=== PATIENT | female | born 1945 | race Caucasian/White ===

== ENCOUNTER → 2016-09-19 | Outpatient (CLI) | payer OTHER, BC ==
[~2016-09-19] MED LIST: AZITTAB PO; CFT250 PO; CRG3125; LRT5 PO
--- NOTE | 2016-09-20 12:37 | MAMMOGRAPHY REPORT ---
BILATERAL DIGITAL SCREENING MAMMOGRAM WITH CAD: 09/19/2016 CLINICAL HISTORY: Routine screening examination. TECHNIQUE: Bilateral CC, MLO and repeat right MLO views were obtained. Current study was also eval uated with a Computer Aided Detection (CAD) system. COMPARISON: Comparison is made to exams dated: 09/16/2015 mammogram, 09/09/2014 mammogram, and 014 mammogram - [facility]. BREAST COMPOSITION: The tissue of both breasts is heterogeneously dense, which may obscure small ma sses. FINDINGS: There are mild vascular calcifications in the breasts. A few coarse benign calcifications and punctate microcalcifications. No new suspicious mass, architectural distortion or cluster of m icrocalcifications is seen. IMPRESSION: ACR BI-RADS CATEGORY 1: NEGATIVE There is no mammographic evidence of malignancy. A 1 year screening mammogram is recommended. The p atient will receive written notification of the results. Approximately 10% of breast cancers are not detected with mammography. A negative mammographic repor t should not delay biopsy if a clinically suggestive mass is present. Haven Man M.D. ay/:09/19/2016 16:37:03 Client Support Consultant: Reina LEMUS)(Jeff), [facility] letter sent: Normal 1/2 BI-RADS Code: ACR BI-RADS Category 1: Negative
== END | disposition home or self-care (01) ==
LOC: C.MAMM 09:16
PROVIDERS: ATTEND Obstetrics & Gynecology
DX: Z12.31 Encounter for screening mammogram for malignant neoplasm of breast (principal)

== ENCOUNTER → 2016-09-19 | Outpatient (CLI) | payer OTHER, BC | END | disposition home or self-care (01) | LOC: C.LABSPEC 16:30 | PROVIDERS: ATTEND Obstetrics & Gynecology | DX: N81.11 Cystocele, midline (principal) ==

== ENCOUNTER → 2017-01-18 | Outpatient (CLI) | payer OTHER, BC | END | disposition home or self-care (01) | LOC: C.MAMM 13:24 | PROVIDERS: ATTEND Family Medicine | DX: M85.89 Other specified disorders of bone density and structure, multiple sites (principal) ==

== ENCOUNTER → 2017-03-05 | Outpatient (CLI) | payer OTHER, BC ==
--- NOTE | 2017-03-05 14:23 | DIAGNOSTIC IMAGING REPORT ---
(RENAL)RETROPERITON COMP CLINICAL HISTORY: 71 years-old Female presenting with chronic renal disease. TECHNIQUE: Real-time grayscale and limited color Doppler ultrasound imaging of the kidneys and bladder was performed. COMPARISON: 09/12/2013. FINDINGS: Right kidney: Normal echogenicity. Right kidney measures 11.5 cm. No hydronephrosis. 3 mm hyperechoic focus in the interpolar region with twinkling artifact suggesting calculus. Normal perfusion. Left kidney: Atrophic and irregular renal parenchyma with multiple cysts noted. No significant residual cortex is appreciated. This appearance is unchanged from prior. Left kidney measures 7.5 cm. Bladder: No bladder wall thickening. Right ureteral jet noted. Other: None. IMPRESSION: 1. Atrophic multicystic left kidney, unchanged from prior. 2. 3 mm nonobstructing right renal calculus. Electronically signed by: Teodoro Alston M.D. 03/05/2017 2:22 PM Dictated Date/Time: 03/05/2017 2:18 PM
== END | disposition home or self-care (01) ==
LOC: C.ULTRBC 13:51
PROVIDERS: ATTEND Obstetrics & Gynecology
DX: Z87.442 Personal history of urinary calculi (principal); N18.9 Chronic kidney disease, unspecified

== ENCOUNTER → 2017-09-25 | Outpatient (CLI) | payer OTHER, BC ==
--- NOTE | 2017-09-27 08:01 | MAMMOGRAPHY REPORT ---
BILATERAL DIGITAL SCREENING MAMMOGRAM TOMOSYNTHESIS WITH CAD: 09/25/2017 CLINICAL HISTORY: Routine screening. Patient has no complaints. TECHNIQUE: Breast tomosynthesis in addition to standard 2D mammography was performed. Current study was also evaluated with a Computer Aided Detection (CAD) system. COMPARISON: Comparison is made to exams dated: 09/19/2016 mammogram, 09/16/2015 mammogram, 09/09/2014 m ammogram, 08/12/2013 mammogram, 08/08/2012 mammogram, and 08/08/2011 mammogram - [facility]. BREAST COMPOSITION: The tissue of both breasts is heterogeneously dense, which may obscure small mas ses. FINDINGS: A linear scar marker overlies the lower inner posterior right breast. There are mild to mo derate vascular calcifications bilaterally. No suspicious mass, architectural distortion or cluster of microcalcifications is seen. IMPRESSION: ACR BI-RADS CATEGORY 1: NEGATIVE There is no mammographic evidence of malignancy. A 1 year screening mammogram is recommended. The pa tient will receive written notification of the results. Approximately 10% of breast cancers are not detected with mammography. A negative mammographic report should not delay biopsy if a clinically suggestive mass is present. Haven Man M.D. ay/:09/25/2017 16:27:34 Water Operator: Suzanne Baron, [facility] letter sent: Normal 1/2 BI-RADS Code: ACR BI-RADS Category 1: Negative
== END | disposition home or self-care (01) ==
LOC: C.MAMM 11:18
PROVIDERS: ATTEND Obstetrics & Gynecology
DX: Z12.31 Encounter for screening mammogram for malignant neoplasm of breast (principal)

== ENCOUNTER 2021-03-12 18:39 | Inpatient (IN) ==
[2021-03-12] MEDS ORDERED: LORazepam 0.5 MG/1 ML VIAL IV STA (19:02)
--- NOTE | 2021-03-12 19:02 | Emergency Department Note ---
Impression & Plan SBO (small bowel obstruction), Amnesia, global, transient ED Provider Note NAME: NICKY MCKEON AGE: 75 SEX: F : 1945 ARRIVES VIA: Ambulance INFORMANT: Patient, EMS and the patient's significant other ED PROVIDER(S): Byron Ortiz DO CHIEF COMPLAINT: Altered mental status HPI: The patient is a 75-year-old female who presented to the emergency department for an evaluation of altered mental status. Initially 911 was called because the patient had a very acute onset of abdominal pain. She describes it as mid abdominal pain which wraps around both flanks. She denies having any chest pain or difficulty breathing. She denies having any fever or cough. The patient was then noticed to have an episode where she was asking repetitive questions. She did not remember why she called 911 or what it happened. Apparently the patient was preparing a meal that she has been preparing for the last few weeks. She was having a large amount of family over. She denies having any nausea or vomiting. She has had no fever. She is had no recent trauma. She does not have any significant past medical history and does not t doug medication specifically for blood pressure. ROS: See above HPI for pertinent positives & negatives. A total of 10 systems reviewed and were otherwise negative. PAST MEDICAL HISTORY: See Below PAST SURGICAL HISTORY: See Below FAMILY HISTORY: See Below SOCIAL HISTORY: See Below HOME MEDICATIONS: See Below ALLERGIES: See Below VITALS: See Below PHYSICAL EXAMINATION: GENERAL: Patient is awake alert in no acute distress patient is resting comfortably and showing no signs of anxiety EYES: The conjunctivae are clear. The pupils are round and reactive. EARS, NOSE, MOUTH AND THROAT: The nose is without any evidence of any deformity. Mucous membranes are moist. Tongue is midline. NECK: The neck is nontender and supple. RESPIRATORY: Normal respiratory effort is noted there is no evidence of wheezing rhonchi or rales CARDIOVASCULAR: Regular rate and rhythm noted there no murmurs rubs or gallops normal S1 normal S2. GASTROINTESTINAL: The abdomen is soft. Abdomen is nontender. MUSCULOSKELETAL/EXTREMITIES: There is no evidence of gross deformity full range of motion is noted in the hips and shoulders. SKIN: There is no obvious evidence of any rash. There are no petechiae, pallor or cyanosis noted. NEUROLOGIC: Patient is awake alert and oriented x3 strength is symmetric patellar reflexes are 2+ bilaterally. There is no facial droop noted. The patient does ask repetitive questions about why she is in the emergency department but otherwise does recognize her who is with her. MEDICAL DECISION MAKING: The patient is a 75-year-old female who presented to the emergency department for an evaluation of multiple complaints. The patient had this episode at home where she developed significant abdominal pain and then vomiting. While en route to the facility the patient developed an episode of amnesia. I was contacted by the prehospital personnel about the patient's neurologic status. She was not made a stroke alert prior to arrival given the complexity of her presentation. Upon arrival she did have some amnesia to the event but had no focal neurologic deficits. She has underlying renal disease so plain CT of the head was obtained as well as CT the abdomen and pelvis. The patient CT the head did not show any acute disease. Her condition continued to improve while she in the emergency department but CT of the abdomen and pelvis appear to be consistent with a bowel obstruction as well as possible internal hernia. I discussed the patient's condition with the on-call general surgeon. I also discussed his case with the on-call [facility] hospitalist. They have agreed to evaluate the patient in the emergency department for further management and disposition. NG tube was ordered. Triage Nursing notes reviewed. Prior medical records reviewed Vital Signs: reviewed and remarkable for elevated blood pressure. Differential diagnosis: Infection, hypoglycemia, electrolyte abnormalities, overdose, toxicologic, cardiac sources, intracerebral event, neurologic, trauma, as well as other pathologies. ER treatment provided: See below Diagnostics interpreted by me: ECG: EKG was obtained in the emergency department. My interpretation is normal sinus rhythm at 61 bpm. Inferior Q waves are noted. Incomplete right bundle branch block pattern was noted. This was compared to a tracing from June 122006. No significant changes were noted. Cardiac Monitoring: An order was placed for continuous cardiac monitoring. The monitor shows a rate of 57 bpm with sinus bradycardia rhythm. Laboratory studies: As stated above and show below. Imaging studies: See below Consultation(s): 2000: I discussed this case with Dr. King who is on-call for the general surgical group. He does recommend an NG tube. I discussed this case with the on-call [facility] hospitalist. They have agreed to evaluate the patient in the emergency department for further management and disposition. Past Med/Surg History Medical History (Updated 03/12/21 @ 23:53 by Byron Ortiz DO) Kidney stones Surgical History (Updated 03/13/21 @ 05:40 by Nadine Johnson MD) History of total hysterectomy Hx of cholecystectomy Hx of mitral valve replacement Social History Smoking Status: Never smoker Hx Alcohol Use: Yes Alcohol type: wine Hx Substance Use: No Preferred Language: Sami Communication Ability: Effective Purchasing And Claims Supervisor Required: No Beliefs That Will Affect Care: Restorationism Restorationism Beliefs: Member of [facility] Current Living Situation: Spouse Feels Safe at Home: Yes Safety Concerns: Feels Safe At This Time Allergies Allergies Allergy/AdvReac Type Severity Reaction Status Date / Time shellfish derived Allergy Unknown COULDN'T Verified 03/12/21 20:38 BREATH; SWELLING methimazole AdvReac Mild SWELLING Verified 03/12/21 20:38 OF JOINTS iodine AdvReac Unknown Nausea Verified 03/12/21 20:38 amoxicillin [From Augmentin] AdvReac BLOODY Verified 03/12/21 20:38 DIAHRREA clavulanic acid AdvReac BLOODY Verified 03/12/21 20:38 [From Augmentin] DIAHRREA Home Meds Home Medications Medication Instructions Recorded Confirmed cholecalciferol (vitamin D3) 25 1,000 unit PO DAILY 02/04/19 03/12/21 mcg (1,000 unit) tablet (Vitamin D3) prednisone 5 mg tablet 5 mg PO DAILY 03/12/21 03/12/21 tolterodine 1 mg tablet 1 mg PO BID 03/12/21 03/12/21 Results & Data (ED) Vital Signs Vital Signs - 24 hr 03/12/21 18:35 03/12/21 19:12 03/12/21 19:30 Temperature 36.8 C Temperature Source Oral Pulse Rate 88 83 69 Pulse Rate [Right Finger] 88 Pulse Rate from SpO2 Sensor 67 Respiratory Rate 18 22 19 Blood Pressure 210/92 H 164/99 H Blood Pressure [Right Arm] 169/89 H Blood Pressure Mean 131 120 Blood Pressure Mean [Right Arm] 115 Blood Pressure Position [Right Arm] Lying Pulse Oximetry 97 98 95 Oxygen Delivery Method Room Air Room Air Sepsis Recent Fever Within 48 Hours No Sepsis New/Unexplained Change in Mental Status No Sepsis Action Taken by Nursing No Action Required 03/12/21 20:00 03/12/21 20:30 Temperature Temperature Source Pulse Rate 64 72 Pulse Rate [Right Finger] Pulse Rate from SpO2 Sensor 61 68 Respiratory Rate 16 Blood Pressure 182/97 H 187/93 H Blood Pressure [Right Arm] Blood Pressure Mean 125 124 Blood Pressure Mean [Right Arm] Blood Pressure Position [Right Arm] Pulse Oximetry 97 96 Oxygen Delivery Method Sepsis Recent Fever Within 48 Hours Sepsis New/Unexplained Change in Mental Status Sepsis Action Taken by Fdc Medications Current Medication List: was personally reviewed by me Laboratory Data Attestation: I reviewed the patient's lab results. Result diagrams: 03/13/21 05:56 03/13/21 05:56 Lab Results 03/12/21 03/12/21 03/12/21 Range/Units 19:10 19:10 19:10 WBC 13.54 H (4.8-10.8) K/uL RBC 4.91 (4.2-5.4) M/uL Hgb 14.9 (12.0-16.0) g/dL Hct 44.9 (37-47) % MCV 91.4 (80-100) fL MCH 30.3 (25-34) pg MCHC 33.2 (32-36) g/dL RDW Std Deviation 49.8 H (36.4-46.3) fL RDW Coeff of Jigna 14.7 H (11.5-14.5) % Plt Count 228 (130-400) K/uL MPV 9.6 (7.4-10.4) fL Immature Gran % (Auto) 0.2 % Neut % (Auto) 86.5 % Lymph % (Auto) 8.9 % Weld % (Auto) 3.9 % Eos % (Auto) 0.2 % Baso % (Auto) 0.3 % Neut # (Auto) 11.71 H (1.4-6.5) K/uL Lymph # (Auto) 1.20 (1.2-3.4) K/uL Weld # (Auto) 0.53 (0.11-0.59) K/uL Eos # (Auto) 0.03 (0-0.5) K/uL Baso # (Auto) 0.04 (0-0.2) K/uL Immature Gran # (Auto) 0.03 H (0.00-0.02) K/uL PT 10.3 (9.0-12.0) Seconds INR 1.0 (0.9-1.1) APTT 22.1 (21.0-31.0) Seconds PTT Ratio 0.8 Sodium 140 (136-145) mmol/L Potassium 4.0 (3.5-5.1) mmol/L Chloride 105 (98-107) mmol/L Carbon Dioxide 28 (21-32) mmol/L Anion Gap 7.0 (3-11) BUN 21 H (7-18) mg/dl Creatinine 0.98 (0.6-1.2) mg/dl Est Cr Clr Drug Dosing 41.5 ml/min Est GFR ( Amer) 65.4 ml/min Est GFR (Non-Af Amer) 56.4 ml/min BUN/Creatinine Ratio 21.5 H (10-20) Glucose 96 (70-99) mg/dl Calcium 9.1 (8.5-10.1) mg/dl Magnesium 1.9 (1.8-2.4) mg/dl Total Bilirubin 0.8 (0.2-1) mg/dl AST 31 (15-37) U/L ALT 30 (12-78) U/L Alkaline Phosphatase 59 (45-117) U/L Troponin I < 0.015 (0-0.045) ng/ml Total Protein 6.9 (6.4-8.2) gm/dl Albumin 3.7 (3.4-5.0) gm/dl Globulin 3.2 (2.5-4.0) gm/dl Albumin/Globulin Ratio 1.2 (0.9-2) Lipase 157 (73-393) U/L COVID-19 Eval Order SARS-CoV-2 (PCR) (Negative) 03/12/21 03/12/21 Range/Units 20:00 20:00 WBC (4.8-10.8) K/uL RBC (4.2-5.4) M/uL Hgb (12.0-16.0) g/dL Hct (37-47) % MCV (80-100) fL MCH (25-34) pg MCHC (32-36) g/dL RDW Std Deviation (36.4-46.3) fL RDW Coeff of Jigna (11.5-14.5) % Plt Count (130-400) K/uL MPV (7.4-10.4) fL Immature Gran % (Auto) % Neut % (Auto) % Lymph % (Auto) % Weld % (Auto) % Eos % (Auto) % Baso % (Auto) % Neut # (Auto) (1.4-6.5) K/uL Lymph # (Auto) (1.2-3.4) K/uL Weld # (Auto) (0.11-0.59) K/uL Eos # (Auto) (0-0.5) K/uL Baso # (Auto) (0-0.2) K/uL Immature Gran # (Auto) (0.00-0.02) K/uL PT (9.0-12.0) Seconds INR (0.9-1.1) APTT (21.0-31.0) Seconds PTT Ratio Sodium (136-145) mmol/L Potassium (3.5-5.1) mmol/L Chloride (98-107) mmol/L Carbon Dioxide (21-32) mmol/L Anion Gap (3-11) BUN (7-18) mg/dl Creatinine (0.6-1.2) mg/dl Est Cr Clr Drug Dosing ml/min Est GFR ( Amer) ml/min Est GFR (Non-Af Amer) ml/min BUN/Creatinine Ratio (10-20) Glucose (70-99) mg/dl Calcium (8.5-10.1) mg/dl Magnesium (1.8-2.4) mg/dl Total Bilirubin (0.2-1) mg/dl AST (15-37) U/L ALT (12-78) U/L Alkaline Phosphatase (45-117) U/L Troponin I (0-0.045) ng/ml Total Protein (6.4-8.2) gm/dl Albumin (3.4-5.0) gm/dl Globulin (2.5-4.0) gm/dl Albumin/Globulin Ratio (0.9-2) Lipase (73-393) U/L COVID-19 Eval Order Covid19 at [facility] SARS-CoV-2 (PCR) NEGATIVE (Negative) Administered Medications Sodium Chloride (Nss 1000ml) 1,000 mls @ 100 mls/hr IV .Q10H JOSE Stop: 03/13/21 18:12 Last Admin: 03/13/21 08:31 Dose: 100 mls/hr Documented by: [id number] Infusion: 03/13/21 08:31 Dose: 100 mls/hr Documented by: [id number] Admin: 03/12/21 22:41 Dose: 100 mls/hr Documented by: [id number] Prochlorperazine 5 mg/ Syringe 5 mls @ 5 mls/min IV Q6H PRN PRN Reason: Nausea And Vomiting Stop: 04/12/21 04:32 Last Admin: 03/13/21 05:00 Dose: 5 mls/min Documented by: [id number] Ceftriaxone Sodium 1,000 mg/ (Dextrose) 50 mls @ 100 mls/hr IV Q24H JOSE; Protocol Stop: 03/23/21 05:59 Last Infusion: 03/13/21 07:03 Dose: 0 mls/hr Documented by: [id number] Admin: 03/13/21 06:06 Dose: 100 mls/hr Documented by: [id number] Ondansetron HCl (Ondansetron Inj 2 Mg/Ml 2 Ml Vial) 4 mg IV Q6H PRN PRN Reason: Nausea Stop: 04/11/21 22:12 Last Admin: 03/13/21 08:31 Dose: 4 mg Documented by: [id number] Admin: 03/13/21 01:23 Dose: 4 mg Documented by: [id number] Discontinued Medications Lorazepam (Ativan) 0.5 mg in 1 mls @ 1 mls/min IV NOW STA Stop: 03/12/21 19:03 Last Admin: 03/12/21 19:19 Dose: 1 mls/min Documented by: [id number] Cefoxitin Sodium (Mefoxin) 1,000 mg in 50 mls @ 100 mls/hr IV NOW STA Stop: 03/12/21 20:10 Last Infusion: 03/12/21 20:30 Dose: 0 mls/hr Documented by: [id number] Admin: 03/12/21 19:53 Dose: 100 mls/hr Documented by: [id number] Sodium Chloride (Nss 1000ml) 500 mls @ 999 mls/hr IV .Q31M ONE Stop: 03/12/21 20:11 Last Infusion: 03/12/21 20:30 Dose: 0 mls/hr Documented by: [id number] Admin: 03/12/21 19:53 Dose: 999 mls/hr Documented by: [id number] Imaging Data Radiologist's Impression: KUB X-Ray 03/12/21 20:26 KUB CLINICAL HISTORY: Enteric tube placement. FINDINGS: An AP, portable, upright view of the lower chest and upper abdomen is correlated with abdominal CT performed the same day 03/12/2021. An enteric tube has been placed. The tip projects below the diaphragm over the distal stomach. Dilated loops of gas-filled bowel are seen in the upper abdomen. Cholecystectomy clips are noted. The heart is enlarged with evidence of previous cardiac valve surgery. Atelectasis is seen at the lung bases. The skeletal structures are osteopenic and intact as visualized. IMPRESSION: 1. An enteric tube has been placed as above. 2. Gas-filled loops of dilated bowel are noted in the upper abdomen. Electronically signed by: Eleazar Fitch M.D. 03/13/2021 8:07 AM Discharge Plan Visit Data Chief Complaint: Stroke/CVA Symptoms ED Provider: Bryon Ortiz Discharge Problem: SBO (small bowel obstruction), Amnesia, global, transient Patient Disposition: Admitted As Inpatient Condition: Good Discharge Instructions Interventions: ED Discharge Assessment Last Done: 03/12/21 22:08
--- NOTE | 2021-03-12 19:16 | CT Scan Report ---
CT OF THE HEAD WITHOUT CONTRAST CLINICAL HISTORY: Stroke Like Symptoms COMPARISON STUDY: Head CT May 07, 2011. TECHNIQUE: Helical axial images of the head were obtained without IV contrast. Automated exposure con trol was utilized for the study. A dose lowering technique was utilized adhering to the principles o f ALARA. FINDINGS: No acute intracranial hemorrhage, midline shift or mass effect is present. The ventricular system is unremarkable. The basal cisterns are patent. No extra-axial collections are present. There are no findings to suggest acute dural sinus thrombosis or acute territorial infarct. No significant calvarial abnormalities are present. Visualized portions of the sinuses and mastoid air cells are kirby ar. IMPRESSION: No acute intracranial findings. ACT 112: Negative or not required by law. Electronically signed by: Dereje Marquez M.D. 03/12/2021 7:14 PM
--- NOTE | 2021-03-12 19:17 | XRay Report ---
XR chest 1V portable CLINICAL HISTORY: Stroke Like Symptoms COMPARISON STUDY: Chest radiograph June 12, 2017. FINDINGS: Lung volumes are normal. Lungs are clear. There is no pneumothorax or pleural effusion. Car diomegaly is noted as well as a prosthetic mitral valve. Mediastinal contours are normal. There is no evidence for pulmonary edema. IMPRESSION: No acute cardiopulmonary findings. ACT 112: Negative or not required by law. Electronically signed by: Dereje Marquez M.D. 03/12/2021 7:15 PM
[2021-03-12 19:21] LABS: Basophils # (auto) 0.04 K/uL (0-0.2); Basophils % (auto) 0.3 %; Eosinophils # (auto) 0.03 K/uL (0-0.5); Eosinophils % (auto) 0.2 %; Hematocrit (blood only) 44.9 % (37-47); Hemoglobin 14.9 g/dL (12.0-16.0); Immature Granulocytes # (auto) 0.03 K/uL (0.00-0.02); Immature Granulocytes % (auto) 0.2 %; Lymphocytes % (auto) 8.9 %; Mean Corpuscular Hemoglobin 30.3 pg (25-34); Mean Corpuscular Hgb Conc 33.2 g/dL (32-36); Mean Corpuscular Volume 91.4 fL (80-100); Mean Platelet Volume 9.6 fL (7.4-10.4); Monocytes # (auto) 0.53 K/uL (0.11-0.59); Monocytes % (auto) 3.9 %; Neutrophils # (auto) 11.71 K/uL (1.4-6.5); Neutrophils % (auto) 86.5 %; Platelet Count 228 K/uL (130-400); RDW Coefficient of Variation 14.7 % (11.5-14.5); RDW Standard Deviation 49.8 fL (36.4-46.3); Red Blood Count 4.91 M/uL (4.2-5.4); White Blood Count 13.54 K/uL (4.8-10.8)
--- NOTE | 2021-03-12 19:26 | CT Scan Report ---
CT OF THE ABDOMEN AND PELVIS WITHOUT CONTRAST CLINICAL HISTORY: Flank pain. COMPARISON STUDY: Renal ultrasound March 05, 2017. CT of the abdomen and pelvis June 12, 2007. TECHNIQUE: Axial images of the abdomen and pelvis were obtained without IV contrast. Images were revi ewed in the axial, sagittal, and coronal planes. Automated exposure control was utilized for the katia dy. A dose lowering technique was utilized adhering to the principles of ALARA. FINDINGS: Lung bases are unremarkable. Cardiomegaly is noted. A prosthetic mitral valve. No pneumatos is, free air or portal venous gas is present. Evaluation of the abdomen and pelvis is suboptimal on t his unenhanced exam. There is no significant biliary ductal dilatation status post cholecystectomy. T here is no right hydronephrosis. Marked left renal atrophy with left hydroureteronephrosis is unchang ed since prior CT. This is chronic. There are left renal calculi. The appendix is normal. There are m ultiple loops of mildly dilated fluid-filled mid small bowel. There is mild mesenteric infiltration. Note is made of mild swirling of the small bowel mesentery best shown on coronal reformats. Associate d small bowel transition points are noted. The findings represent a small bowel obstruction. No acute fracture or suspicious lesion is identified within the visualized skeletal structures. There is trac e pelvic ascites. IMPRESSION: Multiple loops of mildly dilated fluid-filled small bowel with swirling of the small bow el mesentery and associated small bowel transition points. The findings represent a small bowel obstr uction which may be due to an internal hernia or adhesions. Mild associated mesenteric infiltration t race ascites. Close clinical follow-up is recommended. ACT 112: Negative or not required by law. Electronically signed by: Dereje Marquez M.D. 03/12/2021 7:25 PM
[2021-03-12 19:36] LABS: Partial Thromboplastin Ratio 0.8; Partial Thromboplastin Time 22.1 Seconds (21.0-31.0); Prothrombin Time 10.3 Seconds (9.0-12.0)
[2021-03-12] MEDS ORDERED: SODIUM CHLORIDE 0.9% 1000ML 500 ML IV ONE (19:41)
[2021-03-12] MEDS ORDERED: cefOXitin 1,000 MG/50 ML BAG IV STA (19:41)
[2021-03-12 20:01] LABS: Alanine Aminotransferase 30 U/L (12-78); Albumin Level 3.7 gm/dl (3.4-5.0); Aspartate Aminotransferase 31 U/L (15-37); BUN Creatinine Ratio 21.5 (10-20); Blood Urea Nitrogen 21 mg/dl (7-18); Calcium 9.1 mg/dl (8.5-10.1); Carbon Dioxide 28 mmol/L (21-32); Chloride 105 mmol/L (98-107); Creatinine Clr Calc Pharmacy 41.5 ml/min; Est GFR (African American) 65.4 ml/min; Est GFR (Non-African American) 56.4 ml/min; Glucose 96 mg/dl (70-99); Lipase 157 U/L (73-393); Magnesium 1.9 mg/dl (1.8-2.4); Sodium 140 mmol/L (136-145)
[2021-03-12 20:05] LABS: Albumin Globulin Ratio 1.2 (0.9-2); Alkaline Phosphatase 59 U/L (45-117); Bilirubin,Total 0.8 mg/dl (0.2-1); Globulin 3.2 gm/dl (2.5-4.0); Total Protein 6.9 gm/dl (6.4-8.2); Troponin I < 0.015 ng/ml (0-0.045)
--- NOTE | 2021-03-12 20:54 | History & Physical Report ---
Date of Service March 12, 2021 Assessment & Plan (1) SBO (small bowel obstruction): Plan: SBO - NG on low intermittent suction - NPO - surgical consult for surgical options - SBO likely secondary to adhesions from previous surgeries - zofran/compazine for nausea - gentle hydration with IVF - BMP/CBC in AM Transient Amnesia - head CT negative - more likely acute hypotension than stroke PMR - daily predisone 5 mg DVT ppx: lovenox FEN/GI: NPO, famotidine IV Code Status: Full COde DIspo: Med/Surg (2) Amnesia, global, transient: History of Present Illness Primary Care Provider: Martin Jacob 75 yo F in ER for worsening abdominal pain sudden onset earlier today. States that it is spread throughout her abdomen, sharp, has caused nausea, no emesis. hx abdominal surgery for gallbladder removal and hysterectomy. No hx of similar episodes. no fevers/chills/night sweats. no symptoms prior to today. After arrival at ER patient states that she didn't remember the ambulance ride in. Last thing she remembers is being at home surrounded by family and sitting down on a step to rest while everyone looked worried around her. Next recollection is being on a gurney brought into ER. No hx stroke, HTN, CAD. No focal symptoms. Head CT negative. No other episodes or instances of memory loss. On prednisone 5 mg daily as part of taper for treatment of PMR. Allergies Allergy/AdvReac Type Severity Reaction Status Date / Time shellfish derived Allergy Unknown COULDN'T Verified 03/12/21 20:38 BREATH; SWELLING methimazole AdvReac Mild SWELLING Verified 03/12/21 20:38 OF JOINTS iodine AdvReac Unknown Nausea Verified 03/12/21 20:38 amoxicillin [From Augmentin] AdvReac BLOODY Verified 03/12/21 20:38 DIAHRREA clavulanic acid AdvReac BLOODY Verified 03/12/21 20:38 [From Augmentin] DIAHRREA Home Medications Medication Instructions Recorded Confirmed Type cholecalciferol (vitamin D3) 25 1,000 unit PO DAILY 02/04/19 03/12/21 History mcg (1,000 unit) tablet (Vitamin D3) prednisone 5 mg tablet 5 mg PO DAILY 03/12/21 03/12/21 History tolterodine 1 mg tablet 1 mg PO BID 03/12/21 03/12/21 History Past Med/Surg History Medical History (Updated 03/13/21 @ 13:47 by Lamar Cruz PA-C) Kidney stones Surgical History (Updated 03/13/21 @ 05:40 by Nadine Johnson MD) History of total hysterectomy Hx of cholecystectomy Hx of mitral valve replacement Social History Smoking Status: Never smoker Hx Alcohol Use: Yes Alcohol type: wine Hx Substance Use: No Preferred Language: Azeri Communication Ability: Effective Blood Bank Laboratory Professional Required: No Beliefs That Will Affect Care: Gnosticism Gnosticism Beliefs: Member of [facility] Current Living Situation: Spouse Feels Safe at Home: Yes Safety Concerns: Feels Safe At This Time Review of Systems Constitutional: no fever, no chills, no sweats and no fatigue Eyes: no blind spots and no discharge Ear, Nose, Mouth, Throat: no hearing loss and no nasal congestion Respiratory: no cough and no dyspnea Cardiovascular: no chest pain, no dyspnea on exertion and no edema Gastrointestinal: + abdominal pain, + nausea and + cramping; no vomiting, no constipation, no diarrhea/loose stools and no blood in stools Genitourinary: no dysuria Musculoskeletal: no joint pain and no myalgia Neurologic: no tingling, no numbness and no headache(s) Endocrine: no fatigue Physical Exam Physical Exam: Constitutional: sitting up in bed with NG tube in place, visibly distressed Eyes: EOMI, pupils equal and reactive bilaterally, no scleral icterus Cardiac: RRR, no murmurs, gallops or rubs. Normal S1, S2 Pulm: CTA BL, no wheezes, rhonchi, crackles or rubs, moving air well throughout both lungs Abd: soft, TTP over lower abdomen, normal bowel sounds, no rebound or guarding Extremities: 2+ peripheral pulses, no edema Neuro: no focal deficits, moving all 4 limbs, A&Ox3 Results & Data Results & Data ([facility]) Vital Signs (Past 12 Hours) Vital Signs Temp Pulse Pulse Resp BP BP Pulse Ox 03/12/21 20:30 72 187/93 H 96 03/12/21 20:00 64 16 182/97 H 97 03/12/21 19:30 69 19 164/99 H 95 03/12/21 19:12 83 88 22 169/89 H 98 03/12/21 18:35 36.8 C 88 18 210/92 H 97 Laboratory Results Laboratory Results WBC 13.54 K/uL (4.8-10.8) H 03/12/21 19:10 RBC 4.91 M/uL (4.2-5.4) 03/12/21 19:10 Hgb 14.9 g/dL (12.0-16.0) 03/12/21 19:10 Hct 44.9 % (37-47) 03/12/21 19:10 MCV 91.4 fL (80-100) 03/12/21 19:10 MCH 30.3 pg (25-34) 03/12/21 19:10 MCHC 33.2 g/dL (32-36) 03/12/21 19:10 RDW Std Deviation 49.8 fL (36.4-46.3) H 03/12/21 19:10 RDW Coeff of Jigna 14.7 % (11.5-14.5) H 03/12/21 19:10 Plt Count 228 K/uL (130-400) 03/12/21 19:10 MPV 9.6 fL (7.4-10.4) 03/12/21 19:10 Immature Gran % (Auto) 0.2 % 03/12/21 19:10 Neut % (Auto) 86.5 % 03/12/21 19:10 Lymph % (Auto) 8.9 % 03/12/21 19:10 [place] % (Auto) 3.9 % 03/12/21 19:10 Eos % (Auto) 0.2 % 03/12/21 19:10 Baso % (Auto) 0.3 % 03/12/21 19:10 Neut # (Auto) 11.71 K/uL (1.4-6.5) H 03/12/21 19:10 Lymph # (Auto) 1.20 K/uL (1.2-3.4) 03/12/21 19:10 [place] # (Auto) 0.53 K/uL (0.11-0.59) 03/12/21 19:10 Eos # (Auto) 0.03 K/uL (0-0.5) 03/12/21 19:10 Baso # (Auto) 0.04 K/uL (0-0.2) 03/12/21 19:10 Immature Gran # (Auto) 0.03 K/uL (0.00-0.02) H 03/12/21 19:10 PT 10.3 Seconds (9.0-12.0) 03/12/21 19:10 INR 1.0 (0.9-1.1) 03/12/21 19:10 APTT 22.1 Seconds (21.0-31.0) 03/12/21 19:10 PTT Ratio 0.8 03/12/21 19:10 Sodium 140 mmol/L (136-145) 03/12/21 19:10 Potassium 4.0 mmol/L (3.5-5.1) 03/12/21 19:10 Chloride 105 mmol/L (98-107) 03/12/21 19:10 Carbon Dioxide 28 mmol/L (21-32) 03/12/21 19:10 Anion Gap 7.0 (3-11) 03/12/21 19:10 BUN 21 mg/dl (7-18) H 03/12/21 19:10 Creatinine 0.98 mg/dl (0.6-1.2) 03/12/21 19:10 Est Cr Clr Drug Dosing 41.5 ml/min 03/12/21 19:10 Est GFR ( Amer) 65.4 ml/min 03/12/21 19:10 Est GFR (Non-Af Amer) 56.4 ml/min 03/12/21 19:10 BUN/Creatinine Ratio 21.5 (10-20) H 03/12/21 19:10 Glucose 96 mg/dl (70-99) 03/12/21 19:10 Calcium 9.1 mg/dl (8.5-10.1) 03/12/21 19:10 Magnesium 1.9 mg/dl (1.8-2.4) 03/12/21 19:10 Total Bilirubin 0.8 mg/dl (0.2-1) 03/12/21 19:10 AST 31 U/L (15-37) 03/12/21 19:10 ALT 30 U/L (12-78) 03/12/21 19:10 Alkaline Phosphatase 59 U/L (45-117) 03/12/21 19:10 Troponin I < 0.015 ng/ml (0-0.045) 03/12/21 19:10 Total Protein 6.9 gm/dl (6.4-8.2) 03/12/21 19:10 Albumin 3.7 gm/dl (3.4-5.0) 03/12/21 19:10 Globulin 3.2 gm/dl (2.5-4.0) 03/12/21 19:10 Albumin/Globulin Ratio 1.2 (0.9-2) 03/12/21 19:10 Lipase 157 U/L (73-393) 03/12/21 19:10 COVID-19 Eval Order Covid19 at [facility] 03/12/21 20:00 SARS-CoV-2 (PCR) NEGATIVE (Negative) 03/12/21 20:00 Impressions Abdomen/Pelvis CT 03/12/21 18:32 CT OF THE ABDOMEN AND PELVIS WITHOUT CONTRAST CLINICAL HISTORY: Flank pain. COMPARISON STUDY: Renal ultrasound March 05, 2017. CT of the abdomen and pelvis June 12, 2007. TECHNIQUE: Axial images of the abdomen and pelvis were obtained without IV contrast. Images were reviewed in the axial, sagittal, and coronal planes. Automated exposure control was utilized for the study. A dose lowering technique was utilized adhering to the principles of ALARA. FINDINGS: Lung bases are unremarkable. Cardiomegaly is noted. A prosthetic mitral valve. No pneumatosis, free air or portal venous gas is present. Evaluation of the abdomen and pelvis is suboptimal on this unenhanced exam. There is no significant biliary ductal dilatation status post cholecystectomy. There is no right hydronephrosis. Marked left renal atrophy with left hydroureteronephrosis is unchanged since prior CT. This is chronic. There are left renal calculi. The appendix is normal. There are multiple loops of mildly dilated fluid-filled mid small bowel. There is mild mesenteric infiltration. Note is made of mild swirling of the small bowel mesentery best shown on coronal reformats. Associated small bowel transition points are noted. The findings represent a small bowel obstruction. No acute fracture or suspicious lesion is i dentified within the visualized skeletal structures. There is trace pelvic ascites. IMPRESSION: Multiple loops of mildly dilated fluid-filled small bowel with swirling of the small bowel mesentery and associated small bowel transition points. The findings represent a small bowel obstruction which may be due to an internal hernia or adhesions. Mild associated mesenteric infiltration trace ascites. Close clinical follow-up is recommended. ACT 112: Negative or not required by law. Electronically signed by: Dereje Marquez M.D. 03/12/2021 7:25 PM Chest X-Ray 03/12/21 18:32 XR chest 1V portable CLINICAL HISTORY: Stroke Like Symptoms COMPARISON STUDY: Chest radiograph June 12, 2017. FINDINGS: Lung volumes are normal. Lungs are clear. There is no pneumothorax or pleural effusion. Cardiomegaly is noted as well as a prosthetic mitral valve. Mediastinal contours are normal. There is no evidence for pulmonary edema. IMPRESSION: No acute cardiopulmonary findings. ACT 112: Negative or not required by law. Electronically signed by: Dereje Marquez M.D. 03/12/2021 7:[address] 03/12/21 18:32 CT OF THE HEAD WITHOUT CONTRAST CLINICAL HISTORY: Stroke Like Symptoms COMPARISON STUDY: Head CT May 07, 2011. TECHNIQUE: Helical axial images of the head were obtained without IV contrast. Automated exposure control was utilized for the study. A dose lowering technique was utilized adhering to the principles of ALARA. FINDINGS: No acute intracranial hemorrhage, midline shift or mass effect is present. The ventricular system is unremarkable. The basal cisterns are patent. No extra-axial collections are present. There are no findings to suggest acute dural sinus thrombosis or acute territorial infarct. No significant calvarial abnormalities are present. Visualized portions of the sinuses and mastoid air cells are clear. IMPRESSION: No acute intracranial findings. ACT 112: Negative or not required by law. Electronically signed by: Dereje Marquez M.D. 03/12/2021 7:14 PM Supervising Physician Co-Signing Physician Notes Attending addendum: I have physically seen this patient, have supervised the medical residents activities, and agree with the H&P unless as otherwise noted. Assessment and Plan: Small bowel obstruction- NPO NG tube to low intermittent suction CT suggest secondary to adhesions from previous surgeries Zofran 4 mg IV every 6 hours as needed Compazine 10 mg IV every 6 hours as needed Zosyn 4.5 g IV every 8 hours Famotidine 20 mg IV every 12 hours IV fluids General surgery consult aware and has been made from the ED PMR- On daily prednisone 5 mg daily May need stress dose hydrocortisone 100 mg IV every 8 hours Remaining orders and notations as noted Resident Activity Tracking Resident Involvement: Resident Care Provided Care Provided: Adult Hospital Medicine
[2021-03-12] MEDS: SODIUM CHLORIDE 0.9% 1000ML 1,000 ML IV SCH (22:41)
[2021-03-12] MEDS ORDERED: ACETAMINOPHEN 1000 MG/100 ML IV IV PRN (23:07)
[2021-03-12] MEDS ORDERED: ACETAMINOPHEN 1,000 MG/100 ML VIAL IV PRN (23:30)
[2021-03-13] MEDS: ONDANSETRON INJ 2 MG/ML 2 ML VIAL IV PRN ×3 (01:23→16:41)
[2021-03-13] MEDS: PROCHLORPERAZINE 5 MG in SYRINGE 4 ML IV PRN ×2 (05:00→20:25)
[2021-03-13] MEDS: cefTRIAXone SODIUM 1,000 MG in DEXTROSE 5% 50 ML IV SCH (06:06)
[2021-03-13 06:11] LABS: Basophils # (auto) 0.02 K/uL (0-0.2); Basophils % (auto) 0.2 %; Hematocrit (blood only) 41.2 % (37-47); Hemoglobin 13.7 g/dL (12.0-16.0); Immature Granulocytes # (auto) 0.02 K/uL (0.00-0.02); Immature Granulocytes % (auto) 0.2 %; Lymphocytes # (auto) 0.92 K/uL (1.2-3.4); Lymphocytes % (auto) 8.3 %; Mean Corpuscular Hgb Conc 33.3 g/dL (32-36); Mean Corpuscular Volume 90.2 fL (80-100); Mean Platelet Volume 9.1 fL (7.4-10.4); Monocytes # (auto) 0.63 K/uL (0.11-0.59); Monocytes % (auto) 5.7 %; Neutrophils # (auto) 9.46 K/uL (1.4-6.5); Neutrophils % (auto) 85.6 %; Platelet Count 220 K/uL (130-400); RDW Coefficient of Variation 14.7 % (11.5-14.5); RDW Standard Deviation 48.9 fL (36.4-46.3); Red Blood Count 4.57 M/uL (4.2-5.4); White Blood Count 11.05 K/uL (4.8-10.8)
[2021-03-13 06:39] LABS: BUN Creatinine Ratio 20.5 (10-20); Calcium 8.5 mg/dl (8.5-10.1); Creatinine Clr Calc Pharmacy 45.8 ml/min; Est GFR (African American) 78.8 ml/min
--- NOTE | 2021-03-13 08:08 | XRay Report ---
KUB CLINICAL HISTORY: Enteric tube placement. FINDINGS: An AP, portable, upright view of the lower chest and upper abdomen is correlated with abdom inal CT performed the same day 03/12/2021. An enteric tube has been placed. The tip projects below the diaphragm over the distal stomach. Dilated loops of gas-filled bowel are seen in the upper abdomen. Cholecystectomy clips are noted. The heart is enlarged with evidence of previous cardiac valve surger y. Atelectasis is seen at the lung bases. The skeletal structures are osteopenic and intact as visual ized. IMPRESSION: 1. An enteric tube has been placed as above. 2. Gas-filled loops of dilated bowel are noted in the upper abdomen. Electronically signed by: Eleazar Fitch M.D. 03/13/2021 8:07 AM
[2021-03-13] MEDS: SODIUM CHLORIDE 0.9% 1000ML 1,000 ML IV SCH (08:31)
[2021-03-13] MEDS: FAMOTIDINE 20 MG in SYRINGE 3 ML IV SCH ×2 (09:55→20:25)
[2021-03-13] MEDS: ENOXAPARIN INJ 40 MG/0.4 ML SYR SQ SCH (09:55)
[2021-03-13] MEDS: TOLTERODINE TARTRATE 1 MG TAB PO SCH ×2 (09:56→20:25)
[2021-03-13] MEDS: predniSONE 5 MG TAB PO SCH (09:56)
--- NOTE | 2021-03-13 10:47 | Surgery Consultation ---
Date of Consultation March 13, 2021 Assessment & Plan (1) SBO (small bowel obstruction): IVF ngt decompression with bilious drainage abdominal exam benign no bowel function yet con't conservative measures will follow History of Present Illness Attending Physician: Mukul Mcmullen DO History of Present Illness This is a 75YO seen in ED yesterday for worsening abdominal pain with nausea and vomiting. She describes it as diffuse and sharp, Her previous operations include lap regis and ALEXANDER vis low midline. She has never had similar episode. She denies fevers/chills/night sweats, or dysuria. CT scan shows likely SBO from adhesions. Allergies Allergy/AdvReac Type Severity Reaction Status Date / Time shellfish derived Allergy Unknown COULDN'T Verified 03/12/21 20:38 BREATH; SWELLING methimazole AdvReac Mild SWELLING Verified 03/12/21 20:38 OF JOINTS iodine AdvReac Unknown Nausea Verified 03/12/21 20:38 amoxicillin [From Augmentin] AdvReac BLOODY Verified 03/12/21 20:38 DIAHRREA clavulanic acid AdvReac BLOODY Verified 03/12/21 20:38 [From Augmentin] DIAHRREA Home Medications Medication Instructions Recorded Confirmed Type cholecalciferol (vitamin D3) 25 1,000 unit PO DAILY 02/04/19 03/12/21 History mcg (1,000 unit) tablet (Vitamin D3) prednisone 5 mg tablet 5 mg PO DAILY 03/12/21 03/12/21 History tolterodine 1 mg tablet 1 mg PO BID 03/12/21 03/12/21 History Patient History Medical History (Updated 03/12/21 @ 23:53 by Byron Ortiz DO) Kidney stones Surgical History (Updated 03/13/21 @ 05:40 by Nadine Johnson MD) History of total hysterectomy Hx of cholecystectomy Hx of mitral valve replacement Social History Smoking Status: Never smoker Hx Alcohol Use: Yes Alcohol type: wine Hx Substance Use: No Preferred Language: Citizen Of [place] Communication Ability: Effective Reservationist Required: No Beliefs That Will Affect Care: Rastafari Rastafari Beliefs: Member of [facility] Current Living Situation: Spouse Feels Safe at Home: Yes Safety Concerns: Feels Safe At This Time Review of Systems Constitutional: + weakness and + anorexia; no fever and no chills Eyes: no problem reported Ear, Nose, Mouth, Throat: no problem reported Respiratory: no cough and no dyspnea Cardiovascular: no chest pain and no dyspnea Gastrointestinal: + abdominal pain, + bloating, + nausea, + vomiting and + change in bowel habits; no coffee ground emesis Genitourinary: no dysuria Musculoskeletal: no back pain, no neck pain and no joint pain Integumentary: no rash and no lesions Neurologic: + generalized weakness; no localized weakness Psychiatric: no behavioral changes Hematologic / Lymphatic: no easy bleeding and no easy bruising Physical Exam Constitutional: WD/WN, vitals as above Eyes: PERRL, conjunctivae normal, anicteric sclerae ENMT: external ear and nose normal, oropharynx normal Neck: trachea midline Respiratory: normal respiratory effort, lungs clear to auscultation Cardiovascular: RRR, no murmur, no edema Gastrointestinal (Abdomen): Inspection/Auscultation: abdomen normal to inspection, normal bowel sounds and + abdominal surgical scar; abdomen not distended Percussion/Palpation: abdomen soft; abdomen nontender, no guarding and abdomen not rigid Musculoskeletal: Head/Neck/Chest: normocephalic and head atraumatic Skin: no rashes, warm and dry Psychiatric: Orientation: alert and oriented x 3 Results & Data ([facility]) Vital Signs (Past 12 Hours) Vital Signs Temp Pulse Resp BP Pulse Ox 03/13/21 07:18 37.0 C 65 16 154/[address] OF THE ABDOMEN AND PELVIS WITHOUT CONTRAST CLINICAL HISTORY: Flank pain. COMPARISON STUDY: Renal ultrasound March 05, 2017. CT of the abdomen and pelvis June 12, 2007. TECHNIQUE: Axial images of the abdomen and pelvis were obtained without IV contrast. Images were reviewed in the axial, sagittal, and coronal planes. Automated exposure control was utilized for the study. A dose lowering technique was utilized adhering to the principles of ALARA. FINDINGS: Lung bases are unremarkable. Cardiomegaly is noted. A prosthetic mitral valve. No pneumatosis, free air or portal venous gas is present. Evaluation of the abdomen and pelvis is suboptimal on this unenhanced exam. There is no significant biliary ductal dilatation status post cholecystectomy. There is no right hydronephrosis. Marked left renal atrophy with left hydroureteronephrosis is unchanged since prior CT. This is chronic. There are left renal calculi. The appendix is normal. There are multiple loops of mildly dilated fluid-filled mid small bowel. There is mild mesenteric infiltration. Note is made of mild swirling of the small bowel mesentery best shown on coronal reformats. Associated small bowel transition points are noted. The findings represent a small bowel obstruction. No acute fracture or suspicious lesion is identified within the visualized skeletal structures. There is trace pelvic ascites. IMPRESSION: Multiple loops of mildly dilated fluid-filled small bowel with swirling of the small bowel mesentery and associated small bowel transition points. The findings represent a small bowel obstruction which may be due to an internal hernia or adhesions. Mild associated mesenteric infiltration trace ascites. Close clinical follow-up is recommended.
--- NOTE | 2021-03-13 13:39 | Hospitalist Progress Note ---
Date of Service March 13, 2021 Assessment & Plan (1) SBO (small bowel obstruction): Plan: - CT with multiple loops of fluid-filled small bowel with swirling of the small bowel mesentery and associated bowel transition points - possibly related to internal hernia vs adhesions; associated mesenteric infiltration with trace ascites - BS are present x 4 quadrants but slightly hypoactive - not passing gas or moving bowels - NGT placed draining bilious fluid and on low intermittent suction - may clamp temporarily for medications and to ambulate the hallways - Pain and nausea control measures; gentle hydration until oral intake improves; monitor labs - NPO - Was started on Ceftriaxone daily in ED - would have some GI coverage but not for anaerobes - not certain Abx regimen is warranted and may be able to discontinue - Gen Surg following - appreciate input (2) Amnesia, global, transient: Plan: - Unknown etiology - head CT negative and no focal neurological deficits - BP was elevated upon ED arrival and may have contributed to this - given pain it is possible pain, elevated blood pressure, and vagal could be contributing - No symptoms to support infectious etiology - no fever, mild leukocytosis; was already started on Abx empirically which would skew obtaining a urine sample - BP is improved since admission but still slightly elevated - on chronic steroids due to PMR but not on any BP medication - would monitor at this time (3) PMR (polymyalgia rheumatica): Plan: - Continue Prednisone 5 mg daily - it is a low dose but given SBO stress monitor for need for stress dosing Plan: - Conservative measures at this time - ambulate as tolerate and diet advancement pending reassessment and resolution of SBO Admission and Anticipated Discharge Date Admission Date: March 12, 2021 Subjective Reports her abdominal pain is feeling much better today. Just very tired. She has NGT to R nare. She is not passing gas yet. She says her stomach feels a little upset but doesn't have the feeling of needing to vomit. She would like to ambulate the hallways and can clamp the NGT to allow ambulation then return to suction Review of Systems Review of Systems: REVIEW OF SYSTEMS General/Constitutional: + tired; Denies fever/chills ENT: Denies visual changes, nasal drainage, hearing loss, sore throat, trouble swallowing Cardiovascular: Denies chest pain, palpitations, edema Respiratory: Denies cough, sputum, SOB, wheezing, orthopnea GI: Denies nausea, vomiting, abdominal pain : Denies dysuria, frequency, hematuria Musculoskeletal: Denies joint/muscle aches, weakness, swelling Neurologic: Denies dizziness/lightheadedness, numbness/tingling, weakness Hematologic/Lymphatic: Denies bleeding/clotting abnormalities Skin: Denies rash, itch, new skin changes, easy bruising Physical Exam Physical Exam: PHYSICAL EXAM General Appearance: WDWN in NAD who is A&O x 3 HEENT: Head is normocephalic/atraumatic; Hearing grossly intact; NGT placed in R nare draining bilious fluid Neck: Supple; Trachea midline; Neg JVD Heart: RRR Lungs: CTA in all lung grande bilaterally; Respirations unlabored; Neg accessory muscle use Abdomen: Soft, non-tender, non-distended; Positive BS x 4 quadrants however quit/slightly hypoactive Extremities: Capillary refill < 2 seconds; Neg cyanosis or edema Neurological: Speech clear; Gross motor/sensory function intact; Neg focal neurologic deficits Psychiatric: Appropriate mood/affect Skin: Normal Color; Warm/Dry Results & Data Results & Data ([facility]) Vital Signs (Past 12 Hours) Vital Signs Temp Pulse Resp BP Pulse Ox 03/13/21 07:18 37.0 C 65 16 154/83 H 90 PG Care Time/CCT Total # of Minutes Spent Total Time Spent with Patient: Total time spent is greater than 50% in coordination of care (as documented) at patient's floor/unit and/or counseling patient: Coding Level of Care Code 83485 Subseq Hosp Care Lvl 3 Diagnoses SBO (small bowel obstruction) K56.609 Amnesia, global, transient G45.4 PMR (polymyalgia rheumatica) M35.3
[2021-03-13] MEDS ORDERED: SODIUM CHLORIDE 0.9% 1000ML 1,000 ML IV SCH (17:30)
[2021-03-13] MEDS ORDERED: CHLORASEPTIC 1.4% SOLN 180 ML BTL MT PRN (18:08)
--- NOTE | 2021-03-13 21:13 | Billing Data ---
Date of Service March 13, 2021 Coding Level of Care Code 05556 Initial Inpt Care Lvl 2
[2021-03-14] MEDS: cefTRIAXone SODIUM 1,000 MG in DEXTROSE 5% 50 ML IV SCH (05:55)
--- NOTE | 2021-03-14 08:41 | Hospitalist Progress Note ---
Date of Service March 14, 2021 Assessment & Plan (1) SBO (small bowel obstruction): Plan: - CT with multiple loops of fluid-filled small bowel with swirling of the small bowel mesentery and associated bowel transition points - possibly related to internal hernia vs adhesions; associated mesenteric infiltration with trace ascites BS are present x 4 quadrants but slightly hypoactive - not passing gas or moving bowels Maintaining NGT --draining bilious fluid and on low intermittent suction - may clamp temporarily for medications and to ambulate the hallways Antiemetics, pain control prn -- has not utilized Additional 1L NSS @ 100cc/hr for today as she remains NPO Continue NPO for now General surgery on consult -- appreciate assistance Was started on Ceftriaxone daily in ED - would have some GI coverage but not for anaerobes --> Switched to Cipro/Flagyl today for WBC 12.9k with further elevated neutrophils Mag checked -- low at 1.5 and ordered replacement, should also help to get bowels moving Continue to monitor (2) Amnesia, global, transient: Plan: Unknown etiology - head CT negative and no focal neurological deficits - BP was elevated upon ED arrival and may have contributed to this - given pain it is possible pain, elevated blood pressure, and vagal could be contributing - No symptoms to support infectious etiology - no fever, mild leukocytosis; was already started on Abx empirically which would skew obtaining a urine sample - BP is improved since admission but still slightly elevated - on chronic steroids due to PMR but not on any BP medication - would monitor at this time BP currently 172/87 -- better but still elevated -- asymptomatic Continue to monitor -- may need medications if remains elevated but suspect some from underlying anxiety about being in the hospital (3) PMR (polymyalgia rheumatica): Plan: Continue Prednisone 5 mg daily - low dose but given SBO stress monitor for need for stress dosing (4) Hypomagnesemia: Plan: Checked given SBO Mag 1.5 -- ordered 3gm IV Monitor on AM labs (5) Non-functioning kidney: Plan: s/p large kidney stone removal in 1970s and subsequent nonfunctioning LEFT kidney Cr remains stable Plan: Conservative measures at this time - ambulate as tolerate and diet advancement pending reassessment and resolution of SBO Admission and Anticipated Discharge Date Admission Date: March 12, 2021 Subjective Patient evaluated this morning. Feeling overall improved. Some nausea this morning but no discrete pain. Some cramping. Passing a little bit of gas but no BM. Discussed allergy to Augmentin-- she states her PCP told her it was something with the amoxicillin and she should be able to take any penicillins without issue. Discussed given not sure if binder or the clavulanic acid, will switch to Cipro/Flagyl for antibiotics and continue to monitor. She has been ambulating the halls. Not yet seen by general surgery but discussed awaiting eval later today to see about giving some clears tonight vs waiting off until tomorrow. Patient not hungry and more than willing to wait until tomorrow. Does have some concerns about elevated BP -- typically well controlled at home. Denies headache visual change, chest pain, shortness of breath. Does have some anxiety about being in the hospital. Discussed if becomes symptomatic to let staff know but ok with monitoring for now unless SBP >180s or DBP >90s. Questions/concerns addressed at this time. Of note, she would like to make sure we are aware she only has one functioning kidney from the 1970s when she had a kidney stone treated and some kind of scar tissue occluded the kidney, however she has not had any issues since then with one functioning. Discussed close monitoring of labs. Review of Systems Review of Systems: All systems reviewed & are unremarkable except as noted in HPI & below Physical Exam Physical Exam: PHYSICAL EXAM General Appearance: WDWN in NAD who is A&O x 3 HEENT: Head is normocephalic/atraumatic; Hearing grossly intact; NGT placed in R nare draining bilious fluid Neck: Supple; Trachea midline; Neg JVD Heart: RRR Lungs: CTA in all lung grande bilaterally; Respirations unlabored; Neg accessory muscle use Abdomen: Soft, non-tender, non-distended; Positive BS x 4 quadrants however slightly hypoactive Extremities: Capillary refill < 2 seconds; Neg cyanosis or edema Neurological: Speech clear; Gross motor/sensory function intact; Neg focal neurologic deficits Psychiatric: Appropriate mood/affect, anxious about clinical course Skin: Normal Color; Warm/Dry Results & Data Results & Data ([facility]) Vital Signs (Past 12 Hours) Vital Signs Temp Pulse Resp BP Pulse Ox 03/14/21 07:51 36.9 C 67 18 172/87 H 93 03/13/21 22:36 37.0 C 79 15 142/93 H 91 Laboratory Results 03/14/21 03/14/21 Range/Units 09:01 09:01 WBC 12.95 H (4.8-10.8) K/uL RBC 4.81 (4.2-5.4) M/uL Hgb 14.4 (12.0-16.0) g/dL Hct 43.7 (37-47) % MCV 90.9 (80-100) fL MCH 29.9 (25-34) pg MCHC 33.0 (32-36) g/dL RDW Std Deviation 49.4 H (36.4-46.3) fL RDW Coeff of Jigna 14.7 H (11.5-14.5) % Plt Count 212 (130-400) K/uL MPV 9.8 (7.4-10.4) fL Immature Gran % (Auto) 0.2 % Neut % (Auto) 84.8 % Lymph % (Auto) 8.0 % [place] % (Auto) 6.5 % Eos % (Auto) 0.2 % Baso % (Auto) 0.3 % Neut # (Auto) 10.99 H (1.4-6.5) K/uL Lymph # (Auto) 1.04 L (1.2-3.4) K/uL [place] # (Auto) 0.84 H (0.11-0.59) K/uL Eos # (Auto) 0.02 (0-0.5) K/uL Baso # (Auto) 0.04 (0-0.2) K/uL Immature Gran # (Auto) 0.02 (0.00-0.02) K/uL Sodium 139 (136-145) mmol/L Potassium 3.9 (3.5-5.1) mmol/L Chloride 104 (98-107) mmol/L Carbon Dioxide 23 (21-32) mmol/L Anion Gap 12.0 H (3-11) BUN 15 (7-18) mg/dl Creatinine 0.98 (0.6-1.2) mg/dl Est Cr Clr Drug Dosing 39.2 ml/min Est GFR ( Amer) 65.4 ml/min Est GFR (Non-Af Amer) 56.4 ml/min BUN/Creatinine Ratio 15.3 (10-20) Glucose 91 (70-99) mg/dl Calcium 8.7 (8.5-10.1) mg/dl Magnesium 1.5 L (1.8-2.4) mg/dl Total Bilirubin 0.9 (0.2-1) mg/dl AST 28 (15-37) U/L ALT 20 (12-78) U/L Alkaline Phosphatase 48 (45-117) U/L Total Protein 6.1 L (6.4-8.2) gm/dl Albumin 3.0 L (3.4-5.0) gm/dl Globulin 3.1 (2.5-4.0) gm/dl Albumin/Globulin Ratio 1.0 (0.9-2) PG Care Time/CCT Total # of Minutes Spent Total Time Spent with Patient: Total time spent is greater than 50% in coordination of care (as documented) at patient's floor/unit and/or counseling patient: Coding Level of Care Code 90352 Subseq Hosp Care Lvl 3 Diagnoses SBO (small bowel obstruction) K56.609 Amnesia, global, transient G45.4 PMR (polymyalgia rheumatica) M35.3 Hypomagnesemia E83.42 Non-functioning kidney N28.9
[2021-03-14] MEDS: ENOXAPARIN INJ 40 MG/0.4 ML SYR SQ SCH (09:14)
[2021-03-14] MEDS: predniSONE 5 MG TAB PO SCH (09:14)
[2021-03-14] MEDS: TOLTERODINE TARTRATE 1 MG TAB PO SCH ×2 (09:14→20:39)
[2021-03-14] MEDS: FAMOTIDINE 20 MG in SYRINGE 3 ML IV SCH ×2 (09:21→20:39)
[2021-03-14 09:30] LABS: Basophils # (auto) 0.04 K/uL (0-0.2); Basophils % (auto) 0.3 %; Eosinophils # (auto) 0.02 K/uL (0-0.5); Eosinophils % (auto) 0.2 %; Hematocrit (blood only) 43.7 % (37-47); Hemoglobin 14.4 g/dL (12.0-16.0); Immature Granulocytes # (auto) 0.02 K/uL (0.00-0.02); Immature Granulocytes % (auto) 0.2 %; Lymphocytes # (auto) 1.04 K/uL (1.2-3.4); Mean Corpuscular Hemoglobin 29.9 pg (25-34); Mean Corpuscular Volume 90.9 fL (80-100); Mean Platelet Volume 9.8 fL (7.4-10.4); Monocytes # (auto) 0.84 K/uL (0.11-0.59); Monocytes % (auto) 6.5 %; Neutrophils # (auto) 10.99 K/uL (1.4-6.5); Neutrophils % (auto) 84.8 %; Platelet Count 212 K/uL (130-400); RDW Coefficient of Variation 14.7 % (11.5-14.5); RDW Standard Deviation 49.4 fL (36.4-46.3); Red Blood Count 4.81 M/uL (4.2-5.4); White Blood Count 12.95 K/uL (4.8-10.8)
[2021-03-14] MEDS ORDERED: SODIUM CHLORIDE 0.9% 1000ML 1,000 ML IV SCH (09:45)
[2021-03-14 09:55] LABS: BUN Creatinine Ratio 15.3 (10-20); Calcium 8.7 mg/dl (8.5-10.1); Creatinine Clr Calc Pharmacy 39.2 ml/min; Est GFR (African American) 65.4 ml/min; Est GFR (Non-African American) 56.4 ml/min; Magnesium 1.5 mg/dl (1.8-2.4); Potassium 3.9 mmol/L (3.5-5.1)
[2021-03-14 09:58] LABS: Bilirubin,Total 0.9 mg/dl (0.2-1); Globulin 3.1 gm/dl (2.5-4.0); Total Protein 6.1 gm/dl (6.4-8.2)
[2021-03-14] MEDS: MAGNESIUM SULFATE / D5W 1 GM/100 ML BAG IV SCH ×3 (11:29→16:09)
[2021-03-14] MEDS: metroNIDAZOLE 500 MG/100 ML BAG IV SCH ×2 (11:29→18:44)
[2021-03-14] MEDS: CIPROFLOXACIN / D5W 400 MG/200 ML BAG IV SCH ×2 (12:50→22:43)
--- NOTE | 2021-03-14 14:36 | Surgery Progress Note ---
Date of Service March 14, 2021 Assessment & Plan (1) SBO (small bowel obstruction): Plan: afebrile, vitals stable abdomen is soft, nondistended 40 cc NGT output last shift 110 cc last 24 hours passing small amount of flatus, no bowel movement Plan: No acute surgical intervention required at this time Continue conservative measures NGT to LIS, pain management as needed, antiemetics prn Encouraged ambulation to increase GI motility Dr. Craft has seen patient and agrees with above. Admission and Anticipated Discharge Date Admission Date: March 12, 2021 Subjective had some nausea this morning, no vomiting passed small amount of gas, no bowel movement yet abdominal pain much improved compared to admission no bloating has walked hallway Physical Exam Constitutional: WD/WN, vitals as above Respiratory: normal respiratory effort; no respiratory distress, no labored breathing and no retractions Gastrointestinal (Abdomen): Inspection/Auscultation: abdomen normal to insp ection and + hypoactive bowel sounds; abdomen not distended and + abnormal bowel sounds Percussion/Palpation: abdomen soft; abdomen nontender, no guarding and abdomen not rigid NGT present with brown/bilious output in canister Skin: no rashes, warm and dry Psychiatric: A+Ox3, euthymic affect Results & Data ([facility]) Vital Signs (Past 12 Hours) Vital Signs Temp Pulse Resp BP Pulse Ox 03/14/21 07:51 36.9 C 67 18 172/87 H 93 Laboratory Results 03/14/21 03/14/21 Range/Units 09:01 09:01 WBC 12.95 H (4.8-10.8) K/uL RBC 4.81 (4.2-5.4) M/uL Hgb 14.4 (12.0-16.0) g/dL Hct 43.7 (37-47) % MCV 90.9 (80-100) fL MCH 29.9 (25-34) pg MCHC 33.0 (32-36) g/dL RDW Std Deviation 49.4 H (36.4-46.3) fL RDW Coeff of Jigna 14.7 H (11.5-14.5) % Plt Count 212 (130-400) K/uL MPV 9.8 (7.4-10.4) fL Immature Gran % (Auto) 0.2 % Neut % (Auto) 84.8 % Lymph % (Auto) 8.0 % [place] % (Auto) 6.5 % Eos % (Auto) 0.2 % Baso % (Auto) 0.3 % Neut # (Auto) 10.99 H (1.4-6.5) K/uL Lymph # (Auto) 1.04 L (1.2-3.4) K/uL [place] # (Auto) 0.84 H (0.11-0.59) K/uL Eos # (Auto) 0.02 (0-0.5) K/uL Baso # (Auto) 0.04 (0-0.2) K/uL Immature Gran # (Auto) 0.02 (0.00-0.02) K/uL Sodium 139 (136-145) mmol/L Potassium 3.9 (3.5-5.1) mmol/L Chloride 104 (98-107) mmol/L Carbon Dioxide 23 (21-32) mmol/L Anion Gap 12.0 H (3-11) BUN 15 (7-18) mg/dl Creatinine 0.98 (0.6-1.2) mg/dl Est Cr Clr Drug Dosing 39.2 ml/min Est GFR ( Amer) 65.4 ml/min Est GFR (Non-Af Amer) 56.4 ml/min BUN/Creatinine Ratio 15.3 (10-20) Glucose 91 (70-99) mg/dl Calcium 8.7 (8.5-10.1) mg/dl Magnesium 1.5 L (1.8-2.4) mg/dl Total Bilirubin 0.9 (0.2-1) mg/dl AST 28 (15-37) U/L ALT 20 (12-78) U/L Alkaline Phosphatase 48 (45-117) U/L Total Protein 6.1 L (6.4-8.2) gm/dl Albumin 3.0 L (3.4-5.0) gm/dl Globulin 3.1 (2.5-4.0) gm/dl Albumin/Globulin Ratio 1.0 (0.9-2)
[2021-03-14] MEDS: NSS + 20MEQ KCL 20 MEQ/1,000 ML BAG IV SCH (19:10)
[2021-03-15] MEDS: metroNIDAZOLE 500 MG/100 ML BAG IV SCH ×3 (02:51→12:31)
[2021-03-15] MEDS: ONDANSETRON INJ 2 MG/ML 2 ML VIAL IV PRN (06:04)
[2021-03-15] MEDS: NSS + 20MEQ KCL 20 MEQ/1,000 ML BAG IV SCH ×2 (06:12→17:51)
[2021-03-15 06:25] LABS: Hematocrit (blood only) 44.1 % (37-47); Hemoglobin 14.7 g/dL (12.0-16.0); Mean Corpuscular Hemoglobin 29.9 pg (25-34); Mean Corpuscular Hgb Conc 33.3 g/dL (32-36); Mean Corpuscular Volume 89.6 fL (80-100); Mean Platelet Volume 9.8 fL (7.4-10.4); Platelet Count 213 K/uL (130-400); RDW Coefficient of Variation 14.4 % (11.5-14.5); RDW Standard Deviation 47.2 fL (36.4-46.3); Red Blood Count 4.92 M/uL (4.2-5.4); White Blood Count 12.67 K/uL (4.8-10.8)
[2021-03-15 06:48] LABS: BUN Creatinine Ratio 14.2 (10-20); Calcium 8.4 mg/dl (8.5-10.1); Creatinine Clr Calc Pharmacy 43.2 ml/min; Est GFR (African American) 73.5 ml/min; Est GFR (Non-African American) 63.4 ml/min; Magnesium 2.1 mg/dl (1.8-2.4); Potassium 4.1 mmol/L (3.5-5.1)
[2021-03-15 06:54] LABS: Bilirubin,Total 0.9 mg/dl (0.2-1); Globulin 2.9 gm/dl (2.5-4.0); Total Protein 5.9 gm/dl (6.4-8.2)
[2021-03-15] MEDS: FAMOTIDINE 20 MG in SYRINGE 3 ML IV SCH ×2 (09:02→21:16)
[2021-03-15] MEDS: PROCHLORPERAZINE 5 MG in SYRINGE 4 ML IV PRN (09:02)
[2021-03-15] MEDS: TOLTERODINE TARTRATE 1 MG TAB PO SCH ×2 (09:03→21:16)
[2021-03-15] MEDS: CHOLECALCIFEROL 1,000 UNITS 25 MCG TAB PO SCH (09:03)
[2021-03-15] MEDS: ENOXAPARIN INJ 40 MG/0.4 ML SYR SQ SCH (09:03)
[2021-03-15] MEDS: predniSONE 5 MG TAB PO SCH (09:03)
--- NOTE | 2021-03-15 09:04 | XRay Report ---
KUB HISTORY: Small bowel obstruction. Follow-up. COMPARISON: 03/12/2021. FINDINGS: Multiple dilated gas-filled loops of small bowel are again seen throughout the abdomen cons istent with a small bowel obstruction. These measure up to 5.4 cm in diameter. Prior cholecystectomy. Nasogastric tube terminates in the stomach. An aortic valve prosthesis is noted. No renal calculi. No ureteral calculi. No pneumoperitoneum or pneumatosis. IMPRESSION: Persistent small bowel obstruction pattern. Nasogastric tube terminates in the stomach. ACT 112: Negative or not required by law. Electronically signed by: Bar Johnson M.D. 03/15/2021 9:02 AM
--- NOTE | 2021-03-15 09:12 | Hospitalist Progress Note ---
Date of Service March 15, 2021 Assessment & Plan (1) SBO (small bowel obstruction): Plan: - CT with multiple loops of fluid-filled small bowel with swirling of the small bowel mesentery and associated bowel transition points - possibly related to internal hernia vs adhesions; associated mesenteric infiltration with trace ascites BS are present x 4 quadrants but slightly hypoactive - not passing gas or moving bowels Maintaining NGT --draining bilious fluid and on low intermittent suction - may clamp temporarily for medications and to ambulate the hallways. NG output 110cc last 24 hours Antiemetics, pain control prn -- needed zofran x 2 Continue IVF, supportive care KUB with R sided stool, continued SBO pattern General surgery on consult -- miralax ordered x1 to see if helps along with ambulation NPO Ambulation encouraged Per discussion with general surgery, no need for abx and will d/c at this time. WBC elevation likely 2nd to obstruction and flagyl likely causing GI upset as well (initially on Ceftriaxone, switched to Cipro/flagyl 03/14) Afebrile Continue to monitor labs/electrolyte replacement as needed (mag now wnl) (2) Amnesia, global, transient: Plan: Unknown etiology - head CT negative and no focal neurological deficits BP was elevated upon ED arrival and may have contributed to this - given pain it is possible pain, elevated blood pressure, and vagal could be contributing No symptoms to support infectious etiology - no fever, mild leukocytosis; was already started on Abx empirically which would skew obtaining a urine sample BP is improved since admission but still slightly elevated - on chronic steroids due to PMR but not on any BP medication - would monitor at this time She was not placed on telemetry so unable to r/o arrhythmia, however no recurrance Has mitral valve replacement and will obtain ECHO to eval for valve issues If recurrence, would move to telemetry (3) PMR (polymyalgia rheumatica): Plan: Continue Prednisone 5 mg daily Low dose but given SBO stress monitor for need for stress dosing (4) Hypomagnesemia: Plan: Checked given SBO Mag 1.5 -- ordered 3gm IV Resolved on repeat . continue to monitor (5) Non-functioning kidney: Plan: s/p large kidney stone removal in 1970s and subsequent nonfunctioning LEFT kidney Cr remains stable Plan: Conservative measures at this time - ambulate as tolerate and diet advancement pending reassessment and resolution of SBO Admission and Anticipated Discharge Date Admission Date: March 12, 2021 Subjective Patient evaluated this afternoon. Had episode of abdominal discomfort/chills last evening and felt as though she needed to vomit. Improved with zofran x 2. No further discomfort or nausea. KUB this morning with persistent obstruction and to get Miralax today to help have bowel movement. Was given her vitamin D last night and this morning by overnight team, and felt she needed to have a movement. Discussed continuing to hold this at this time. She has been ambulating frequently. Discussed continuing NPO. Per general surgery -- continuing NGT at this time as well. Review of Systems Review of Systems: All systems reviewed & are unremarkable except as noted in HPI & below Physical Exam Physical Exam: PHYSICAL EXAM General Appearance: WD/WN, NAD, AOx3 HEENT: Head is normocephalic/atraumatic; Hearing grossly intact; NGT placed in R nare draining brown/bilious fluid, increased from yesterday Neck: Supple; Trachea midline; Neg JVD Heart: RRR, +murmur, no rubs/gallops, edema Lungs: CTA in all lung grande bilaterally; Respirations unlabored; Neg accessory muscle use Abdomen: Soft, non-tender, +distended; Positive BS x 4 quadrants however hypoactive Extremities: Capillary refill < 2 seconds; Neg cyanosis or edema Neurological: Speech clear; Gross motor/sensory function intact; Neg focal neurologic deficits Psychiatric: Appropriate mood/affect, anxious about clinical course Skin: Normal Color; Warm/Dry Results & Data Results & Data ([facility]) Vital Signs (Past 12 Hours) Vital Signs Temp Pulse Resp BP BP Pulse Ox 03/15/21 07:32 36.7 C 72 18 151/81 H 93 03/15/21 00:03 37 C 73 18 170/93 H 92 Laboratory Results 03/15/21 03/15/21 03/14/21 Range/Units 05:40 05:40 09:01 WBC 12.67 H (4.8-10.8) K/uL RBC 4.92 (4.2-5.4) M/uL Hgb 14.7 (12.0-16.0) g/dL Hct 44.1 (37-47) % MCV 89.6 (80-100) fL MCH 29.9 (25-34) pg MCHC 33.3 (32-36) g/dL RDW Std Deviation 47.2 H (36.4-46.3) fL RDW Coeff of Jigna 14.4 (11.5-14.5) % Plt Count 213 (130-400) K/uL MPV 9.8 (7.4-10.4) fL Immature Gran % (Auto) % Neut % (Auto) % Lymph % (Auto) % [place] % (Auto) % Eos % (Auto) % Baso % (Auto) % Neut # (Auto) (1.4-6.5) K/uL Lymph # (Auto) (1.2-3.4) K/uL [place] # (Auto) (0.11-0.59) K/uL Eos # (Auto) (0-0.5) K/uL Baso # (Auto) (0-0.2) K/uL Immature Gran # (Auto) (0.00-0.02) K/uL Sodium 138 139 (136-145) mmol/L Potassium 4.1 3.9 (3.5-5.1) mmol/L Chloride 104 104 (98-107) mmol/L Carbon Dioxide 24 23 (21-32) mmol/L Anion Gap 10.0 12.0 H (3-11) BUN 13 15 (7-18) mg/dl Creatinine 0.89 0.98 (0.6-1.2) mg/dl Est Cr Clr Drug Dosing 43.2 39.2 ml/min Est GFR ( Amer) 73.5 65.4 ml/min Est GFR (Non-Af Amer) 63.4 56.4 ml/min BUN/Creatinine Ratio 14.2 15.3 (10-20) Glucose 112 H 91 (70-99) mg/dl Calcium 8.4 L 8.7 (8.5-10.1) mg/dl Magnesium 2.1 1.5 L (1.8-2.4) mg/dl Total Bilirubin 0.9 0.9 (0.2-1) mg/dl AST 33 28 (15-37) U/L ALT 23 20 (12-78) U/L Alkaline Phosphatase 44 L 48 (45-117) U/L Total Protein 5.9 L 6.1 L (6.4-8.2) gm/dl Albumin 3.0 L 3.0 L (3.4-5.0) gm/dl Globulin 2.9 3.1 (2.5-4.0) gm/dl Albumin/Globulin Ratio 1.0 1.0 (0.9-2) 03/14/21 Range/Units 09:01 WBC 12.95 H (4.8-10.8) K/uL RBC 4.81 (4.2-5.4) M/uL Hgb 14.4 (12.0-16.0) g/dL Hct 43.7 (37-47) % MCV 90.9 (80-100) fL MCH 29.9 (25-34) pg MCHC 33.0 (32-36) g/dL RDW Std Deviation 49.4 H (36.4-46.3) fL RDW Coeff of Jigna 14.7 H (11.5-14.5) % Plt Count 212 (130-400) K/uL MPV 9.8 (7.4-10.4) fL Immature Gran % (Auto) 0.2 % Neut % (Auto) 84.8 % Lymph % (Auto) 8.0 % [place] % (Auto) 6.5 % Eos % (Auto) 0.2 % Baso % (Auto) 0.3 % Neut # (Auto) 10.99 H (1.4-6.5) K/uL Lymph # (Auto) 1.04 L (1.2-3.4) K/uL [place] # (Auto) 0.84 H (0.11-0.59) K/uL Eos # (Auto) 0.02 (0-0.5) K/uL Baso # (Auto) 0.04 (0-0.2) K/uL Immature Gran # (Auto) 0.02 (0.00-0.02) K/uL Sodium (136-145) mmol/L Potassium (3.5-5.1) mmol/L Chloride (98-107) mmol/L Carbon Dioxide (21-32) mmol/L Anion Gap (3-11) BUN (7-18) mg/dl Creatinine (0.6-1.2) mg/dl Est Cr Clr Drug Dosing ml/min Est GFR ( Amer) ml/min Est GFR (Non-Af Amer) ml/min BUN/Creatinine Ratio (10-20) Glucose (70-99) mg/dl Calcium (8.5-10.1) mg/dl Magnesium (1.8-2.4) mg/dl Total Bilirubin (0.2-1) mg/dl AST (15-37) U/L ALT (12-78) U/L Alkaline Phosphatase (45-117) U/L Total Protein (6.4-8.2) gm/dl Albumin (3.4-5.0) gm/dl Globulin (2.5-4.0) gm/dl Albumin/Globulin Ratio (0.9-2) Diagnostic Findings KUB X-Ray 03/15/21 07:00 KUB HISTORY: Small bowel obstruction. Follow-up. COMPARISON: 03/12/2021. FINDINGS: Multiple dilated gas-filled loops of small bowel are again seen throughout the abdomen consistent with a small bowel obstruction. These measure up to 5.4 cm in diameter. Prior cholecystectomy. Nasogastric tube terminates in the stomach. An aortic valve prosthesis is noted. No renal calculi. No ureteral calculi. No pneumoperitoneum or pneumatosis. IMPRESSION: Persistent small bowel obstruction pattern. Nasogastric tube terminates in the stomach. ACT 112: Negative or not required by law. Electronically signed by: Bar Johnson M.D. 03/15/2021 9:02 AM PG Care Time/CCT Total # of Minutes Spent Total Time Spent with Patient: Total time spent is greater than 50% in coordination of care (as documented) at patient's floor/unit and/or counseling patient: Coding Level of Care Code 81249 Subseq Hosp Care Lvl 3 Diagnoses SBO (small bowel obstruction) K56.609 Amnesia, global, transient G45.4 PMR (polymyalgia rheumatica) M35.3 Hypomagnesemia E83.42 Non-functioning kidney N28.9
[2021-03-15] MEDS ORDERED: POLYETHYLENE (MIRALAX) 17 GM PACK NG ONE (09:13)
--- NOTE | 2021-03-15 09:13 | Surgery Progress Note ---
Date of Service March 15, 2021 Assessment & Plan (1) SBO (small bowel obstruction): Plan: afebrile, vitals stable abdomen is soft, distended today 200 cc NGT output last shift passing small amount of flatus, no bowel movement KUB showing distended small bowel up to 5 cm in review of the CT scan she has formed stool in the right colon Plan: Would like to continue conservative measures today as abdomen is soft nontender no rigidity on exam Given distention and pain last evening continue NGT to LIS Given formed stool in right colon, will give Miralax via NGT pain management as needed, antiemetics prn Encouraged ambulation to increase GI motility Admission and Anticipated Discharge Date Admission Date: March 12, 2021 Subjective had rough night last night, pain 10/10 with nausea feeling better this morning but feels bloated no bowel movement yet, minimal gas Physical Exam Constitutional: WD/WN, vitals as above no acute distress and not ill appearing Respiratory: normal respiratory effort; no respiratory distress, no labored breathing and no retractions Gastrointestinal (Abdomen): Inspection/Auscultation: + abdomen distended (mild) and + hypoactive bowel sounds; + abnormal bowel sounds Percussion/Palpation: abdomen soft; abdomen nontender, no guarding and abdomen not rigid NGT with bilious/brown output in canister Skin: contact dermatitis rash at sites of EKG leads on abdomen and chest Psychiatric: A+Ox3, euthymic affect Results & Data ([facility]) Vital Signs (Past 12 Hours) Vital Signs Temp Pulse Resp BP BP Pulse Ox 03/15/21 07:32 36.7 C 72 18 151/81 H 93 03/15/21 00:03 37 C 73 18 170/93 H 92 Laboratory Results 03/15/21 03/15/21 Range/Units 05:40 05:40 WBC 12.67 H (4.8-10.8) K/uL RBC 4.92 (4.2-5.4) M/uL Hgb 14.7 (12.0-16.0) g/dL Hct 44.1 (37-47) % MCV 89.6 (80-100) fL MCH 29.9 (25-34) pg MCHC 33.3 (32-36) g/dL RDW Std Deviation 47.2 H (36.4-46.3) fL RDW Coeff of Jigna 14.4 (11.5-14.5) % Plt Count 213 (130-400) K/uL MPV 9.8 (7.4-10.4) fL Sodium 138 (136-145) mmol/L Potassium 4.1 (3.5-5.1) mmol/L Chloride 104 (98-107) mmol/L Carbon Dioxide 24 (21-32) mmol/L Anion Gap 10.0 (3-11) BUN 13 (7-18) mg/dl Creatinine 0.89 (0.6-1.2) mg/dl Est Cr Clr Drug Dosing 43.2 ml/min Est GFR ( Amer) 73.5 ml/min Est GFR (Non-Af Amer) 63.4 ml/min BUN/Creatinine Ratio 14.2 (10-20) Glucose 112 H (70-99) mg/dl Calcium 8.4 L (8.5-10.1) mg/dl Magnesium 2.1 (1.8-2.4) mg/dl Total Bilirubin 0.9 (0.2-1) mg/dl AST 33 (15-37) U/L ALT 23 (12-78) U/L Alkaline Phosphatase 44 L (45-117) U/L Total Protein 5.9 L (6.4-8.2) gm/dl Albumin 3.0 L (3.4-5.0) gm/dl Globulin 2.9 (2.5-4.0) gm/dl Albumin/Globulin Ratio 1.0 (0.9-2) Diagnostic Findings KUB HISTORY: Small bowel obstruction. Follow-up. COMPARISON: 03/12/2021. FINDINGS: Multiple dilated gas-filled loops of small bowel are again seen throughout the abdomen consistent with a small bowel obstruction. These measure up to 5.4 cm in diameter. Prior cholecystectomy. Nasogastric tube terminates in the stomach. An aortic valve prosthesis is noted. No renal calculi. No ureteral calculi. No pneumoperitoneum or pneumatosis. IMPRESSION: Persistent small bowel obstruction pattern. Nasogastric tube terminates in the stomach.
[2021-03-15] MEDS ORDERED: POLYETHYLENE (MIRALAX) 17 GM PACK ONE (12:29)
[2021-03-15] MEDS: CIPROFLOXACIN / D5W 400 MG/200 ML BAG IV SCH (13:05)
--- NOTE | 2021-03-15 17:00 | XCELERA ---
[id number]
[2021-03-15] MEDS: hydrALAZINE HCL 20 MG/ML VIAL IV PRN (18:34)
[2021-03-16] MEDS: NSS + 20MEQ KCL 20 MEQ/1,000 ML BAG IV SCH (04:55)
[2021-03-16 06:18] LABS: Basophils # (auto) 0.04 K/uL (0-0.2); Basophils % (auto) 0.4 %; Eosinophils # (auto) 0.19 K/uL (0-0.5); Eosinophils % (auto) 2.1 %; Hematocrit (blood only) 38.4 % (37-47); Hemoglobin 12.8 g/dL (12.0-16.0); Immature Granulocytes # (auto) 0.02 K/uL (0.00-0.02); Immature Granulocytes % (auto) 0.2 %; Lymphocytes # (auto) 1.43 K/uL (1.2-3.4); Mean Corpuscular Hemoglobin 30.1 pg (25-34); Mean Corpuscular Hgb Conc 33.3 g/dL (32-36); Mean Corpuscular Volume 90.4 fL (80-100); Mean Platelet Volume 9.4 fL (7.4-10.4); Monocytes % (auto) 8.9 %; Neutrophils # (auto) 6.48 K/uL (1.4-6.5); Neutrophils % (auto) 72.4 %; Platelet Count 206 K/uL (130-400); RDW Coefficient of Variation 14.5 % (11.5-14.5); RDW Standard Deviation 48.3 fL (36.4-46.3); Red Blood Count 4.25 M/uL (4.2-5.4); White Blood Count 8.96 K/uL (4.8-10.8)
[2021-03-16 07:02] LABS: BUN Creatinine Ratio 14.8 (10-20); Calcium 8.2 mg/dl (8.5-10.1); Creatinine Clr Calc Pharmacy 50.6 ml/min; Est GFR (African American) 88.9 ml/min; Est GFR (Non-African American) 76.7 ml/min; Magnesium 1.9 mg/dl (1.8-2.4); Potassium 3.7 mmol/L (3.5-5.1)
[2021-03-16] MEDS: ENOXAPARIN INJ 40 MG/0.4 ML SYR SQ SCH (08:03)
[2021-03-16] MEDS: FAMOTIDINE 20 MG in SYRINGE 3 ML IV SCH ×2 (08:04→21:16)
[2021-03-16] MEDS: TOLTERODINE TARTRATE 1 MG TAB PO SCH ×2 (08:06→21:16)
[2021-03-16] MEDS: predniSONE 5 MG TAB PO SCH (08:06)
--- NOTE | 2021-03-16 08:50 | Hospitalist Progress Note ---
Date of Service March 16, 2021 Assessment & Plan (1) SBO (small bowel obstruction): Plan: CT with multiple loops of fluid-filled small bowel with swirling of the small bowel mesentery and associated bowel transition points - possibly related to internal hernia vs adhesions; associated mesenteric infiltration with trace ascites BS are present x 4 quadrants but slightly hypoactive - not passing gas or moving bowels WBC wnl since d/c abx, confirmed with surgery no need for abx from their standpoint as well and flagyl causing GI upset Remains afebrile NGT removed by accident this morning Repeat KUB with imrpovement but still persistent however per general surgery will try liquids this am, repeat miralax today Also giving 1gm IV mag for mag 1.9 to keep >2 and keep with BM Continue IVF for now but added some dextrose given glucose 66 on AM labs Continue ambulation, encouraged Continue to monitor (2) Amnesia, global, transient: Plan: Unknown etiology - head CT negative and no focal neurological deficits BP was elevated upon ED arrival and may have contributed to this - given pain it is possible pain, elevated blood pressure, and vagal could be contributing No symptoms to support infectious etiology - no fever, mild leukocytosis; was already started on Abx empirically which would skew obtaining a urine sample BP is improved since admission but still slightly elevated - on chronic steroids due to PMR but not on any BP medication - would monitor at this time She was not placed on telemetry so unable to r/o arrhythmia, however no recurrance Has mitral valve replacement and will obtain ECHO to eval for valve issues -- no issues with valve If recurs, monitor on tele, otherwise f/u PCP (3) PMR (polymyalgia rheumatica): Plan: Continue Prednisone 5 mg daily Low dose but given SBO stress monitor for need for stress dosing -- no need (4) Hypomagnesemia: Plan: Checked given SBO 1gm to keep >2, however is wnl at 1.9 on AM labs Continue to monitor (5) Non-functioning kidney: Plan: s/p large kidney stone removal in 1970s and subsequent nonfunctioning LEFT kidney Cr remains stable Plan: Conservative measures at this time - ambulate as tolerate and diet advancement pending reassessment and resolution of SBO Admission and Anticipated Discharge Date Admission Date: March 12, 2021 Subjective Patient evaluated this morning. Continues to pass gas, thought maybe have a BM today. NGT fell out this morning while getting washed up. No further nausea since d/c abx. WBC wnl and afebrile. KUB reviewed by surgery and out to keep NGT out at this time and try clear liquids. NO fever, chills, chest pain, shortness of breath, abdominal pain, dysuria at this time. Review of Systems Review of Systems: All systems reviewed & are unremarkable except as noted in HPI & below Physical Exam Physical Exam: PHYSICAL EXAM General Appearance: WD/WN, NAD, AOx3 HEENT: Head is normocephalic/atraumatic; Hearing grossly intact; NGT removed this morning by accident Neck: Supple; Trachea midline; Neg JVD Heart: RRR, +murmur, no rubs/gallops, edema Lungs: CTA in all lung grande bilaterally; Respirations unlabored; Neg accessory muscle use Abdomen: Soft, non-tender, +distended; Positive BS x 4 quadrants however hypoactive (increased from yesterday) Extremities: Capillary refill < 2 seconds; Neg cyanosis or edema Neurological: Speech clear; Gross motor/sensory function intact; Neg focal neurologic deficits Psychiatric: Appropriate mood/affect, anxious about clinical course Skin: Normal Color; Warm/Dry Results & Data Results & Data ([facility]) Vital Signs (Past 12 Hours) Vital Signs Temp Pulse Resp BP Pulse Ox 03/16/21 08:18 36.8 C 72 14 156/80 H 93 03/15/21 22:41 36.8 C 88 16 146/90 H 95 Laboratory Results 03/16/21 03/16/21 Range/Units 05:57 05:57 WBC 8.96 (4.8-10.8) K/uL RBC 4.25 (4.2-5.4) M/uL Hgb 12.8 (12.0-16.0) g/dL Hct 38.4 (37-47) % MCV 90.4 (80-100) fL MCH 30.1 (25-34) pg MCHC 33.3 (32-36) g/dL RDW Std Deviation 48.3 H (36.4-46.3) fL RDW Coeff of Jigna 14.5 (11.5-14.5) % Plt Count 206 (130-400) K/uL MPV 9.4 (7.4-10.4) fL Immature Gran % (Auto) 0.2 % Neut % (Auto) 72.4 % Lymph % (Auto) 16.0 % Tompkins % (Auto) 8.9 % Eos % (Auto) 2.1 % Baso % (Auto) 0.4 % Neut # (Auto) 6.48 (1.4-6.5) K/uL Lymph # (Auto) 1.43 (1.2-3.4) K/uL Tompkins # (Auto) 0.80 H (0.11-0.59) K/uL Eos # (Auto) 0.19 (0-0.5) K/uL Baso # (Auto) 0.04 (0-0.2) K/uL Immature Gran # (Auto) 0.02 (0.00-0.02) K/uL Sodium 141 (136-145) mmol/L Potassium 3.7 (3.5-5.1) mmol/L Chloride 108 H (98-107) mmol/L Carbon Dioxide 26 (21-32) mmol/L Anion Gap 7.0 (3-11) BUN 11 (7-18) mg/dl Creatinine 0.76 (0.6-1.2) mg/dl Est Cr Clr Drug Dosing 50.6 ml/min Est GFR ( Amer) 88.9 ml/min Est GFR (Non-Af Amer) 76.7 ml/min BUN/Creatinine Ratio 14.8 (10-20) Glucose 66 L (70-99) mg/dl Calcium 8.2 L (8.5-10.1) mg/dl Magnesium 1.9 (1.8-2.4) mg/dl Diagnostic Findings KUB X-Ray 03/16/21 07:00 KUB CLINICAL HISTORY: Follow-up small bowel obstruction. FINDINGS: 2 AP supine abdominal radiographs are compared to study dated 03/15/2021 and correlated with abdominal CT dated 03/12/2021. An enteric tube is unchanged in position. Cholecystectomy clips are noted in the right upper quadrant and suture material is seen in the left upper quadrant. There is persistent gaseous distention of the small bowel loops which measure up to 4 cm in diameter. This has modestly improved as compared to yesterday. Gas is noted within the colon. No evidence of intraperitoneal free air is seen on these supine images. The skeletal structures are osteopenic and appear intact noting moderate lumbosacral spondylosis. The heart is enlarged and there is evidence of previous cardiac valve surgery. IMPRESSION: There is persistent gaseous distention of the small bowel loops which appears modestly improved from yesterday. Electronically signed by: Eleazar Fitch M.D. 03/16/2021 9:40 AM PG Care Time/CCT Total # of Minutes Spent Total Time Spent with Patient: Total time spent is greater than 50% in coordination of care (as documented) at patient's floor/unit and/or counseling patient: Coding Level of Care Code 97992 Subseq Hosp Care Lvl 2 Diagnoses SBO (small bowel obstruction) K56.609 Amnesia, global, transient G45.4 PMR (polymyalgia rheumatica) M35.3 Hypomagnesemia E83.42 Non-functioning kidney N28.9
--- NOTE | 2021-03-16 08:55 | Surgery Progress Note ---
Date of Service March 16, 2021 Assessment & Plan (1) SBO (small bowel obstruction): Plan: afebrile, vitals stable leukocytosis resolved abdomen is soft, less distended today 200 cc NGT output last shift passing small amount of flatus, no bowel movement KUB showing distended small bowel still present mildly improved, gas within colon Plan: Remove NGT Start clear liquids advised to go slowly continue ambulation Miralax per medicine Dr. Craft has seen patient, agrees with above Admission and Anticipated Discharge Date Admission Date: March 12, 2021 Subjective feeling much better still passing small amount of gas but no bowel movement nausea has resolved since stopping Flagyl no vomiting abdomen feels less bloated today feels like appetite is coming back today Physical Exam Constitutional: WD/WN, vitals as above no acute distress and not ill patricia earing Respiratory: normal respiratory effort; no respiratory distress, no labored breathing and no retractions Gastrointestinal (Abdomen): Inspection/Auscultation: + abdomen distended (mild but improved compared to yesterday) and normal bowel sounds Percussion/Palpation: abdomen soft; abdomen nontender, no guarding and abdomen not rigid NGT with bilious output Skin: no rashes, warm and dry Psychiatric: A+Ox3, euthymic affect Results & Data ([facility]) Vital Signs (Past 12 Hours) Vital Signs Temp Pulse Resp BP Pulse Ox 03/16/21 08:18 36.8 C 72 14 156/80 H 93 03/15/21 22:41 36.8 C 88 16 146/90 H 95 Laboratory Results 03/16/21 03/16/21 Range/Units 05:57 05:57 WBC 8.96 (4.8-10.8) K/uL RBC 4.25 (4.2-5.4) M/uL Hgb 12.8 (12.0-16.0) g/dL Hct 38.4 (37-47) % MCV 90.4 (80-100) fL MCH 30.1 (25-34) pg MCHC 33.3 (32-36) g/dL RDW Std Deviation 48.3 H (36.4-46.3) fL RDW Coeff of Jigna 14.5 (11.5-14.5) % Plt Count 206 (130-400) K/uL MPV 9.4 (7.4-10.4) fL Immature Gran % (Auto) 0.2 % Neut % (Auto) 72.4 % Lymph % (Auto) 16.0 % Murray % (Auto) 8.9 % Eos % (Auto) 2.1 % Baso % (Auto) 0.4 % Neut # (Auto) 6.48 (1.4-6.5) K/uL Lymph # (Auto) 1.43 (1.2-3.4) K/uL Murray # (Auto) 0.80 H (0.11-0.59) K/uL Eos # (Auto) 0.19 (0-0.5) K/uL Baso # (Auto) 0.04 (0-0.2) K/uL Immature Gran # (Auto) 0.02 (0.00-0.02) K/uL Sodium 141 (136-145) mmol/L Potassium 3.7 (3.5-5.1) mmol/L Chloride 108 H (98-107) mmol/L Carbon Dioxide 26 (21-32) mmol/L Anion Gap 7.0 (3-11) BUN 11 (7-18) mg/dl Creatinine 0.76 (0.6-1.2) mg/dl Est Cr Clr Drug Dosing 50.6 ml/min Est GFR ( Amer) 88.9 ml/min Est GFR (Non-Af Amer) 76.7 ml/min BUN/Creatinine Ratio 14.8 (10-20) Glucose 66 L (70-99) mg/dl Calcium 8.2 L (8.5-10.1) mg/dl Magnesium 1.9 (1.8-2.4) mg/dl Diagnostic Findings KUB CLINICAL HISTORY: Follow-up small bowel obstruction. FINDINGS: 2 AP supine abdominal radiographs are compared to study dated 03/15/2021 and correlated with abdominal CT dated 03/12/2021. An enteric tube is unchanged in position. Cholecystectomy clips are noted in the right upper quadrant and suture material is seen in the left upper quadrant. There is persistent gaseous distention of the small bowel loops which measure up to 4 cm in diameter. This has modestly improved as compared to yesterday. Gas is noted within the colon. No evidence of intraperitoneal free air is seen on these supine images. The skeletal structures are osteopenic and appear intact noting moderate lumbosacral spondylosis. The heart is enlarged and there is evidence of previous cardiac valve surgery. IMPRESSION: There is persistent gaseous distention of the small bowel loops which appears modestly improved from yesterday.
--- NOTE | 2021-03-16 09:23 | Electrocardiogram Report ---
Test Reason : Blood Pressure : / mmHG Vent. Rate : 061 BPM Atrial Rate : 061 BPM P-R Int : 188 ms QRS Dur : 102 ms QT Int : 428 ms P-R-T Axes : 059 -49 059 degrees QTc Int : 430 ms Normal sinus rhythm Left axis deviation Incomplete right bundle branch block Inferior infarct Septal infarct , age undetermined Abnormal ECG When compared with ECG of 12-JUN-2007 19:31, Septal infarct is now Present Confirmed by Marvin Marin ([id number]) on 03/16/2021 9:23:25 AM Referred By: REFERRED SELF Confirmed By:Marvin Marin
[2021-03-16] MEDS ORDERED: MAGNESIUM SULFATE / D5W 1 GM/100 ML BAG IV ONE (09:30)
--- NOTE | 2021-03-16 09:41 | XRay Report ---
KUB CLINICAL HISTORY: Follow-up small bowel obstruction. FINDINGS: 2 AP supine abdominal radiographs are compared to study dated 03/15/2021 and correlated with abdominal CT dated 03/12/2021. An enteric tube is unchanged in position. Cholecystectomy clips are no erika in the right upper quadrant and suture material is seen in the left upper quadrant. There is pers istent gaseous distention of the small bowel loops which measure up to 4 cm in diameter. This has mod estly improved as compared to yesterday. Gas is noted within the colon. No evidence of intraperitonea l free air is seen on these supine images. The skeletal structures are osteopenic and appear intact n oting moderate lumbosacral spondylosis. The heart is enlarged and there is evidence of previous cardi ac valve surgery. IMPRESSION: There is persistent gaseous distention of the small bowel loops which appears modestly im proved from yesterday. Electronically signed by: Eleazar Fitch M.D. 03/16/2021 9:40 AM
[2021-03-16] MEDS: D5W AND 1/2NSS + 20MEQ KCL 20 MEQ/1,000 ML BAG IV SCH ×2 (09:55→21:16)
[2021-03-16] MEDS: hydrALAZINE HCL 20 MG/ML VIAL IV PRN (17:54)
[2021-03-16] MEDS ORDERED: lisinopril 5 MG TAB PO ONE (18:00)
[2021-03-17 07:36] LABS: Hematocrit (blood only) 39.5 % (37-47); Hemoglobin 13.1 g/dL (12.0-16.0); Mean Corpuscular Hemoglobin 30.1 pg (25-34); Mean Corpuscular Hgb Conc 33.2 g/dL (32-36); Mean Corpuscular Volume 90.8 fL (80-100); Mean Platelet Volume 9.5 fL (7.4-10.4); Platelet Count 218 K/uL (130-400); RDW Coefficient of Variation 14.5 % (11.5-14.5); RDW Standard Deviation 48.5 fL (36.4-46.3); Red Blood Count 4.35 M/uL (4.2-5.4); White Blood Count 7.11 K/uL (4.8-10.8)
[2021-03-17] MEDS: ENOXAPARIN INJ 40 MG/0.4 ML SYR SQ SCH ×2 (07:39→07:43)
[2021-03-17] MEDS: CHOLECALCIFEROL 1,000 UNITS 25 MCG TAB PO SCH (07:39)
[2021-03-17] MEDS: TOLTERODINE TARTRATE 1 MG TAB PO SCH (07:39)
[2021-03-17] MEDS: predniSONE 5 MG TAB PO SCH (07:39)
[2021-03-17] MEDS: FAMOTIDINE 20 MG in SYRINGE 3 ML IV SCH (07:40)
[2021-03-17 08:02] LABS: Albumin Level 2.7 gm/dl (3.4-5.0); BUN Creatinine Ratio 7.8 (10-20); Calcium 8.2 mg/dl (8.5-10.1); Creatinine Clr Calc Pharmacy 45.2 ml/min; Est GFR (African American) 77.7 ml/min; Potassium 3.6 mmol/L (3.5-5.1)
[2021-03-17 08:05] LABS: Bilirubin,Total 0.7 mg/dl (0.2-1); Globulin 2.7 gm/dl (2.5-4.0); Total Protein 5.4 gm/dl (6.4-8.2)
[2021-03-17] MEDS ORDERED: lisinopril 2.5 MG TAB PO SCH (09:00)
--- NOTE | 2021-03-17 09:17 | Hospitalist Progress Note ---
Date of Service March 17, 2021 Assessment & Plan (1) SBO (small bowel obstruction): Plan: CT with multiple loops of fluid-filled small bowel with swirling of the small bowel mesentery and associated bowel transition points - possibly related to internal hernia vs adhesions; associated mesenteric infiltration with trace ascites BS are present x 4 quadrants but slightly hypoactive - not passing gas or moving bowels WBC wnl since d/c abx, confirmed with surgery no need for abx from their standpoint as well and flagyl causing GI upset Remains afebrile NGT removed by accident morning of 03/16, however per surgery ok to keep out and try clear liquids based on improvement on KUB BM x 2 -- one last night and again this morning Continue IVF for now (switched to include dextrose yesterday for glucose low on BMP, improved today), advance to full liquids if tolerating General surgery on consult -- appreciate continued input Monitor labs/electrolyte replacement as needed. (2) Amnesia, global, transient: Plan: Unknown etiology - head CT negative and no focal neurological deficits BP was elevated upon ED arrival and may have contributed to this - given pain it is possible pain, elevated blood pressure, and vagal could be contributing No symptoms to support infectious etiology - no fever, mild leukocytosis; was already started on Abx empirically which would skew obtaining a urine sample BP is improved since admission but still slightly elevated - on chronic steroids due to PMR but not on any BP medication - would monitor at this time She was not placed on telemetry so unable to r/o arrhythmia, however no recurrance Has mitral valve replacement and will obtain ECHO to eval for valve issues -- no issues with valve If recurs, monitor on tele, otherwise f/u PCP (3) PMR (polymyalgia rheumatica): Plan: Continue Prednisone 5 mg daily Low dose but given SBO stress monitor for need for stress dosing -- no need (4) Hypomagnesemia: Plan: Checked given SBO 1gm to keep >2, however is wnl at 1.9 on AM labs Continue to monitor (5) Non-functioning kidney: Plan: s/p large kidney stone removal in 1970s and subsequent nonfunctioning LEFT kidney Cr remains stable Plan: Conservative measures at this time - ambulate as tolerate and diet advancement pending reassessment and resolution of SBO Admission and Anticipated Discharge Date Admission Date: March 12, 2021 Results & Data Results & Data ([facility]) Vital Signs (Past 12 Hours) Vital Signs Temp Pulse Resp BP Pulse Ox 03/17/21 07:35 36.6 C 69 20 140/90 95 03/16/21 22:35 36.7 C 87 20 148/87 H 98 Laboratory Results 03/17/21 03/17/21 Range/Units 07:04 07:04 WBC 7.11 (4.8-10.8) K/uL RBC 4.35 (4.2-5.4) M/uL Hgb 13.1 (12.0-16.0) g/dL Hct 39.5 (37-47) % MCV 90.8 (80-100) fL MCH 30.1 (25-34) pg MCHC 33.2 (32-36) g/dL RDW Std Deviation 48.5 H (36.4-46.3) fL RDW Coeff of Jigna 14.5 (11.5-14.5) % Plt Count 218 (130-400) K/uL MPV 9.5 (7.4-10.4) fL Sodium 141 (136-145) mmol/L Potassium 3.6 (3.5-5.1) mmol/L Chloride 109 H (98-107) mmol/L Carbon Dioxide 26 (21-32) mmol/L Anion Gap 6.0 (3-11) BUN 7 (7-18) mg/dl Creatinine 0.85 (0.6-1.2) mg/dl Est Cr Clr Drug Dosing 45.2 ml/min Est GFR ( Amer) 77.7 ml/min Est GFR (Non-Af Amer) 67.0 ml/min BUN/Creatinine Ratio 7.8 L (10-20) Glucose 95 (70-99) mg/dl Calcium 8.2 L (8.5-10.1) mg/dl Magnesium 2.0 (1.8-2.4) mg/dl Total Bilirubin 0.7 (0.2-1) mg/dl AST 33 (15-37) U/L ALT 25 (12-78) U/L Alkaline Phosphatase 38 L (45-117) U/L Total Protein 5.4 L (6.4-8.2) gm/dl Albumin 2.7 L (3.4-5.0) gm/dl Globulin 2.7 (2.5-4.0) gm/dl Albumin/Globulin Ratio 1.0 (0.9-2) PG Care Time/CCT Total # of Minutes Spent Total Time Spent with Patient: Total time spent is greater than 50% in coordination of care (as documented) at patient's floor/unit and/or counseling patient: Coding Diagnoses SBO (small bowel obstruction) K56.609 Amnesia, global, transient G45.4 PMR (polymyalgia rheumatica) M35.3 Hypomagnesemia E83.42 Non-functioning kidney N28.9
--- NOTE | 2021-03-17 09:31 | XRay Report ---
KUB HISTORY: Follow up study in a patient with reported small bowel obstruction f/u SBO COMPARISON: KUB 03/16/2021 FINDINGS: Mild gaseous distention of the stomach status post removal of the enteric tube. Cholecystec shoaib. Mildly dilated air-filled loops of small bowel redemonstrated measuring up to 3.3 cm, previousl y 4.0 cm. Air is also noted within the large bowel. No renal calculi. No ureteral calculi. No pneumo peritoneum or pneumatosis. No fracture. IMPRESSION: 1. Mildly dilated air-filled loops of small bowel within the abdomen and pelvis have mildly improved from comparison. 2. Interval removal of the enteric tube. ACT 112: Negative or not required by law. The above report was generated using voice recognition software. It may contain grammatical, syntax o r spelling errors. Electronically signed by: Melchor Rosales M.D. 03/17/2021 9:30 AM
[2021-03-17] MEDS: D5W AND 1/2NSS + 20MEQ KCL 20 MEQ/1,000 ML BAG IV SCH (10:08)
--- NOTE | 2021-03-17 11:31 | Surgery Progress Note ---
Date of Service March 17, 2021 Assessment & Plan (1) SBO (small bowel obstruction): Plan: RESOLVING afebrile, vitals stable leukocytosis resolved + RETURN OF BOWEL FUNCTION Plan: can advance diet as tolerated would recommend low fiber diet for 1 week and then regular diet as tolerated, list of recommended low fiber foods provided in discharge instructions our services signing off f/u Dr. Craft in [address] Craft has seen patient, agrees with above Admission and Anticipated Discharge Date Admission Date: March 12, 2021 Subjective feeling good, ready to go home feeling normal some abdominal "discomfort" and then has diarrhea and the discomfort resolves no n/v tolerated clear liquids Physical Exam Constitutional: WD/WN, vitals as above no acute distress and not ill appearing Respiratory: normal respiratory effort; no respiratory distress, no labored breathing and no retractions Gastrointestinal (Abdomen): Inspection/Auscultation: abdomen normal to inspection and normal bowel sounds; abdomen not distended Percussion/Palpation: abdomen soft; abdomen nontender, no guarding and abdomen not rigid Skin: no rashes, warm and dry Psychiatric: A+Ox3, euthymic affect Results & Data ([facility]) Vital Signs (Past 12 Hours) Vital Signs Temp Pulse Resp BP Pulse Ox 03/17/21 07:35 36.6 C 69 20 140/90 95 Laboratory Results 03/17/21 03/17/21 Range/Units 07:04 07:04 WBC 7.11 (4.8-10.8) K/uL RBC 4.35 (4.2-5.4) M/uL Hgb 13.1 (12.0-16.0) g/dL Hct 39.5 (37-47) % MCV 90.8 (80-100) fL MCH 30.1 (25-34) pg MCHC 33.2 (32-36) g/dL RDW Std Deviation 48.5 H (36.4-46.3) fL RDW Coeff of Jigna 14.5 (11.5-14.5) % Plt Count 218 (130-400) K/uL MPV 9.5 (7.4-10.4) fL Sodium 141 (136-145) mmol/L Potassium 3.6 (3.5-5.1) mmol/L Chloride 109 H (98-107) mmol/L Carbon Dioxide 26 (21-32) mmol/L Anion Gap 6.0 (3-11) BUN 7 (7-18) mg/dl Creatinine 0.85 (0.6-1.2) mg/dl Est Cr Clr Drug Dosing 45.2 ml/min Est GFR ( Amer) 77.7 ml/min Est GFR (Non-Af Amer) 67.0 ml/min BUN/Creatinine Ratio 7.8 L (10-20) Glucose 95 (70-99) mg/dl Calcium 8.2 L (8.5-10.1) mg/dl Magnesium 2.0 (1.8-2.4) mg/dl Total Bilirubin 0.7 (0.2-1) mg/dl AST 33 (15-37) U/L ALT 25 (12-78) U/L Alkaline Phosphatase 38 L (45-117) U/L Total Protein 5.4 L (6.4-8.2) gm/dl Albumin 2.7 L (3.4-5.0) gm/dl Globulin 2.7 (2.5-4.0) gm/dl Albumin/Globulin Ratio 1.0 (0.9-2)
--- NOTE | 2021-03-17 12:53 | Discharge Summary ---
Date of Service March 17, 2021 Admission HPI Per Admitting Provider 75 yo F in ER for worsening abdominal pain sudden onset earlier today. States that it is spread throughout her abdomen, sharp, has caused nausea, no emesis. hx abdominal surgery for gallbladder removal and hysterectomy. No hx of similar episodes. no fevers/chills/night sweats. no symptoms prior to today. After arrival at ER patient states that she didn't remember the ambulance ride in. Last thing she remembers is being at home surrounded by family and sitting down on a step to rest while everyone looked worried around her. Next recollection is being on a gurney brought into ER. No hx stroke, HTN, CAD. No focal symptoms. Head CT negative. No other episodes or instances of memory loss. On prednisone 5 mg daily as part of taper for treatment of PMR. Admission Exam Per Admitting Provider Constitutional: sitting up in bed with NG tube in place, visibly distressed Eyes: EOMI, pupils equal and reactive bilaterally, no scleral icterus Cardiac: RRR, no murmurs, gallops or rubs. Normal S1, S2 Pulm: CTA BL, no wheezes, rhonchi, crackles or rubs, moving air well throughout both lungs Abd: soft, TTP over lower abdomen, normal bowel sounds, no rebound or guarding Extremities: 2+ peripheral pulses, no edema Neuro: no focal deficits, moving all 4 limbs, A&Ox3 Principal Diagnosis Small bowel obstruction Discharge Exam Constitutional WD/WN, vitals as above Eyes PERRL, conjunctivae normal, anicteric sclerae ENMT external ear and nose normal, oropharynx normal Neck trachea midline, no thyromegaly Respiratory normal respiratory effort, lungs clear to auscultation Cardiovascular RRR, no murmur, no edema Gastrointestinal (Abdomen) normal bowel sounds, soft, nontender, no hepatosplenomegaly Musculoskeletal no cyanosis or clubbing, extremities motor strength 5/5 Skin no rashes, warm and dry Neurologic PERRL, EOMI, accommodation nl, no face palsy, no dysarthria Psychiatric A+Ox3, euthymic affect Lymphatic no cervical or axillary lymphadenopathy Discharge Data Allergies Allergy/AdvReac Type Severity Reaction Status Date / Time shellfish derived Allergy Unknown COULDN'T Verified 03/12/21 20:38 BREATH; SWELLING methimazole AdvReac Mild SWELLING Verified 03/12/21 20:38 OF JOINTS iodine AdvReac Unknown Nausea Verified 03/12/21 20:38 amoxicillin [From Augmentin] AdvReac BLOODY Verified 03/12/21 20:38 DIAHRREA clavulanic acid AdvReac BLOODY Verified 03/12/21 20:38 [From Augmentin] DIAHRREA Consultations 03/12/21 19:50 Consult General Surgery Stat 03/12/21 20:03 ED Decision to Admit Stat Ordered Studies 03/12/21 18:32 CT abd pelvis wo con Stat CT head/brain wo con Stat Hospital Course (1) SBO (small bowel obstruction): CT with multiple loops of fluid-filled small bowel with swirling of the small bowel mesentery and associated bowel transition points - possibly related to internal hernia vs adhesions; associated mesenteric infiltration with trace ascites Patient was treated conservatively with IV fluids, pain control, antiemetics General surgery was consulted NG tube placed to maintain until 03/16 with brown output and caliber of bowels decreased on imaging and was advanced to clear liquid diet by general surgery Continue to have bowel movements and was advanced to full liquid diet for breakfast and patient did very request to be advanced by dinnertime and tolerated without difficulty. Patient was instructed to slow we advance her diet as tolerated after 1 week of low fiber diet and will need follow-up with Dr. Craft from general surgery to evaluate post discharge Initially placed on antibiotics elevated white count however patient was recently started on prednisone for her PMR this could have been elevation seen on admission. Discussed with general surgery and antibiotics were discontinued given Flagyl for anaerobes causing discomfort abdomen. Discontinuation resulting in improvement of symptoms and white count returned to normal. Remained afebrile Blood pressure remained elevated patient admits to not having had checked her blood pressure since starting her prednisone by rheumatology. Discussed that this could be contributing however was started on lisinopril 2.5 mg daily and instructed to check her blood pressure at home and follow-up with rheumatology to see if decreased amount of steroids would continue to keep her symptoms of PMR at bay. She had no acute exacerbation of the symptoms during hospitalization Seen on day of discharge by general surgery and felt okay with discharge with close follow-up (2) Amnesia, global, transient: Unknown etiology - head CT negative and no focal neurological deficits and patient was not placed on telemetry on admission however telemetry in emergency department did not note any abnormalities Blood pressure was elevated upon admission which could have contributed to this given her recently started prednisone for PMR as above, however could have also been contributed to pain and vagal response as well She notes she had not checked her blood pressure since starting this medication and was instructed to do so Blood pressure did remain elevated and was started on lisinopril 2.5 mg daily and instructed to continue this at discharge with close monitoring and may need further titration in either antihypertensive therapy or decreasing her prednisone after discussion with her hospice liaison in follow-up appointment If she were to have recurrence of the symptoms she should be placed on a monitored bed to rule out any underlying arrhythmia however she did not note any palpitations but if this were to occur she could consider monitoring as an outpatient with her PCP unless becomes symptomatic She does have a history of a mitral valve replacement and obtain an echo to evaluate for this which did not show any issues with valve No recurrence of amnesia during hospital stay (3) PMR (polymyalgia rheumatica): Continue Prednisone 5 mg daily as above as this was just recently started for proximal muscle weakness and had been controlling her symptoms very well No stress dose as needed for inpatient stay as blood pressure remained elevated as above NEW DIAGNOSIS AND HAS NOT CHECKED BP SINCE STARTING AT END OF JANUARY. WOULD LIKE TO START 2.5MG LISINOPRIL DAILY (BPS BETTER) AND F/U WITH RHEUMATOLOGY TO SEE ABOUT REDUCTION IN DOSE TO SEE IF SYMPTOMS STAY CONTROLLED. MAY NEED FURTHER TITRATION IF NEEDED IF BP STILL ELEVATED. DISCUSSED WITH PATIENT (4) Hypomagnesemia: Checked given SBO 1gm to keep >2, however is wnl at 1.9 on AM labs Remained stable on repeat (5) Non-functioning kidney: s/p large kidney stone removal in and subsequent nonfunctioning LEFT kidney Cr remained stable Patient was discharged this evening with her as a wedding to go to this weekend. Instructed to advance her diet slowly but should maintain a low fiber diet for the upcoming week. Patient was provided with information on low fiber diet and should have follow-up with Dr. Craft as well as her primary care. She should also follow-up with her hospice liaison for PMR and prednisone dosing to see if this may be reduced Total Time Total Time Spent Total Time Spent (In Minutes): 60 Discharge Plan Discharge Items Patient Disposition: Home - Self-Care Reason For Visit: SBO Discharge Diagnosis: Small Bowel Obstruction Condition on Discharge: Good Goals: You have been hospitalized for an acute medical problem. During your stay at [facility], we have made an effort to correct the problem that brought you to the hospital while keeping you as comfortable as possible. Medications were used to bring your condition under control and your discharge instructions will include directions for any medications you should take after leaving the hospital. Please make sure you see your Primary Care Provider as part of your follow up plan. Activity: As commented below Activity Comment: as tolerated Non-emergency contact: Primary Care Provider and Surgeon Call non-emergency contact if: you have any medication questions, your symptoms worsen, your pain is not controlled and you have a fever Follow-up/Referrals: Martin Jacob [Primary Care Provider] - Hector Ornelas MD [Physician] - (1-2 weeks Re; PMR follow up/prednisone titration) Justine Craft MD [Physician] - (Follow-up in 2 weeks) Diet: Heart Healthy and Low Fiber Diet Comment: low fiber diet for 1 week and then regular diet as tolerated Addtl Attending Provider Instructions: You have been hospitalized and found to have a small bowel obstruction. This is likely due to previous abdominal surgery. General Surgery (Dr Craft) was consulted and agreed with conservative treatment. You were provided IV fluids and antibiotics, however general surgery did not feel antibiotics were needed and these have been discontinued and your labs remained stable. Your diet was slowly advanced, and you should continue a low fiber diet for ONE WEEK instead of two per surgery, and advance as tolerated. You should consider daily over the counter miralax or stool softner to keep your bowels regular. As discussed, you have been sent in prescription for lisinopril 2.5mg daily, however blood pressure could be elevated from recently started prednisone for your PMR. You should follow up with Dr. Ireland to see about lowering this dose to whatever is effective to keep symptoms at bay. As discussed, you should check your blood pressures, and if well controlled (less than 160 top number, 85 bottom number) you can follow up with your PCP about starting/continuing the lisinopril, however if remains elevated you should continue this medication and may need further adjustments/increases if blood pressure remains elevated because you have to remain on steroids. You should follow up with Dr. Craft in two weeks for follow up and your primary care provider in the next 1-2 weeks for follow up after discharge to monitor your status. If you experience any further passing out/amnesia type events, it would be recommended to get a monitor to evaluate for any arrhythmias, but you did not have any noted while in the emergency department and this could have been due to pain and an increased vagal response. If you develop fevers, nausea, inability to keep up with oral intake, stop passing gas, or develop abdominal pain, please return to the emergency department. It has been a pleasure being a part of the medical team providing for you while you have been in the hospital. Take care! Addtl Certified Activities Director Provider Instructions: Recommend low fiber diet for 1 week after discharge. list of foods as below Recommended Foods: Breads and Grains Refined breads, toast, rolls, biscuits, muffins, crackers, pancakes, waffles Enriched white or light rye bread and rolls Saltine crackers Refined cereals (puffed rice, puffed wheat, Rice Krispies, [place] Flakes, Cheerios, Cream of Wheat) White rice, refined pasta, macaroni, noodles Vegetables Canned or well cooked vegetables without seeds, hulls, or skins. Carrots Asparagus Beets Green or wax beans Pumpkin Spinach Squash without seeds Potatoes without skin Tomatoes Fruits Most canned or cooked fruits without skins, seeds, or membranes Fruit cocktail Avocado Canned applesauce Apricots, peaches, or pears without skin and seeds Pureed plums Ripe bananas Fruit juices with no pulp Milk and Dairy Limit products to 2 cups per day Mild cheese, cottage cheese, etc. Yogurt with no berries Butter and margarine Meat Eggs Ground, tender, or well-cooked meat products Creamy peanut butter (limit to 2 tbsp per day) Pending Studies at Discharge: No Stand-Alone Forms: [facility] Medications and DC Order Prescriptions: New lisinopril 2.5 mg Tablet 2.5 mg PO QAM Qty: 30 RF: 0 Continued cholecalciferol (vitamin D3) [Vitamin D3] 1,000 unit Tablet 1,000 unit PO DAILY RF: 0 prednisone 5 mg Tablet 5 mg PO DAILY RF: 0 tolterodine 1 mg tablet 1 mg PO BID RF: 0 Discharge Orders: Discharge Order (Routine); Ordered 03/17/21 Ordered By: Natalia Lilly/Other Patient Handouts: Small Bowel Obstruction Admission Data Admit Date/Time: 03/12/21 20:46 Attending Provider: Benedict Saavedra Admit Provider: Nadine Johnson Primary Care Provider: Martin Jacob Other Providers: Martin King ; Leodan Wilson Other Interventions: Discharge Summary Assessment (RN) Last Done: 03/17/21 15:40 Coding Level of Care Code D/C DAY MANAGEMENT >30 MINS Diagnoses SBO (small bowel obstruction) K56.609 Amnesia, global, transient G45.4 PMR (polymyalgia rheumatica) M35.3 Hypomagnesemia E83.42 Non-functioning kidney N28.9
== END 2021-03-17 19:06 | disposition home or self-care (01) | DRG 390 ==
LOC: ED 18:39 → 3W 20:46 → SUATTDRO 20:46 → 3W 22:08

== ENCOUNTER 2021-07-11 06:53 | Inpatient (IN) ==
[2021-07-11] MEDS ORDERED: ONDANSETRON INJ 2 MG/ML 2 ML VIAL IV STA ×2 (07:09→12:43)
[2021-07-11] MEDS ORDERED: ACETAMINOPHEN 65 ML IV ONE (07:09)
--- NOTE | 2021-07-11 07:18 | Emergency Department Note ---
History of Present Illness General Chief complaint: Abdominal Pain Stated complaint: ABD PAIN,VOMITING Time Seen by Provider: 07/11/21 07:00 History of Present Illness Maximum Pain Intensity: 9 This is a 75-year-old female with a history of polymyalgia rheumatica, SBO that presents to the emergency department via private vehicle accompanied by with complaints of "abdominal pain, vomiting". Patient states that yesterday evening after dinner she began with abdominal discomfort. She notes that this is just inferior to the umbilicus. She has associated nausea and vomiting. D ecreased appetite. She states her last abdominal surgery was 2016 and was a hysterectomy. She states that for her PMR she has been on prednisone but not able to take at the present time noting her nausea and vomiting. She notes that she is thirsty. She denies any fevers, chills, chest pain or shortness of breath. Current pain 910. Home Medications Medication Instructions Recorded Confirmed Type cholecalciferol (vitamin D3) 25 1,000 unit PO DAILY 02/04/19 07/11/21 History mcg (1,000 unit) tablet (Vitamin D3) tolterodine 1 mg tablet 1 mg PO BID 03/12/21 07/11/21 History amlodipine 2.5 mg tablet 2.5 mg PO DAILY 06/14/21 07/11/21 History prednisone 1 mg tablet 4 mg PO DAILY 07/11/21 07/11/21 History Allergies Allergy/AdvReac Type Severity Reaction Status Date / Time shellfish derived Allergy Severe COULDN'T Verified 07/11/21 08:31 BREATH; SWELLING lisinopril Allergy Intermediate full body Unverified 07/11/21 09:33 itching amoxicillin [From Augmentin] AdvReac Intermediate BLOODY Verified 07/11/21 08:31 DIAHRREA clavulanic acid AdvReac Intermediate BLOODY Verified 07/11/21 08:31 [From Augmentin] DIAHRREA methimazole AdvReac Intermediate SWELLING Verified 07/11/21 08:31 OF JOINTS iodine AdvReac Mild Nausea Verified 07/11/21 08:31 Past Med/Surg History Medical History Amnesia, global, transient Kidney stones SBO (small bowel obstruction) Surgical History History of total hysterectomy Hx of cholecystectomy Hx of mitral valve replacement Social History Smoking Status: Never smoker Hx Alcohol Use: Yes Alcohol type: wine Hx Substance Use: No Preferred Language: Lithuanian Communication Ability: Effective 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 That Will Affect Care: 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 Beliefs: Member of [facility] Current Living Situation: Spouse Feels Safe at Home: Yes Assistive Devices: None Review of Systems A total of 10 systems reviewed and were otherwise negative Physical Exam Vital Signs Vital Signs - 24 hr 07/11/21 06:57 07/11/21 07:24 07/11/21 09:00 Temperature 36.0 C L Temperature Source Temporal Artery Scan Pulse Rate 69 Pulse Rate [Radial] 60 68 Pulse Rhythm Regular Pulse Rhythm [Radial] Regular Pulse Strength Normal Pulse Strength [Radial] Normal Respiratory Rate 20 20 20 Respiratory Effort / Characteristics Non-Labored Spontaneous Non-Labored Non-Labored Respiratory Depth Normal Normal Normal Respiratory Pattern Regular Regular Blood Pressure 142/95 H Blood Pressure [Left Arm] 138/88 136/87 Blood Pressure Mean 110 Blood Pressure Mean [Left Arm] 104 103 Blood Pressure Position Sitting Pulse Oximetry 96 97 95 Oxygen Delivery Method Room Air Room Air Room Air Sepsis Recent Fever Within 48 Hours No Sepsis New/Unexplained Change in Mental Status No Sepsis Action Taken by Nursing No Action Required 07/11/21 09:30 Temperature Temperature Source Pulse Rate Pulse Rate [Radial] 65 Pulse Rhythm Pulse Rhythm [Radial] Regular Pulse Strength Pulse Strength [Radial] Normal Respiratory Rate 20 Respiratory Effort / Characteristics Non-Labored Respiratory Depth Normal Respiratory Pattern Regular Blood Pressure Blood Pressure [Left Arm] 117/80 Blood Pressure Mean Blood Pressure Mean [Left Arm] 92 Blood Pressure Position Pulse Oximetry 97 Oxygen Delivery Method Room Air Sepsis Recent Fever Within 48 Hours Sepsis New/Unexplained Change in Mental Status Sepsis Action Taken by Nursing VITAL SIGNS - Vital signs and nursing notes were reviewed. Mildly hypertensive, otherwise stable. GENERAL -75-year-old female appearing her stated age who is in no acute distress. Communicates well with provider and answers questions appropriately. SKIN - Without rashes. No meningeal or petechial rash. No herpetic lesions. HEAD - NC/AT. EYES - Sclera anicteric. NECK - No nuchal rigidity. LUNGS -clear to auscultation. No wheezing. CARDIAC - RRR ABDOMEN - Abdominal contour normal without pulsations or visible masses. BS hyperactive all four quadrants. Periumbilical tenderness to palpation and tenderness just inferior to the umbilicus noted. No palpable masses, hepatosplenomegaly, or ascites noted. NEUROLOGIC - Cranial nerves II through XII grossly intact. PSYCH - A&O, and cooperates fully with examiner. Pt is very pleasant and interacts well with examiner. Course Administered Medications Sodium Chloride (Nss) 500 mls @ 93 mls/hr IV .[id number] JOSE Stop: 08/10/21 07:14 Last Admin: 07/11/21 07:31 Dose: 93 mls/hr Documented by: [id number] Discontinued Medications Acetaminophen (Ofirmev) 65 mls @ 200 mls/hr IV NOW ONE; Protocol Stop: 07/11/21 07:28 Last Infusion: 07/11/21 08:11 Dose: 0 mls/hr Documented by: [id number] Admin: 07/11/21 07:51 Dose: 200 mls/hr Documented by: [id number] Ondansetron HCl (Ondansetron Inj 2 Mg/Ml 2 Ml Vial) 4 mg IV NOW STA Stop: 07/11/21 07:10 Last Admin: 07/11/21 07:30 Dose: 4 mg Documented by: [id number] Medical Decision Making Laboratory Data Result diagrams: 07/11/21 07:25 07/11/21 07:25 Lab Results 07/11/21 07/11/21 07/11/21 Range/Units 07:25 07:25 07:58 WBC 8.70 (4.8-10.8) K/uL RBC 4.89 (4.2-5.4) M/uL Hgb 14.9 (12.0-16.0) g/dL Hct 44.9 (37-47) % MCV 91.8 (80-100) fL MCH 30.5 (25-34) pg MCHC 33.2 (32-36) g/dL RDW Std Deviation 44.9 (36.4-46.3) fL RDW Coeff of Jigna 13.4 (11.5-14.5) % Plt Count 234 (130-400) K/uL MPV 9.8 (7.4-10.4) fL Immature Gran % (Auto) 0.1 % Neut % (Auto) 74.8 % Lymph % (Auto) 17.8 % Lenoir % (Auto) 6.2 % Eos % (Auto) 0.5 % Baso % (Auto) 0.6 % Neut # (Auto) 6.51 H (1.4-6.5) K/uL Lymph # (Auto) 1.55 (1.2-3.4) K/uL Len[place] # (Auto) 0.54 (0.11-0.59) K/uL Eos # (Auto) 0.04 (0-0.5) K/uL Baso # (Auto) 0.05 (0-0.2) K/uL Immature Gran # (Auto) 0.01 (0.00-0.02) K/uL Sodium 140 (136-145) mmol/L Potassium 3.9 (3.5-5.1) mmol/L Chloride 106 (98-107) mmol/L Carbon Dioxide 27 (21-32) mmol/L Anion Gap 7.0 (3-11) BUN 22 H (7-18) mg/dl Creatinine 1.09 (0.6-1.2) mg/dl Est Cr Clr Drug Dosing 35.3 ml/min Est GFR ( Amer) 57.5 ml/min Est GFR (Non-Af Amer) 49.6 ml/min BUN/Creatinine Ratio 20.1 H (10-20) Glucose 107 H (70-99) mg/dl Calcium 9.4 (8.5-10.1) mg/dl Total Bilirubin 0.9 (0.2-1) mg/dl AST 28 (15-37) U/L ALT 29 (12-78) Alkaline Phosphatase 64 (45-117) U/L Total Protein 7.1 (6.4-8.2) gm/dl Albumin 3.5 (3.4-5.0) gm/dl Globulin 3.6 (2.5-4.0) gm/dl Albumin/Globulin Ratio 1.0 (0.9-2) Lipase 145 (73-393) U/L Urine Color Urine Appearance (Clear) Urine pH (4.5-7.5) Ur Specific Dur[place] (1.000-1.030) Urine Protein (Negative) Urine Glucose (UA) (Negative) Urine Ketones (Negative) Urine Blood (Negative) Urine Nitrite (Negative) Urine Bilirubin (Negative) Urine Urobilinogen (Negative) Ur Leukocyte Esterase (Negative) SARS-CoV-2, RNA, NAAT NEGATIVE (NEGATIVE) 07/11/21 Range/Units 09:12 WBC (4.8-10.8) K/uL RBC (4.2-5.4) M/uL Hgb (12.0-16.0) g/dL Hct (37-47) % MCV (80-100) fL MCH (25-34) pg MCHC (32-36) g/dL RDW Std Deviation (36.4-46.3) fL RDW Coeff of Jigna (11.5-14.5) % Plt Count (130-400) K/uL MPV (7.4-10.4) fL Immature Gran % (Auto) % Neut % (Auto) % Lymph % (Auto) % Lenoir % (Auto) % Eos % (Auto) % Baso % (Auto) % Neut # (Auto) (1.4-6.5) K/uL Lymph # (Auto) (1.2-3.4) K/uL Lenoir # (Auto) (0.11-0.59) K/uL Eos # (Auto) (0-0.5) K/uL Baso # (Auto) (0-0.2) K/uL Immature Gran # (Auto) (0.00-0.02) K/uL Sodium (136-145) mmol/L Potassium (3.5-5.1) mmol/L Chloride (98-107) mmol/L Carbon Dioxide (21-32) mmol/L Anion Gap (3-11) BUN (7-18) mg/dl Creatinine (0.6-1.2) mg/dl Est Cr Clr Drug Dosing ml/min Est GFR ( Amer) ml/min Est GFR (Non-Af Amer) ml/min BUN/Creatinine Ratio (10-20) Glucose (70-99) mg/dl Calcium (8.5-10.1) mg/dl Total Bilirubin (0.2-1) mg/dl AST (15-37) U/L ALT (12-78) Alkaline Phosphatase (45-117) U/L Total Protein (6.4-8.2) gm/dl Albumin (3.4-5.0) gm/dl Globulin (2.5-4.0) gm/dl Albumin/Globulin Ratio (0.9-2) Lipase (73-393) U/L Urine Color Yellow Urine Appearance Clear (Clear) Urine pH 6.5 (4.5-7.5) Ur Specific [place] 1.019 (1.000-1.030) Urine Protein Negative (Negative) Urine Glucose (UA) Negative (Negative) Urine Ketones Trace H (Negative) Urine Blood Negative (Negative) Urine Nitrite Negative (Negative) Urine Bilirubin Negative (Negative) Urine Urobilinogen Negative (Negative) Ur Leukocyte Esterase Negative (Negative) SARS-CoV-2, RNA, NAAT (NEGATIVE) Imaging Data Radiologist's Impression: Abdomen/Pelvis CT 07/11/21 07:09 CT OF THE ABDOMEN AND PELVIS WITHOUT CONTRAST CLINICAL HISTORY: Abdominal pain and vomiting. History of small bowel obstruction. COMPARISON STUDY: CT of the abdomen and pelvis June 14, 2021. TECHNIQUE: Axial images of the abdomen and pelvis were obtained without IV contrast. Images were reviewed in the axial, sagittal, and coronal planes. Automated exposure control was utilized for the study. A dose lowering technique was utilized adhering to the principles of ALARA. FINDINGS: Lung bases are unremarkable. Cardiomegaly is unchanged. No pneumatosis, free air or portal venous gas is present. Evaluation of the abdomen and pelvis is suboptimal on this unenhanced exam. The liver, spleen, adrenal glands, right kidney and pancreas are unremarkable. There is no biliary ductal dilatation status post cholecystectomy. Marked left renal atrophy with hydronephrosis is unchanged. This is chronic. Left renal calculi are again noted. A small amount of abdominal and pelvic ascites has developed. There are multiple loops of fluid-filled dilated small bowel which measure up to 3.1 cm in caliber. Two transition points in close proximity to one another are noted within the upper pelvis on axial image 253 of 406. There is associated mesenteric stranding and fluid. Slight swirling of the mesentery is noted. No bowel wall thickening is identified on this unenhanced exam. These findings have developed since prior CT. No fluid collection is identified to suggest an abscess. No acute fracture or suspicious lesion is identified within the visualized skeletal structures. IMPRESSION: Multiple loops of fluid-filled dilated small bowel consistent with a small bowel obstruction. Two transition points in close proximity to one another within the upper pelvis. Mild associated swirling of the mesentery with mesenteric stranding and a small amount of ascites. A developing closed loop small bowel obstruction would be difficult to exclude. Clinical monitoring is recommended. If indicated, surgical consultation could be obtained. ACT 112: Negative or not required by law. Electronically signed by: Dereje Marquez M.D. 07/11/2021 8:19 AM KUB X-Ray 07/11/21 09:49 KUB HISTORY: Status post placement of an enteric tube NG tube placed, eval COMPARISON: CT abdomen and pelvis of same day, KUB 03/17/2021 FINDINGS: Cardiomegaly with cardiac valvular prosthesis. Distal tip of enteric tube projects over the distal esophagus. Small bowel obstruction with numerous air-filled loops of small bowel redemonstrated. Cholecystectomy. Moderate fecal retention of the right lower quadrant. No renal calculi. No ureteral calculi. No pneumoperitoneum or pneumatosis. Degenerative changes of the spine, pelvis and hips. No fracture. IMPRESSION: 1. Distal tip of enteric tube projects over the distal esophagus. Advancement of approximately 10 cm recommended. 2. Small bowel obstruction. ACT 112: Negative or not required by law. The above report was generated using voice recognition software. It may contain grammatical, syntax or spelling errors. Electronically signed by: Melchor Rosales M.D. 07/11/2021 10:13 AM [facility] Narrative Patient was seen and evaluated as above in room C04. Review was performed of nursing notes and vital signs. I did review pertinent previous visits and p atient history. After obtaining a thorough history and physical examination the above work up was performed. Patient presents to us today with abdominal pain, nausea and vomiting. She notes a history of SBO. Last abdominal surgery was in 2017 and was a hysterectomy. On arrival the patient has stable vital signs and is nontoxic in appearance. She does have some tenderness noted to the periumbi lical region and just inferior to the umbilicus. No peritoneal signs. No no guarding or rigidity. No active vomiting upon my evaluation of the patient. Options of care were discussed with the patient. IV access was established. Labs are drawn. She was given IV fluids at a maintenance rate, IV Zofran for her nausea and we collectively agreed upon IV acetaminophen. Patient declined wanting anything stronger for pain. Upon review of the patient's previous visit she did undergo a CT scan of the abdomen pelvis without contrast about 1 month ago. No SBO noted on this. It seems as though at that time she had resolution of symptoms. The patient does state however that her symptoms today do feel similar to previous bowel obstructions. CT scan results as above. The patient does have multiple loops of fluid-filled dilated small bowel consistent with small bowel obstruction. Per radiology there are 2 transition points in close proximity to one another within the upper pelvis. Mild associated swirling of the mesentery with mesenteric stranding and a small amount of ascites. Developing closed-loop small bowel obstruction would be difficult to exclude. I informed the patient upon these findings. With the patient's clinical assessment and CT scan findings at this time, I did order an NG tube as well as discussed this with the general surgery team and the hospitalist for admission and further evaluation/management. Please refer to further documentation regarding her stay. The KUB that was performed post NG tube placement does reveal that the distal tip of the enteric tube projects over the distal esophagus. Advancement of approximately 10 cm is recommended. I did discuss this with the nurse. The gastric tube was advanced by patient's nurse and with satisfactory positioning post advancement on my clinical examation of the patient. Case was discussed with the attending physician. GCS: 15 In the evaluation and treatment of this patient the following differential diagnoses were entertained: Bowel obstruction, CO, PE, dissection, acute cholecystitis, cholangitis, diverticulitis, perforation, UTI, pyelonephritis, bowel obstruction, among others. Impression & Plan Small bowel obstruction, Abdominal pain, acute, periumbilical, Nausea & vomiting Discharge Plan Visit Data Chief Complaint: Abdominal Pain Stated Complaint: ABD PAIN,VOMITING ED Provider: Sam Estevez ED Midlevel Provider: Jacob Garrison Discharge Problem: Small bowel obstruction, Abdominal pain, acute, periumbilical, Nausea & vomiting Patient Disposition: Admitted As Inpatient Condition: Good Forms Stand Alone Forms: [employer] Prescriptions Prescriptions: No Action cholecalciferol (vitamin D3) [Vitamin D3] 1,000 unit Tablet 1,000 unit PO DAILY RF: 0 tolterodine 1 mg tablet 1 mg PO BID RF: 0 amlodipine 2.5 mg tablet 2.5 mg PO DAILY RF: 0 prednisone 1 mg tablet 4 mg PO DAILY RF: 0 Referrals Referrals: Martin Jacob [Primary Care Provider] -
[2021-07-11] MEDS: SODIUM CHLORIDE 0.9% 500 ML IV SCH ×2 (07:31→12:55)
[2021-07-11 07:45] LABS: Basophils # (auto) 0.05 K/uL (0-0.2); Basophils % (auto) 0.6 %; Eosinophils # (auto) 0.04 K/uL (0-0.5); Eosinophils % (auto) 0.5 %; Hematocrit (blood only) 44.9 % (37-47); Hemoglobin 14.9 g/dL (12.0-16.0); Immature Granulocytes # (auto) 0.01 K/uL (0.00-0.02); Immature Granulocytes % (auto) 0.1 %; Lymphocytes # (auto) 1.55 K/uL (1.2-3.4); Lymphocytes % (auto) 17.8 %; Mean Corpuscular Hemoglobin 30.5 pg (25-34); Mean Corpuscular Hgb Conc 33.2 g/dL (32-36); Mean Corpuscular Volume 91.8 fL (80-100); Mean Platelet Volume 9.8 fL (7.4-10.4); Monocytes # (auto) 0.54 K/uL (0.11-0.59); Monocytes % (auto) 6.2 %; Neutrophils # (auto) 6.51 K/uL (1.4-6.5); Neutrophils % (auto) 74.8 %; Platelet Count 234 K/uL (130-400); RDW Coefficient of Variation 13.4 % (11.5-14.5); RDW Standard Deviation 44.9 fL (36.4-46.3); Red Blood Count 4.89 M/uL (4.2-5.4)
--- NOTE | 2021-07-11 07:57 | Emergency Department Note ---
ED Visit Note Patient was seen and evaluated at the bedside w/ Jacob Garrison PA-C. Please see their note for history, physical, details, and disposition. Patient did present with abdominal pain nausea vomiting. Patient does have prior history of SBO and felt as though this was similar. Patient does have small bowel obstruction. Surgery was consulted. NG was placed. NG did require advancement after KUB obtained. Patient was admitted to the medicine service. .
[2021-07-11 08:11] LABS: Albumin Level 3.5 gm/dl (3.4-5.0); BUN Creatinine Ratio 20.1 (10-20); Calcium 9.4 mg/dl (8.5-10.1); Creatinine Clr Calc Pharmacy 35.3 ml/min; Est GFR (African American) 57.5 ml/min; Est GFR (Non-African American) 49.6 ml/min; Potassium 3.9 mmol/L (3.5-5.1)
[2021-07-11 08:14] LABS: Bilirubin,Total 0.9 mg/dl (0.2-1); Globulin 3.6 gm/dl (2.5-4.0); Total Protein 7.1 gm/dl (6.4-8.2)
--- NOTE | 2021-07-11 08:20 | CT Scan Report ---
CT OF THE ABDOMEN AND PELVIS WITHOUT CONTRAST CLINICAL HISTORY: Abdominal pain and vomiting. History of small bowel obstruction. COMPARISON STUDY: CT of the abdomen and pelvis June 14, 2021. TECHNIQUE: Axial images of the abdomen and pelvis were obtained without IV contrast. Images were revi ewed in the axial, sagittal, and coronal planes. Automated exposure control was utilized for the katia dy. A dose lowering technique was utilized adhering to the principles of ALARA. FINDINGS: Lung bases are unremarkable. Cardiomegaly is unchanged. No pneumatosis, free air or portal venous gas is present. Evaluation of the abdomen and pelvis is suboptimal on this unenhanced exam. Th e liver, spleen, adrenal glands, right kidney and pancreas are unremarkable. There is no biliary duct al dilatation status post cholecystectomy. Marked left renal atrophy with hydronephrosis is unchanged . This is chronic. Left renal calculi are again noted. A small amount of abdominal and pelvic ascites has developed. There are multiple loops of fluid-filled dilated small bowel which measure up to 3.1 cm in caliber. Two transition points in close proximity to one another are noted within the upper pel vis on axial image 253 of 406. There is associated mesenteric stranding and fluid. Slight swirling of the mesentery is noted. No bowel wall thickening is identified on this unenhanced exam. These findin gs have developed since prior CT. No fluid collection is identified to suggest an abscess. No acute f racture or suspicious lesion is identified within the visualized skeletal structures. IMPRESSION: Multiple loops of fluid-filled dilated small bowel consistent with a small bowel obstruc tion. Two transition points in close proximity to one another within the upper pelvis. Mild associate d swirling of the mesentery with mesenteric stranding and a small amount of ascites. A developing yuan sed loop small bowel obstruction would be difficult to exclude. Clinical monitoring is recommended. I f indicated, surgical consultation could be obtained. ACT 112: Negative or not required by law. Electronically signed by: Dereje Marquez M.D. 07/11/2021 8:19 AM
--- NOTE | 2021-07-11 09:27 | Surgery Consultation ---
Date of Consultation July 11, 2021 Assessment & Plan (1) Small bowel obstruction: This is a 75yF with a PMH of PMR on prednisone, mitral valve replacement, and nonfunctioning L kidney, who presented to the ER on 07/11/21 with complaints of abdominal pain, nausea/vomiting. Workup in the ER with a CT a/p revealed "multiple loops of fluid-filled dilated small bowel consistent with a small bowel obstruction. Two transition points in close proximity to one another within the upper pelvis. Mild associated swirling of the mesentery with mesenteric stranding and a small amount of ascites." Patient's vital signs are stable and blood work unremarkable (WBC 8). On examination patient is soft and distended with discomfort to palpation in the mid and lower abdomen. No guarding. She has had a bowel obstruction in february of which she was admitted and managed conservatively for and worked up for similar symptoms in May in our ER (although CT did not reveal true SBO at that time). We agree with keeping patient NPO for bowel rest, placing NGT for decompression, and IVF for hydration. We will continue to follow closely for change in status. No plans for acute surgical intervention at this time. Appreciate hospitalist Supervising Physician Co-Signing Physician Notes I personally saw and evaluated the patient with Deirdre Lopez PA-C and agree with the assessment and plan. 75-year-old female with SBO CT images and results reviewed, findings similar to her admission from February 2021 Her lab work was reviewed and her white blood cell count is normal and there are no other abnormalities Agree with admission to medicine as we will just watch her for now in hopes she will not need surgical intervention to resolve her bowel obstruction Keep her with an NG tube and n.p.o. for now She may require an oral contrast study if she does not open up in the next 24 to 48 hours We will follow History of Present Illness History of Present Illness This is a 75yF with a PMH of PMR on prednisone, mitral valve replacement, non functioning L kidney who presented to the ER on 07/11/21 with complaints of abdominal pain, nausea/vomiting. Patient reports her abdominal pain started yesterday evening prior to dinner (which consisted of beef and mashed potatoes). She continued with abdominal discomfort throughout the night but developed naus ea and vomiting this AM prompting her to come into the ER for further evaluation. Workup in the ER with a CT a/p revealed "multiple loops of fluid- filled dilated small bowel consistent with a small bowel obstruction. Two transition points in close proximity to one another within the upper pelvis. Mild associated swirling of the mesentery with mesenteric stranding and a small amount of ascites." She has history of bowel obstruction in the past, she was last admitted here in 03/12 for SBO and was evaluated in the ER in May for similar symptoms and was managed conservatively. She reports her pain was a 9 yesterday and is a 6 today after pain medication. Her last BM was yesterday and was normal. She is not passing flatus. Patient's past surgical history includes a cholecystectomy, hysterectomy, and a surgery on the L abdomen for kidney stone removal. Allergies Allergy/AdvReac Type Severity Reaction Status Date / Time shellfish derived Allergy Severe COULDN'T Verified 07/11/21 08:31 BREATH; SWELLING lisinopril Allergy Intermediate full body Unverified 07/11/21 09:33 itching amoxicillin [From Augmentin] AdvReac Intermediate BLOODY Verified 07/11/21 08:31 DIAHRREA clavulanic acid AdvReac Intermediate BLOODY Verified 07/11/21 08:31 [From Augmentin] DIAHRREA methimazole AdvReac Intermediate SWELLING Verified 07/11/21 08:31 OF JOINTS iodine AdvReac Mild Nausea Verified 07/11/21 08:31 Home Medications Medication Instructions Recorded Confirmed Type cholecalciferol (vitamin D3) 25 1,000 unit PO DAILY 02/04/19 07/11/21 History mcg (1,000 unit) tablet (Vitamin D3) tolterodine 1 mg tablet 1 mg PO BID 03/12/21 07/11/21 History amlodipine 2.5 mg tablet 2.5 mg PO DAILY 06/14/21 07/11/21 History prednisone 1 mg tablet 4 mg PO DAILY 07/11/21 07/11/21 History Patient History Medical History Amnesia, global, transient Kidney stones SBO (small bowel obstruction) Surgical History History of total hysterectomy Hx of cholecystectomy Hx of mitral valve replacement Social History Smoking Status: Never smoker Hx Alcohol Use: Yes Alcohol type: wine Hx Substance Use: No Preferred Language: British Communication Ability: Effective 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 Required: No Beliefs That Will Affect Care: Yarsanism Yarsanism Beliefs: Member of [facility] Current Living Situation: Spouse Feels Safe at Home: Yes Assistive Devices: None Review of Systems Constitutional: no fever and no chills Respiratory: no dyspnea Cardiovascular: no chest pain Gastrointestinal: + abdominal pain, + bloating, + nausea and + vomiting; no change in bowel habits Physical Exam Physical Exam: awake/alert Constitutional: well developed and well nourished; no acute distress Respiratory: normal respiratory effort Gastrointestinal (Abdomen): Inspection/Auscultation: + abdomen distended and + abdominal surgical scar (from lap regis, hyster, and open kidney stone removal on L) Percussion/Palpation: + abdomen tender (tender throughout mid and lower abdomen) and abdomen soft; no guarding and abdomen not rigid Results & Data ([facility]) Vital Signs (Past 12 Hours) Vital Signs Temp Pulse Pulse Resp BP BP Pulse Ox 07/11/21 07:24 60 20 138/88 97 07/11/21 06:57 36.0 C L 69 20 142/[address] OF THE ABDOMEN AND PELVIS WITHOUT CONTRAST CLINICAL HISTORY: Abdominal pain and vomiting. History of small bowel obstruction. COMPARISON STUDY: CT of the abdomen and pelvis June 14, 2021. TECHNIQUE: Axial images of the abdomen and pelvis were obtained without IV contrast. Images were reviewed in the axial, sagittal, and coronal planes. Automated exposure control was utilized for the study. A dose lowering technique was utilized adhering to the principles of ALARA. FINDINGS: Lung bases are unremarkable. Cardiomegaly is unchanged. No pneumatosis, free air or portal venous gas is present. Evaluation of the abdomen and pelvis is suboptimal on this unenhanced exam. The liver, spleen, adrenal glands, right kidney and pancreas are unremarkable. There is no biliary ductal dilatation status post cholecystectomy. Marked left renal atrophy with hydronephrosis is unchanged. This is chronic. Left renal calculi are again noted. A small amount of abdominal and pelvic ascites has developed. There are multiple loops of fluid-filled dilated small bowel which measure up to 3.1 cm in caliber. Two transition points in close proximity to one another are noted within the upper pelvis on axial image 253 of 406. There is associated mesenteric stranding and fluid. Slight swirling of the mesentery is noted. No bowel wall thickening is identified on this unenhanced exam. These findings have developed since prior CT. No fluid collection is identified to suggest an abscess. No acute fracture or suspicious lesion is identified within the visualized skeletal structures. IMPRESSION: Multiple loops of fluid-filled dilated small bowel consistent with a small bowel obstruction. Two transition points in close proximity to one another within the upper pelvis. Mild associated swirling of the mesentery with mesenteric stranding and a small amount of ascites. A developing closed loop small bowel obstruction would be difficult to exclude. Clinical monitoring is recommended. If indicated, surgical consultation could be obtained. ACT 112: Negative or not required by law Electronically signed by: Dereje Marquez M.D. 07/11/2021 8:19 AM PG Care Time/CCT Total # of Minutes Spent Total Time Spent with Patient: Total time spent is greater than 50% in coordination of care (as documented) at patient's floor/unit and/or counseling patient: Coding Level of Care Code 29976 Initial Inpt Care Lvl 3 Diagnoses Small bowel obstruction K56.609
[2021-07-11 09:33] LABS: Appearance Urine Clear (Clear); Bilirubin Urine Negative (Negative); Blood Urine Negative (Negative); Color Urine Yellow; Glucose Urine UA Negative (Negative); Ketones Urine Trace (Negative); Leukocyte Esterase Urine Negative (Negative); Nitrite Urine Negative (Negative); Protein Urine Negative (Negative); Specific Gravity Urine 1.019 (1.000-1.030); Urobilinogen Urine Negative (Negative); pH Urine 6.5 (4.5-7.5)
--- NOTE | 2021-07-11 10:15 | XRay Report ---
KUB HISTORY: Status post placement of an enteric tube NG tube placed, eval COMPARISON: CT abdomen and pelvis of same day, KUB 03/17/2021 FINDINGS: Cardiomegaly with cardiac valvular prosthesis. Distal tip of enteric tube projects over the distal esophagus. Small bowel obstruction with numerous air-filled loops of small bowel redemonstrat ed. Cholecystectomy. Moderate fecal retention of the right lower quadrant. No renal calculi. No uret eral calculi. No pneumoperitoneum or pneumatosis. Degenerative changes of the spine, pelvis and hips. No fracture. IMPRESSION: 1. Distal tip of enteric tube projects over the distal esophagus. Advancement of approximately 10 cm recommended. 2. Small bowel obstruction. ACT 112: Negative or not required by law. The above report was generated using voice recognition software. It may contain grammatical, syntax o r spelling errors. Electronically signed by: Melchor Rosales M.D. 07/11/2021 10:13 AM
--- NOTE | 2021-07-11 10:21 | History & Physical Report ---
Date of Service July 11, 2021 Assessment & Plan (1) Small bowel obstruction: Plan: Mrs. De Guzman is a 75-year-old female with a history of Hypertension, Congenital Heart Disease s/p ASD Repair 2001, Mitral Regurgitation s/p Mitral Valve Repair 2001, Non-functioning Left Kidney, PMR (on chronic Prednisone), Hyperthyroidism, s/p Hysterectomy 2017, s/p Cholecystectomy, Nephrolithiasis, prior Perforated Viscus, and prior Small Bowel Obstruction who presented to the [facility] ER today with a Small Bowel Obstruction. Patient developed periumbilical abdominal pain described as a cramping pain last evening at dinner. This abdominal pain has been persistent off and on overnight and into this morning, and additionally she developed nausea and vomiting. The pain seems to be mostly inferior her umbilicus at this point, and is still a cramping pain. The discomfort does not radiate anywhere else nor does she have any other associated symptoms. Patient denies any recent viral syndromes. She denies any melena, hematochezia, melena, hematemesis, fever, or chills. Her appetite was normal leading up to dinner last night. Her last food intake was last evening at dinner. Her last normal bowel movement was yesterday morning (07/10/21). She has not had any bowel movement today. She has been taking small sips of water this morning. Patient did not take her medications being as she normally would because of her abdominal discomfort. CT Scan Abd/Pelvis 07/11/21 shows "Multiple loops of fluid-filled dilated small bowel consistent with a small bowel obstruction. Two transition points in close proximity to one another within the upper pelvis. Mild associated swirling of the mesentery with mesenteric stranding and a small amount of ascites. A developing closed loop small bowel obstruction would be difficult to exclude. Clinical monitoring is recommended. If indicated, surgical consultation could be obtained." NGT was placed in the ER but follow-up KUB showed that the NG tube was floating at the distal esophagus, and subsequently the NGT was advanced 10 cm down into her stomach. Recommend the following: -- Admit to Med-Surg floor. NGT in place. -- NPO diet. Bowel rest. -- [facility] has already been consulted. -- Continue IVF's, convert over to D5 1/2 NSS at 100 mL/hour. -- Monitor I&O's. -- Analgesics and antiemetics as needed. -- DVT prophylaxis with bilateral thigh-high TEDs hose, and SQ Lovenox 30 mg every 24 hours (2) PMR (polymyalgia rheumatica): Plan: Patient is chronically on Prednisone 4 mg daily for her PMR. -- Hold oral Prednisone. -- Use IV Dexamethasone 2 mg daily (0.75 mg of Dexamethasone is equal to Prednisone 5 mg) so this will serve as a stress dose. (3) Non-functioning kidney: Plan: Patient's serum Creatinine is 1.09 mg/dL with a BUN of 22 mg/dL today. -- Her baseline creatinine appears to range between 0.76 to 0.95 mg/dL. -- Continue IVF's. -- Monitor daily BMP. (4) S/P mitral valve repair: Plan: History of Severe MR s/p Mitral Valve Repair and ASD Repair 2001. Her last ECHOCARDIOGRAM 03/15/21 showed: -- Normal LV size, wall motion, and systolic function. -- LVEF 55% to 60%. -- Normal RV systolic function. -- Normal biatrial dimensions. -- Severe mitral annular calcification, no significant regurgitation or stenosis. -- Mild tricuspid regurgitation. -- Estimated RVSP is elevated at 30 to 40 mmHg. (5) HTN (hypertension): Plan: She was mildly hypertensive on presentation. Her current blood pressure is 117/80. -- She is NPO. -- Hold Amlodipine 2.5 mg due to NPO diet. -- Use IV Hydralazine 10 Q4H as needed for SBP = or > 160 mmHg. History of Present Illness Chief Complaint: -- Periumbilical Abdominal Pain, Nausea, Vomiting. -- Small Bowel Obstruction. Primary Care Provider: Martin Jacob Mrs. De Guzman is a 75-year-old female with a history of Hypertension, Congenital Heart Disease s/p ASD Repair 2001, Mitral Regurgitation s/p Mitral Valve Repair 2001, Non-functioning Left Kidney, PMR (on chronic Prednisone), Hyperthyroidism, s/p Hysterectomy 2016, s/p Cholecystectomy, Nephrolithiasis, prior Perforated Viscus, and prior Small Bowel Obstruction who presented to the ER today after developing periumbilical abdominal pain described as a cramping pain last evening at dinner. This abdominal pain has been persistent off and on overnight and into this morning, and additionally she developed nausea and vomiting. The pain seems to be more below her umbilicus at this point, and is still a cramping pain. The discomfort does not radiate anywhere else nor does she have any other associated symptoms. Patient denies any recent viral syndromes. She denies any fever or chills. She has not had any chest discomfort or shortness of breath. Her appetite was normal leading up to dinner last night. patient denies any dysuria, back or flank pain. She has not had any hematuria. She denies any melena or hematochezia. Her last meal was last evening at dinner. Her last normal bowel movement was yesterday morning. She has not had any bowel movement today. She has been taking small sips of water this morning. Patient did not take her medications being as she normally would because of her abdominal discomfort. Allergies Allergy/AdvReac Type Severity Reaction Status Date / Time shellfish derived Allergy Severe COULDN'T Verified 07/11/21 08:31 BREATH; SWELLING lisinopril Allergy Intermediate full body Unverified 07/11/21 09:33 itching amoxicillin [From Augmentin] AdvReac Intermediate BLOODY Verified 07/11/21 08:31 DIAHRREA clavulanic acid AdvReac Intermediate BLOODY Verified 07/11/21 08:31 [From Augmentin] DIAHRREA methimazole AdvReac Intermediate SWELLING Verified 07/11/21 08:31 OF JOINTS iodine AdvReac Mild Nausea Verified 07/11/21 08:31 Home Medications Medication Instructions Recorded Confirmed Type cholecalciferol (vitamin D3) 25 1,000 unit PO DAILY 02/04/19 07/11/21 History mcg (1,000 unit) tablet (Vitamin D3) tolterodine 1 mg tablet 1 mg PO BID 03/12/21 07/11/21 History amlodipine 2.5 mg tablet 2.5 mg PO DAILY 06/14/21 07/11/21 History prednisone 1 mg tablet 4 mg PO DAILY 07/11/21 07/11/21 History Past Med/Surg History Medical History Amnesia, global, transient Kidney stones SBO (small bowel obstruction) Surgical History History of total hysterectomy Hx of cholecystectomy Hx of mitral valve replacement Social History Smoking Status: Never smoker Hx Alcohol Use: Yes Alcohol type: wine Hx Substance Use: No Preferred Language: Estonian Communication Ability: Effective Dental Associate Required: No Beliefs That Will Affect Care: Lutheran Lutheran Beliefs: Member of [facility] Current Living Situation: Spouse Feels Safe at Home: Yes Assistive Devices: None Review of Systems Review of Systems: 10 point review of systems was completed, and all negative with the exception of what is mentioned in the HPI. Physical Exam Physical Exam: GENERAL: Patient appear slightly uncomfortable. NG tube is present. HEENT: Head is atraumatic, normocephalic. Sclerae anicteric. EOM's intact. Facies symmetric. No perioral cyanosis. NECK: No JVD. JVP is not elevated. Carotid upstrokes are + 2 bilaterally without obvious bruits. CHEST/LUNGS: Clear to auscultation throughout all lung grande. No wheezes, rales, or crackles. CVS: S1 and S2 are regular without obvious murmurs, gallops, or rubs. PMI is nondisplaced. No lifts, heaves, or thrills. No abdominal aortic or renal bruits. ABDOMINAL EXAM: Bowel sounds are present in all 4 quadrants. Abdomen appears to be mildly distended. There is tenderness to palpation near the umbilicus and inferior to the umbilicus. No masses or organomegaly. No rigidity. EXTREMITIES: No clubbing or cyanosis. No edema. Intact posterior tibial and radial pulses bilaterally. NEUROLOGIC EXAM: Patient is awake, alert, and oriented. Pleasant and cooperative. Answers questions appropriately. Gait pattern was not assessed. Radiologist shows NSR at normal rates. Results & Data Results & Data ([facility]) Vital Signs (Past 12 Hours) Vital Signs Temp Pulse Pulse Resp BP BP Pulse Ox 07/11/21 09:30 65 20 117/80 97 07/11/21 09:00 68 20 136/87 95 07/11/21 07:24 60 20 138/88 97 07/11/21 06:57 36.0 C L 69 20 142/95 H 96 Laboratory Results Laboratory Results - last 24 hr 07/11/21 07/11/21 07/11/21 07:25 07:25 07:58 WBC 8.70 RBC 4.89 Hgb 14.9 Hct 44.9 MCV 91.8 MCH 30.5 MCHC 33.2 RDW Std Deviation 44.9 RDW Coeff of Jigna 13.4 Plt Count 234 MPV 9.8 Immature Gran % (Auto) 0.1 Neut % (Auto) 74.8 Lymph % (Auto) 17.8 [place] % (Auto) 6.2 Eos % (Auto) 0.5 Baso % (Auto) 0.6 Neut # (Auto) 6.51 H Lymph # (Auto) 1.55 [place] # (Auto) 0.54 Eos # (Auto) 0.04 Baso # (Auto) 0.05 Immature Gran # (Auto) 0.01 Sodium 140 Potassium 3.9 Chloride 106 Carbon Dioxide 27 Anion Gap 7.0 BUN 22 H Creatinine 1.09 Est Cr Clr Drug Dosing 35.3 Est GFR ( Amer) 57.5 Est GFR (Non-Af Amer) 49.6 BUN/Creatinine Ratio 20.1 H Glucose 107 H Calcium 9.4 Total Bilirubin 0.9 AST 28 ALT 29 Alkaline Phosphatase 64 Total Protein 7.1 Albumin 3.5 Globulin 3.6 Albumin/Globulin Ratio 1.0 Lipase 145 Urine Color Urine Appearance Urine pH Ur Specific [place] Urine Protein Urine Glucose (UA) Urine Ketones Urine Blood Urine Nitrite Urine Bilirubin Urine Urobilinogen Ur Leukocyte Esterase SARS-CoV-2, RNA, NAAT NEGATIVE 07/11/21 09:12 WBC RBC Hgb Hct MCV MCH MCHC RDW Std Deviation RDW Coeff of Jigna Plt Count MPV Immature Gran % (Auto) Neut % (Auto) Lymph % (Auto) [place] % (Auto) Eos % (Auto) Baso % (Auto) Neut # (Auto) Lymph # (Auto) [place] # (Auto) Eos # (Auto) Baso # (Auto) Immature Gran # (Auto) Sodium Potassium Chloride Carbon Dioxide Anion Gap BUN Creatinine Est Cr Clr Drug Dosing Est GFR ( Amer) Est GFR (Non-Af Amer) BUN/Creatinine Ratio Glucose Calcium Total Bilirubin AST ALT Alkaline Phosphatase Total Protein Albumin Globulin Albumin/Globulin Ratio Lipase Urine Color Yellow Urine Appearance Clear Urine pH 6.5 Ur Specific [place] 1.019 Urine Protein Negative Urine Glucose (UA) Negative Urine Ketones Trace H Urine Blood Negative Urine Nitrite Negative Urine Bilirubin Negative Urine Urobilinogen Negative Ur Leukocyte Esterase Negative SARS-CoV-2, RNA, NAAT Diagnostic Findings KUB 07/11/21 after NGT placed: Cardiomegaly with cardiac valvular prosthesis. Distal tip of enteric tube projects over the distal esophagus. Small bowel obstruction with numerous air- filled loops of small bowel redemonstrated. Cholecystectomy. Moderate fecal retention of the right lower quadrant. No renal calculi. No ureteral calculi. No pneumoperitoneum or pneumatosis. Degenerative changes of the spine, pelvis and hips. No fracture. IMPRESSION: 1. Distal tip of enteric tube projects over the distal esophagus. Advancement of approximately 10 cm recommended. 2. Small bowel obstruction. CT SCAN ABD/PELVIS 07/11/21: Lung bases are unremarkable. Cardiomegaly is unchanged. No pneumatosis, free air or portal venous gas is present. Evaluation of the abdomen and pelvis is suboptimal on this unenhanced exam. The liver, spleen, adrenal glands, right kidney and pancreas are unremarkable. There is no biliary ductal dilatation status post cholecystectomy. Marked left renal atrophy with hydronephrosis is unchanged. This is chronic. Left renal calculi are again noted. A small amount of abdominal and pelvic ascites has developed. There are multiple loops of fluid-filled dilated small bowel which measure up to 3.1 cm in caliber. Two transition points in close proximity to one another are noted within the upper pelvis on axial image 253 of 406. There is associated mesenteric stranding and fluid. Slight swirling of the mesentery is noted. No bowel wall thickening is identified on this unenhanced exam. These findings have developed since prior CT. No fluid collection is identified to suggest an abscess. No acute fracture or suspicious lesion is identified within the visualized skeletal structures. IMPRESSION: Multiple loops of fluid-filled dilated small bowel consistent with a small bowel obstruction. Two transition points in close proximity to one another within the upper pelvis. Mild associated swirling of the mesentery with mesenteric stranding and a small amount of ascites. A developing closed loop small bowel obstruction would be difficult to exclude. Clinical monitoring is recommended. If indicated, surgical consultation could be obtained. Medications Administered Medications cholecalciferol (vitamin D3) 25 mcg (1,000 unit) tablet (Vitamin D3) 1,000 unit PO DAILY 02/04/19 [History Confirmed 07/11/21] tolterodine 1 mg tablet 1 mg PO BID 03/12/21 [History Confirmed 07/11/21] amlodipine 2.5 mg tablet 2.5 mg PO DAILY 06/14/21 [History Confirmed 07/11/21] prednisone 1 mg tablet 4 mg PO DAILY 07/11/21 [History Confirmed 07/11/21] Home Medications Sodium Chloride (Nss) 500 mls @ 93 mls/hr IV [id number] JOSE Stop: 08/10/21 07:14 Last Admin: 07/11/21 07:31 Dose: 93 mls/hr Documented by: Code Status & VTE Plan Code Status Full Code VTE Prophylaxis Plan VTE Prophylaxis will be ordered: Yes Supervising Physician Co-Signing Physician Notes I supervised Michael Castañeda PA-C on the care of this patient. I interviewed and examined the patient independently of him. The plan is as written in his note except for any following changes/exceptions: None 75yo F w/ hx of abdominal surgeries who presents with her 3rd round of SBO this year. Sudden onset yesterday at dinner. Feeling some improved with NG tube placement. Will treat conservatively with hopes it will resolve like prior two episodes. Surgery following. PG Care Time/CCT Total # of Minutes Spent Total Time Spent with Patient: Total time spent is greater than 50% in coordination of care (as documented) at patient's floor/unit and/or counseling patient:35 Coding Level of Care Code 00715 Initial Inpt Care Lvl 3 Diagnoses Small bowel obstruction K56.609 PMR (polymyalgia rheumatica) M35.3 Non-functioning kidney N28.9 S/P mitral valve repair Z98.890 HTN (hypertension) I10 Time Spent (min) 55
[2021-07-11] MEDS ORDERED: ZOLPIDEM TARTRATE 5 MG TAB PO PRN (13:35)
[2021-07-11] MEDS ORDERED: ONDANSETRON INJ 2 MG/ML 2 ML VIAL IV PRN (13:35)
[2021-07-11] MEDS ORDERED: HYDROmorphone INJ 0.5 MG/0.5 ML SYR IV PRN (13:35)
[2021-07-11] MEDS ORDERED: ACETAMINOPHEN 1,000 MG/100 ML VIAL IV PRN (13:35)
[2021-07-11] MEDS ORDERED: hydrALAZINE HCL 20 MG/ML VIAL IV PRN ×2 (13:35→15:32)
[2021-07-11] MEDS: ENOXAPARIN INJ 30 MG/0.3 ML SYR SQ SCH (15:59)
[2021-07-11] MEDS: dexAMETHasone 2 MG in SYRINGE 0 ML IV SCH (16:00)
[2021-07-11] MEDS: D5W AND NSS 1,000 ML IV SCH (16:08)
[2021-07-12] MEDS: D5W AND NSS 1,000 ML IV SCH ×2 (02:10→14:00)
[2021-07-12 07:02] LABS: Basophils # (auto) 0.02 K/uL (0-0.2); Basophils % (auto) 0.2 %; Eosinophils # (auto) 0.01 K/uL (0-0.5); Eosinophils % (auto) 0.1 %; Hematocrit (blood only) 41.3 % (37-47); Hemoglobin 13.7 g/dL (12.0-16.0); Immature Granulocytes # (auto) 0.01 K/uL (0.00-0.02); Immature Granulocytes % (auto) 0.1 %; Lymphocytes # (auto) 1.24 K/uL (1.2-3.4); Lymphocytes % (auto) 14.9 %; Mean Corpuscular Hemoglobin 30.5 pg (25-34); Mean Corpuscular Hgb Conc 33.2 g/dL (32-36); Mean Platelet Volume 9.5 fL (7.4-10.4); Monocytes # (auto) 0.57 K/uL (0.11-0.59); Monocytes % (auto) 6.9 %; Neutrophils # (auto) 6.46 K/uL (1.4-6.5); Neutrophils % (auto) 77.8 %; Platelet Count 224 K/uL (130-400); RDW Coefficient of Variation 13.5 % (11.5-14.5); RDW Standard Deviation 45.7 fL (36.4-46.3); Red Blood Count 4.49 M/uL (4.2-5.4); White Blood Count 8.31 K/uL (4.8-10.8)
[2021-07-12 07:31] LABS: BUN Creatinine Ratio 17.5 (10-20); Calcium 8.8 mg/dl (8.5-10.1); Creatinine Clr Calc Pharmacy 41.3 ml/min; Est GFR (African American) 69.7 ml/min; Est GFR (Non-African American) 60.1 ml/min; Potassium 3.7 mmol/L (3.5-5.1)
--- NOTE | 2021-07-12 08:14 | Surgery Progress Note ---
Date of Service July 12, 2021 Assessment & Plan (1) Small bowel obstruction: Plan: Patient feeling slight improvement in symptoms WBC 8, Cr: 0.9. VSS, HR 70s NGT 195cc documented Awaiting return of bowel function She is still somewhat distended and voicing discomfort to palpation Will continue with ongoing conservative management, NPO with NGT and bowel rest for today If not much progress by tomorrow we will consider ordering a SBFT May clamp NGT for ambulation Admission and Anticipated Discharge Date Admission Date: July 11, 2021 Supervising Physician Co-Signing Physician Notes I personally saw and evaluated the patient with Deirdre Lopez PA-C and agree with the assessment and plan. 75-year-old female with SBO Patient feeling better this a.m. but still no flatus or BM Her abdominal exam remains benign and she is without leukocytosis, tachycardia or fever We will continue to treat her conservatively in hopes this will resolve without an operation If she has not made any significant progress by tomorrow we will order a small bowel follow-through via the NG tube We will continue to follow Subjective Patient says she is feeling a bit better this AM. Still with some abdominal discomfort to palpation. No flatus/BM yet. Physical Exam Physical Exam: awake/alert Gastrointestinal (Abdomen): Inspection/Auscultation: + abdomen distended Percussion/Palpation: + abdomen tender (discomfort to palpation across mid and lower abdomen) and abdomen soft Results & Data ([facility]) Vital Signs (Past 12 Hours) Vital Signs Temp Pulse Resp BP Pulse Ox 07/12/21 07:05 37.0 C 70 16 134/82 93 07/11/21 22:30 36.7 C 69 19 123/74 93 PG Care Time/CCT Total # of Minutes Spent Total Time Spent with Patient: Total time spent is greater than 50% in coordination of care (as documented) at patient's floor/unit and/or counseling patient: Coding Level of Care Code 39282 Subseq Hosp Care Lvl 1 Diagnoses Small bowel obstruction K56.609
[2021-07-12] MEDS: ENOXAPARIN INJ 30 MG/0.3 ML SYR SQ SCH (14:16)
[2021-07-12] MEDS: dexAMETHasone 2 MG in SYRINGE 0 ML IV SCH (14:16)
--- NOTE | 2021-07-12 14:42 | Hospitalist Progress Note ---
Date of Service July 12, 2021 Assessment & Plan (1) Small bowel obstruction: Plan: CT a/p on 07/11 showed "multiple loops of fluid-filled dilated small bowel consistent with a small bowel obstruction. Two transition points in close proximity to one another within the upper pelvis." - Improving with conservative care - Surgery following - Can maybe clamp NG tube tomorrow. She is passing some mild flatus. (2) PMR (polymyalgia rheumatica): Plan: Patient is chronically on Prednisone 4 mg daily for her PMR. - Hold oral Prednisone. - Use IV Dexamethasone 2 mg daily (0.75 mg of Dexamethasone is equal to Prednisone 5 mg) so this will serve as a stress dose. (3) Non-functioning kidney: Plan: Patient's serum Creatinine is 1.09 mg/dL with a BUN of 22 mg/dL today. Her baseline creatinine appears to range between 0.76 to 0.95 mg/dL. - Continue IVF's. - Monitor daily BMP. (4) S/P mitral valve repair: Plan: History of Severe MR s/p Mitral Valve Repair and ASD Repair 2001. Her last ECHOCARDIOGRAM 03/15/21 showed: -- Normal LV size, wall motion, and systolic function. -- LVEF 55% to 60%. -- Normal RV systolic function. -- Normal biatrial dimensions. -- Severe mitral annular calcification, no significant regurgitation or stenosis. -- Mild tricuspid regurgitation. -- Estimated RVSP is elevated at 30 to 40 mmHg. (5) HTN (hypertension): Plan: She was mildly hypertensive on presentation. Her current blood pressure is 130/75. -- She is NPO. -- Hold amlodipine 2.5 mg due to NPO diet. -- Use IV Hydralazine 10 Q4H as needed for SBP = or > 170 mmHg or DBP > 110 mmHg. (6) DVT prophylaxis: Plan: Lovenox 30 mg SQ daily Admission and Anticipated Discharge Date Admission Date: July 11, 2021 Subjective Doing much better today. Taking a walk around. Reports no fevers/chills, chest pain, shortness of breath, abdominal pain, nausea, or vomiting. Physical Exam Constitutional: WD/WN, vitals as above Eyes: EOM intact bilaterally; no conjunctival abnormality ENMT: external ear and nose normal, oropharynx normal Neck: trachea midline, no thyromegaly normal visual inspection Respiratory: normal respiratory effort, lungs clear to auscultation no respiratory distress Cardiovascular: RRR, no murmur, no edema Gastrointestinal (Abdomen): Inspection/Auscultation: abdomen normal to inspection and normal bowel sounds; abdomen not distended Musculoskeletal: no cyanosis or clubbing, extremities motor strength 5/5 Skin: no rashes, warm and dry Neurologic: moves all extremities and awake Psychiatric: Orientation: alert, oriented to person and cooperative Results & Data Results & Data ([facility]) Vital Signs (Past 12 Hours) Vital Signs Temp Pulse Resp BP Pulse Ox 07/12/21 12:09 36.8 C 69 19 130/76 95 07/12/21 10:19 69 18 170/93 H 95 07/12/21 07:05 37.0 C 70 16 134/82 93 PG Care Time/CCT Total # of Minutes Spent Total Time Spent with Patient: Total time spent is greater than 50% in coordination of care (as documented) at patient's floor/unit and/or counseling patient: Coding Level of Care Code 67301 Subseq Hosp Care Lvl 3 Diagnoses Small bowel obstruction K56.609 PMR (polymyalgia rheumatica) M35.3 Non-functioning kidney N28.9 S/P mitral valve repair Z98.890 HTN (hypertension) I10 DVT prophylaxis Z29.9
[2021-07-13] MEDS: D5W AND NSS 1,000 ML IV SCH ×2 (02:17→12:41)
[2021-07-13 06:15] LABS: Basophils # (auto) 0.01 K/uL (0-0.2); Basophils % (auto) 0.1 %; Eosinophils # (auto) 0.01 K/uL (0-0.5); Eosinophils % (auto) 0.1 %; Hematocrit (blood only) 38.7 % (37-47); Hemoglobin 12.5 g/dL (12.0-16.0); Immature Granulocytes # (auto) 0.02 K/uL (0.00-0.02); Immature Granulocytes % (auto) 0.3 %; Lymphocytes # (auto) 1.41 K/uL (1.2-3.4); Lymphocytes % (auto) 19.1 %; Mean Corpuscular Hemoglobin 30.3 pg (25-34); Mean Corpuscular Hgb Conc 32.3 g/dL (32-36); Mean Corpuscular Volume 93.9 fL (80-100); Mean Platelet Volume 9.9 fL (7.4-10.4); Monocytes # (auto) 0.55 K/uL (0.11-0.59); Monocytes % (auto) 7.5 %; Neutrophils # (auto) 5.38 K/uL (1.4-6.5); Neutrophils % (auto) 72.9 %; Platelet Count 204 K/uL (130-400); RDW Coefficient of Variation 13.4 % (11.5-14.5); RDW Standard Deviation 46.5 fL (36.4-46.3); Red Blood Count 4.12 M/uL (4.2-5.4); White Blood Count 7.38 K/uL (4.8-10.8)
[2021-07-13 06:51] LABS: BUN Creatinine Ratio 14.1 (10-20); Calcium 8.6 mg/dl (8.5-10.1); Creatinine Clr Calc Pharmacy 42.2 ml/min; Est GFR (African American) 71.5 ml/min; Est GFR (Non-African American) 61.7 ml/min; Potassium 3.6 mmol/L (3.5-5.1)
--- NOTE | 2021-07-13 07:51 | Surgery Progress Note ---
Date of Service July 13, 2021 Assessment & Plan (1) Small bowel obstruction: Plan: Patient reports improvement in her symptoms She is starting to pass flatus, no BM yet Patients abdomen is softer, somewhat less distended and less tender We will obtain a SBFT study today for further evaluation, if SBO resolved will likely removed NGT and slowly initiate a diet Admission and Anticipated Discharge Date Admission Date: July 11, 2021 Supervising Physician Co-Signing Physician Notes I personally saw and evaluated the patient with Deirdre Lopez PA-C and agree with the assessment and plan. 75-year-old female with SBO Feeling better SBFT today Subjective Patient reports feeling improvement in her symptoms. Denies nausea/vomiting/abdominal pain. Reports passing a decent amount of gas. No BM yet. Has been up ambulating. Physical Exam Physical Exam: awake/alert Gastrointestinal (Abdomen): Inspection/Auscultation: + abdomen distended (somewhat improved) Percussion/Palpation: abdomen soft; abdomen nontender ngt 250cc bilious drainage Results & Data ([facility]) Vital Signs (Past 12 Hours) Vital Signs Temp Pulse Resp BP Pulse Ox 07/12/21 22:49 36.9 C 68 16 157/87 H 95 PG Care Time/CCT Total # of Minutes Spent Total Time Spent with Patient: Total time spent is greater than 50% in coordination of care (as documented) at patient's floor/unit and/or counseling patient: Coding Level of Care Code 66375 Subseq Hosp Care Lvl 1 Diagnoses Small bowel obstruction K56.609
--- NOTE | 2021-07-13 11:42 | Fluoroscopy Report ---
FL small bowel follow through CLINICAL HISTORY: eval SBO contrast via NGT. COMPARISON STUDY: CT of the abdomen and pelvis and KUB July 11, 2021. FLUOROSCOPY TIME: 0.5 minutes. FLUOROSCOPIC IMAGES: 7 PROCEDURE AND FINDINGS: Database Admin KUB was obtained. This demonstrated tip of nasogastric tube within the distal body of the stomach. Several loops of mildly dilated small bowel are noted on project estimator image mamta uring up to 3.3 cm in diameter. A small bowel follow-through was then performed utilizing Optir[employer] adm inistered via the nasogastric tube. Several loops of mildly dilated mid small bowel were noted. Howev er, contrast passed into the colon within 20 minutes. A definite transition point was difficult to vi sualize on this exam. Overall, the findings favor improvement since CT of July 11, 2021. IMPRESSION: Multiple loops of mildly dilated small bowel, as described above. However, contrast passe d into the colon within 20 minutes. Therefore, there is no evidence for a high-grade small bowel obst ruction. The findings favor a partial small bowel obstruction which has improved since CT of July 11, 2021. ACT 112: Negative or not required by law. Electronically signed by: Dereje Marquez M.D. 07/13/2021 11:41 AM
--- NOTE | 2021-07-13 13:32 | Hospitalist Progress Note ---
Date of Service July 13, 2021 Assessment & Plan (1) Small bowel obstruction: Plan: CT a/p on 07/11 showed "multiple loops of fluid-filled dilated small bowel consistent with a small bowel obstruction. Two transition points in close proximity to one another within the upper pelvis." - Improving with conservative care - Surgery following - Small bowel FT on 07/13 still shows partial SBO. NG tube removed. Clear liquid diet per surgery. (2) PMR (polymyalgia rheumatica): Plan: Patient is chronically on Prednisone 4 mg daily for her PMR. - Hold oral Prednisone. - Use IV Dexamethasone 2 mg daily (0.75 mg of Dexamethasone is equal to Prednisone 5 mg) so this will serve as a stress dose. (3) Non-functioning kidney: Plan: Patient's serum Creatinine is 1.09 mg/dL with a BUN of 22 mg/dL today. Her baseline creatinine appears to range between 0.76 to 0.95 mg/dL. - Continue IVF's. - Monitor daily BMP - Stable today. (4) S/P mitral valve repair: Plan: History of Severe MR s/p Mitral Valve Repair and ASD Repair 2001. Her last ECHOCARDIOGRAM 03/15/21 showed: -- Normal LV size, wall motion, and systolic function. -- LVEF 55% to 60%. -- Normal RV systolic function. -- Normal biatrial dimensions. -- Severe mitral annular calcification, no significant regurgitation or stenosis. -- Mild tricuspid regurgitation. -- Estimated RVSP is elevated at 30 to 40 mmHg. (5) HTN (hypertension): Plan: She was mildly hypertensive on presentation. Her current blood pressure is 145/85. -- She is NPO. -- Hold amlodipine 2.5 mg due to NPO diet. -- Use IV Hydralazine 10 Q4H as needed for SBP = or > 170 mmHg or DBP > 110 mmHg. (6) DVT prophylaxis: Plan: Lovenox 30 mg SQ daily Admission and Anticipated Discharge Date Admission Date: July 11, 2021 Subjective Stable from yesterday. Feeling little pain or nausea, but not a ton better. Reports no fevers/chills, chest pain, shortness of breath, abdominal pain, nausea, or vomiting. Physical Exam Constitutional: WD/WN, vitals as above Eyes: EOM intact bilaterally; no conjunctival abnormality ENMT: external ear and nose normal, oropharynx normal Neck: trachea midline, no thyromegaly normal visual inspection Respiratory: normal respiratory effort, lungs clear to auscultation no respiratory distress Cardiovascular: RRR, no murmur, no edema Gastrointestinal (Abdomen): Inspection/Auscultation: abdomen normal to inspection and normal bowel sounds; abdomen not distended Musculoskeletal: no cyanosis or clubbing, extremities motor strength 5/5 Skin: no rashes, warm and dry Neurologic: moves all extremities and awake Psychiatric: Orientation: alert, oriented to person and cooperative Results & Data Results & Data ([facility]) Vital Signs (Past 12 Hours) Vital Signs Temp Pulse Resp BP Pulse Ox 07/13/21 09:20 37 C 63 16 143/86 H 96 PG Care Time/CCT Total # of Minutes Spent Total Time Spent with Patient: Total time spent is greater than 50% in coordination of care (as documented) at patient's floor/unit and/or counseling patient: Coding Level of Care Code 91348 Subseq Hosp Care Lvl 2 Diagnoses Small bowel obstruction K56.609 PMR (polymyalgia rheumatica) M35.3 Non-functioning kidney N28.9 S/P mitral valve repair Z98.890 HTN (hypertension) I10 DVT prophylaxis Z29.9
[2021-07-13] MEDS: dexAMETHasone 2 MG in SYRINGE 0 ML IV SCH (14:33)
[2021-07-13] MEDS: ENOXAPARIN INJ 30 MG/0.3 ML SYR SQ SCH (16:15)
[2021-07-14] MEDS: D5W AND NSS 1,000 ML IV SCH ×2 (00:36→02:40)
--- NOTE | 2021-07-14 07:38 | Surgery Progress Note ---
Date of Service July 14, 2021 Assessment & Plan (1) Small bowel obstruction: Plan: Patient's SBO appears to be resolving SBFT study revealed contrast into the colon after 20 minutes She tolerated NGT removal yesterday and the start of clear liquids She denies abdominal complaints and is having + bowel function Will advance to full liquids for lunch, if tolerates may continue to advance to reg. diet/low fiber Admission and Anticipated Discharge Date Admission Date: July 11, 2021 Supervising Physician Co-Signing Physician Notes I personally saw and evaluated the patient with Deirdre Lopez PA-C and agree with the assessment and plan. 75-year-old female with resolved SBO Advance diet as tolerated Discharge later today if tolerates diet She desires to follow up with me in 2 weeks Subjective Patient reports feeling vast improvement in her symptoms. She denies abdominal pain,nausea/vomiting. She is passing flatus and loose stools. Tolerating clears. Only complaint is wanting her home med for overactive bladder. Physical Exam Physical Exam: awake/alert Gastrointestinal (Abdomen): Inspection/Auscultation: + abdomen distended (mild) Percussion/Palpation: abdomen soft; abdomen nontender Results & Data ([facility]) Vital Signs (Past 12 Hours) Vital Signs Temp Pulse Resp BP Pulse Ox 07/13/21 22:47 36.7 C 63 15 148/78 H 93 PG Care Time/CCT Total # of Minutes Spent Total Time Spent with Patient: Total time spent is greater than 50% in coordination of care (as documented) at patient's floor/unit and/or counseling patient: Coding Level of Care Code 06192 Subseq Hosp Care Lvl 1 Diagnoses Small bowel obstruction K56.609
[2021-07-14 08:48] LABS: Basophils # (auto) 0.02 K/uL (0-0.2); Basophils % (auto) 0.3 %; Eosinophils # (auto) 0.04 K/uL (0-0.5); Eosinophils % (auto) 0.5 %; Hematocrit (blood only) 40.6 % (37-47); Hemoglobin 13.3 g/dL (12.0-16.0); Immature Granulocytes # (auto) 0.01 K/uL (0.00-0.02); Immature Granulocytes % (auto) 0.1 %; Lymphocytes # (auto) 1.82 K/uL (1.2-3.4); Lymphocytes % (auto) 23.2 %; Mean Corpuscular Hemoglobin 30.4 pg (25-34); Mean Corpuscular Hgb Conc 32.8 g/dL (32-36); Mean Corpuscular Volume 92.9 fL (80-100); Mean Platelet Volume 9.4 fL (7.4-10.4); Monocytes # (auto) 0.54 K/uL (0.11-0.59); Monocytes % (auto) 6.9 %; Platelet Count 216 K/uL (130-400); RDW Coefficient of Variation 13.3 % (11.5-14.5); RDW Standard Deviation 45.5 fL (36.4-46.3); Red Blood Count 4.37 M/uL (4.2-5.4); White Blood Count 7.83 K/uL (4.8-10.8)
[2021-07-14] MEDS ORDERED: TOLTERODINE TARTRATE 1 MG TAB PO SCH (09:00)
[2021-07-14 09:31] LABS: BUN Creatinine Ratio 8.9 (10-20); Calcium 8.7 mg/dl (8.5-10.1); Creatinine Clr Calc Pharmacy 49.3 ml/min; Est GFR (African American) 86.2 ml/min; Est GFR (Non-African American) 74.4 ml/min; Potassium 3.4 mmol/L (3.5-5.1)
[2021-07-14] MEDS: ENOXAPARIN INJ 30 MG/0.3 ML SYR SQ SCH (13:34)
[2021-07-14] MEDS: dexAMETHasone 2 MG in SYRINGE 0 ML IV SCH (13:34)
--- NOTE | 2021-07-14 18:24 | Discharge Summary ---
Date of Service July 14, 2021 Admission HPI Per Admitting Provider Mrs. De Guzman is a 75-year-old female with a history of Hypertension, Congenital Heart Disease s/p ASD Repair 2001, Mitral Regurgitation s/p Mitral Valve Repair 2001, Non-functioning Left Kidney, PMR (on chronic Prednisone), Hyperthyroidism, s/p Hysterectomy 2016, s/p Cholecystectomy, Nephrolithiasis, prior Perforated Viscus, and prior Small Bowel Obstruction who presented to the ER today after developing periumbilical abdominal pain described as a cramping pain last evening at dinner. This abdominal pain has been persistent off and on overnight and into this morning, and additionally she developed nausea and vomiting. The pain seems to be more below her umbilicus at this point, and is still a cramping pain. The discomfort does not radiate anywhere else nor does she have any other associated symptoms. Patient denies any recent viral syndromes. She denies any fever or chills. She has not had any chest discomfort or shortness of breath. Her appetite was normal leading up to dinner last night. patient denies any dysuria, back or flank pain. She has not had any hematuria. She denies any melena or hematochezia. Her last meal was last evening at dinner. Her last normal bowel movement was yesterday morning. She has not had any bowel movement today. She has been taking small sips of water this morning. Patient did not take her medications being as she normally would because of her abdominal discomfort. Principal Diagnosis Small bowl obstruction Discharge Exam Constitutional WD/WN, vitals as above Eyes EOM intact bilaterally; no conjunctival abnormality ENMT external ear and nose normal, oropharynx normal Neck trachea midline, no thyromegaly normal visual inspection Respiratory normal respiratory effort, lungs clear to auscultation no respiratory distress Cardiovascular RRR, no murmur, no edema Gastrointestinal (Abdomen) Inspection/Auscultation: abdomen normal to inspection and normal bowel sounds; abdomen not distended Musculoskeletal no cyanosis or clubbing, extremities motor strength 5/5 Skin no rashes, warm and dry Neurologic moves all extremities and awake Psychiatric Orientation: alert, oriented to person and cooperative Discharge Data Allergies Allergy/AdvReac Type Severity Reaction Status Date / Time shellfish derived Allergy Severe COULDN'T Verified 07/11/21 08:31 BREATH; SWELLING lisinopril Allergy Intermediate full body Unverified 07/11/21 09:33 itching amoxicillin [From Augmentin] AdvReac Intermediate BLOODY Verified 07/11/21 08:31 DIAHRREA clavulanic acid AdvReac Intermediate BLOODY Verified 07/11/21 08:31 [From Augmentin] DIAHRREA methimazole AdvReac Intermediate SWELLING Verified 07/11/21 08:31 OF JOINTS iodine AdvReac Mild Nausea Verified 07/11/21 08:31 Consultations 07/11/21 09:48 ED Decision to Admit Stat Ordered Studies 07/11/21 07:09 CT abd pelvis wo con Stat 07/13/21 07:48 [place] small bowel follow through Routine Hospital Course (1) Small bowel obstruction: CT a/p on 07/11 showed "multiple loops of fluid-filled dilated small bowel consistent with a small bowel obstruction. Two transition points in close proximity to one another within the upper pelvis." - Improving with conservative care - Surgery following - Small bowel FT on 07/13 still shows partial SBO. NG tube removed. Clear liquid diet per surgery. Advanced to fulls and regular diet on 07/14. - Will f/u with surgery in office. Surgery may eventually be required if she continues to have recurrent SBOs. (2) PMR (polymyalgia rheumatica): Patient is chronically on Prednisone 4 mg daily for her PMR. - Held oral Prednisone, used IV Dexamethasone. Return to prednisone on discharge. (3) Non-functioning kidney: Patient's serum Creatinine is 1.09 mg/dL with a BUN of 22 mg/dL today. Her baseline creatinine appears to range between 0.76 to 0.95 mg/dL. - Continue IVF's. - Monitor daily BMP - Stable today. (4) S/P mitral valve repair: History of Severe MR s/p Mitral Valve Repair and ASD Repair 2001. Her last ECHOCARDIOGRAM 03/15/21 showed: -- Normal LV size, wall motion, and systolic function. -- LVEF 55% to 60%. -- Normal RV systolic function. -- Normal biatrial dimensions. -- Severe mitral annular calcification, no significant regurgitation or stenosis. -- Mild tricuspid regurgitation. -- Estimated RVSP is elevated at 30 to 40 mmHg. (5) HTN (hypertension): She was mildly hypertensive on presentation. Her current blood pressure is 145/85. -- Held amlodipine 2.5 mg due to NPO diet; return on discharge. (6) DVT prophylaxis: Lovenox 30 mg SQ daily Total Time Total Time Spent Total Time Spent (In Minutes): 35 Discharge Plan Discharge Items Patient Disposition: Home - Self-Care Reason For Visit: SMALL BOWEL OBSTRUCTION Discharge Diagnosis: Small bowel obstruction Condition on Discharge: Good Activity: Resume your previous activity Non-emergency contact: Primary Care Provider and Surgeon Call non-emergency contact if: your symptoms worsen Follow-up/Referrals: Anibal Elliott, [Physician] - (You may follow up in clinic with Dr. Elliott in about 2 weeks for follow up.) Martin Jacob [Primary Care Provider] - 07/19/21 9:10 am (Dr White ) Diet: Regular Addtl Attending Provider Instructions: Trevon Richard were admitted for a small bowel obstruction which unfortunately is the 3rd occurrence in about 4 months. These are usually caused by adhesions were are connections between loops of small bowel which form after abdominal surgeries. Luckily, this resolved with conservative treatment which consisted of an NG tube, not eating/drinking for a day or so, and pain medication. Sometimes people require surgery, but this was fortunately not the case. However, I think it would beneficial to follow up with the surgical team as if this continues to recur at this frequency, surgery may need to be considered. For now, I am so glad that you get to leave the hospital and enjoy some time with your family! Pending Studies at Discharge: No Stand-Alone Forms: My [facility], Smoking Cessation Medications and DC Order Prescriptions: Continued cholecalciferol (vitamin D3) [Vitamin D3] 1,000 unit Tablet 1,000 unit PO DAILY RF: 0 tolterodine 1 mg tablet 1 mg PO BID RF: 0 amlodipine 2.5 mg tablet 2.5 mg PO DAILY RF: 0 prednisone 1 mg tablet 4 mg PO DAILY RF: 0 Discharge Orders: Discharge Order (Routine); Ordered 07/14/21 Ordered By: Kristopher Lilly/Other Patient Handouts: Low-Fiber Diet Admission Data Admit Date/Time: 07/11/21 10:06 Attending Provider: Kristopher Blanchard Admit Provider: Kristopher Blanchard Primary Care Provider: Martin Jacob Other Providers: Kristopher Blanchard Other Interventions: Discharge Summary Assessment (RN) Last Done: 07/14/21 14:07 Coding Level of Care Code D/C DAY MANAGEMENT >30 MINS Diagnoses Small bowel obstruction K56.609 PMR (polymyalgia rheumatica) M35.3 Non-functioning kidney N28.9 S/P mitral valve repair Z98.890 HTN (hypertension) I10 DVT prophylaxis Z29.9
== END 2021-07-14 15:47 | disposition home or self-care (01) | DRG 390 ==
LOC: ED 06:53 → EDINP 10:06 → 3E 07-12 15:33

== ENCOUNTER 2021-12-13 23:24 | Inpatient (IN) ==
[2021-12-13] MEDS ORDERED: ONDANSETRON INJ 2 MG/ML 2 ML VIAL IV STA (23:38)
[2021-12-13] MEDS ORDERED: SODIUM CHLORIDE 0.9% 1000ML 1,000 ML IV STA (23:38)
--- NOTE | 2021-12-13 23:42 | Emergency Department Note ---
Impression & Plan Small bowel obstruction, Abdominal pain ED Provider Note NAME: NICKY MCKEON AGE: 76 SEX: F : 1945 ARRIVES VIA: Walk-In INFORMANT: Patient, ED PROVIDER(S): Nino Ortiz DO CHIEF COMPLAINT: Vomiting HPI: Patient is a 76-year-old female who presented to the emergency department for an evaluation of abdominal discomfort and vomiting. The patient has a history of bowel obstruction. She has had multiple episodes of bowel obstruction at the end of last year. She has not required surgical intervention. She does have a history of a hysterectomy in the past. This is so far been the assumed because of the adhesions. She denies having any fever. She has had no hemoptysis. She denies having any black or bloody bowel moods. The patient started having pain earlier in the day. She was able to eat dinner this evening. She states the pain is moderate at this time. ROS: See above HPI for pertinent positives & negatives. A total of 10 systems reviewed and were otherwise negative. PAST MEDICAL HISTORY: See Below PAST SURGICAL HISTORY: See Below FAMILY HISTORY: See Below SOCIAL HISTORY: See Below HOME MEDICATIONS: See Below ALLERGIES: See Below VITALS: See Below PHYSICAL EXAMINATION: GENERAL: Patient is awake and alert. The patient is somewhat anxious appearing. EYES: The conjunctivae are clear. The pupils are round and reactive. EARS, NOSE, MOUTH AND THROAT: The nose is without any evidence of any deformity. NECK: The neck is nontender and supple. RESPIRATORY: Normal respiratory effort is noted there is no evidence of wheezing rhonchi or rales CARDIOVASCULAR: Regular rate and rhythm noted there no murmurs rubs or gallops normal S1 normal S2. GASTROINTESTINAL: The abdomen is soft and distended. There is diffuse tenderness to palpation but no guarding rigidity. MUSCULOSKELETAL/EXTREMITIES: There is no evidence of gross deformity full range of motion is noted in the hips and shoulders. SKIN: There is no obvious evidence of any rash. There are no petechiae, pallor or cyanosis noted. NEUROLOGIC: Patient is awake alert and oriented x3 MEDICAL DECISION MAKING: The patient is a 76-year-old female who presented to emergency department for an evaluation of abdominal pain. The patient had nausea and vomiting. She has a history of bowel obstruction in the past. She does have a history of hysterectomy. The patient has had similar episodes in the past. The patient has not had surgical intervention for these bowel obstructions. She has had some managed conservatively at home as well. I discussed the patient's laboratory and radiographic studies with her. She was treated with IV fluids and IV pain medication in the emergency department. She was much more comfortable on reevaluation. I discussed the patient's condition with the on- call [facility] hospitalist. Triage Nursing notes reviewed. Prior medical records reviewed Vital Signs: reviewed and remarkable for no significant abnormalities Differential diagnosis: Etiologies such as appendicitis, diverticulitis, obstruction, inflammatory bowel disease, renal colic, PUD, biliary pathology, pancreatitis, mesenteric ischemia, aortic pathology, infections, genitourinary, UTI, perforated viscus, as well as others were entertained. ER treatment provided: See below Diagnostics interpreted by me: ECG: none Cardiac Monitoring: An order was placed for continuous cardiac monitoring. The monitor shows a rate of 67 bpm with sinus rhythm. Laboratory studies: As stated above and show below. Imaging studies: See below Consultation(s): I discussed this case with Dr. Marcelo who is on-call for the [facility] hospitalist group. Past Med/Surg History Medical History Amnesia, global, transient Kidney stones SBO (small bowel obstruction) Surgical History History of total hysterectomy Hx of cholecystectomy Hx of mitral valve replacement Social History Smoking Status: Never smoker Hx Alcohol Use: Yes Alcohol type: wine Hx Substance Use: No Preferred Language: Welsh Communication Ability: Effective Scale Tank Operator Required: No Beliefs That Will Affect Care: Taoist Current Living Situation: Spouse Feels Safe at Home: Yes Assistive Devices: None Allergies Allergies Allergy/AdvReac Type Severity Reaction Status Date / Time shellfish derived Allergy Severe COULDN'T Verified 12/14/21 00:19 BREATH; SWELLING lisinopril Allergy Intermediate full body Verified 12/14/21 00:19 itching amoxicillin [From Augmentin] AdvReac Intermediate BLOODY Verified 12/14/21 00:19 DIAHRREA clavulanic acid AdvReac Intermediate BLOODY Verified 12/14/21 00:19 [From Augmentin] DIAHRREA methimazole AdvReac Intermediate SWELLING Verified 12/14/21 00:19 OF JOINTS iodine AdvReac Mild Nausea Verified 12/14/21 00:19 Home Meds Home Medications Medication Instructions Recorded Confirmed cholecalciferol (vitamin D3) 25 1,000 unit PO DAILY 02/04/19 12/14/21 mcg (1,000 unit) tablet (Vitamin D3) tolterodine 1 mg tablet 1 mg PO BID 03/12/21 12/14/21 amlodipine 2.5 mg tablet 2.5 mg PO HS 06/14/21 12/14/21 prednisone 1 mg tablet 2 mg PO DAILY 07/11/21 12/14/21 Results & Data (ED) Vital Signs Vital Signs - 24 hr 12/13/21 23:27 12/14/21 00:05 Temperature 37 C Temperature Source Temporal Artery Scan Pulse Rate 68 67 Respiratory Rate 20 18 Respiratory Effort / Characteristics Non-Labored Respiratory Depth Normal Pulse Oximetry 97 97 Oxygen Delivery Method Room Air Sepsis Recent Fever Within 48 Hours No Sepsis New/Unexplained Change in Mental Status No Sepsis Action Taken by Nursing No Action Required Home Medications Current Medication List: was personally reviewed by me Laboratory Data Attestation: I reviewed the patient's lab results. Result diagrams: 12/14/21 00:10 12/14/21 00:10 Lab Results 12/14/21 12/14/21 12/14/21 Range/Units 00:10 00:10 00:10 WBC 10.74 (4.8-10.8) K/uL RBC 4.71 (4.2-5.4) M/uL Hgb 14.6 (12.0-16.0) g/dL Hct 42.3 (37-47) % MCV 89.8 (80-100) fL MCH 31.0 (25-34) pg MCHC 34.5 (32-36) g/dL RDW Std Deviation 45.2 (36.4-46.3) fL RDW Coeff of Jign[place] 13.6 (11.5-14.5) % Plt Count 276 (130-400) K/uL MPV 9.9 (7.4-10.4) fL Immature Gran % (Auto) 0.2 % Neut % (Auto) 77.1 % Lymph % (Auto) 14.6 % [place] % (Auto) 7.4 % Eos % (Auto) 0.4 % Baso % (Auto) 0.3 % Neut # (Auto) 8.28 H (1.4-6.5) K/uL Lymph # (Auto) 1.57 (1.2-3.4) K/uL [place] # (Auto) 0.80 H (0.11-0.59) K/uL Eos # (Auto) 0.04 (0-0.5) K/uL Baso # (Auto) 0.03 (0-0.2) K/uL Immature Gran # (Auto) 0.02 (0.00-0.02) K/uL PT 10.8 (9.0-12.0) Seconds INR 1.0 (0.9-1.1) APTT 24.8 (21.0-31.0) Seconds PTT Ratio 0.9 Sodium 136 (136-145) mmol/L Potassium TNP Chloride 102 (98-107) mmol/L Carbon Dioxide 25 (21-32) mmol/L Anion Gap 9 (3-11) BUN 28 H (6-23) mg/dl Creatinine 1.00 (0.6-1.2) mg/dl Est Cr Clr Drug Dosing 37.9 ml/min Est GFR ( Amer) 63.4 ml/min Est GFR (Non-Af Amer) 54.7 ml/min BUN/Creatinine Ratio 28.0 H (10-20) Glucose 127 H (70-99(Fasting)) mg/dl Calcium 9.9 (8.5-10.1) mg/dl Total Bilirubin 0.6 (0.2-1.0) mg/dl AST TNP ALT 19 (7-52) U/L Alkaline Phosphatase 57 (34-104) U/L Total Protein 7.5 (6.0-8.3) gm/dl Albumin 4.2 (3.4-5.0) gm/dl Globulin 3.3 (2.5-4.0) gm/dl Albumin/Globulin Ratio 1.3 (0.9-2) Lipase 32 (11-82) U/L Urine Color Urine Appearance (Clear) Urine pH (4.5-7.5) Ur Specific [place] (1.000-1.030) Urine Protein (Negative) Urine Glucose (UA) (Negative) Urine Ketones (Negative) Urine Blood (Negative) Urine Nitrite (Negative) Urine Bilirubin (Negative) Urine Urobilinogen (Negative) Ur Leukocyte Esterase (Negative) SARS-CoV-2, RNA, NAAT (NEGATIVE) 12/14/21 12/14/21 Range/Units 00:10 Unknown WBC (4.8-10.8) K/uL RBC (4.2-5.4) M/uL Hgb (12.0-16.0) g/dL Hct (37-47) % MCV (80-100) fL MCH (25-34) pg MCHC (32-36) g/dL RDW Std Deviation (36.4-46.3) fL RDW Coeff of Jigna (11.5-14.5) % Plt Count (130-400) K/uL MPV (7.4-10.4) fL Immature Gran % (Auto) % Neut % (Auto) % Lymph % (Auto) % [place] % (Auto) % Eos % (Auto) % Baso % (Auto) % Neut # (Auto) (1.4-6.5) K/uL Lymph # (Auto) (1.2-3.4) K/uL [place] # (Auto) (0.11-0.59) K/uL Eos # (Auto) (0-0.5) K/uL Baso # (Auto) (0-0.2) K/uL Immature Gran # (Auto) (0.00-0.02) K/uL PT (9.0-12.0) Seconds INR (0.9-1.1) APTT (21.0-31.0) Seconds PTT Ratio Sodium (136-145) mmol/L Potassium Chloride (98-107) mmol/L Carbon Dioxide (21-32) mmol/L Anion Gap (3-11) BUN (6-23) mg/dl Creatinine (0.6-1.2) mg/dl Est Cr Clr Drug Dosing ml/min Est GFR ( Amer) ml/min Est GFR (Non-Af Amer) ml/min BUN/Creatinine Ratio (10-20) Glucose (70-99(Fasting)) mg/dl Calcium (8.5-10.1) mg/dl Total Bilirubin (0.2-1.0) mg/dl AST ALT (7-52) U/L Alkaline Phosphatase (34-104) U/L Total Protein (6.0-8.3) gm/dl Albumin (3.4-5.0) gm/dl Globulin (2.5-4.0) gm/dl Albumin/Globulin Ratio (0.9-2) Lipase (11-82) U/L Urine Color Yellow Urine Appearance Clear (Clear) Urine pH 5.0 (4.5-7.5) Ur Specific [place] 1.023 (1.000-1.030) Urine Protein Negative (Negative) Urine Glucose (UA) Negative (Negative) Urine Ketones 1+ H (Negative) Urine Blood Negative (Negative) Urine Nitrite Negative (Negative) Urine Bilirubin Negative (Negative) Urine Urobilinogen Negative (Negative) Ur Leukocyte Esterase Negative (Negative) SARS-CoV-2, RNA, NAAT NEGATIVE (NEGATIVE) Administered Medications Discontinued Medications Sodium Chloride (Nss 1000ml) 1,000 mls @ 999 mls/hr IV .Q1H1M STA Stop: 12/14/21 00:38 Last Infusion: 12/14/21 01:17 Dose: 0 mls/hr Documented by: [id number] Admin: 12/14/21 00:00 Dose: 999 mls/hr Documented by: [id number] Ondansetron HCl (Ondansetron Inj 2 Mg/Ml 2 Ml Vial) 4 mg IV NOW STA Stop: 12/13/21 23:39 Last Admin: 12/14/21 00:00 Dose: 4 mg Documented by: [id number] Imaging Data Radiologist's Impression: Patient: NICKY MCKEON (Female) : 45 Status: ER Date: 12/14/21 00:26 Room #: History: vomiting LOWER ABD. PAIN Slices: 587 Priors: Tech: Jayson Mathew @ [phone] Exams:K CT ABDOMEN & PELVIS Without Contrast Contrast: Accession Numbers: [id number] Referring Physician: NINO ORTIZ Preliminary Findings Only See Final Report For Complete Findings CT ABDOMEN & PELVIS Without Contrast: Prior to 06/14/2021 dilated small bowel loops with air-fluid levels. Distal loops and colon collapsed. Consistent with small bowel obstruction. Transition point may be in the pelvis. No free air Minimal fluid in the pelvis Normal appendix Cholecystectomy. Atrophic left kidney, stable Mild cardiomegaly, prosthetic heart valve. Radiologist: Sadiq Reese M.D. Study ready at 00:32 and initial results transmitted at 02:13 Discharge Plan Visit Data Chief Complaint: Abdominal Pain Stated Complaint: ABD PAIN, VOMITTING ED Provider: Nino Ortiz Discharge Problem: Small bowel obstruction, Abdominal pain Patient Disposition: Being Evaluated by Hospitalist Forms Stand Alone Forms: [facility] Prescriptions Prescriptions: No Action cholecalciferol (vitamin D3) [Vitamin D3] 1,000 unit Tablet 1,000 unit PO DAILY RF: 0 tolterodine 1 mg tablet 1 mg PO BID RF: 0 amlodipine 2.5 mg tablet 2.5 mg PO HS RF: 0 prednisone 1 mg tablet 2 mg PO DAILY RF: 0 Referrals Referrals: Martin Jacob [Primary Care Provider] - Discharge Problem: Abdominal pain Qualifiers: Abdominal location: generalized Qualified Code(s): R10.84 - Generalized abdominal pain
[2021-12-14 00:24] LABS: Appearance Urine Clear (Clear); Bilirubin Urine Negative (Negative); Blood Urine Negative (Negative); Color Urine Yellow; Glucose Urine UA Negative (Negative); Ketones Urine 1+ (Negative); Leukocyte Esterase Urine Negative (Negative); Nitrite Urine Negative (Negative); Protein Urine Negative (Negative); Specific Gravity Urine 1.023 (1.000-1.030); Urobilinogen Urine Negative (Negative)
[2021-12-14 00:30] LABS: Basophils # (auto) 0.03 K/uL (0-0.2); Basophils % (auto) 0.3 %; Eosinophils # (auto) 0.04 K/uL (0-0.5); Eosinophils % (auto) 0.4 %; Hematocrit (blood only) 42.3 % (37-47); Hemoglobin 14.6 g/dL (12.0-16.0); Immature Granulocytes # (auto) 0.02 K/uL (0.00-0.02); Immature Granulocytes % (auto) 0.2 %; Lymphocytes # (auto) 1.57 K/uL (1.2-3.4); Lymphocytes % (auto) 14.6 %; Mean Corpuscular Hgb Conc 34.5 g/dL (32-36); Mean Corpuscular Volume 89.8 fL (80-100); Mean Platelet Volume 9.9 fL (7.4-10.4); Monocytes % (auto) 7.4 %; Neutrophils # (auto) 8.28 K/uL (1.4-6.5); Neutrophils % (auto) 77.1 %; Platelet Count 276 K/uL (130-400); RDW Coefficient of Variation 13.6 % (11.5-14.5); RDW Standard Deviation 45.2 fL (36.4-46.3); Red Blood Count 4.71 M/uL (4.2-5.4); White Blood Count 10.74 K/uL (4.8-10.8)
[2021-12-14 00:37] LABS: Partial Thromboplastin Ratio 0.9; Partial Thromboplastin Time 24.8 Seconds (21.0-31.0); Prothrombin Time 10.8 Seconds (9.0-12.0)
[2021-12-14] MEDS ORDERED: fentaNYL citrate 100 MCG/2 ML VIAL IV STA (00:56)
[2021-12-14 01:18] LABS: Alanine Aminotransferase 19 U/L (7-52); Albumin Globulin Ratio 1.3 (0.9-2); Albumin Level 4.2 gm/dl (3.4-5.0); Alkaline Phosphatase 57 U/L (34-104); Anion Gap 9 (3-11); Bilirubin,Total 0.6 mg/dl (0.2-1.0); Blood Urea Nitrogen 28 mg/dl (6-23); Calcium 9.9 mg/dl (8.5-10.1); Carbon Dioxide 25 mmol/L (21-32); Chloride 102 mmol/L (98-107); Creatinine Clr Calc Pharmacy 37.9 ml/min; Est GFR (African American) 63.4 ml/min; Est GFR (Non-African American) 54.7 ml/min; Globulin 3.3 gm/dl (2.5-4.0); Glucose 127 mg/dl (70-99(Fasting)); Lipase 32 U/L (11-82); Sodium 136 mmol/L (136-145); Total Protein 7.5 gm/dl (6.0-8.3)
[2021-12-14 03:01] LABS: Potassium 3.9 mmol/L (3.5-5.1)
--- NOTE | 2021-12-14 03:13 | History & Physical Report ---
Date of Service December 14, 2021 Assessment & Plan (1) Small bowel obstruction: Plan: Recurrent small bowel obstruction/history of small bowel obstruction- CT abdomen and pelvis with SBO with likely transition point in the pelvis NPO LR at 80 mils per hour Zofran 4 mg IV every 6 hours as needed Zosyn 4.5 g IV every 8 hours Famotidine 20 mg IV every 12 hours Acetaminophen 1000 mg IV every 8 hours as needed mild pain or fever Toradol 15 mg IV every 6 hours as needed for moderate pain Discussed NG tube, but with improved symptoms, will place if symptoms are recurrent Follows with general surgery Dr. Anibal Elliott, who will be consulted (2) History of small bowel obstruction: Plan: 03/12-03/17/2021, admission 06/14/2021, ED visit 07/11-07/14/2021, admission (3) HTN (hypertension): Plan: Hold amlodipine 2.5 mg at bedtime (4) PMR (polymyalgia rheumatica): Plan: On prednisone 2 mg daily If n.p.o. for longer than 2 days, will place on hydrocortisone IV at that time Avoid steroids now due to SBO (5) Bladder dysfunction: Plan: Hold for tolterodine 1 mg p.o. twice daily (6) S/P mitral valve repair: Plan: Noted History of Present Illness Chief Complaint: The patient presents to the emergency department with acute onset of severe abdominal pain, with nausea and vomiting x3 that occurred after eating supper this evening. Primary Care Provider: Martin Jacob The patient is a 76-year-old female with a past medical history including PMR, history of 3 previous small bowel obstructions, hypertension, status post mitral valve repair, kidney stones, history of cholecystectomy and history of hysterectomy. She presents with symptoms as noted above, similar to her previous presentations. CT scan of abdomen pelvis confirmed a small bowel obstruction with probable transition point in the pelvis. Allergies Allergy/AdvReac Type Severity Reaction Status Date / Time shellfish derived Allergy Severe COULDN'T Verified 12/14/21 00:19 BREATH; SWELLING lisinopril Allergy Intermediate full body Verified 12/14/21 00:19 itching amoxicillin [From Augmentin] AdvReac Intermediate BLOODY Verified 12/14/21 00:19 DIAHRREA clavulanic acid AdvReac Intermediate BLOODY Verified 12/14/21 00:19 [From Augmentin] DIAHRREA methimazole AdvReac Intermediate SWELLING Verified 12/14/21 00:19 OF JOINTS iodine AdvReac Mild Nausea Verified 12/14/21 00:19 Home Medications Medication Instructions Recorded Confirmed Type cholecalciferol (vitamin D3) 25 1,000 unit PO DAILY 02/04/19 12/14/21 History mcg (1,000 unit) tablet (Vitamin D3) tolterodine 1 mg tablet 1 mg PO BID 03/12/21 12/14/21 History amlodipine 2.5 mg tablet 2.5 mg PO HS 06/14/21 12/14/21 History prednisone 1 mg tablet 2 mg PO DAILY 07/11/21 12/14/21 History Past Med/Surg History Medical History (Updated 12/14/21 @ 03:24 by Leodan Wilson MD) Amnesia, global, transient Bladder dysfunction HTN (hypertension) Kidney stones PMR (polymyalgia rheumatica) SBO (small bowel obstruction) Surgical History History of total hysterectomy Hx of cholecystectomy Hx of mitral valve replacement Social History Smoking Status: Never smoker Hx Alcohol Use: Yes Alcohol type: wine Hx Substance Use: No Preferred Language: Cymraes Communication Ability: Effective Flight Communications Operator Required: No Beliefs That Will Affect Care: Taoist Current Living Situation: Spouse Feels Safe at Home: Yes Assistive Devices: None Review of Systems Review of Systems: The patient denies chest pain, palpitations, shortness of breath, dyspnea on exertion, cough, lower extremity swelling, sore throat, fevers, chills, sweats, blood in urine or stool, dysuria, urinary frequency or urgency, lightheadedness, dizziness, headache, memory loss, loss of consciousness, rash, abnormal bruising or bleeding, imbalance, focal or generalized weakness, numbness or tingling in arms or legs, generalized arthralgias or myalgias, back or neck pain, or night sweats. The review of systems is otherwise negative other than for that already noted above, and at least 10 systems have been reviewed. Physical Exam Physical Exam: The patient is awake, alert and oriented 3, well developed and well nourished, normocephalic and atraumatic, lying in bed and in no acute distress. HEENT--PERRL, EOMI, mucous membranes and oropharynx dry. Neck--supple. No JVD. No bruits. Thyroid normal, trachea midline, no adenopathy. Heart--normal S1 and S2. No murmurs, rubs or gallops. Lungs--clear bilaterally, no respiratory distress, no accessory muscle use. Abdomen--absent bowel sounds. Mildly distended. Nontender post medication. Extremities--no cyanosis or clubbing. No edema. Dermatologic--normal skin turgor, normal color, no abnormal lymph nodes, no rash. Neurologic--cranial nerves II through XII grossly intact. Rheumatologic--normal range of motion. Psychiatric--normal affect. Results & Data Results & Data ([facility]) Vital Signs (Past 12 Hours) Vital Signs Temp Pulse Resp Pulse Ox 12/14/21 00:05 67 18 97 12/13/21 23:27 37 C 68 20 97 Laboratory Results Laboratory Results WBC 10.74 K/uL (4.8-10.8) 12/14/21 00:10 RBC 4.71 M/uL (4.2-5.4) 12/14/21 00:10 Hgb 14.6 g/dL (12.0-16.0) 12/14/21 00:10 Hct 42.3 % (37-47) 12/14/21 00:10 MCV 89.8 fL (80-100) 12/14/21 00:10 MCH 31.0 pg (25-34) 12/14/21 00:10 MCHC 34.5 g/dL (32-36) 12/14/21 00:10 RDW Std Deviation 45.2 fL (36.4-46.3) 12/14/21 00:10 RDW Coeff of Jigna 13.6 % (11.5-14.5) 12/14/21 00:10 Plt Count 276 K/uL (130-400) 12/14/21 00:10 MPV 9.9 fL (7.4-10.4) 12/14/21 00:10 Immature Gran % (Auto) 0.2 % 12/14/21 00:10 Neut % (Auto) 77.1 % 12/14/21 00:10 Lymph % (Auto) 14.6 % 12/14/21 00:10 [place] % (Auto) 7.4 % 12/14/21 00:10 Eos % (Auto) 0.4 % 12/14/21 00:10 Baso % (Auto) 0.3 % 12/14/21 00:10 Neut # (Auto) 8.28 K/uL (1.4-6.5) H 12/14/21 00:10 Lymph # (Auto) 1.57 K/uL (1.2-3.4) 12/14/21 00:10 [place] # (Auto) 0.80 K/uL (0.11-0.59) H 12/14/21 00:10 Eos # (Auto) 0.04 K/uL (0-0.5) 12/14/21 00:10 Baso # (Auto) 0.03 K/uL (0-0.2) 12/14/21 00:10 Immature Gran # (Auto) 0.02 K/uL (0.00-0.02) 12/14/21 00:10 PT 10.8 Seconds (9.0-12.0) 12/14/21 00:10 INR 1.0 (0.9-1.1) 12/14/21 00:10 APTT 24.8 Seconds (21.0-31.0) 12/14/21 00:10 PTT Ratio 0.9 12/14/21 00:10 Sodium 136 mmol/L (136-145) 12/14/21 00:10 Potassium 3.9 mmol/L (3.5-5.1) 12/14/21 02:17 Chloride 102 mmol/L (98-107) 12/14/21 00:10 Carbon Dioxide 25 mmol/L (21-32) 12/14/21 00:10 Anion Gap 9 (3-11) 12/14/21 00:10 BUN 28 mg/dl (6-23) H 12/14/21 00:10 Creatinine 1.00 mg/dl (0.6-1.2) 12/14/21 00:10 Est Cr Clr Drug Dosing 37.9 ml/min 12/14/21 00:10 Est GFR ( Amer) 63.4 ml/min 12/14/21 00:10 Est GFR (Non-Af Amer) 54.7 ml/min 12/14/21 00:10 BUN/Creatinine Ratio 28.0 (10-20) H 12/14/21 00:10 Glucose 127 mg/dl (70-99(Fasting)) H 12/14/21 00:10 Calcium 9.9 mg/dl (8.5-10.1) 12/14/21 00:10 Total Bilirubin 0.6 mg/dl (0.2-1.0) 12/14/21 00:10 AST 25 U/L (13-39) 12/14/21 02:17 ALT 19 U/L (7-52) 12/14/21 00:10 Alkaline Phosphatase 57 U/L (34-104) 12/14/21 00:10 Total Protein 7.5 gm/dl (6.0-8.3) 12/14/21 00:10 Albumin 4.2 gm/dl (3.4-5.0) 12/14/21 00:10 Globulin 3.3 gm/dl (2.5-4.0) 12/14/21 00:10 Albumin/Globulin Ratio 1.3 (0.9-2) 12/14/21 00:10 Lipase 32 U/L (11-82) 12/14/21 00:10 Urine Color Yellow 12/14/21 00:10 Urine Appearance Clear (Clear) 12/14/21 00:10 Urine pH 5.0 (4.5-7.5) 12/14/21 00:10 Ur Specific [place] 1.023 (1.000-1.030) 12/14/21 00:10 Urine Protein Negative (Negative) 12/14/21 00:10 Urine Glucose (UA) Negative (Negative) 12/14/21 00:10 Urine Ketones 1+ (Negative) H 12/14/21 00:10 Urine Blood Negative (Negative) 12/14/21 00:10 Urine Nitrite Negative (Negative) 12/14/21 00:10 Urine Bilirubin Negative (Negative) 12/14/21 00:10 Urine Urobilinogen Negative (Negative) 12/14/21 00:10 Ur Leukocyte Esterase Negative (Negative) 12/14/21 00:10 SARS-CoV-2, RNA, NAAT NEGATIVE (NEGATIVE) 12/14/21 Unknown Diagnostic Findings [facility] Patient: NICKY MCKEON (Female) : 45 Status: ER Date: 12/14/21 00:26 Room #: History: vomiting LOWER ABD. PAIN Slices: 587 Priors: Tech: Jayson Mathew @ [phone] Exams: CT ABDOMEN & PELVIS Without Contrast Contrast: Accession Numbers: [id number] Referring Physician: NINO ORTIZ Preliminary Findings Only See Final Report For Complete Findings CT ABDOMEN & PELVIS Without Contrast: Prior to 06/14/2021 dilated small bowel loops with air-fluid levels. Distal loops and colon collapsed. Consistent with small bowel obstruction. Transition point may be in the pelvis. No free air Minimal fluid in the pelvis Normal appendix Cholecystectomy. Atrophic left kidney, stable Mild cardiomegaly, prosthetic heart valve. Radiologist: Sadiq Reese M.D. Study ready at 00:32 and initial results transmitted at 02:13 *This report constitutes a preliminary interpretation only. Non-acute findings felt to be unrelated to the clinical presentation may not be discussed in this report. The study will be interpreted and a final report will be generated by the local Radiologist the following shift. To reach the [facility] radiology department call [phone]. If a discrepancy is found between the preliminary and final interpretations of this study, please notify us via our Client Portal at [email or web address] under QA [email or web address]. You can also fax this report with a description of the discrepancy, or include the final report, to our daytime fax number [phone]. If faxing, please indicate the severity of discrepancy using one of the following categories: [ ] 1 - Agree/Informational [ ] 2 - Unlikely to Affect Management [ ] 3 - Possible Eventual Change of Management [ ] 4 - Probable Immediate Change of Management Code Status & VTE Plan Code Status Full code VTE Prophylaxis Plan VTE Prophylaxis will be ordered: Yes PG Care Time/CCT Total # of Minutes Spent Total Time Spent with Patient: Total time spent is greater than 50% in coordination of care (as documented) at patient's floor/unit and/or counseling patient: Coding Level of Care Code 58592 Initial Inpt Care Lvl 3 Diagnoses Small bowel obstruction K56.609 History of small bowel obstruction Z87.19 HTN (hypertension) I10 S/P mitral valve repair Z98.890 PMR (polymyalgia rheumatica) M35.3 Bladder dysfunction N31.9
[2021-12-14] MEDS ORDERED: ONDANSETRON INJ 2 MG/ML 2 ML VIAL IV ONE (04:13)
[2021-12-14] MEDS ORDERED: ONDANSETRON INJ 2 MG/ML 2 ML VIAL ONE (04:17)
[2021-12-14] MEDS ORDERED: PIPERACILLIN/TAZOBACTAM 4.5 GM in DEXTROSE 5% 100 ML IV SCH (05:20)
[2021-12-14] MEDS ORDERED: FAMOTIDINE 20 MG in SYRINGE 3 ML IV SCH (05:20)
[2021-12-14] MEDS ORDERED: ACETAMINOPHEN 1,000 MG/100 ML VIAL IV PRN (05:20)
[2021-12-14] MEDS ORDERED: PIPERACILL/TAZOBAC CONSULT ACTIVE PRN (05:20)
[2021-12-14] MEDS: LACTATED RINGER'S 1,000 ML IV SCH ×2 (05:29→15:15)
[2021-12-14] MEDS: KETOROLAC TROMETHAMINE 15 MG/ML VIAL IV PRN ×3 (05:46→21:46)
[2021-12-14] MEDS ORDERED: PIPERACILLIN/TAZOBACTAM 4.5 GM in DEXTROSE 5% 100 ML IV ONE (06:00)
--- NOTE | 2021-12-14 06:02 | Surgery Consultation ---
Date of Consultation December 14, 2021 Assessment & Plan (1) Small bowel obstruction: The patient has been admitted on the hospitalist service. We recommend proceeding as follows: Hydration measures with IV fluids to be employed Provide analgesics Provide antiemetics Maintain n.p.o. status Continue NG tube to low continuous suction. Consideration given to removing NG tube once patient begins passing flatus and has improved bowel function I did discuss with the patient that her small bowel obstruction may be from adhesions secondary to previous abdominal surgeries and our goal would be to treat her in a conservative manner as we had in the past and thus avoid an operation We will continue to follow the patient is hospitalized with additional recommendations to follow based on her clinical course as it unfolds Remainder of plan as directed by primary service Supervising Physician Co-Signing Physician Notes Patient seen and examined on morning rounds, labs and imaging reviewed, agree with above. 76-year-old female with history of hysterectomy and cholecystectomy admitted with small bowel obstruction. She has been here several times over the past year with same problem. She thinks she might have more pain this time than prior episodes, but not sure if it is due to the pain meds. Some flatus yesterday, none today. Last bowel movement yesterday. On exam she is afebrile stable vitals. Abdomen soft, mildly distended, nontender. Labs unremarkable. Imaging personally reviewed and interpreted and agree with the assessment of a small bowel obstruction with transition point in the mid pelvis. We will continue with nonoperative management for now. If she continues to have recurrent bowel obstructions or fails to improve, may require surgical intervention in the future. History of Present Illness Reason for Consultation: Small bowel obstruction Attending Physician: Leodan Wilson MD History of Present Illness This is a 76-year-old female who was in her usual state of health until about dinnertime on 12/13/2021. Patient says that she developed some abdominal pain with associated nausea vomiting. The patient does have a noted history of prior abdominal surgeries that she has had a cholecystectomy and a hysterectomy. She has had 3 previous small bowel obstructions and she therefore presented to the emergency department. She denies any fevers, shakes, chills. She denies any diarrhea. Since admission to the emergency department she has had an NG tube placed with some alleviation of her abdominal symptoms. She has not passed any flatus or had a bowel movement since admission. The patient's most recent small bowel obstruction was in August 2021 and this was treated successfully in a conservative manner. Since arrival to the hospital the patient has had labs and imaging which I independently reviewed. CT scan of the abdomen and pelvis showed some dilated loops of small bowel with air-fluid levels. Distal loops of small bowel and the colon appeared decompressed. This was felt to be consistent with a small bowel obstruction with a transition point in the pelvis. There is no free air. Labs consisted of CBC her white blood cell count, hemoglobin, hematocrit, and platel et count were normal. Chemistry profile showed sodium and potassium are normal. Creatinine was also noted be normal with a slight elevation of BUN at 28. There is no significant elevation of LFTs or lipase. Urinalysis was not indicative of infection. COVID test was negative. At the time my interview the patient was resting comfortably in bed she was in no distress Allergies Allergy/AdvReac Type Severity Reaction Status Date / Time shellfish derived Allergy Severe COULDN'T Verified 12/14/21 00:19 BREATH; SWELLING lisinopril Allergy Intermediate full body Verified 12/14/21 00:19 itching amoxicillin [From Augmentin] AdvReac Intermediate BLOODY Verified 12/14/21 00:19 DIAHRREA clavulanic acid AdvReac Intermediate BLOODY Verified 12/14/21 00:19 [From Augmentin] DIAHRREA methimazole AdvReac Intermediate SWELLING Verified 12/14/21 00:19 OF JOINTS iodine AdvReac Mild Nausea Verified 12/14/21 00:19 Home Medications Medication Instructions Recorded Confirmed Type cholecalciferol (vitamin D3) 25 1,000 unit PO DAILY 02/04/19 12/14/21 History mcg (1,000 unit) tablet (Vitamin D3) tolterodine 1 mg tablet 1 mg PO BID 03/12/21 12/14/21 History amlodipine 2.5 mg tablet 2.5 mg PO HS 06/14/21 12/14/21 History prednisone 1 mg tablet 2 mg PO DAILY 07/11/21 12/14/21 History Patient History Medical History Amnesia, global, transient Bladder dysfunction HTN (hypertension) Kidney stones PMR (polymyalgia rheumatica) SBO (small bowel obstruction) Surgical History History of total hysterectomy Hx of cholecystectomy Hx of mitral valve replacement Social History Smoking Status: Never smoker Hx Alcohol Use: Yes Alcohol type: wine Hx Substance Use: No Preferred Language: Mongolian Communication Ability: Effective Car Porter Required: No Beliefs That Will Affect Care: None Current Living Situation: Spouse Feels Safe at Home: Yes Assistive Devices: None Review of Systems Constitutional: no fever and no chills Eyes: no eye pain Ear, Nose, Mouth, Throat: no ear pain Respiratory: no cough and no dyspnea Cardiovascular: no chest pain Gastrointestinal: as per Subjective / HPI, + abdominal pain, + nausea and + vomiting Genitourinary: no dysuria Musculoskeletal: no back pain Integumentary: no rash Neurologic: no localized weakness Physical Exam Constitutional: WD/WN, vitals as above Eyes: no conjunctival abnormality ENMT: Ears: no hearing impairment and no external ear abnormality Mouth: no oropharynx abnormality Neck: trachea midline Respiratory: normal respiratory effort; no respiratory distress and no labored breathing Cardiovascular: Rate/Rhythm: regular rate and regular rhythm Gastrointestinal (Abdomen): Abdomen is soft and nondistended with hypoactive bowel sounds. There are no masses organomegaly. There is no rebound tenderness or guarding. There is some generalized pain with palpation which appeared to be greatest to the left of the umbilicus. Musculoskeletal: No calf tenderness Skin: no rashes Neurologic: moves all extremities Psychiatric: A+Ox3, euthymic affect Results & Data ([facility]) Vital Signs (Past 12 Hours) Vital Signs Temp Pulse Pulse Resp BP Pulse Ox 12/14/21 03:50 80 18 132/76 98 12/14/21 00:05 67 18 97 12/13/21 23:27 37 C 68 20 97 PG Care Time/CCT Total # of Minutes Spent Total Time Spent with Patient: Total time spent is greater than 50% in coordination of care (as documented) at patient's floor/unit and/or counseling patient: Coding Level of Care Code 32865 Inpt Consult Level 5 Diagnoses Small bowel obstruction K56.609
--- NOTE | 2021-12-14 07:22 | CT Scan Report ---
ABDOMEN AND PELVIS CT WITHOUT CONTRAST CT DOSE: 238.00 mGy.cm HISTORY: vomiting TECHNIQUE: Multiaxial CT images of the abdomen and pelvis were performed without contrast. A dose lo wering technique was utilized adhering to the principles of ALARA. COMPARISON STUDY: Abdomen and pelvis CT 07/11/2021. FINDINGS: Mild dependent changes noted at the lung bases. The heart remains enlarged. No pneumoperito neum. No pneumatosis. No fractures within the visualized osseous structures. There again noted are mu ltiple dilated loops of small bowel within the mid to lower abdomen which are fluid-filled. The dista l ileal loops appear decompressed. A transition point is seen within the mid pelvis on image 239. The refore, this is consistent with a small bowel obstruction. The gallbladder is surgically absent. The unenhanced liver, spleen, adrenal glands, and pancreas are unremarkable. No retroperitoneal lymphaden opathy. Normal right kidney. Atrophic left kidney containing multiple calcifications remains unchange d. The bladder is unremarkable. Trace pelvic free fluid is noted. The distal colon is decompressed. M oderate well-formed stool within the proximal colon. IMPRESSION: 1. Dilated fluid-filled loops of small bowel seen within the mid to lower abdomen with a transition p oint located at the mid pelvis. Therefore, this is consistent with a high-grade small bowel obstructi on. 2. Cholecystectomy. 3. Atrophic left kidney, unchanged. 4. Cardiomegaly again noted. ACT 112: Negative or not required by law. Electronically signed by: Bar Johnson M.D. 12/14/2021 7:19 AM
--- NOTE | 2021-12-14 08:01 | XRay Report ---
XR chest 1V portable HISTORY: for NGT placement COMPARISON: Abdomen and pelvis CT 12/14/2021. FINDINGS: No pneumothorax. No pleural effusions. The cardiac silhouette remains moderately enlarged. There is a cardiac valve prosthesis again noted. Small patchy bibasilar densities. The upper lung zon es are clear. Nasogastric tube terminates below the diaphragm. The tip is not included on this study. IMPRESSION: 1. Nasogastric tube terminates below the diaphragm. 2. Small patchy bibasilar densities. This could represent atelectasis or a pneumonia. ACT 112: Negative or not required by law. Electronically signed by: Bar Johnson M.D. 12/14/2021 7:59 AM
[2021-12-14] MEDS ORDERED: MoRPHine SULFATE 2 MG/ML CARP IV PRN (09:32)
--- NOTE | 2021-12-14 10:36 | Hospitalist Progress Note ---
Date of Service December 14, 2021 Assessment & Plan (1) Small bowel obstruction: Plan: 1. Small Bowel Obstruction -CTAP showing fluid-filled loops of small bowel seen within the mid to lower abdomen, consistent with high-grade small bowel obstruction -Likely secondary to adhesion given hx of hysterectomy (2016), and cholecystectomy (prior to 2016) -This is the 4th episode of SBO with prev. episodes (07/12, 06/12, 03/12) all managed conservatively w/o need for surgical intervention. -NPO. NG tube in place to allow intermittent suction. -Cont. LR 100 mls/hr. IV Acetaminophen. -Zofran prn -d/c Zosyn -Surgery consulted and agreed with conservative management. Will consider removing NG tube as pain and nausea improves and as patient continues to pass flatus and has improved bowel function. 2. Polymyalgia Rheumatica -On Prednisone 2 mg daily at home -Hold prednisone for now. -Monitor for Prednisone withdrawal symptoms. Highly unlikely given such low dose. Pt has no symptoms of fatigue, weakness, myalgia today. Will Consider hydrocortisone IV if symptoms occur. 3. Bladder dysfunction -On Tolterodine 1 mg BID at home 4. Hypertension -On Amlodipine 2.5 mg PO HS -NPO. Hold medication. FEN/GI: NPO DVT Prophylaxis: SCD Code Status: full code (2) PMR (polymyalgia rheumatica): (3) Bladder dysfunction: (4) HTN (hypertension): Admission and Anticipated Discharge Date Admission Date: December 14, 2021 Supervising Physician Co-Signing Physician Notes I personally examined the patient and verified all august points of history and exam, discussed case, and agree with decision making with Yue Villarreal MS2 feeling a bit better belly pain ok vitals noted nad heent nc at mmm breathing unlabored no accessory muscles good effort skin no rashes no pallor or icterus abd soft nd nt SBO - adhesional. NGT, pain control, supportive care, time otherwise as above Subjective No acute changes overnight. Patient feels much better today compared to last night. She has some mild abd pain and nausea this morning but feels okay overall. No vomiting reported. Passing Flatulence this morning, no bowel movement. Review of Systems Constitutional: no fever Respiratory: no dyspnea Cardiovascular: no chest pain Gastrointestinal: + nausea; no vomiting Neurologic: no headache(s) Physical Exam Constitutional: WD/WN, vitals as above Respiratory: normal respiratory effort, lungs clear to auscultation Cardiovascular: RRR, no murmur, no edema Gastrointestinal (Abdomen): Inspection/Auscultation: normal bowel sounds, + abdominal surgical scar and + hypoactive bowel sounds; abdomen not distended Percussion/Palpation: abdomen soft; abdomen nontender and no guarding Results & Data Results & Data ([facility]) Vital Signs (Past 12 Hours) Vital Signs Temp Pulse Pulse Resp BP Pulse Ox 12/14/21 03:50 80 18 132/76 98 12/14/21 00:05 67 18 97 12/13/21 23:27 37 C 68 20 97
[2021-12-14] MEDS: ACETAMINOPHEN 1,000 MG/100 ML VIAL IV SCH ×2 (11:15→18:29)
[2021-12-14] MEDS ORDERED: PIPERACILLIN/TAZOBACTAM 3.375 GM in DEXTROSE 5% 100 ML IV SCH (12:00)
--- NOTE | 2021-12-14 13:06 | Billing Data ---
Date of Service December 14, 2021 Coding Level of Care Code 51258 Subseq Hosp Care Lvl 2
[2021-12-14] MEDS: ONDANSETRON INJ 2 MG/ML 2 ML VIAL IV PRN ×2 (15:15→21:46)
[2021-12-15] MEDS: LACTATED RINGER'S 1,000 ML IV SCH ×2 (00:57→11:11)
[2021-12-15] MEDS: ACETAMINOPHEN 1,000 MG/100 ML VIAL IV SCH ×3 (00:57→18:18)
[2021-12-15 07:29] LABS: Basophils # (auto) 0.04 K/uL (0-0.2); Basophils % (auto) 0.5 %; Eosinophils # (auto) 0.06 K/uL (0-0.5); Eosinophils % (auto) 0.8 %; Hematocrit (blood only) 42.4 % (37-47); Hemoglobin 14.3 g/dL (12.0-16.0); Immature Granulocytes # (auto) 0.01 K/uL (0.00-0.02); Immature Granulocytes % (auto) 0.1 %; Lymphocytes # (auto) 1.58 K/uL (1.2-3.4); Lymphocytes % (auto) 19.8 %; Mean Corpuscular Hemoglobin 30.8 pg (25-34); Mean Corpuscular Hgb Conc 33.7 g/dL (32-36); Mean Corpuscular Volume 91.4 fL (80-100); Mean Platelet Volume 9.6 fL (7.4-10.4); Monocytes # (auto) 0.61 K/uL (0.11-0.59); Monocytes % (auto) 7.7 %; Neutrophils # (auto) 5.67 K/uL (1.4-6.5); Neutrophils % (auto) 71.1 %; Platelet Count 236 K/uL (130-400); RDW Coefficient of Variation 13.8 % (11.5-14.5); RDW Standard Deviation 45.9 fL (36.4-46.3); Red Blood Count 4.64 M/uL (4.2-5.4); White Blood Count 7.97 K/uL (4.8-10.8)
[2021-12-15 07:38] LABS: Albumin Globulin Ratio 1.3 (0.9-2); Albumin Level 3.5 gm/dl (3.4-5.0); BUN Creatinine Ratio 18.8 (10-20); Calcium 8.8 mg/dl (8.5-10.1); Creatinine Clr Calc Pharmacy 33.8 ml/min; Est GFR (African American) 55.3 ml/min; Est GFR (Non-African American) 47.7 ml/min; Globulin 2.6 gm/dl (2.5-4.0); Total Protein 6.1 gm/dl (6.0-8.3)
[2021-12-15] MEDS ORDERED: CARBOHYDRATES FOR HYPOGLYCEMIA PO PRN (09:26)
[2021-12-15] MEDS ORDERED: GLUCOSE 40% GEL 15 GM TUBE PO PRN (09:26)
[2021-12-15] MEDS ORDERED: GLUCOSE 10 TABS/TUBE PO PRN (09:26)
[2021-12-15] MEDS ORDERED: GLUCAGON FOR INJ 1 MG VIAL SQ PRN (09:26)
[2021-12-15] MEDS ORDERED: DEXTROSE 50% 50 ML SYRINGE IV ONE (09:28)
[2021-12-15] MEDS: DEXTROSE 50% 50 ML SYRINGE IV PRN ×2 (09:29→14:37)
--- NOTE | 2021-12-15 09:50 | Surgery Progress Note ---
Date of Service December 15, 2021 Assessment & Plan (1) Small bowel obstruction: Plan: Patient with h/o regis and hysterectomy here with SBO She reports improvement in her symptoms, denies pain/n/v. Passed small amount of flatus, no BM yet NGT with minimal output ?~50cc last shift Will obtain KUB today for further evaluation If improvement may consider clamp trial Admission and Anticipated Discharge Date Admission Date: December 14, 2021 Supervising Physician Co-Signing Physician Notes Pnt S&E, labs and films reviewed, agree with above. Some flatus, feels hungry. NG clamped for walking, tolerating. Abs soft, nt, less distended. KUB still distended. continue NG, if symptoms replace to LIWS. repeat KUB in am. Subjective Patient says she is feeling much better. Denies abdominal pain, nausea/vomiting. No BM yet. Said she passed flatus once. She tells me she wants to avoid any pain or anti-nausea meds today. Physical Exam Physical Exam: awake/alert, no distress Respiratory: normal respiratory effort Gastrointestinal (Abdomen): Inspection/Auscultation: + abdomen distended (mild) Percussion/Palpation: abdomen soft; abdomen nontender Results & Data ([facility]) Vital Signs (Past 12 Hours) Vital Signs Temp Pulse Pulse Resp BP Pulse Ox 12/15/21 07:58 37 C 73 18 129/75 95 12/15/21 03:14 36.8 C 68 18 107/56 L 92 12/14/21 23:45 37.0 C 64 16 127/76 91 12/14/21 23:14 61 PG Care Time/CCT Total # of Minutes Spent Total Time Spent with Patient: Total time spent is greater than 50% in coordination of care (as documented) at patient's floor/unit and/or counseling patient: Coding Level of Care Code 72797 Subseq Hosp Care Lvl 1 Diagnoses Small bowel obstruction K56.609
--- NOTE | 2021-12-15 10:50 | XRay Report ---
XR KUB/Abdomen 1 view CLINICAL HISTORY: here with SBO TECHNIQUE: 1 view of the abdomen was obtained. Comparison: Comparison is made to abdomen radiograph 07/11/2021 FINDINGS: Enteric tube side-port and tip are below the diaphragm. Degenerative changes are seen in the visualiz ed skeleton. Multiple gas-distended loops of small bowel are seen measuring up to 54 mm. A moderate a mount of stool is noted within the large bowel. IMPRESSION: Findings are compatible with small bowel obstruction. Satisfactory appearance of enteric tube. ACT 112: Negative or not required by law. Electronically signed by: Mukul Spencer M.D. 12/15/2021 10:48 AM
[2021-12-15] MEDS ORDERED: LIDOCAINE 2% JELLY 5 ML TUBE EXT ONE (10:54)
[2021-12-15] MEDS ORDERED: LIDOCAINE 2% JELLY 5 ML TUBE ONE (11:06)
[2021-12-15] MEDS ORDERED: D5W AND 1/2NSS 1,000 ML IV SCH (14:45)
--- NOTE | 2021-12-15 14:55 | Hospitalist Progress Note ---
Date of Service December 15, 2021 Assessment & Plan (1) Small bowel obstruction: Plan: 1. Small Bowel Obstruction -CTAP showed high-grade small bowel obstruction -Secondary to adhesion given hx of hysterectomy (2016), and cholecystectomy (prior to 2016) -4th episode of SBO with prev. episodes (07/12, 06/12, 03/12) all managed conservatively w/o need for surgical intervention. -Patient improving with conservative management. -Discontinue intermittent suction w/ NG tube. Will observe how patient responds over the next few hours w/o suction. -Plan to remove NG if abd pain and nausea/vomiting does not occur as suction is d/c. -Advance to clear pending NG tube removal. 2. Polymyalgia Rheumatica -On Prednisone 2 mg daily at home -Hold prednisone for now. -Monitor for Prednisone withdrawal symptoms. Highly unlikely given such low dose. Pt has no symptoms of fatigue, weakness, myalgia today. Will Consider hydrocortisone IV if symptoms occur. 3. Bladder dysfunction -On Tolterodine 1 mg BID at home 4. Hypertension -On Amlodipine 2.5 mg PO HS -NPO. Hold medication. FEN/GI: NPO DVT Prophylaxis: SCD Code Status: full code (2) PMR (polymyalgia rheumatica): (3) Bladder dysfunction: (4) HTN (hypertension): Admission and Anticipated Discharge Date Admission Date: December 14, 2021 Supervising Physician Co-Signing Physician Notes I personally examined the patient and verified all august points of history and exam, discussed case, and agree with decision making with Yue Villarreal MS2 generally feeling better overall. gave trial of NG off suction for a few hours but unfortunately started to get more uncomfortable - large amount of output when suction resumed vitals noted nad heent nc at mmm breathing unlabored no accessory muscles good effort skin no rashes no pallor or icterus abd soft nd nt SBO - adhesional. continue NGT, pain control, supportive care, time otherwise as above Subjective No acute changes overnight. She is feeling a lot better today. No abd pain, nausea, or vomiting reported. She wants to try to avoid taking any nausea or pain medication today. She is continuing to pass flatus but has not had a bowel movement yet. Review of Systems Constitutional: no fever, no chills, no fatigue and no malaise Respiratory: no dyspnea Cardiovascular: no chest pain Gastrointestinal: no abdominal pain, no nausea and no vomiting Neurologic: no headache(s) Physical Exam Constitutional: WD/WN, vitals as above Respiratory: normal respiratory effort, lungs clear to auscultation Cardiovascular: Rate/Rhythm: regular rate and regular rhythm Heart Sounds: + murmur Gastrointestinal (Abdomen): normal bowel sounds, soft, nontender, no hepatosplenomegaly Inspection/Auscultation: + abdominal surgical scar Results & Data Results & Data ([facility]) Vital Signs (Past 12 Hours) Vital Signs Temp Pulse Resp BP Pulse Ox 12/15/21 07:58 37 C 73 18 129/75 95 12/15/21 03:14 36.8 C 68 18 107/56 L 92
--- NOTE | 2021-12-15 18:00 | Billing Data ---
Date of Service December 15, 2021 Coding Level of Care Code 67504 Subseq Hosp Care Lvl 3
[2021-12-16] MEDS: ACETAMINOPHEN 1,000 MG/100 ML VIAL IV SCH ×3 (02:48→18:38)
[2021-12-16] MEDS ORDERED: D5W AND 1/2NSS 1,000 ML IV SCH ×2 (03:30→20:30)
[2021-12-16 06:30] LABS: Basophils # (auto) 0.03 K/uL (0-0.2); Basophils % (auto) 0.3 %; Eosinophils # (auto) 0.09 K/uL (0-0.5); Hematocrit (blood only) 41.5 % (37-47); Hemoglobin 13.7 g/dL (12.0-16.0); Immature Granulocytes # (auto) 0.02 K/uL (0.00-0.02); Immature Granulocytes % (auto) 0.2 %; Lymphocytes # (auto) 1.79 K/uL (1.2-3.4); Lymphocytes % (auto) 19.7 %; Mean Corpuscular Hemoglobin 29.5 pg (25-34); Mean Corpuscular Volume 89.4 fL (80-100); Mean Platelet Volume 9.5 fL (7.4-10.4); Monocytes # (auto) 0.73 K/uL (0.11-0.59); Neutrophils # (auto) 6.44 K/uL (1.4-6.5); Neutrophils % (auto) 70.8 %; Platelet Count 237 K/uL (130-400); RDW Coefficient of Variation 13.7 % (11.5-14.5); RDW Standard Deviation 44.6 fL (36.4-46.3); Red Blood Count 4.64 M/uL (4.2-5.4)
[2021-12-16 07:15] LABS: Albumin Globulin Ratio 1.5 (0.9-2); Albumin Level 3.4 gm/dl (3.4-5.0); BUN Creatinine Ratio 13.8 (10-20); Bilirubin,Total 0.6 mg/dl (0.2-1.0); Calcium 8.3 mg/dl (8.5-10.1); Creatinine Clr Calc Pharmacy 43.5 ml/min; Est GFR (Non-African American) 64.7 ml/min; Globulin 2.3 gm/dl (2.5-4.0); Potassium 3.3 mmol/L (3.5-5.1); Total Protein 5.7 gm/dl (6.0-8.3)
--- NOTE | 2021-12-16 07:43 | Surgery Progress Note ---
Date of Service December 16, 2021 Assessment & Plan (1) Small bowel obstruction: Plan: Patient with h/o regis and hysterectomy here with SBO She states she is feeling well, denying abdominal pain, nausea/vomiting Abdomen is soft, non tender, less distention NGT with some increased output overnight, 1000cc documented She is not passing anymore gas and has not had a BM yet Will obtain KUB today for further evaluation...if no improvement may consider contrast study Admission and Anticipated Discharge Date Admission Date: December 14, 2021 Supervising Physician Co-Signing Physician Notes Patient seen and examined, labs and imaging reviewed, agree with above. 76-year-old female with recurrent small bowel obstruction. Not much improvement in symptoms since yesterday, but feels better than on admission. Has not passed much gas. On exam she is afebrile stable vitals. Abdomen soft, nontender, mildly distended, stable from yesterday. KUB reviewed and showed persistent small bowel obstruction. Stable from yesterday. We will continue with nonoperative management for now. [facility] surgery covering over the weekend. If not improved by next week may consider contrast study versus laparoscopic exploration. Subjective Patient says she is feeling well. Denies abdominal pain/n/v. She is not passing anymore gas or BM. Physical Exam Physical Exam: awake/alert, no distress Respiratory: normal respiratory effort Gastrointestinal (Abdomen): Inspection/Auscultation: + abdomen distended (improved) Percussion/Palpation: abdomen soft; abdomen nontender NGT with green output, 1000cc overnight Results & Data ([facility]) Vital Signs (Past 12 Hours) Vital Signs Temp Pulse Resp BP Pulse Ox 12/16/21 06:15 36.3 C L 60 16 120/70 93 12/15/21 20:00 36.5 C 65 16 124/72 93 PG Care Time/CCT Total # of Minutes Spent Total Time Spent with Patient: Total time spent is greater than 50% in coordination of care (as documented) at patient's floor/unit and/or counseling patient: Coding Level of Care Code 79977 Subseq Hosp Care Lvl 1 Diagnoses Small bowel obstruction K56.609
--- NOTE | 2021-12-16 08:27 | XRay Report ---
KUB HISTORY: Small bowel obstruction. Follow-up. COMPARISON: KUB 12/15/2021. FINDINGS: The nasogastric tube terminates in the proximal stomach. Multiple dilated gas-filled loops of small bowel persist and measure up to 5.3 cm in diameter. This is similar to the prior study. Find ings are consistent with a persistent small bowel obstruction. Prior cholecystectomy. No renal calcu li. No ureteral calculi. No pneumoperitoneum or pneumatosis. IMPRESSION: 1. No change in the small bowel obstruction pattern. 2. Nasogastric tube terminates in the proximal stomach. ACT 112: Negative or not required by law. Electronically signed by: Bar Johnson M.D. 12/16/2021 8:26 AM
[2021-12-16] MEDS: POTASSIUM CHLORIDE / WTR 10 MEQ/100 ML PLCT IV SCH ×3 (08:40→11:33)
--- NOTE | 2021-12-16 10:04 | Hospitalist Progress Note ---
Date of Service December 16, 2021 Assessment & Plan (1) Small bowel obstruction: Plan: 1. Small Bowel Obstruction -Secondary to adhesion. -CTAP showed high-grade small bowel obstruction. KUB today showed no change in SBO pattern. -Patient got lightheaded post discontinuation of intermittent suction w/ NG tube yesterday. -Although she did not develop any abd pain, nausea/vomiting, plan to continue NG tube for while waiting for bowel function to improve -Patient remains stable. Abd is soft, non-tender, non-distended. Continue conservative management. -Gen surgery following. Nonoperative management for now.Agree with plan that it no improvement over weekend, consider contrast study versus laparoscopic exploration. 2. Polymyalgia Rheumatica -On Prednisone 2 mg daily at home -Hold prednisone for now. -Monitor for Prednisone withdrawal symptoms. Highly unlikely given such low dose. Pt has no symptoms of fatigue, weakness, myalgia today. Will Consider hydrocortisone IV if symptoms occur. 3. Bladder dysfunction -On Tolterodine 1 mg BID at home 4. Hypertension -On Amlodipine 2.5 mg PO HS -NPO. Hold medication. FEN/GI: NPO DVT Prophylaxis: scd Code Status: full code (2) PMR (polymyalgia rheumatica): (3) Bladder dysfunction: (4) HTN (hypertension): Admission and Anticipated Discharge Date Admission Date: December 14, 2021 Supervising Physician Co-Signing Physician Notes I personally examined the patient and verified all august points of history and exam, discussed case, and agree with decision making with Yue Villarreal MS2 feels about the same overall. took a walk then had more indigestion feeling after. maybe a tiny bit of flatus. vitals noted nad heent nc at mmm breathing unlabored no accessory muscles good effort skin no rashes no pallor or icterus neuro no focal deficits NGT draining bilious fluid SBO - adhesional - not getting better, but also no alarm s/s. continue NGT, pain/nausea control, supportive care. DVT proph - add heparin SQ otherwise as above Subjective No acute changes overnight. Feeling good today. Had some lightheadedness yesterday a few hours after NGT suction was turned off. Symptoms have since resolved. She has not passed flatus today or had a BM yet but she can hear and feel active bowel sounds. She does report some acid-reflux like symptoms today. No abd pain, nausea or vomiting reported. Review of Systems Constitutional: no fever, no chills, no fatigue and no malaise Respiratory: no dyspnea Cardiovascular: no chest pain Gastrointestinal: no abdominal pain, no nausea and no vomiting Neurologic: no headache(s) Physical Exam Constitutional: WD/WN, vitals as above Respiratory: normal respiratory effort, lungs clear to auscultation Cardiovascular: Rate/Rhythm: regular rate and regular rhythm Heart Sounds: + murmur Gastrointestinal (Abdomen): normal bowel sounds, soft, nontender, no hepatosplenomegaly Inspection/Auscultation: + abdominal surgical scar Results & Data Results & Data ([facility]) Vital Signs (Past 12 Hours) Vital Signs Temp Pulse Resp BP Pulse Ox 12/16/21 06:15 36.3 C L 60 16 120/70 93
[2021-12-16] MEDS: PANTOprazole 40 MG in SYRINGE 0 ML IV SCH ×2 (13:56→23:18)
--- NOTE | 2021-12-16 17:08 | Billing Data ---
Date of Service December 16, 2021 Coding Level of Care Code 35163 Subseq Hosp Care Lvl 2
[2021-12-16] MEDS: HEPARIN SOD 5,000 UNIT/0.5 ML VIAL SQ SCH (21:00)
[2021-12-17] MEDS: ACETAMINOPHEN 1,000 MG/100 ML VIAL IV SCH ×2 (01:27→09:37)
--- NOTE | 2021-12-17 07:25 | Hospitalist Progress Note ---
Date of Service December 17, 2021 Assessment & Plan (1) Small bowel obstruction: Plan: 76 year old female w/ PMR, 3 previous SBOs, HTN, and hx of abd surgeries (cholecystectomy and hysterectomy) who presented w/ small bowel obstruction. Improving. 1. Small Bowel Obstruction -CTAP showed high-grade small bowel obstruction. KUB today showed no change in SBO pattern. -Patient remains stable. Abd is soft, non-tender, non-distended. Continue cons ervative management. -Gen surgery following. -Failed NG trial on previous day's attempt, but as of 12/17, improving, NG clamped and removed, starting clears -Phenol throat spray as needed -Tylenol for pain control -BID PPI 2. Polymyalgia Rheumatica -Home prednisone 2mg had been held while NPO. Resume. 3. Bladder dysfunction -Resume Tolterodine 1 mg BID at home 4. Hypertension -Resume home Amlodipine 2.5 mg PO HS FEN/GI: clear liquid. D5 NSS 80/hr x 2 bags ordered DVT Prophylaxis: heparin sq Code Status: full code Dispo: med/surg (2) PMR (polymyalgia rheumatica): (3) Bladder dysfunction: (4) HTN (hypertension): Admission and Anticipated Discharge Date Admission Date: December 14, 2021 Supervising Physician Co-Signing Physician Notes I personally examined the patient and verified all august points of history and exam, discussed case, and agree with decision making with Dr Ruth feeling better. NG out. throat a little sore but happy that tube is removed. (+) flatus. vitals noted nad heent nc at mmm breathing unlabored no accessory muscles good effort skin no rashes no pallor or icterus neuro no focal deficits SBO - adhesional - appears to be improving. NG out, trial clears, advance as tolerated DVT proph - heparin SQ otherwise as above Subjective Patient is feeling a lot better. She has been passing a lot of flatus since yesterday. No BM yet. Her throat is sore from the NG tube. Review of Systems Review of Systems: All systems reviewed & are unremarkable except as noted in HPI & below Physical Exam Physical Exam: General: Grossly A&O. NAD. Cooperative. HEENT: Atraumatic, normocephalic. Pulm: CTAB. -wheezes, -rales, -rhonchi. Expiratory sighing. No respiratory distress. Cardiac: RRR, -mrg. No LE edema. Abdominal: Nontender, nondistended, soft. Results & Data Results & Data ([facility]) Vital Signs (Past 12 Hours) Vital Signs Temp Pulse Resp BP Pulse Ox 12/16/21 22:20 37.4 C 81 16 147/78 H 94 Resident Activity Tracking Resident Involvement: Resident Care Provided Care Provided: Adult Hospital Medicine
[2021-12-17] MEDS: PANTOprazole 40 MG in SYRINGE 0 ML IV SCH ×2 (08:18→20:35)
[2021-12-17] MEDS: HEPARIN SOD 5,000 UNIT/0.5 ML VIAL SQ SCH ×2 (08:18→20:34)
[2021-12-17 08:23] LABS: Hemoglobin 13.3 g/dL (12.0-16.0); Mean Corpuscular Hemoglobin 29.3 pg (25-34); Mean Corpuscular Hgb Conc 32.4 g/dL (32-36); Mean Corpuscular Volume 90.3 fL (80-100); Mean Platelet Volume 9.9 fL (7.4-10.4); Platelet Count 228 K/uL (130-400); RDW Coefficient of Variation 13.6 % (11.5-14.5); RDW Standard Deviation 45.2 fL (36.4-46.3); Red Blood Count 4.54 M/uL (4.2-5.4); White Blood Count 10.13 K/uL (4.8-10.8)
[2021-12-17 08:43] LABS: BUN Creatinine Ratio 8.1 (10-20); Calcium 7.8 mg/dl (8.5-10.1); Est GFR (African American) 76.1 ml/min; Est GFR (Non-African American) 65.6 ml/min; Potassium 3.5 mmol/L (3.5-5.1)
[2021-12-17] MEDS ORDERED: D5W AND NSS 1,000 ML IV SCH (10:00)
--- NOTE | 2021-12-17 10:24 | XRay Report ---
KUB HISTORY: Small bowel obstruction. Follow-up. COMPARISON: KUB 12/16/2021. FINDINGS: Nasogastric tube terminates in the proximal stomach. Prior cholecystectomy. Extensive small bowel have improved. These measure up to 4 cm in diameter. No renal calculi. No ureteral calculi. N o pneumoperitoneum or pneumatosis. IMPRESSION: Interval improvement in the small bowel obstruction pattern. Nasogastric tube terminates in the stoma ch. ACT 112: Negative or not required by law. Electronically signed by: Bar Johnson M.D. 12/17/2021 10:23 AM
--- NOTE | 2021-12-17 11:17 | Surgery Progress Note ---
Date of Service December 17, 2021 Assessment & Plan (1) Small bowel obstruction: Plan: Appears to be resolving. Will clamp ng and remove at noon if tolerates. Ok to start clears. Admission and Anticipated Discharge Date Admission Date: December 14, 2021 Subjective Feeling better. Passing flatus but no bowel movement yet. Starting to feel hungry. No nausea or abdominal pain. Review of Systems Review of Systems: All systems reviewed & are unremarkable except as noted in HPI & below Physical Exam Constitutional: WD/WN, vitals as above Eyes: PERRL, conjunctivae normal, anicteric sclerae Respiratory: normal respiratory effort, lungs clear to auscultation Cardiovascular: RRR, no murmur, no edema Gastrointestinal (Abdomen): Inspection/Auscultation: abdomen normal to inspection, + abdomen distended (mild) and normal bowel sounds Percus dagoberto/Palpation: abdomen soft; abdomen nontender and no guarding Neurologic: CN's II-XI intact bilaterally and moves all extremities; no focal motor deficits Psychiatric: A+Ox3, euthymic affect Results & Data ([facility]) Vital Signs (Past 12 Hours) Vital Signs Temp Pulse Resp BP Pulse Ox 12/17/21 08:36 36.8 C 73 16 147/83 H 94 Laboratory Results Abnormal lab results 12/17/21 12/17/21 Range/Units 04:13 07:41 BUN/Creatinine Ratio 8.1 L (10-20) Glucose 108 H (70-99(Fasting)) mg/dl POC Glucose 106 H (70-99) mg/dl Calcium 7.8 L (8.5-10.1) mg/dl Diagnostic Findings UB HISTORY: Small bowel obstruction. Follow-up. COMPARISON: KUB 12/16/2021. FINDINGS: Nasogastric tube terminates in the proximal stomach. Prior cholecystectomy. Extensive small bowel have improved. These measure up to 4 cm in diameter. No renal calculi. No ureteral calculi. No pneumoperitoneum or pneumatosis. IMPRESSION: Interval improvement in the small bowel obstruction pattern. Nasogastric tube terminates in the stomach.
[2021-12-17] MEDS: POTASSIUM CHLORIDE / WTR 10 MEQ/100 ML PLCT IV SCH ×2 (11:31→13:32)
[2021-12-17] MEDS ORDERED: CHLORASEPTIC 1.4% SOLN 180 ML BTL MT PRN (12:04)
[2021-12-17] MEDS: predniSONE 1 MG TAB PO SCH (17:38)
[2021-12-17] MEDS ORDERED: ACETAMINOPHEN 1000 MG/100 ML IV IV PRN (17:45)
--- NOTE | 2021-12-17 18:03 | Billing Data ---
Date of Service December 17, 2021 Coding Level of Care Code 19854 Subseq Hosp Care Lvl 2
[2021-12-17] MEDS: TOLTERODINE TARTRATE 1 MG TAB PO SCH (20:36)
[2021-12-17] MEDS ORDERED: amLODIPine BESYLATE 5 MG TAB PO SCH (21:00)
[2021-12-18] MEDS: HEPARIN SOD 5,000 UNIT/0.5 ML VIAL SQ SCH (07:39)
[2021-12-18] MEDS: TOLTERODINE TARTRATE 1 MG TAB PO SCH (07:39)
[2021-12-18] MEDS: PANTOprazole 40 MG in SYRINGE 0 ML IV SCH (07:39)
--- NOTE | 2021-12-18 07:55 | Discharge Summary ---
Date of Service December 18, 2021 Admission HPI Per Admitting Provider Chief Complaint: The patient presents to the emergency department with acute onset of severe abdominal pain, with nausea and vomiting x3 that occurred after eating supper this evening. HPI The patient is a 76-year-old female with a past medical history including PMR, history of 3 previous small bowel obstructions, hypertension, status post mitral valve repair, kidney stones, history of cholecystectomy and history of hysterectomy. She presents with symptoms as noted above, similar to her previous presentations. CT scan of abdomen pelvis confirmed a small bowel obstruction with probable transition point in the pelvis. Admission Exam Per Admitting Provider The patient is awake, alert and oriented 3, well developed and well nourished, normocephalic and atraumatic, lying in bed and in no acute distress. HEENT--PERRL, EOMI, mucous membranes and oropharynx dry. Neck--supple. No JVD. No bruits. Thyroid normal, trachea midline, no adeno rosana. Heart--normal S1 and S2. No murmurs, rubs or gallops. Lungs--clear bilaterally, no respiratory distress, no accessory muscle use. Abdomen--absent bowel sounds. Mildly distended. Nontender post medication. Extremities--no cyanosis or clubbing. No edema. Dermatologic--normal skin turgor, normal color, no abnormal lymph nodes, no rash. Neurologic--cranial nerves II through XII grossly intact. Rheumatologic--normal range of motion. Psychiatric--normal affect. Principal Diagnosis small bowel obstruction Discharge Exam General: Grossly A&O. NAD. Cooperative. HEENT: Atraumatic, normocephalic. EOMI Pulm: CTAB. -wheezes, -rales, -rhonchi. Symmetrical chest rise. No respiratory distress. Cardiac: RRR, -mrg. Abdominal: Nontender, nondistended, soft. + BS. Discharge Data Allergies Allergy/AdvReac Type Severity Reaction Status Date / Time shellfish derived Allergy Severe COULDN'T Verified 12/14/21 00:19 BREATH; SWELLING lisinopril Allergy Intermediate full body Verified 12/14/21 00:19 itching amoxicillin [From Augmentin] AdvReac Intermediate BLOODY Verified 12/14/21 00:19 DIAHRREA clavulanic acid AdvReac Intermediate BLOODY Verified 12/14/21 00:19 [From Augmentin] DIAHRREA methimazole AdvReac Intermediate SWELLING Verified 12/14/21 00:19 OF JOINTS iodine AdvReac Mild Nausea Verified 12/14/21 00:19 Consultations 12/14/21 02:15 ED Decision to Admit Stat 12/14/21 03:30 Consult General Surgery Routine Ordered Studies Cardiac Enzymes 12/18/21 Range/Units 07:21 AST 36 (13-39) U/L CBC 12/18/21 Range/Units 07:21 WBC 7.88 (4.8-10.8) K/uL RBC 4.40 (4.2-5.4) M/uL Hgb 13.5 (12.0-16.0) g/dL Hct 40.0 (37-47) % Plt Count 235 (130-400) K/uL Comprehensive Metabolic Panel 12/18/21 Range/Units 07:21 Sodium 140 (136-145) mmol/L Potassium 3.4 L (3.5-5.1) mmol/L Chloride 105 (98-107) mmol/L Carbon Dioxide 29 (21-32) mmol/L BUN 6 (6-23) mg/dl Creatinine 0.77 (0.6-1.2) mg/dl Glucose 92 (70-99(Fasting)) mg/dl Calcium 7.9 L (8.5-10.1) mg/dl AST 36 (13-39) U/L ALT 23 (7-52) U/L Alkaline Phosphatase 44 (34-104) U/L Total Protein 6.1 (6.0-8.3) gm/dl Albumin 3.6 (3.4-5.0) gm/dl Intake and Output 12/18/21 12/18/21 12/18/21 06:59 14:59 22:59 Intake Total 800 / 800 Balance 800 / 800 Intake: Oral 800 / 800 Other: # Unmeasured Voids 1 Weight 51.7 kg Patient Weight 12/19/21 06:59 Weight 51.7 kg Abdomen/Pelvis CT 12/13/21 23:[address] WITHOUT CONTRAST CT DOSE: 238.00 mGy.cm HISTORY: vomiting TECHNIQUE: Multiaxial CT images of the abdomen and pelvis were performed without contrast. A dose lowering technique was utilized adhering to the principles of ALARA. COMPARISON STUDY: Abdomen and pelvis CT 07/11/2021. FINDINGS: Mild dependent changes noted at the lung bases. The heart remains enlarged. No pneumoperitoneum. No pneumatosis. No fractures within the visualized osseous structures. There again noted are multiple dilated loops of small bowel within the mid to lower abdomen which are fluid-filled. The distal ileal loops appear decompressed. A transition point is seen within the mid pelvis on image 239. Therefore, this is consistent with a small bowel obstruction. The gallbladder is surgically absent. The unenhanced liver, spleen, adrenal glands, and pancreas are unremarkable. No retroperitoneal lymphadenopathy. Normal right kidney. Atrophic left kidney containing multiple calcifications remains unchanged. The bladder is unremarkable. Trace pelvic free fluid is noted. The distal colon is decompressed. Moderate well-formed stool within the proximal colon. IMPRESSION: 1. Dilated fluid-filled loops of small bowel seen within the mid to lower abdomen with a transition point located at the mid pelvis. Therefore, this is consistent with a high-grade small bowel obstruction. 2. Cholecystectomy. 3. Atrophic left kidney, unchanged. 4. Cardiomegaly again noted. ACT 112: Negative or not required by law. Electronically signed by: Bar Johnson M.D. 12/14/2021 7:19 AM Chest X-Ray 12/14/21 05:00 XR chest 1V portable HISTORY: for NGT placement COMPARISON: Abdomen and pelvis CT 12/14/2021. FINDINGS: No pneumothorax. No pleural effusions. The cardiac silhouette remains moderately enlarged. There is a cardiac valve prosthesis again noted. Small patchy bibasilar densities. The upper lung zones are clear. Nasogastric tube terminates below the diaphragm. The tip is not included on this study. IMPRESSION: 1. Nasogastric tube terminates below the diaphragm. 2. Small patchy bibasilar densities. This could represent atelectasis or a pneumonia. ACT 112: Negative or not required by law. Electronically signed by: Bar Johnson M.D. 12/14/2021 7:59 AM KUB X-Ray 12/15/21 09:24 XR KUB/Abdomen 1 view CLINICAL HISTORY: here with SBO TECHNIQUE: 1 view of the abdomen was obtained. Comparison: Comparison is made to abdomen radiograph 07/11/2021 FINDINGS: Enteric tube side-port and tip are below the diaphragm. Degenerative changes are seen in the visualized skeleton. Multiple gas-distended loops of small bowel are seen measuring up to 54 mm. A moderate amount of stool is noted within the large bowel. IMPRESSION: Findings are compatible with small bowel obstruction. Satisfactory appearance of enteric tube. ACT 112: Negative or not required by law. Electronically signed by: Mukul Spencer M.D. 12/15/2021 10:48 AM KUB X-Ray 12/16/21 07:00 KUB HISTORY: Small bowel obstruction. Follow-up. COMPARISON: KUB 12/15/2021. FINDINGS: The nasogastric tube terminates in the proximal stomach. Multiple dilated gas-filled loops of small bowel persist and measure up to 5.3 cm in diameter. This is similar to the prior study. Findings are consistent with a persistent small bowel obstruction. Prior cholecystectomy. No renal calculi. No ureteral calculi. No pneumoperitoneum or pneumatosis. IMPRESSION: 1. No change in the small bowel obstruction pattern. 2. Nasogastric tube terminates in the proximal stomach. ACT 112: Negative or not required by law. Electronically signed by: Bar Johnson M.D. 12/16/2021 8:26 AM KUB X-Ray 12/17/21 07:00 KUB HISTORY: Small bowel obstruction. Follow-up. COMPARISON: KUB 12/16/2021. FINDINGS: Nasogastric tube terminates in the proximal stomach. Prior cholecystectomy. Extensive small bowel have improved. These measure up to 4 cm in diameter. No renal calculi. No ureteral calculi. No pneumoperitoneum or pneumatosis. IMPRESSION: Interval improvement in the small bowel obstruction pattern. Nasogastric tube terminates in the stomach. ACT 112: Negative or not required by law. Electronically signed by: Bar Johnson M.D. 12/17/2021 10:23 AM Hospital Course (1) Small bowel obstruction: 76 year old female w/ PMR, 3 previous SBOs, HTN, and hx of abd surgeries (lap cholecystectomy and open hysterectomy) who presented w/ small bowel obstruction. 1. Small Bowel Obstruction , symptoms resolved, tolerating regular diet, had BBM -CTAP showed high-grade small bowel obstruction. KUB today showed no change in SBO pattern. -Failed NG on initial attempt but passed NG trial on 12/17. -Gen surg consult recs appreciated -Patient to f/u w/ gen surg (Dr. Wild whom she had seen in past) as outpatient as this is her 4th SBO in past year. - low fiber diet x several wks 2. Polymyalgia Rheumatica -Continue home prednisone 3. Bladder dysfunction -Continue home tolterodine 1 mg BID 4. Hypertension -Continue home regimen Patient was full code this admission. (2) PMR (polymyalgia rheumatica): (3) Bladder dysfunction: (4) HTN (hypertension): Total Time Total Time Spent Total Time Spent (In Minutes): <30 Discharge Plan Discharge Items Patient Disposition: Home - Self-Care Reason For Visit: SBO Discharge Diagnosis: small bowel obstruction Activity: Per Instructions section Non-emergency contact: Primary Care Provider Call non-emergency contact if: you have any medication questions, your symptoms worsen and you have a fever Follow-up/Referrals: Cj Wild DO, FACS [Physician] - (gen surg f/u (in 2-4 weeks) for recurrent small bowel obstructions (4 in past 1 year). [address] Wild and requested him.) Martin Jacob [Primary Care Provider] - (hospital discharge follow up within 1 week.) Diet: Low Fiber Addtl Attending Provider Instructions: You were seen in [facility] for small bowel obstruction. You were treated with IV fluids and a nasogastric tube. Your symptoms improved after this. Consider a low fiber diet for the next few weeks. No changes were made to your home medications. Please follow-up with your primary care physician within the next 1 week for follow up. Please also ensure close follow-up with general surgery (referral placed for Dr. Wild) to discuss next steps/planning with regards to your multiple small bowel obstructions. If you do not her back from schedulers in a few days, call to make the appointments. In the interim, if you experience any worsening abdominal pain, nausea, vomiting, chest pain, palpitations, shortness of breath, or other worrisome symptoms, please report to the ER immediately for evaluation. Pending Studies at Discharge: No Stand-Alone Forms: [facility], Smoking Cessation Medications and DC Order Prescriptions: Continued cholecalciferol (vitamin D3) [Vitamin D3] 1,000 unit Tablet 1,000 unit PO DAILY RF: 0 tolterodine 1 mg tablet 1 mg PO BID RF: 0 amlodipine 2.5 mg tablet 2.5 mg PO HS RF: 0 prednisone 1 mg tablet 2 mg PO DAILY RF: 0 Discharge Orders: Discharge Order (Routine); Ordered 12/18/21 Ordered By: Jarrett Lilly/Other Patient Handouts: Low-Fiber Diet Admission Data Admit Date/Time: 12/14/21 03:12 Attending Provider: John Monterroso Admit Provider: Leodan Wilson Primary Care Provider: Martin Jacob Other Providers: Leodan Wilson ; Anibal Elliott Other Interventions: Discharge Summary Assessment (RN) Last Done: 12/18/21 16:19 Supervising Physician Co-Signing Physician Notes I personally examined the patient and verified all august points of history and exam, discussed case, and agree with decision making with Dr Ruth feeling better. (+) BM. eating well. vitals noted nad heent nc at mmm breathing unlabored no accessory muscles good effort skin no rashes no pallor or icterus neuro no focal deficits SBO - adhesional - appears to be improved. tolerating diet, stable for home DVT proph - heparin SQ utilized while in hospital otherwise as above Resident Activity Tracking Resident Involvement: Resident Care Provided Care Provided: Adult Hospital Medicine
[2021-12-18 07:57] LABS: Hemoglobin 13.5 g/dL (12.0-16.0); Mean Corpuscular Hemoglobin 30.7 pg (25-34); Mean Corpuscular Hgb Conc 33.8 g/dL (32-36); Mean Corpuscular Volume 90.9 fL (80-100); Mean Platelet Volume 9.7 fL (7.4-10.4); Platelet Count 235 K/uL (130-400); RDW Coefficient of Variation 13.6 % (11.5-14.5); RDW Standard Deviation 44.9 fL (36.4-46.3); White Blood Count 7.88 K/uL (4.8-10.8)
[2021-12-18 08:03] LABS: Albumin Globulin Ratio 1.4 (0.9-2); Albumin Level 3.6 gm/dl (3.4-5.0); BUN Creatinine Ratio 7.8 (10-20); Bilirubin,Total 0.5 mg/dl (0.2-1.0); Calcium 7.9 mg/dl (8.5-10.1); Creatinine Clr Calc Pharmacy 49.2 ml/min; Est GFR (African American) 86.9 ml/min; Globulin 2.5 gm/dl (2.5-4.0); Potassium 3.4 mmol/L (3.5-5.1); Total Protein 6.1 gm/dl (6.0-8.3)
--- NOTE | 2021-12-18 10:59 | Surgery Progress Note ---
Date of Service December 18, 2021 Assessment & Plan (1) Small bowel obstruction: Plan: Appears to be resolving. Advance diet as tolerated. Admission and Anticipated Discharge Date Admission Date: December 14, 2021 Subjective Had three trays of clear liquids and tolerating well. Passing flatus but no bowel movement. Anxious to advance her diet. Physical Exam Constitutional: WD/WN, vitals as above Eyes: PERRL, conjunctivae normal, anicteric sclerae Respiratory: normal respiratory effort, lungs clear to auscultation Cardiovascular: RRR, no murmur, no edema Gastrointestinal (Abdomen): Inspection/Auscultation: abdomen normal to inspection, + abdomen distended (mild) and normal bowel sounds Percussion/Palpation: abdomen soft; abdomen nontender and no guarding Neurologic: CN's II-XI intact bilaterally and moves all extremities; no focal motor deficits Psychiatric: A+Ox3, euthymic affect Results & Data ([facility]) Vital Signs (Past 12 Hours) Vital Signs Temp Pulse Resp BP Pulse Ox 12/18/21 07:55 36.8 C 63 16 148/84 H 96
[2021-12-18] MEDS ORDERED: POTASSIUM CHLORIDE PWD 20 MEQ PACK PO ONE (12:00)
[2021-12-18] MEDS: predniSONE 1 MG TAB PO SCH (16:43)
--- NOTE | 2021-12-18 17:04 | Billing Data ---
Date of Service December 18, 2021 Coding Level of Care Code D/C DAY MANAGEMENT <30 MINS
== END 2021-12-18 17:04 | disposition home or self-care (01) | DRG 390 ==
LOC: ED 23:24 → SUATTDRO 12-14 03:12 → 2E 12-14 03:12 → 3N 12-15 18:56

== ENCOUNTER 2023-10-29 15:14 | Inpatient (IN) ==
[2023-10-29 18:16] LABS: Basophils # (auto) 0.06 K/uL (0.00-0.20); Basophils % (auto) 0.7 %; Eosinophils # (auto) 0.05 K/uL (0.00-0.50); Eosinophils % (auto) 0.6 %; Hematocrit (blood only) 45.9 % (37.0-47.0); Immature Granulocytes # (auto) 0.02 K/uL (0.01-0.20); Immature Granulocytes % (auto) 0.2 %; Lymphocytes # (auto) 2.28 K/uL (1.20-3.40); Lymphocytes % (auto) 27.9 %; Mean Corpuscular Hgb Conc 32.7 g/dL (32.0-36.0); Mean Corpuscular Volume 91.8 fL (80.0-100.0); Mean Platelet Volume 10.4 fL (9.4-12.4); Monocytes # (auto) 0.73 K/uL (0.11-0.59); Monocytes % (auto) 8.9 %; Neutrophils # (auto) 5.04 K/uL (1.40-6.50); Neutrophils % (auto) 61.7 %; Platelet Count 242 K/uL (130-400); RDW Coefficient of Variation 14.6 % (11.5-14.5); RDW Standard Deviation 48.9 fL (36.4-46.3); White Blood Count 8.18 K/ul (4.8-10.8)
[2023-10-29 18:26] LABS: Albumin Globulin Ratio 1.8 (0.9-2); Albumin Level 4.2 gm/dl (3.4-5.0); BUN Creatinine Ratio 25.9 (10-20); Bilirubin,Total 0.8 mg/dl (0.2-1.0); Calcium 9.2 mg/dl (8.6-10.3); Creatinine Clr Calc Pharmacy 31.6 ml/min; Est GFR (African American) 52.2 ml/min; Est GFR (Non-African American) 45.1 ml/min; Globulin 2.4 gm/dl (2.5-4.0); Potassium 4.3 mmol/L (3.5-5.1); Total Protein 6.6 gm/dl (6.0-8.3)
[2023-10-29 18:30] LABS: Troponin I High Sensitivity 42.7 pg/ml (0-14)
--- NOTE | 2023-10-29 18:35 | XRay Report ---
XR chest 1V not portable HISTORY: 78 years-old Female Chest pain, nonspecific COMPARISON: 12/14/2021 TECHNIQUE: PA view of the chest FINDINGS: Cardiac silhouette is enlarged. Cardiac valvular prosthesis. No pneumothorax, pleural effusion, airsp butch consolidation or pulmonary edema. Degenerative changes of the shoulders and spine. Right upper qu adrant surgical clips. IMPRESSION: Cardiomegaly without acute process. ACT 112: Negative or not required by law. The above report was generated using voice recognition software. It may contain grammatical, syntax o r spelling errors. Electronically signed by: Melchor Rosales M.D. 10/29/2023 6:33 PM
[2023-10-29 18:44] LABS: Partial Thromboplastin Ratio 0.8; Partial Thromboplastin Time 22 Seconds (21-31); Prothrombin Time 10.9 Seconds (9.0-12.0)
--- NOTE | 2023-10-29 18:54 | Emergency Department Note ---
History of Present Illness General Chief complaint: Cardiac Assessment Stated complaint: SOB,ABDOMINAL PAIN/REFERED BY DOC Time Seen by Provider: 10/29/23 18:35 Source: patient, RN notes reviewed and old records reviewed (01/22/23-family practice visit for urticaria rash) Mode of arrival: ambulatory Limitations: no limitations History of Present Illness Maximum Pain Intensity: 3 This patient is 78-year-old female who is referred by her family doctor after feeling sick for several days. She started with a cold about a week ago she had a mild cough and runny nose. She has been feeling short of breath intermittently in the middle of the night and occasionally when doing things she gets short of breath or weak dyspnea on exertion. she has some mild low back pain little bit of nausea but no significant abdominal pain. no weight gain .no pain or swelling to her legs .no chest pain .she is on no blood thinners. No emesis. They did an EKG and were concerned and sent her to the ER Home Medications Medication Instructions Recorded Confirmed Type cholecalciferol (vitamin D3) 25 1,000 unit PO QAM 02/04/19 10/29/23 History mcg (1,000 unit) tablet (Vitamin D3) psyllium husk 0.4 gram capsule 0.4 g PO QAM 10/29/23 10/29/23 History (Metamucil) vibegron 75 mg tablet 75 mg PO HS 10/29/23 10/29/23 History Allergies Allergy/AdvReac Type Severity Reaction Status Date / Time shellfish derived Allergy Severe COULDN'T Verified 10/29/23 19:48 BREATH; SWELLING lisinopril Allergy Intermediate full body Verified 10/29/23 19:48 itching raloxifene [From Evista] Allergy Verified 10/29/23 19:49 amoxicillin [From Augmentin] AdvReac Intermediate BLOODY Verified 10/29/23 19:48 DIAHRREA clavulanic acid AdvReac Intermediate BLOODY Verified 10/29/23 19:48 [From Augmentin] DIAHRREA methimazole AdvReac Intermediate SWELLING Verified 10/29/23 19:48 OF JOINTS iodine AdvReac Mild Nausea Verified 10/29/23 19:48 cefdinir AdvReac Verified 10/29/23 19:49 Past Med/Surg History Medical History Bladder dysfunction DVT prophylaxis HTN (hypertension) Nausea & vomiting Abdominal pain, acute, periumbilical Non-functioning kidney Hypomagnesemia PMR (polymyalgia rheumatica) Amnesia, global, transient SBO (small bowel obstruction) Right otitis media Kidney stones Surgical History H/O atrial septal defect repair History of sacrocolpopexy S/P BSO (bilateral salpingo-oophorectomy) History of hysterectomy, supracervical Hx of mitral valve replacement Hx of cholecystectomy Family History Father Myocardial infarction Mother Alzheimer disease Grandmother (Paternal) Breast cancer Son Schizophrenia Other Heart disease Denies family history of Ovarian cancer Colorectal cancer Social History Smoking Status: Never smoker Hx Alcohol Use: Yes Alcohol type: wine Hx Substance Use: No Preferred Language: Liberian Communication Ability: Effective Visual Impairment: No Limitations Hearing Ability: Normal Audio Visual Collections Coordinator Required: No Beliefs That Will Affect Care: None marital status: Current Living Situation: Spouse Feels Safe at Home: Yes Assistive Devices: None Review of Systems A total of 10 systems reviewed and were otherwise negative Physical Exam Vital Signs Vital Signs - 24 hr 10/29/23 15:20 10/29/23 19:02 10/29/23 19:02 Temperature 36.0 C L Temperature Source Temporal Artery Scan Pulse Rate 119 H Pulse Rate [Left Finger] 118 H Pulse Rate from SpO2 Sensor Pulse Rhythm Regular Pulse Rhythm [Left Finger] Regular Pulse Strength Normal Pulse Strength [Left Finger] Normal Respiratory Rate 20 18 Respiratory Effort / Characteristics Non-Labored Spontaneous Non-Labored Respiratory Depth Normal Normal Respiratory Pattern Regular Regular Blood Pressure 137/97 Blood Pressure [Left Arm] 144/98 H Blood Pressure Mean 110 Blood Pressure Mean [Left Arm] 113 Blood Pressure Position Sitting Pulse Oximetry 98 98 99 Oxygen Delivery Method Room Air Room Air Room Air Sepsis Recent Fever Within 48 Hours No Sepsis New/Unexplained Change in Mental Status No Sepsis Action Taken by Nursing No Action Required 10/29/23 19:52 10/29/23 20:00 10/29/23 21:00 Temperature Temperature Source Pulse Rate 117 H 116 H 116 H Pulse Rate [Left Finger] Pulse Rate from SpO2 Sensor 118 H 118 H Pulse Rhythm Pulse Rhythm [Left Finger] Pulse Strength Pulse Strength [Left Finger] Respiratory Rate 25 H 35 H Respiratory Effort / Characteristics Respiratory Depth Respiratory Pattern Blood Pressure 128/103 H 128/58 L Blood Pressure [Left Arm] Blood Pressure Mean 111 81 Blood Pressure Mean [Left Arm] Blood Pressure Position Pulse Oximetry 98 98 Oxygen Delivery Method Room Air Room Air Sepsis Recent Fever Within 48 Hours Sepsis New/Unexplained Change in Mental Status Sepsis Action Taken by Nursing 10/29/23 22:00 Temperature Temperature Source Pulse Rate 116 H Pulse Rate [Left Finger] Pulse Rate from SpO2 Sensor 116 H Pulse Rhythm Pulse Rhythm [Left Finger] Pulse Strength Pulse Strength [Left Finger] Respiratory Rate 32 H Respiratory Effort / Characteristics Respiratory Depth Respiratory Pattern Blood Pressure 116/89 Blood Pressure [Left Arm] Blood Pressure Mean 98 Blood Pressure Mean [Left Arm] Blood Pressure Position Pulse Oximetry 97 Oxygen Delivery Method Room Air Sepsis Recent Fever Within 48 Hours Sepsis New/Unexplained Change in Mental Status Sepsis Action Taken by Nursing General: Well developed well nourished not ill or appearing slender older female who in no acute distress, breathing comfortably on room air. Normal speech HEENT: Normal cephalic atraumatic. Pupils are equal round and reactive to light. Extraocular movements are intact. Oropharynx is pink with moist mucous membranes. No swelling of the mouth lips or tongue. Neck: Supple with a midline trachea. No meningeal signs or stiffness, no JVD or bruits. No Stridor. Chest: Clear to auscultation bilaterally. No wheezes or rhonchi. No increased work of breathing. Heart: Is mildly tachycardic but regular rate and rhythm without murmurs or gallops. Abdomen: Soft nontender, nondistended without rebound guarding or rigidity. Extremities: No cyanosis clubbing or edema. No calf tenderness or assymetry Spine/Back. Non tender to palpation. No CVA tenderness Skin: Good turgor without rashes. Neurologic exam: Cranial nerves two through 12 are intact. Motor and sensation are intact and symmetrical throughout. Course Administered Medications Discontinued Medications Psyllium Hydrophilic Mucilloid (Psyllium Or Guar Gum Fiber 4gm Packet) 4 gm PO ONE ONE Stop: 10/29/23 20:17 Last Admin: 10/29/23 20:49 Dose: 4 gm Documented By: [facility] [place] Medical Decision Making Differential Diagnosis Acute coronary syndrome, arrhythmia, CHF, infection, pneumonia, pericarditis, myocarditis, pericardial effusion, pneumothorax, electrolyte or metabolic abnormality Medical Records Attestation: I reviewed the patient's medical records. Home Medications Current Medication List: was personally reviewed by me Laboratory Data Attestation: I reviewed the patient's lab results. 10/29/23 15:36 10/29/23 15:36 Lab Results 10/29/23 10/29/23 10/29/23 Range/Units 15:36 20:25 20:35 WBC 8.18 (4.8-10.8) K/ul RBC 5.00 (4.20-5.40) M/uL Hgb 15.0 (12.0-16.0) g/dl Hct 45.9 (37.0-47.0) % MCV 91.8 (80.0-100.0) fL MCH 30.0 (25.0-34.0) pg MCHC 32.7 (32.0-36.0) g/dL RDW Std Deviation 48.9 H (36.4-46.3) fL RDW Coeff of Jigna 14.6 H (11.5-14.5) % Plt Count 242 (130-400) K/uL MPV 10.4 (9.4-12.4) fL Immature Gran % (Auto) 0.2 % Neut % (Auto) 61.7 % Lymph % (Auto) 27.9 % [place] % (Auto) 8.9 % Eos % (Auto) 0.6 % Baso % (Auto) 0.7 % Neut # (Auto) 5.04 (1.40-6.50) K/uL Lymph # (Auto) 2.28 (1.20-3.40) K/uL [place] # (Auto) 0.73 H (0.11-0.59) K/uL Eos # (Auto) 0.05 (0.00-0.50) K/uL Baso # (Auto) 0.06 (0.00-0.20) K/uL Immature Gran # (Auto) 0.02 (0.01-0.20) K/uL PT 10.9 (9.0-12.0) Seconds INR 1.0 (0.9-1.1) APTT 22 (21-31) Seconds PTT Ratio 0.8 D-Dimer 920 H* (0-500) ug/L FEU Sodium 137 (136-145) mmol/L Potassium 4.3 (3.5-5.1) mmol/L Chloride 105 (98-107) mmol/L Carbon Dioxide 25 (21-32) mmol/L Anion Gap 7 (3-11) BUN 30 H (6-23) mg/dl Creatinine 1.16 (0.6-1.2) mg/dl Est Cr Clr Drug Dosing 31.6 ml/min Est GFR ( Amer) 52.2 ml/min Est GFR (Non-Af Amer) 45.1 ml/min BUN/Creatinine Ratio 25.9 H (10-20) Glucose 95 (70-99(Fasting)) mg/dl Calcium 9.2 (8.6-10.3) mg/dl Magnesium 2.0 (1.7-2.4) mg/dl Total Bilirubin 0.8 (0.2-1.0) mg/dl AST 71 H (13-39) U/L ALT 79 H (7-52) U/L Alkaline Phosphatase 71 (34-104) U/L Troponin I High Sens 42.7 H 42.7 H (0-14) pg/ml C-Reactive Protein < 0.50 (0-0.5) mg/dl B-Natriuretic Peptide 1242 H (0-100) pg/ml Total Protein 6.6 (6.0-8.3) gm/dl Albumin 4.2 (3.4-5.0) gm/dl Globulin 2.4 L (2.5-4.0) gm/dl Albumin/Globulin Ratio 1.8 (0.9-2) Adenovirus (PCR) Not Detected (NotDetected) B. pertussis DNA (PCR) Not Detected (NotDetected) B.parapertussis DNA PCR Not Detected (NotDetected) C. pneumoniae DNA (PCR) Not Detected (NotDetected) Coronavirus OC43 (PCR) Not Detected (NotDetected) Coronavirus HKU1 (PCR) Not Detected (NotDetected) Coronavirus 229E (PCR) Not Detected (NotDetected) SARS-CoV-2 (PCR) Not Detected (NotDetected) Coronavirus NL63 (PCR) Not Detected (NotDetected) Human Metapneumovir PCR Not Detected (NotDetected) Influenza Type A (PCR) Not Detected (NotDetected) Influenza Type B (PCR) Not Detected (NotDetected) M. pneumoniae (PCR) Not Detected (NotDetected) Parainfluenza 1 (PCR) Not Detected (NotDetected) Parainfluenza 2 (PCR) Not Detected (NotDetected) Parainfluenza 3 (PCR) Not Detected (NotDetected) Parainfluenza 4 (PCR) Not Detected (NotDetected) RSV (PCR) Not Detected (NotDetected) Entero/Rhino (PCR) DETECTED A (NotDetected) Imaging Data Attestation: I personally reviewed and interpreted this imaging study as follows: My Impression: Chest x-rayshe has significant increased cardiac silhouette. There is a previous mitral valve seen. No CHF pneumonia or pneumothorax seen Radiologist's Impression: Chest X-Ray 10/29/23 17:58 XR chest 1V not portable HISTORY: 78 years-old Female Chest pain, nonspecific COMPARISON: 12/14/2021 TECHNIQUE: PA view of the chest FINDINGS: Cardiac silhouette is enlarged. Cardiac valvular prosthesis. No pneumothorax, pleural effusion, airspace consolidation or pulmonary edema. Degenerative changes of the shoulders and spine. Right upper quadrant surgical clips. IMPRESSION: Cardiomegaly without acute process. ACT 112: Negative or not required by law. The above report was generated using voice recognition software. It may contain grammatical, syntax or spelling errors. Electronically signed by: Melchor Rosales M.D. 10/29/2023 6:33 PM ECG Data Attestation: I personally reviewed and interpreted this ECG as follows: Indication: + SOB/dyspnea Rate (beats per minute): 119 Rhythm: + sinus tachycardia ECG Intervals/blocks: + Normal QRS, + Normal QT and + Normal [place] ECG [place]: + Normal ECG ST segments: + Nonspecific ST abnormalities ECG Findings: + PVCs; no PACs Comparison ECG Date: from (06/14/21) Change: the following changes noted (Rate is increased) MDM Narrative This patient comes in as scribed above. I did see her in the [facility] [place] as I was trying to expedite her care and we were short on ED beds. She looks well however has been sick for a while she does have some sinus tachycardia she has dyspnea on exertion. Her cardiac silhouette seems to be enlarged she has not had an echo recently she may have a CHF component or ischemia her initial troponin is elevated. Is also possible she could have a pericardial effusion. I do not think she likely has a PE and she cannot tolerate. I did order second troponin as well as bio fire I do think she will likely need to be admitted for further treatment and evaluation. Bio fire was positive for rhino/enterovirus. It may be that she has a pericarditis or myocarditis even. I do think she needs to be admitted for further cardiac evaluation and echo. I have consulted and discussed the case with the [facility] team who will see in ER for these measures Continuous cardiac monitoring: Order was placed in EMR for continuous environmental monitoring specialist: Upon my evaluation she was noted to be in sinus tachycardia with a rate of 110 Impression & Plan SOB (shortness of breath), Enterovirus infection, Sinus tachycardia, Elevated troponin I level Discharge Plan Visit Data Chief Complaint: Cardiac Assessment Stated Complaint: SOB,ABDOMINAL PAIN/REFERED BY DOC ED Provider: Hector Hein Discharge Problem: SOB (shortness of breath), Enterovirus infection, Sinus tachycardia, Elevated troponin I level Forms Stand Alone Forms: My [facility] Prescriptions Prescriptions: No Action cholecalciferol (vitamin D3) [Vitamin D3] 1,000 unit Tablet 1,000 unit PO QAM psyllium husk [Metamucil] 0.4 gram Capsule 0.4 g PO QAM vibegron 75 mg tablet 75 mg PO HS Referrals Referrals: Martin Jacob [Primary Care Provider] -
--- NOTE | 2023-10-29 20:03 | History & Physical Report ---
Date of Service October 29, 2023 Assessment & Plan (1) Enterovirus infection: Plan: Worsening SOB, productive cough, and cold-like symptoms x 2 weeks Patient was seen in her PCP office on 10/28, and encouraged to come in due to sinus tachycardia and abnormal EKG EKG on arrival revealed sinus tachycardia with frequent and consecutive PVCs at 119 bpm; QTc 542 (caution use of QT prolonging agents); ?[id number] BioFire (+) for Entero/Rhinovirus; standard precautions BNP elevated at 1242 (no prior for comparison) D-dimer (+) at 920 Doppler of the lower extremities ordered, pending Note: CTA chest not initially ordered due to patient's shellfish/iodine allergy (anaphylaxis); consider VQ scan pending results No PMH of DVT/PE While pulmonary embolism is still in the differential, clinically suspect pericarditis/myocarditis in the setting of recent URI symptoms / enterovirus Caution NSAID use in the setting of potential myocarditis (follow echo results) Will trial prednisone 0.2mg/kg p.o. (~10mg) x 1 If pericarditis, consider ibuprofen 600mg TID, colchicine 0.5mg BID, and protonix for GI coverage Echocardiogram ordered, pending Continuous telemetry monitoring Supplemental oxygen as needed A.m. CBC, BMP (2) Elevated troponin: Plan: Troponin 42.7 --> 42.7 on arrival Continuous telemetry monitoring (3) Sinus tachycardia: Plan: May be secondary to #1 vs poor oral intake / dehydration BUN/creatinine elevated at 25.[address] on LR at 125 mL/hr x1 (4) S/P mitral valve repair: (5) SOB (shortness of breath): Plan Disposition: Obs -admit to PCU telemetry Full code AHA diet VTE PPx: SCDs (consider adding on systemic anticoag pending dopplers) History of Present Illness Chief Complaint: SOB/dyspnea Primary Care Provider: Martin Allison is a 78yo female with PMH of HTN, SBO, mitral valve repair, PMR, overactive bladder, COPD, and cerebral amyloid angiopathy. She presented for worsening SOB and cold-like symptoms x 2 weeks. Patient was encouraged to come to the ED by her PCP, who noted an abnormal EKG on 10/28. Patient reports that she had URI symptoms such as productive cough, pain across her lower back, and exertional dyspnea which started around 2 weeks ago. Since then, she has developed heavy breathing in the middle of the night, and believes that the breathing is worse when she lies flat. Patient is unsure if her symptoms improve when sitting forward. She also notes recent development of SOB at rest, such as when she drives in her car or sits in voodoo. She has had productive cough (clear sputum production, or occasionally white); no hemoptysis. Patient notes decreased appetite, and is eating around half what she normally does. Patient took all her regular morning medications today; only recent change in medication was that she was taken off rosuvastatin. She has not been on antibiotics outpatient for recent infection, and has not been taking any additional medications for lower back pain. No PMH of [place], DVT/PE, DM, CVA, or cancer. Patient only notes that she does have a history of mitral valve repair, and only has 1 functioning kidney. 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 No history of smoking or tobacco use. Occasional social alcohol use. No supplemental oxygen at home. Patient is tachycardic at 118 bpm at time of admission, as well as hypertensive at 144/98; SpO2 99% on RA. ROS: Patient endorses night-sweats, lightheadedness with walking, SOB at rest and with exertion, productive cough (clear), lower back pain under the waistline, abdominal pain, and nausea (feels better with eating). Patient denies fever, chills, dizziness, WILCOX, chest pain, chest palpitations, pleuritic CP, hemoptysis, vomiting, diarrhea, constipation, urinary s/s, or numbness/tingling/pain/swelling in LEs. Please see Dr. Jaeger's attestations for any changes to treatment plan. Allergies Allergy/AdvReac Type Severity Reaction Status Date / Time shellfish derived Allergy Severe COULDN'T Verified 10/29/23 19:48 BREATH; SWELLING lisinopril Allergy Intermediate full body Verified 10/29/23 19:48 itching raloxifene [From Evista] Allergy Verified 10/29/23 19:49 amoxicillin [From Augmentin] AdvReac Intermediate BLOODY Verified 10/29/23 19:48 DIAHRREA clavulanic acid AdvReac Intermediate BLOODY Verified 10/29/23 19:48 [From Augmentin] DIAHRREA methimazole AdvReac Intermediate SWELLING Verified 10/29/23 19:48 OF JOINTS iodine AdvReac Mild Nausea Verified 10/29/23 19:48 cefdinir AdvReac Verified 10/29/23 19:49 Home Medications Medication Instructions Recorded Confirmed Type cholecalciferol (vitamin D3) 25 1,000 unit PO QAM 02/04/19 10/29/23 History mcg (1,000 unit) tablet (Vitamin D3) psyllium husk 0.4 gram capsule 0.4 g PO QAM 10/29/23 10/29/23 History (Metamucil) vibegron 75 mg tablet 75 mg PO HS 10/29/23 10/29/23 History apixaban 5 mg tablet (Eliquis) 5 mg PO BID #60 tabs 11/01/23 Rx metoprolol succinate 50 mg 50 mg PO QAM 30 days #30 tabs 11/01/23 Rx tablet,extended release 24 hr sacubitril 24 mg-valsartan 26 mg 1 tab PO BID #30 tabs 11/01/23 Rx tablet (Entresto) Past Med/Surg History Medical History Bladder dysfunction DVT prophylaxis HTN (hypertension) Nausea & vomiting Abdominal pain, acute, periumbilical Non-functioning kidney Hypomagnesemia PMR (polymyalgia rheumatica) Amnesia, global, transient SBO (small bowel obstruction) Right otitis media Kidney stones Surgical History H/O atrial septal defect repair History of sacrocolpopexy S/P BSO (bilateral salpingo-oophorectomy) History of hysterectomy, supracervical Hx of cholecystectomy Family History Father Myocardial infarction Mother Alzheimer disease Grandmother (Paternal) Breast cancer Son Schizophrenia Other Heart disease Denies family history of Ovarian cancer Colorectal cancer Social History Smoking Status: Never smoker Hx Alcohol Use: Yes Alcohol type: wine Hx Substance Use: No Preferred Language: Sierra Leonean Communication Ability: Effective Visual Impairment: No Limitations Hearing Ability: Normal Lap Runner Required: No Beliefs That Will Affect Care: None marital status: Current Living Situation: Spouse Feels Safe at Home: Yes Assistive Devices: None Review of Systems Review of Systems: See HPI above Physical Exam Physical Exam: General: no acute distress; non-toxic appearing; well-nourished; cooperative HEENT: normocephalic, atraumatic; no scleral icterus; PERRLA w/ EOMs intact; moist mucus membrane; vision and hearing grossly intact Neck: supple; + for significant JVP; no lymphadenopathy; trachea midline Skin: warm, dry without signs of tenting; no cyanosis; no rashes, bruising, lesions, or erythema noted CV: chest wall NTP; RR, tachycardic around 120 bpm; S1/S2 normal; faint 1/6 systolic ejection murmur auscultated at the second ICS MCL; pulses intact and symmetric at radial, DP, and PT Lungs: no acute respiratory distress; symmetrical chest wall expansion; clear breath sounds across all lung grande w/o adventitious sounds; no wheezing ABD: Soft, NTP; BS present; no rebound/guarding; no distention MSK: no tics or fasciculations; no edema noted in the LEs b/l, nonerythematous Neuro: A&Ox3; normal mood and affect; fluent speech; no focal deficits; sensation grossly intact in the LEs b/l Results & Data Results & Data Vital Signs (Past 12 Hours) Vital Signs Temp Pulse Pulse Resp BP BP Pulse Ox 10/29/23 19:52 117 H 10/29/23 19:02 118 H 18 144/98 H 99 10/29/23 19:02 98 10/29/23 15:20 36.0 C L 119 H 20 137/97 98 O2 Del Method 10/29/23 19:52 10/29/23 19:02 Room Air 10/29/23 19:02 Room Air 10/29/23 15:20 Room Air Laboratory Results Abnormal lab results 10/29/23 Range/Units 15:36 RDW Std Deviation 48.9 H (36.4-46.3) fL RDW Coeff of Jigna 14.6 H (11.5-14.5) % [place] # (Auto) 0.73 H (0.11-0.59) K/uL BUN 30 H (6-23) mg/dl BUN/Creatinine Ratio 25.9 H (10-20) AST 71 H (13-39) U/L ALT 79 H (7-52) U/L Troponin I High Sens 42.7 H (0-14) pg/ml Globulin 2.4 L (2.5-4.0) gm/dl Diagnostic Findings Chest X-Ray 10/29/23 17:58 XR chest 1V not portable HISTORY: 78 years-old Female Chest pain, nonspecific COMPARISON: 12/14/2021 TECHNIQUE: PA view of the chest FINDINGS: Cardiac silhouette is enlarged. Cardiac valvular prosthesis. No pneumothorax, pleural effusion, airspace consolidation or pulmonary edema. Degenerative changes of the shoulders and spine. Right upper quadrant surgical clips. IMPRESSION: Cardiomegaly without acute process. ACT 112: Negative or not required by law. The above report was generated using voice recognition software. It may contain grammatical, syntax or spelling errors. Electronically signed by: Melchor Rosales M.D. 10/29/2023 6:33 PM Code Status & VTE Plan Code Status Full code VTE Prophylaxis Plan VTE Prophylaxis will be ordered: Yes Supervising Physician Co-Signing Physician Notes Patient seen and examined, discussed with RAGHAVENDRA Liriano at time of admission. Patient is a 78yo female with h/o HTN, SBO, COPD and cerebral amyloid presenting with URI symptoms x 2 weeks - cough and runny nose. Then developed intermittent SOB and PND as well as weakness. On exam she is sitting comfortably, NAD NC/AT, PERRL, MMM +S1/S2, regular, tachycardic, no m/r/g Lungs with equal air entry bilaterally, no rales/rhonchi/wheezes Abd soft, NT/ND Ext - warm, well perfused Labs and images reviewed Assessment/Plan Enterovirus infection, ?pericarditis/myocarditis - will trend troponin, check 2D echo initiate Prednisone for possible pericarditis Remainder as above PG Care Time/CCT Total # of Minutes Spent Total Time Spent with Patient: Total time spent is greater than 50% in coordination of care (as documented) at patient's floor/unit and/or counseling patient: Coding [place] [address] INT INP/OBS CARE 2/55MIN Patient Type Established Medical Decision Making Moderate Complexity Diagnoses Enterovirus infection B34.1 Elevated troponin R79.89 Sinus tachycardia R00.0 S/P mitral valve repair Z98.890 SOB (shortness of breath) R06.02
[2023-10-29] MEDS: PSYLLIUM or GUAR GUM FIBER 4GM PACKET PO ONE (20:49)
[2023-10-29 21:02] LABS: Troponin I High Sensitivity 42.7 pg/ml (0-14)
[2023-10-29 21:39] LABS: D Dimer 920 ug/L FEU (0-500)
[2023-10-29 21:46] LABS: Adenovirus PCR Not Detected (NotDetected); Bordetella parapertussis PCR Not Detected (NotDetected); Bordetella pertussis PCR Not Detected (NotDetected); Chlamydia pneumoniae PCR Not Detected (NotDetected); Coronavirus 229E PCR Not Detected (NotDetected); Coronavirus CoV-2 (COVID19)PCR Not Detected (NotDetected); Coronavirus HKU1 PCR Not Detected (NotDetected); Coronavirus NL63 PCR Not Detected (NotDetected); Coronavirus OC43PCR Not Detected (NotDetected); Human Metapneumovirus PCR Not Detected (NotDetected); Influenza A PCR Not Detected (NotDetected); Influenza B PCR Not Detected (NotDetected); Mycoplasma pneumoniae PCR Not Detected (NotDetected); Parainfluenza Virus 1 PCR Not Detected (NotDetected); Parainfluenza Virus 2 PCR Not Detected (NotDetected); Parainfluenza Virus 3 PCR Not Detected (NotDetected); Parainfluenza Virus 4 PCR Not Detected (NotDetected); Respiratory Syncytial VirusPCR Not Detected (NotDetected); Rhinovirus/Enterovirus PCR DETECTED (NotDetected)
[2023-10-29 22:42] LABS: C Reactive Protein < 0.50 mg/dl (0-0.5)
[2023-10-29] MEDS ORDERED: ACETAMINOPHEN 325 MG TAB PO PRN (23:26)
--- NOTE | 2023-10-29 23:56 | Ultrasound Report ---
Exam(s): US VENOUS BILATERAL LOWER EXTREMITIES EXAM: US Duplex Bilateral Lower Extremities Veins CLINICAL HISTORY: Reason for exam: DVT r/o. TECHNIQUE: Real-time duplex ultrasound scan of the bilateral lower extremity veins integrating B-mode two-dimensional vascular structure, Doppler spectral analysis, color flow Doppler imaging and compression. COMPARISON: None. FINDINGS: Right deep veins: Unremarkable. No DVT in the right common femoral, femoral, proximal deep femoral or popliteal veins. The veins demonstrate normal color flow, are normally compressible, with normal phasic flow and/or augmentation response. Right superficial veins: Indeterminate calcification within the right superficial saphenous vein at the level of the popliteal region, clinical significance indeterminate. No thrombus in the visualized right great saphenous vein. Left deep veins: Unremarkable. No DVT in the left common femoral, femoral, proximal deep femoral or popliteal veins. The veins demonstrate normal color flow, are normally compressible, with normal phasic flow and/or augmentation response. Left superficial veins: Unremarkable. No thrombus in the visualized left great saphenous vein. Soft tissues: No acute findings. No popliteal cyst. IMPRESSION: No ultrasonographic evidence of deep venous thrombosis involving the bilateral lower extremities. Electronically signed by: Marixa Weaver MD 10/29/23 23:55 PM
[2023-10-30] MEDS: predniSONE 10 MG TABLET PO ONE (00:59)
[2023-10-30] MEDS: VIBEGRON 75 MG TAB PO SCH (00:59)
[2023-10-30] MEDS: LACTATED RINGER'S 1,000 ML IV SCH (01:11)
--- OUTSIDE RECORDS SUMMARY | 2023-10-30 03:16 | External Medical Summary | Continuity of Care Document ---
Author Name Unknown Organization [facility] [address] [place] [address] [place] [address] [phone] Care Team Providers Care Parole Board Member Name Role Phone Martin Jacob Primary Care Physician [phone] Encounter [facility] [id number] Date(s): 09/17/23 - 09/17/23 [facility] 0 [facility] [address] [facility] [address] [facility] [address] [place] [address] [phone] Encounter Diagnosis CKD (chronic kidney disease)(Discharge Diagnosis) - 09/17/23 PMR (polymyalgia rheumatica)(Discharge Diagnosis) - 09/17/23 Osteoporosis/osteopenia increased risk(Discharge Diagnosis) - 09/17/23 Hyperlipidemia(Discharge Diagnosis) - 09/17/23 History of hyperthyroidism(Discharge Diagnosis) - 09/17/23 Discharge Disposition: Home or Self Care Attending Physician: MD Jacob Michael P Allergies, Adverse Reactions, Alerts Substance Reaction Severity Status iodine topical nausea Active lisinopril Rash Active cefdinir diarrhea Active Evista Gi Upset Active Flagyl Abdominal pain Active Tapazole swelling in joints Active Augmentin had severe bloody diarrhea/incontinence/ Active shellfish Active IVP dye Active Assessment and Plan Extracted from: Title:Office Visit Note Author:MD Nidia, Sky Gay Date:09/17/23 1.CKD (chronic kidney dise ase) STATUS:Chronic stable. Previous visit: GFR= 52 DATA:Labs/Tests reviewed.GFR = 56 GOAL:Maintain/improve stability. PLAN:Continue current monitoring.LAbs Q 6 mos . 2.History of hyperthyroidism STATUS:Chronic stable. Previous visit: TSH = 1.23 DATA:Labs/Tests reviewed. TSH WNL. GOAL:Maintain/improve stability. PLAN:Continue current monitoring.Annual TSH to be checked . 3.Hyperlipidemia STATUS:Chronic stable. Previous visit: LDL= 103 10 yr CV risk= 17.7 % Statin is recommended. Start Crestor 10 mg daily and Rec ASA daily 81 but pt defers and agrees toASA 81 mg once a week. DATA:Labs/Tests reviewed. LDL = 48 ; Lipids at goal GOAL:Maintain/improve stability. PLAN:Continue current monitoring.Lipids annually. Cont Crestro 10 mg . 4.PMR (polymyalgia rheumatica) STATUS:Chronic stable. Previous visit: Currentlytapered offPrednisone -- per Dr Ornelas. Last dose was JANUARY 20, 2022.Doing well off prednisone x mid summer. She is now getting RECLAST annul infusion and to have a DEXA in Mar 2023.Tolerated ok. DATA:Labs/Tests reviewed. GOAL:Maintain/improve stability. PLAN:Continue current monitoring. . 5.Osteoporosis/osteopenia increased risk STATUS:Chronic stable. Previous visit: Dexa Ordered. Last DEXA = JANUARY 2021. On anual Reclast infusion. DATA:Labs/Tests reviewed. T score: 04/14/23. Improved with RECLAST . She was told to hold on Reclast for the next year per [facility]. Spine T= -1.1 ( -1.4) Hip T= -2.1 ( -2.0) GOAL:Maintain/improve stability. PLAN:Continue current monitoring.Overall same to improved at spine. in the osteoporosis range. Rec Vit D, Ca, Wt bearing exercise. Next DEXA is due Mar 2025. Discussed adding yogurt to increase calcium. . Summary: Medications: reviewed/changed/refilled _ Completed Results:_Reviewed Labs:_6 mos:CMP, Follow up visit: Return to clinic: _6 monthsx LABS and CKD, Increased LFT x 20 min Other activities completed this visit: Education provided (discussion, questions, etc) _ Discussed: _ Ways to increase ca in diet. Coordinate care: Primary care and _ Time spent: Pre-visit planning: _ 9 Ybqe-wg-[id number] visit: _ 25 Total visit time: _ 34 *does not include time for AWV or procedure if applicable Immunizations Given and Recorded Vaccine Date Status Refusal Reason SARS-CoV-2 (COVID-19) mRNA-1273 vaccine 09/21/20 R ecorded SARS-CoV-2 (COVID-19) mRNA-1273 vaccine 1/26/21 R ecorded zoster vaccine, inactivated 07/07/19 Given zoster vaccine, inactivated 03/18/19 Given tetanus/diphtheria/pertuss, acel (Tdap) 08/02/15 R ecorded tetanus/diphtheria/pertuss, acel (Tdap) 04/22/09 R ecorded pneumococcal 13-valent vaccine 09/15/14 Given pneumococcal 23-valent vaccine 06/11/12 Given diphtheria/tetanus/pertuss, acel (DTaP) 06/09/11 G iven zoster vaccine live 06/03/09 Recorded hepatitis A-hepatitis B vaccine 01/09/07 Recorded hepatitis A-hepatitis B vaccine 08/09/06 Recorded hepatitis A-hepatitis B vaccine 07/05/06 Recorded Medications Crestor 10 mg oral tablet Start: 03/21/23 9:36:00 EDT, 1 tab, PO, Daily, Disp# 90 tab, Refills: 3, Pharmacy: [id number] Start Date: 03/21/23 Stop Date: 03/15/24 Status: Ordered VESIcare 5 mg oral tablet Start: 04/06/22 16:04:00 EDT, 1 tab, PO, Daily, Disp# 30 tab, Refills: 3, Pharmacy: [facility] #[id number] Start Date: 04/06/22 Stop Date: 08/04/22 Status: Ordered Vitamin D3 1000 intl units oral capsule Start: 09/21/18 10:28:00 EST, 1 cap, PO, Daily Start Date: 09/21/18 Status: Ordered Mental Status 09/17/23 Barriers to Learning one year None evide nt Mandatory Health Literacy Documentation Yes Health Literacy Communication Barriers N ever Primary Language Angolan Problem List Condition Confirmation Course Effective Dates Status H ealth Status Informant Carotid artery plaque Confirmed Active CKD (chronic kidney disease) Confirmed Active History of hyperthyroidism Confirmed Active S/P foot surgery, left Confirmed Active History of atrial septal defect repair Confirmed Active Hyperlipidemia Confirmed Active Cognitive deficits Confirmed Active Arthralgia Confirmed Active Lactose intolerance Confirmed Active 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 SIP MV repair 01/21 Diagnosis Diagnosis Type Effective Dates Health Status Clinical Service Informant CKD (chronic kidney disease) Discharge Diagnosis 09/17/23 PMR (polymyalgia rheumatica) Discharge Diagnosis 09/17/23 Osteoporosis/osteopen ia increased risk Discharge Diagnosis 09/17/23 Hyperlipidemia Discharge Diagnosis 09/17/23 History of hyperthyroidism Discharge Diagnosis 09/17/23 Procedures Procedure Date Related Diagnosis Body Site Status Mammogram 1 05/08/23 Completed Mammogram 2 05/02/22 Completed KUB X-ray 3 12/16/21 Completed KUB X-ray 4 12/15/21 Completed Chest x-ray 5 12/14/[address] of abdomen and pelvis wit hout contrast 6 12/13/21 Completed X-ray of left foot 7 08/15/21 Comp leted Plain X-ray of left hand 8 07/22/21 Completed Mammography - screening 9 04/26/21 Completed MRI of brain 10 04/07/21 Completed DEXA (dual energy X-ray absorptiometry) of lateral spine 11 01/24/21 Completed Colonoscopy 12 03/13/19 Completed X-ray of left foot 13 02/04/19 Com pleted DEXA - Dual energy X-ray stefanie ton absorptiometry 14 01/20/19 Completed Mammogram - screening 15, 16, 17 11/28/18 Completed Root canal of tooth 01/20/18 Compl eted Abdominal sacrocolpopexy 18 03/13/17 Completed Ultrasound angiography of re nal artery 19 03/05/17 Completed Femoral neck DEXA scan 20 01/18/17 Completed Mammogram - screening 21 09/16/15 Completed Mammogram - screening 22 09/09/14 Completed Ultrasound procedure 23 09/11/13 C ompleted mammogram 08/12/13 Completed Echocardiogram 24 07/23/13 Complet ed Hip DEXA scan 08/08/11 Completed dexa scan 07/29; 08/31, 08/2011 25 08/23/08 Completed Colonoscopy 26 07/08/07 Completed T-Tube, right 04/2705/01/06 Compl eted cholecysstectomy 12/2612/21/05 Com pleted colonoscopy - internal hemor rhoids 11/2311/21/03 Completed 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 A 1 year screening mammogram is recommended 2impresion: There is no mammographic evidence of malignancy 31. No change in the small bowel obstruction pattern. 2. Nasogastric tube terminates in the proximal stomach. 4Findings are compatible with small bowel obstruction. Satisfactory appearance of enteric tube. 51. Nasogastric tube terminates below the diaphragm. 2. Small patchy bibasilar densities. This could represent atelectasis or a pneumonia. 61. Dilated fluid-filled loops of small bowel seen within the mid to lower abdomen with a transitionpoint located at the mid pelvis. Therefore, this is consistent with a high-grade small bowel obstruction. 2. Cholecystectomy. 3. Atrophic left kidney, unchanged. 4. Cardiomegaly again noted. 7Impression: Chronic degenerative changes without evidence of acute abnormality. Old healed fractureof the fifth metatarsal is seen. 8IMPRESSION: 1. No acute fracture or dislocation within the left hand 2. Mild osteoarthritis 9There is no mammographic evidence of malignancy. A 1 year screening mammogram is recommended. 10No acute intracranial abnormality. 11fracture risk is moderate. Tis pr BMD is wnl for her age. they may be considered osteopenic which is normal for their age. 12none bleeding internal hemorrhoids no specimens collected 131. oblique fracture mid and distal shaft fifth metatarsal 2. no evidence of dislocation 3. Loalized soft tissue edema 14AP Spine L1-L2 with T-score of -1.7, Femur Neck Left with T-score of -1.9, Femur Neck Right with a T-score of -2.4, Femur Total Mean with a T-score of - 1.8. Fracture risk is moderate. 15WNL - 1 yr 16(09/25/17) No malignancy. One year screening recommended. 17(11/28/18) No malignancy. One year screening recommended. 18[facility] 19atrophic multicystic left kidney, unchanged from prior. 3 mm nonobstructing right renal calculus. 20Z score -0.6 - fracture risk moderate - repeat exam December 2018 21WNL-1 yr 22WNL - 1 yr 23ECHO on 08-05-2013 24to FU MR repair qand ASD repair in 2001 25Osteopenia RIGHT Hip 26[facility] V[facility] Signs Most recent to oldest [Reference Range]: 1 Patient Weight 50.0 kg (09/17/23 3:31 PM) Temperature [36.5-37.9 DegC] 36.4 DegC *LOW* (09/17/23 3:31 PM) Heart Rate 71 bpm (09/17/23 3:31 PM) Respiratory Rate 16 br/min (09/17/23 3:31 PM) Blood Pressure 128/68mmHg (09/17/23 3:31 PM) Cuff Pulse Pressure 60 mmHg (09/17/23 3:31 PM) Social History Social History Type Response Smoking Status Never smoked cigaret shireen Sex Female FCM Outpt Note * MD Nidia, Martin Gay: PERFORM Event Display: FCM Outpt Note Authored Date: [id number] Chief Complaint 6 month follow up, sore throat, nasal drainage neg covid, neg strep throat, coughing History of Present Illness Most recent visitwith Dr. Jacob: 03/15/24 CC: FU on established problems (status = chronic): Cognitive decline, PMR, CKD, Hyperthyroid, Hyperlipidemia, SBO, Osteoporosis, OAB Address new problems (status = acute): 1. She does have virus and was negative for COVID x 2---starting to feel better. 2. In February she was Rx'd Crestor and she wants to understand why. She also started resveratrol and CO Q 10. Review of Systems Constitutional: No fever, No chills, No fatigue. Respiratory: No shortness of breath, No cough, No wheezing. Cardiovascular: No chest pain, No palpitations. Gastrointestinal: No nausea, No vomiting, No diarrhea, No abdominal pain. Neurologic:No numbness, No tingling, No headache. Physical Exam Vitals & Measurements T:36.4C HR:71(Monitored) RR:16 BP:128/68 SpO2:98% WT:50.0kg WT:50.000kg(Dosing) PHQ2 Data(Data Documented on:09/17/2023 15:29) Emotional health assessment NEGATIVE General: Alert and oriented, No acute distress. HEENT: Eyes WNL, Tympanic membranes are clear, No pharyngeal erythema, No sinus tenderness. Neck: Supple, Non-tender, No jugular venous distention, No lymphadenopathy, No thyromegaly. Respiratory: Lungs are clear to auscultation, Respirations are non-labored, Breath sounds are equal. Cardiovascular: Normal rate, Regular rhythm, No murmur, rubs or gallops. Gastrointestinal: Soft, Non-tender, Non-distended, Normal bowel sounds. Neurologic: Alert, Oriented, No focal deficits. Psychiatric: Cooperative, Appropriate mood & affect. Assessment/Plan 1.CKD (chronic kidney disease) STATUS:Chronic stable. Previous visit: GFR= 52 DATA:Labs/Tests reviewed.GFR = 56 GOAL:Maintain/improve stability. PLAN:Continue current monitoring.LAbs Q 6 mos . 2.History of hyperthyroidism STATUS:Chronic stable. Previous visit: TSH = 1.23 DATA:Labs/Tests reviewed. TSH WNL. GOAL:Maintain/improve stability. PLAN:Continue current monitoring.Annual TSH to be checked . 3.Hyperlipidemia STATUS:Chronic stable. Previous visit: LDL= 103 10 yr CV risk= 17.7 % Statin is recommended. Start Crestor 10 mg daily and Rec ASA daily 81 but pt defers and agrees toASA 81 mg once a week. DATA:Labs/Tests reviewed. LDL = 48 ; Lipids at goal GOAL:Maintain/improve stability. PLAN:Continue current monitoring.Lipids annually. Cont Crestro 10 mg . 4.PMR (polymyalgia rheumatica) STATUS:Chronic stable. Previous visit: Currentlytapered offPrednisone -- per Dr Ornelas. Last dose was JANUARY 20, 2022.Doing well off prednisone x mid summer. She is now getting RECLAST annul infusion and to have a DEXA in Mar 2023.Tolerated ok. DATA:Labs/Tests reviewed. GOAL:Maintain/improve stability. PLAN:Continue current monitoring. . 5.Osteoporosis/osteopenia increased risk STATUS:Chronic stable. Previous visit: Dexa Ordered. Last DEXA = JANUARY 2021. On anual Reclast infusion. DATA:Labs/Tests reviewed. T score: 04/14/23. Improved with RECLAST . She was told to hold on Reclast for the next year per [facility]. Spine T= -1.1 ( -1.4) Hip T= -2.1 ( -2.0) GOAL:Maintain/improve stability. PLAN:Continue current monitoring.Overall same to improved at spine. in the osteoporosis range. Rec Vit D, Ca, Wt bearing exercise. Next DEXA is due Mar 2025. Discussed adding yogurt to increase calcium. . Summary: Medications: reviewed/changed/refilled _Completed Results:_Reviewed Labs:_6 mos:CMP, Follow up visit: Return to clinic: _6 monthsx LABS and CKD, Increased LFT x 20 min Other activities completed this visit: Education provided (discussion, questions, etc) _ Discussed: _ Ways to increase ca in diet. 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) Non-functioning kidney Osteoporosis/osteopenia increased risk Overactive bladder due to prolapse of female genital organ PMR (polymyalgia rheumatica) S/P foot surgery, left Urticaria Vitamin D deficiency Historical Acute bronchitis Acute frontal sinusitis ASD (atrial septal defect) gall bladder Gallbladder sludge Hyperthyroidism Renal stone Procedure/Surgical History Mammogram (05/08/2023)Mammogram (05/02/2022)KUB X-ray (12/16/2021)KUB X-ray (12/15/2021)Chest x-ray (12/14/2021)CT of abdomen and pelvis without contrast (12/13/2021)X-ray of left foot (08/15/2021)Plain X-ray of left hand (07/22/2021)Mammography - screening (04/26/2021)MRI of brain (04/07/2021)DEXA (dual energy X-ray absorptiometry) of lateral spine (01/24/2021)Colonoscopy (03/13/2019)X-ray of left foot (02/04/2019)DEXA - Dual energy X-ray photon absorptiometry (01/20/2019)Mammogram - screening (11/28/2018)Root canal of tooth (01/20/2018)Abdominal sacrocolpopexy (03/13/2017)Ultrasound angiography of renal artery (03/05/2017)Femoral neck DEXA scan (01/18/2017)Mammogram - screening (09/16/2015)Mammogram - screening (09/09/2014)Ultrasound procedure (09/11/2013)mammogram (08/12/2013)Echocardiogram (07/23/2013)Hip DEXA scan (08/08/2011)dexa scan 07/29; 08/31, 08/2011 (08/23/2008)Colonoscopy (07/08/2007)T-Tube,right 04/27 (05/01/2006)cholecysstectomy 12/26 (12/21/2005)colonoscopy - internal hemorrhoids 11/23 (11/21/2003)CABG repair 02/14/2002 (02/14/2002)carotid doppler 01/21 (01/20/2002)ASD repair 01/21 (01/20/2002)open removal left renal stone 1971 (07/23/1971)nurclear renogram - absentleft kidney Medications cholecalciferol(Vitamin D3 1000 intl units oral capsule), 1000 Int_Unit= 1 cap, PO, Daily rosuvastatin(Crestor 10 mg oral tablet), 10 mg= 1 tab, PO, Daily, 3 refills solifenacin(VESIcare 5 mg oral tablet), 5 mg= 1 tab, PO, Daily, 3 refills Allergies Augmentinhad severe bloody diarrhea/incontinence/ EvistaGi Upset FlagylAbdominal pain IVP dye Tapazoleswelling in joints cefdinirdiarrhea iodine topicalnausea lisinoprilRash shellfish Social History Smoking Status Never smoked cigarettes Alcohol Use:Current Type:Wine Frequency:1-2 times per week Average drinks per episode in last year:1 Employment/School Status: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 Alzheimer disease: Mother. Bipolar disorder: Daughter. CAD: Father. Heart attack: Father. Osteoporosis: Mother. Schizophrenia: Son. Health Status Family Member(s) Family Member(s) Relationship: Mother, Age: 88 Years, Cause: Dementia/ pneumonia Relationship: Father, Age: 73 Years, Cause: [place] Relationship: MGM, Age: 90 Years, Cause: old age Relationship: MGF, Age: 62 Years, Cause: [place] Immunizations Vaccine Date Status SARS-CoV-2 (COVID-19) mRNA-1273 vaccine 09/21/2020 Recorded SARS-CoV-2 (COVID-19) mRNA-1273 vaccine 08/17/2020 Recorded zoster vaccine, inactivated 07/07/2019 Given zoster vaccine, inactivated 03/18/2019 Given tetanus/diphtheria/pertuss, acel (Tdap) 08/02/2015 Recorded pneumococcal 13-valent vaccine 09/15/2014 Given pneumococcal 23-valent vaccine 06/11/2012 Given diphtheria/tetanus/pertuss, acel (DTaP) 06/09/2011 Given zoster vaccine live 06/03/2009 Recorded tetanus/diphtheria/pertuss, acel (Tdap) 04/22/2009 Recorded hepatitis A-hepatitis B vaccine 01/09/2007 Recorded hepatitis A-hepatitis B vaccine 08/09/2006 Recorded hepatitis A-hepatitis B vaccine 07/05/2006 Recorded Recommendations Health Maintenance Pending(in the next year) OverDue Adult Influenza Vaccine due01/19/23and every 1year Medicare Annual Wellness Visit due02/16/23and every 1year Due Adult COVID-19 Vaccination due09/17/23Unknown Frequency Adult Social Determinants of Health Screening due09/17/23Unknown Frequency Falls Plan of Care due09/17/23Unknown Frequency Satisfied(in the past 1 year) Satisfied Body Mass Index on03/15/23.Satisfied by RICKY Frost Courtney Lipid Screening on09/13/23.Satisfied by Contributor_system, [facility] Electronic Signature on File Electronically Reviewed/Signed by: Martin Jacob MD Author Signature Dt/Tm:09/17/2023 04:24 PM Department of Family Medicine [facility] Patient Care team information Care Team Personnel Name: MD Nidia, Martin Gay Position: Physician - Family Med Member Role: Primary Care Provider Address: Address: [address] [place] [id number] Care Team Related Persons Name: MIC MCKEON Address: home [address] [place] [phone]
[2023-10-30 07:00] LABS: Basophils # (auto) 0.05 K/uL (0.00-0.20); Basophils % (auto) 0.7 %; Eosinophils # (auto) 0.03 K/uL (0.00-0.50); Eosinophils % (auto) 0.4 %; Hematocrit (blood only) 42.3 % (37.0-47.0); Hemoglobin 14.1 g/dl (12.0-16.0); Immature Granulocytes # (auto) 0.02 K/uL (0.01-0.20); Immature Granulocytes % (auto) 0.3 %; Lymphocytes # (auto) 1.67 K/uL (1.20-3.40); Lymphocytes % (auto) 21.9 %; Mean Corpuscular Hemoglobin 29.7 pg (25.0-34.0); Mean Corpuscular Hgb Conc 33.3 g/dL (32.0-36.0); Mean Corpuscular Volume 89.1 fL (80.0-100.0); Mean Platelet Volume 10.2 fL (9.4-12.4); Monocytes # (auto) 0.37 K/uL (0.11-0.59); Monocytes % (auto) 4.9 %; Neutrophils # (auto) 5.48 K/uL (1.40-6.50); Neutrophils % (auto) 71.8 %; Platelet Count 224 K/uL (130-400); RDW Coefficient of Variation 14.4 % (11.5-14.5); RDW Standard Deviation 46.6 fL (36.4-46.3); Red Blood Count 4.75 M/uL (4.20-5.40); White Blood Count 7.62 K/ul (4.8-10.8)
[2023-10-30 07:30] LABS: BUN Creatinine Ratio 27.6 (10-20); Calcium 8.6 mg/dl (8.6-10.3); Creatinine Clr Calc Pharmacy 37.4 ml/min; Est GFR (Non-African American) 55.3 ml/min; Potassium 4.4 mmol/L (3.5-5.1)
[2023-10-30 07:43] LABS: Thyroid Stimulating Hormone 1.51 uIu/ml (0.300-4.500)
[2023-10-30] MEDS ORDERED: PSYLLIUM HUSK 0.4 GM PO SCH (09:00)
--- NOTE | 2023-10-30 15:28 | Hospitalist Progress Note ---
Date of Service October 30, 2023 Assessment & Plan (1) Enterovirus infection: Plan: Worsening SOB, productive cough, and cold-like symptoms x 2 weeks. Seen at PCP office 10/28, and instructed to come to ER for abnormal EKG EKG on arrival revealed sinus tachycardia with frequent and consecutive PVCs at 119 bpm; QTc 542 (caution use of QT prolonging agents); [employer] (+) for Entero/Rhinovirus; standard precautions BNP elevated at 1242 (no prior for comparison) D-dimer (+) at 920 - Doppler of the lower extremities - negative - CTA unable to be preformed due to iodine/shellfish allergy - echo pending, consider VQ scan pending results - No PMH of DVT/PE While pulmonary embolism is still in the differential, clinically suspect pericarditis/myocarditis in the setting of recent URI symptoms / enterovirus Caution NSAID use in the setting of potential myocarditis (follow echo results) Will trial prednisone 0.2mg/kg p.o. (~10mg) x 1 If pericarditis, consider ibuprofen 600mg TID, colchicine 0.5mg BID, and protonix for GI coverage Echocardiogram pending A.m. CBC, BMP (2) Sinus tachycardia: Plan: May be secondary to acute respiratory infection vs poor oral intake / dehydration Recieved LR at 125 mL/hr x1 Telemetry concern for aflutter - however EKG does not show this - Cardiology consulted with current pending echo (3) Elevated troponin: Plan: Troponin 42.7 --> 42.7 on arrival Continuous telemetry monitoring (4) S/P mitral valve repair: Plan: Patient reports in 2001 Plan Disposition: continued inpatient stay VTE PPx: SCDs, encourage ambulation (consider adding on systemic anticoag pending dopplers) Admission and Anticipated Discharge Date Admission Date: October 29, 2023 Subjective Patient evaluated earlier this morning, sitting up in the chair. Intially reports that she was feeling better but with further questioning is still having symptoms. Her shortness of breath at rest has improved. Still with dry, non productive cough. She does not feel her Heart racing but does notice her JVD on the right side - does not think she has every been able to feel that before. Some abdominal pain, but appetite is improving. Tele - sinus tach vs a.flutter -rates 100-110s Review of Systems Review of Systems: All systems reviewed & are unremarkable except as noted in Subjective Physical Exam Physical Exam: General: NAD, VS as above Resp: normal respiratory effort, lungs clear to auscultation CV: tachycardic, + JVD, no carotid bruit , Abd: normal bowel sounds, non tender, no hepatosplenomegaly Extremities: Moves all extremities, no edema Neuro: A&O x3, Results & Data Results & Data Vital Signs (Past 12 Hours) Vital Signs Temp Pulse Pulse Resp BP Pulse Ox O2 Del Method 10/30/23 15:06 36.5 C 116 H 18 121/83 97 Room Air 10/30/23 11:06 36.4 C L 117 H 18 129/91 95 Room Air 10/30/23 10:27 114 H 10/30/23 08:04 36.5 C 115 H 18 135/88 95 Room Air Laboratory Results CBC and chemistry reviewed Diagnostic Findings LE doppler reviewed PG Care Time/CCT Total # of Minutes Spent Total Time Spent with Patient: Total time spent is greater than 50% in coordination of care (as documented) at patient's floor/unit and/or counseling patient: Coding Level of Care Code 47423 SUB INP/OBS CARE 3/50MIN Diagnoses Enterovirus infection B34.1 Sinus tachycardia R00.0 Elevated troponin R79.89 S/P mitral valve repair Z98.890
--- NOTE | 2023-10-30 18:03 | Cardiology Consultation ---
Date of Consultation October 30, 2023 Assessment & Plan (1) Atrial flutter: (2) Elevated troponin I level: (3) Acute HFrEF (heart failure with reduced ejection fraction): (4) Cardiomyopathy: (5) S/P mitral valve repair: (6) H/O atrial septal defect repair: (7) Dilated aortic root: (8) Aortic regurgitation: (9) Ventricular tachycardia: Plan ASSESSMENT/PLAN: 1. Atrial flutter: Rhythm appears to be atrial flutter. Discussed arrhythmia with patient. Given that she had several days worth of elevated heart rate at home, she appears to have been in this rhythm for quite some time. Metoprolol ordered. When she was seen at the bedside today, echo was not yet complete but given that she has severely reduced LV systolic function, if heart rate is not easily controlled, which may be difficult with atrial flutter, then would pursue trying to restore sinus rhythm. Will discuss with patient possibility of transesophageal echo followed by cardioversion. Recommend anticoagulation for stroke risk reduction. 2. Acute heart failure with reduced EF: She does not appear to be significantly hypervolemic but concern for very mild JVD and based on her presentation, consistent with heart failure. Starting metoprolol tartrate as above but plan on transitioning to succinate after titration. Anticipate initiation of ARNI, spironolactone, SGLT2 inhibitor. Low-sodium diet, strict I's and O's, daily weights. Small dose of Lasix in the morning. Try to maintain net negative fluid balance tomorrow. 3. Cardiomyopathy: Could be due to tachycardia given her arrhythmia. Could be myocarditis given recent URI. Cannot exclude ischemic origin but she has not had any angina and given presentation, seems less likely. Recommend optimizing medical therapy but if LV systolic function does not improve, would consider ischemic evaluation. If LV systolic function does not significantly improve with optimal medical therapy and improvement of heart rate, would consider ICD for primary prevention. 4. Elevated troponin: Likely demand ischemia due to elevated heart rate. Plan as above. 5. Mitral valve repair: Mildly elevated transvalvular gradient but in the setting of tachycardia. Nonsevere mitral regurgitation. Follow over time. SBE prophylaxis for dental procedures. 6. ASD repair: Details not well-known. Repair was in 2001. 7. Dilated aortic root: Annual surveillance. Avoid strenuous lifting for which the Valsalva maneuver is required. Beta-naomi initiated today. 8. Aortic regurgitation: Nonsevere. Will be monitored over time. 9. Ventricular tachycardia: Nonsustained on telemetry up to 9 beats in duration on 10/30/2023. Beta-naomi as above. 10. Disposition: Cardiology will continue to follow. Patient care communicated with primary hospitalist, Dr. Marti. She would like to follow with Dr. Tadeo upon discharge. Consider heart failure program. Highly complex medical issues. Thank you for allowing me to participate in the care of your patient. Please call for any other questions or concerns. Sincerely, Lizandro Butler M.D. History of Present Illness Reason for Consultation: Possible pericarditis and atrial flutter. Requesting Physician: Camille Correa Attending Physician: Richard Marti History of Present Illness Mrs. De Guzman is a very pleasant 78-year-old female with a history significant for mitral valve repair (2001), ASD repair (2001), hypertension, and polymyalgia rheumatica. In the past, she was followed by Dr. Tadeo. She has had the following studies/procedures: 1. Mitral valve repair and ASD repair 2001 [facility]: Details not known. 2. Echo 03/15/2021: Normal LV size, wall motion, systolic function. EF 55 to 60%. She was admitted on 10/29/2023 after presenting with dyspnea on exertion. For approximately 1 week, she has noted dyspnea on exertion on occasion while climbing stairs and occasionally, experiencing orthopnea. She had an upper respiratory infection approximately 2 weeks ago with rhinorrhea but still feels congested in her throat. She also noted myalgias and nausea but denies fevers, diarrhea, vomiting. She checked her vitals over the weekend and her blood pressure was mildly elevated but her heart rate was consistently elevated as well ranging 115 to 120 bpm. While here, she tested positive for entero-/rhinovirus. She denies syncope, near syncope, chest pain, edema, palpitations, melena, hematochezia, or hematuria. She had been on Crestor and coenzyme Q 10 but this was discontinued approximately 2 weeks ago by her PCP secondary to reduced energy levels. She admits that she does not feel any better. Review of systems: As above. Review of systems otherwise negative/unremarkable. Family history: Father had CABG. Social history: She denies tobacco or drug abuse. Occasional alcohol. Lives at home with her and 1 son who has chronic medical issues. She has 4 children. She was unaccompanied. Allergies Allergy/AdvReac Type Severity Reaction Status Date / Time shellfish derived Allergy Severe COULDN'T Verified 10/29/23 19:48 BREATH; SWELLING lisinopril Allergy Intermediate full body Verified 10/29/23 19:48 itching raloxifene [From Evista] Allergy Verified 10/29/23 19:49 amoxicillin [From Augmentin] AdvReac Intermediate BLOODY Verified 10/29/23 19:48 DIAHRREA clavulanic acid AdvReac Intermediate BLOODY Verified 10/29/23 19:48 [From Augmentin] DIAHRREA methimazole AdvReac Intermediate SWELLING Verified 10/29/23 19:48 OF JOINTS iodine AdvReac Mild Nausea Verified 10/29/23 19:48 cefdinir AdvReac Verified 10/29/23 19:49 Home Medications Medication Instructions Recorded Confirmed Type cholecalciferol (vitamin D3) 25 1,000 unit PO QAM 02/04/19 10/29/23 History mcg (1,000 unit) tablet (Vitamin D3) psyllium husk 0.4 gram capsule 0.4 g PO QAM 10/29/23 10/29/23 History (Metamucil) vibegron 75 mg tablet 75 mg PO HS 10/29/23 10/29/23 History Patient History Medical History (Updated 10/30/23 @ 22:49 by Jimmy Butler MD) Bladder dysfunction DVT prophylaxis HTN (hypertension) Nausea & vomiting Abdominal pain, acute, periumbilical Non-functioning kidney Hypomagnesemia PMR (polymyalgia rheumatica) Amnesia, global, transient SBO (small bowel obstruction) Right otitis media Kidney stones Surgical History (Updated 10/30/23 @ 22:28 by Jimmy Butler MD) H/O atrial septal defect repair History of sacrocolpopexy S/P BSO (bilateral salpingo-oophorectomy) History of hysterectomy, supracervical Hx of cholecystectomy Family History Father Myocardial infarction Mother Alzheimer disease Grandmother (Paternal) Breast cancer Son Schizophrenia Other Heart disease Denies family history of Ovarian cancer Colorectal cancer Social History Smoking Status: Never smoker Hx Alcohol Use: Yes Alcohol type: wine Hx Substance Use: No Preferred Language: Liberian Communication Ability: Effective Visual Impairment: No Limitations Hearing Ability: Normal Infrastructure Architect Required: No Beliefs That Will Affect Care: None marital status: Current Living Situation: Spouse Other Information That Helps Us Care for You: No Feels Safe at Home: Yes Safety Concerns: Feels Safe At This Time Assistive Devices: None Physical Exam Physical Exam: Gen.: No acute distress. Alert and oriented. HEENT: Anicteric sclera. Neck: Possible mild JVD. No bruits. Normal carotid upstrokes bilaterally. Cardiac: PMI was prominent and nondisplaced. Regular and tachycardic. Normal S1-S2. 1/6 systolic murmur. Pulmonary: Clear to auscultation bilaterally without wheezes, rales, or rhonchi. Abdomen: Soft, nontender, nondistended, with normoactive bowel sounds. No bruits noted. Extremities: 2+ radial pulses bilaterally. 2+ posterior tibialis pulses bilaterally. No edema or cyanosis. Psychiatric: Affect appears appropriate. Results & Data Vital Signs (Past 12 Hours) Vital Signs Temp Pulse Pulse Resp BP Pulse Ox O2 Del Method 10/30/23 15:53 116 H 10/30/23 15:06 36.5 C 116 H 18 121/83 97 Room Air 10/30/23 11:06 36.4 C L 117 H 18 129/91 95 Room Air 10/30/23 10:27 114 H 10/30/23 08:04 36.5 C 115 H 18 135/88 95 Room Air Intake & Output 10/28/23 10/29/23 10/30/23 10/31/23 06:59 06:59 06:59 06:59 Intake Total 400 / 400 2215 / 2215 Output Total 3 / 3 Balance 400 / 400 2212 / 2212 Weight 116 lb 13.52 oz Laboratory Results Laboratory Results - last 24 hr 10/29/23 10/29/23 10/30/23 15:36 20:25 05:37 WBC 7.62 RBC 4.75 Hgb 14.1 Hct 42.3 MCV 89.1 MCH 29.7 MCHC 33.3 RDW Std Deviation 46.6 H RDW Coeff of Jigna 14.4 Plt Count 224 MPV 10.2 Immature Gran % (Auto) 0.3 Neut % (Auto) 71.8 Lymph % (Auto) 21.9 [place] % (Auto) 4.9 Eos % (Auto) 0.4 Baso % (Auto) 0.7 Neut # (Auto) 5.48 Lymph # (Auto) 1.67 [place] # (Auto) 0.37 Eos # (Auto) 0.03 Baso # (Auto) 0.05 Immature Gran # (Auto) 0.02 ESR 2 Sodium 137 Potassium 4.4 Chloride 108 H Carbon Dioxide 20 L Anion Gap 9 BUN 27 H Creatinine 0.98 Est Cr Clr Drug Dosing 37.4 Est GFR ( Amer) 64.0 Est GFR (Non-Af Amer) 55.3 BUN/Creatinine Ratio 27.6 H Glucose 109 H Calcium 8.6 C-Reactive Protein < 0.50 TSH 1.510 Diagnostic Findings Telemetry personally reviewed: Supraventricular tachycardia, which appears to be atrial flutter with heart rates consistently hovering around 117 bpm. There is information on her telemetry that she was initially in sinus rhythm in the 60s but then was off monitor. When monitor was reattached at 1937 on 10/29/2023, atrial flutter. Initial ECG at 528 on 10/29/2023 however seems consistent with atrial flutter. ECG personally reviewed: ECG 10/29/2023 at 1528: Probable atrial flutter 119 bpm. PVCs versus aberrantly conducted complexes. ECG 10/30/2023 at 10:19 AM: Probable atrial flutter 116 bpm with PVCs versus aberrantly conducted complexes. Septal infarct. Echo 10/30/2023: Normal LV size. Severely reduced LV systolic function. EF 25%. Global hypokinesis. Normal RV size with moderately reduced systolic function. Severe biatrial dilation. Mild AI. Mitral valve annuloplasty ring with mild regurgitation and mildly elevated transvalvular gradient. Moderate TR. Aortic root 4.3 cm. RVSP 34. Labs from this hospitalization reviewed and notable for stable renal function, normal potassium, mildly elevated transaminase levels, normal TSH, normal blood counts, elevated high-sensitivity troponin that remained at 42.7 nearly 5 hours later. Elevated BNP. History and physical report reviewed. Chest x-ray 10/29/2023: No acute process per radiology personal review demonstrated mitral valve annuloplasty ring. No significant pleural effusion. No obvious infiltrate. Lower extremity venous Doppler 10/29/2023: No DVT bilateral lower extremities. Medications Administered Current Inpatient Medications Acetaminophen (Acetaminophen 325 Mg Tab) 650 mg PO Q4H PRN PRN Reason: Pain or Fever Stop: 11/28/23 23:25 Heparin Sodium/Dextrose (Heparin Sodium/Dextrose) 25,000 units in 500 mls @ 18 mls/hr IV .Q24H JSOE; Protocol Stop: 11/29/23 20:44 Last Admin: 10/30/23 21:06 Dose: 900 units/hr, 18 mls/hr Metoprolol Tartrate (Metoprolol Tartrate 25 Mg Tab) 25 mg PO Q6H JOSE Stop: 11/29/23 17:59 Last Admin: 10/30/23 19:31 Dose: 25 mg Psyllium Hydrophilic Mucilloid (Psyllium Or Guar Gum Fiber 4gm Packet) 4 gm PO QPM JOSE Stop: 11/29/23 20:59 Last Admin: 10/30/23 21:04 Dose: 4 gm Vibegron (Vibegron 75 Mg Tab) 75 mg PO HS JOSE Stop: 11/28/23 23:25 Last Admin: 10/30/23 21:05 Dose: 75 mg PG Care Time/CCT Total # of Minutes Spent Total Time Spent with Patient: Total time spent is greater than 50% in coordination of care (as documented) at patient's floor/unit and/or counseling patient: Coding Level of Care Code 52976 INT INP/OBS CARE 3/75MIN Diagnoses Atrial flutter I48.92 Elevated troponin I level R79.89 Acute HFrEF (heart failure with reduced ejection fraction) I50.21 Cardiomyopathy I42.9 S/P mitral valve repair Z98.890 H/O atrial septal defect repair Z87.74 Dilated aortic root I77.810 Aortic regurgitation I35.1 Ventricular tachycardia I47.20
[2023-10-30] MEDS: METOPROLOL TARTRATE 25 MG TAB PO SCH (19:31)
[2023-10-30] MEDS ORDERED: Heparin IV Adult Wt-Based Standard w/ INITIAL Bolus Protocol IV SCH (20:27)
[2023-10-30] MEDS: PSYLLIUM or GUAR GUM FIBER 4GM PACKET PO SCH (21:04)
[2023-10-30] MEDS: HEPARIN SOD (PORCINE) 1000 UNIT/ML IV ONE (21:05)
[2023-10-30] MEDS: HEPARIN SODIUM/DEXTROSE 25,000 UNITS/500 ML BAG IV SCH (21:06)
--- NOTE | 2023-10-30 21:32 | XCELERA ---
[id number]
[2023-10-31 03:55] LABS: Basophils # (auto) 0.06 K/uL (0.00-0.20); Basophils % (auto) 0.7 %; Eosinophils # (auto) 0.05 K/uL (0.00-0.50); Eosinophils % (auto) 0.6 %; Hematocrit (blood only) 37.1 % (37.0-47.0); Hemoglobin 12.6 g/dl (12.0-16.0); Immature Granulocytes # (auto) 0.01 K/uL (0.01-0.20); Immature Granulocytes % (auto) 0.1 %; Lymphocytes # (auto) 2.45 K/uL (1.20-3.40); Lymphocytes % (auto) 30.1 %; Mean Corpuscular Hemoglobin 30.3 pg (25.0-34.0); Mean Corpuscular Volume 89.2 fL (80.0-100.0); Mean Platelet Volume 10.1 fL (9.4-12.4); Monocytes # (auto) 0.62 K/uL (0.11-0.59); Monocytes % (auto) 7.6 %; Neutrophils # (auto) 4.94 K/uL (1.40-6.50); Neutrophils % (auto) 60.9 %; Nucleated RBC # (auto) 0.02 K/uL (0.00-0.12); Nucleated RBC % (auto) 0.2 %; Platelet Count 197 K/uL (130-400); RDW Coefficient of Variation 14.4 % (11.5-14.5); RDW Standard Deviation 46.2 fL (36.4-46.3); Red Blood Count 4.16 M/uL (4.20-5.40); White Blood Count 8.13 K/ul (4.8-10.8)
[2023-10-31 03:59] LABS: Calcium 8.1 mg/dl (8.6-10.3); Creatinine Clr Calc Pharmacy 34.3 ml/min; Est GFR (African American) 57.6 ml/min; Est GFR (Non-African American) 49.7 ml/min; Potassium 4.1 mmol/L (3.5-5.1)
[2023-10-31 04:18] LABS: ANTI-Xa, UFH(UnfractionatedHep 0.75 IU/ml (0.3-0.7)
[2023-10-31] MEDS: diphenhydrAMINE 2%/ZINC 0.1% CREAM 28.4GM TUBE EXT PRN (06:45)
[2023-10-31] MEDS: FUROSEMIDE INJ 20 MG/2 ML VIAL IV ONE (08:00)
--- NOTE | 2023-10-31 09:21 | History & Physical Bridge Note ---
Date of Service October 31, 2023 History & Physical Bridge Note I have examined the patient, reviewed the History & Physical and in the interval since the performance of the History & Physical I have noted the following changes of clinical significance: no changes noted
--- NOTE | 2023-10-31 09:23 | Pre Anesthesia Assessment ---
Date of Service October 31, 2023 Pre Sedation Assessment Vital Signs Temp Pulse Pulse Resp BP Pulse Ox O2 Del Method 10/31/23 07:52 36.4 C L 112 H 18 117/82 95 Room Air 10/31/23 05:41 116 H 122/84 10/31/23 03:19 36.6 C 111 H 18 107/71 96 Room Air 10/30/23 23:16 36.6 C 111 H 18 111/78 94 Room Air 10/30/23 23:00 111 H 10/30/23 19:41 Room Air 10/30/23 19:22 36.6 C 120 H 18 124/86 97 Room Air 10/30/23 15:53 116 H 10/30/23 15:06 36.5 C 116 H 18 121/83 97 Room Air 10/30/23 11:06 36.4 C L 117 H 18 129/91 95 Room Air 10/30/23 10:27 114 H Cardiovascular + tachycardic Respiratory normal respiratory effort, lungs clear to auscultation Pre-Sedation Airway Assessment Smoking Status: Never smoker Notes The planned sedation has been discussed with the patient. Informed Consent was obtained. I have identified the patient, determined the appropriateness of sedation and have assessed the patient immediately prior to the procedure. All medicine(s) and interventions are by my order.
--- NOTE | 2023-10-31 09:55 | Cardiology Progress Note ---
Date of Service October 31, 2023 Assessment & Plan (1) Atrial flutter: (2) Elevated troponin I level: (3) Acute HFrEF (heart failure with reduced ejection fraction): (4) Cardiomyopathy: (5) S/P mitral valve repair: (6) H/O atrial septal defect repair: (7) Dilated aortic root: (8) Aortic regurgitation: (9) Ventricular tachycardia: Plan ASSESSMENT/PLAN: 1. Atrial flutter: Atrial flutter discussed with patient. Recommend transesophageal echo and cardioversion. If it recurs, would consider amiodarone and/or ablation. Risks and benefits of transesophageal echo and cardioversion were discussed with her in detail. Anesthesia consultation ordered. We discussed the fact that cardioversion may not be successful but if successful, she could revert back to arrhythmia at any time, which would prompt further treatment such as antiarrhythmic therapy versus ablation. 2. Acute heart failure with reduced EF: She does not appear to be significantly hypervolemic but concern for very mild JVD and based on her presentation, consistent with heart failure. Metoprolol tartrate now but will transition to succinate prior to discharge, if able. Anticipate initiation of ARNI, spironolactone, SGLT2 inhibitor. Low-sodium diet, strict I's and O's, daily weights. She received a small dose of Lasix this morning, 20 mg. Strict I's and O's discussed with her and nursing staff. Try to maintain net negative fluid balance tomorrow. 3. Cardiomyopathy: Could be due to tachycardia given her arrhythmia. Could be myocarditis given recent URI. Cannot exclude ischemic origin but she has not had any angina and given presentation, seems less likely. Recommend optimizing medical therapy but if LV systolic function does not improve, would consider ischemic evaluation. If LV systolic function does not significantly improve with optimal medical therapy and improvement of heart rate, would consider ICD for primary prevention. 4. Elevated troponin: Likely demand ischemia due to elevated heart rate. Plan as above. 5. Mitral valve repair: Mildly elevated transvalvular gradient but in the setting of tachycardia. Nonsevere mitral regurgitation. Follow over time. SBE prophylaxis for dental procedures. 6. ASD repair: Details not well-known. Repair was in 2001. 7. Dilated aortic root: Annual surveillance. Avoid strenuous lifting for which the Valsalva maneuver is required. Beta-naomi initiated today. 8. Aortic regurgitation: Nonsevere. Will be monitored over time. 9. Ventricular tachycardia: Nonsustained on telemetry up to 9 beats in duration on 10/30/2023. Beta-naomi as above. 10. Disposition: Cardiology will continue to follow. Patient care communicated with primary hospitalist, Camille Correa PA-C. She would like to follow with Dr. Tadeo upon discharge. Dr. Tadeo was notified today via telephone. Findings and plan of care with patient's , as per her request, via telephone. Highly complex medical issues. Admission and Anticipated Discharge Date Admission Date: October 29, 2023 Subjective Patient seen this morning. She denies orthopnea overnight. She has not noted any significant dyspnea on exertion while ambulating to the bathroom. She denies chest pain, palpitations, syncope, near syncope, edema, or bleeding. She was alone in her hospital room. Physical Exam Physical Exam: Gen.: No acute distress. Alert and oriented. HEENT: Anicteric sclera. Neck: No significant JVD. Cardiac: PMI was prominent and nondisplaced. Regular and tachycardic. Normal S1-S2. 1/6 systolic murmur. Pulmonary: Clear to auscultation bilaterally without wheezes, rales, or rhonchi. Abdomen: Soft, nontender, nondistended, with normoactive bowel sounds. No bruits noted. Extremities: 2+ radial pulses bilaterally. 2+ posterior tibialis pulses bilaterally. No edema or cyanosis. Psychiatric: Affect appears appropriate. Results & Data Vital Signs (Past 12 Hours) Vital Signs Temp Pulse Pulse Resp BP Pulse Ox O2 Del Method 10/31/23 07:52 36.4 C L 112 H 18 117/82 95 Room Air 10/31/23 05:41 116 H 122/84 10/31/23 03:19 36.6 C 111 H 18 107/71 96 Room Air 10/30/23 23:16 36.6 C 111 H 18 111/78 94 Room Air 10/30/23 23:00 111 H Intake & Output 10/29/23 10/30/23 10/31/23 11/01/23 06:59 06:59 06:59 06:59 Intake Total 400 / 400 2604.9 / 2604.9 49.583 / 49.583 Output Total 3 / 3 250 / 250 Balance 400 / 400 2601.9 / 2601.9 -200.417 / -200.417 Weight 116 lb 13.52 oz 118 lb 2.684 oz Laboratory Results Laboratory Results - last 24 hr 10/31/23 03:28 WBC 8.13 RBC 4.16 L Hgb 12.6 Hct 37.1 MCV 89.2 MCH 30.3 MCHC 34.0 RDW Std Deviation 46.2 RDW Coeff of Jigna 14.4 Plt Count 197 MPV 10.1 Immature Gran % (Auto) 0.1 Neut % (Auto) 60.9 Lymph % (Auto) 30.1 [place] % (Auto) 7.6 Eos % (Auto) 0.6 Baso % (Auto) 0.7 Neut # (Auto) 4.94 Lymph # (Auto) 2.45 [place] # (Auto) 0.62 H Eos # (Auto) 0.05 Baso # (Auto) 0.06 Immature Gran # (Auto) 0.01 Absolute Nucleated RBC 0.02 Nucleated RBC % (auto) 0.2 Heparin Anti-Xa, Unfract 0.75 H* Sodium 132 L Potassium 4.1 Chloride 105 Carbon Dioxide 20 L Anion Gap 7 BUN 30 H Creatinine 1.07 Est Cr Clr Drug Dosing 34.3 Est GFR ( Amer) 57.6 Est GFR (Non-Af Amer) 49.7 BUN/Creatinine Ratio 28.0 H Glucose 113 H Calcium 8.1 L Diagnostic Findings Telemetry personally reviewed: Atrial flutter with rapid ventricular response. Labs reviewed and notable for stable renal function, normal potassium, mild hyponatremia, normal blood counts. ECG personally reviewed 10/31/2023: Atrial flutter 112 bpm with PVCs versus aberrantly conducted complexes. Medications Administered Current Inpatient Medications Acetaminophen (Acetaminophen 325 Mg Tab) 650 mg PO Q4H PRN PRN Reason: Pain or Fever Stop: 11/28/23 23:25 Heparin Sodium/Dextrose (Heparin Sodium/Dextrose) 25,000 units in 500 mls @ 17 mls/hr IV .Q24H JOSE; Protocol Stop: 11/29/23 20:44 Last Titration: 10/31/23 07:14 Dose: 850 units/hr, 17 mls/hr Metoprolol Tartrate (Metoprolol Tartrate 25 Mg Tab) 25 mg PO Q6H JOSE Stop: 11/29/23 17:59 Last Admin: 10/31/23 05:41 Dose: 25 mg Psyllium Hydrophilic Mucilloid (Psyllium Or Guar Gum Fiber 4gm Packet) 4 gm PO QPM JOSE Stop: 11/29/23 20:59 Last Admin: 10/30/23 21:04 Dose: 4 gm Vibegron (Vibegron 75 Mg Tab) 75 mg PO HS JOSE Stop: 11/28/23 23:25 Last Admin: 10/30/23 21:05 Dose: 75 mg Zinc Acetate/Diphenhydramine (Diphenhydramine 2%/Zinc 0.1% Cream 28.4gm Tube) 1 appln EXT BID PRN PRN Reason: Allergic Reaction Stop: 11/30/23 05:48 Last Admin: 10/31/23 06:45 Dose: 1 appln PG Care Time/CCT Total # of Minutes Spent Total Time Spent with Patient: Total time spent is greater than 50% in coordination of care (as documented) at patient's floor/unit and/or counseling patient: Coding Level of Care Code 93752 SUB INP/OBS CARE 3/50MIN Diagnoses Atrial flutter I48.92 Elevated troponin I level R79.89 Acute HFrEF (heart failure with reduced ejection fraction) I50.21 Cardiomyopathy I42.9 S/P mitral valve repair Z98.890 H/O atrial septal defect repair Z87.74 Dilated aortic root I77.810 Aortic regurgitation I35.1 Ventricular tachycardia I47.20
[2023-10-31 10:40] LABS: ANTI-Xa, UFH(UnfractionatedHep 0.82 IU/ml (0.3-0.7)
--- NOTE | 2023-10-31 11:57 | Anesthesiology Consultation ---
Date of Service October 31, 2023 Assessment & Plan Chart Review Chart Review: Acceptable Risk for Surgery and Patient NOT seen in Pre Admission Testing Consults Requested none ASA ASA4 Proposed Anesthesia Anesthesia Type: MAC History Surgery Operation Date: 10/31/23 13:00 Proposed Procedures p Transesophageal Echo - Jimmy Butler MD s Cardioversion w/Anesthesia Sedation - Jimmy Butler MD Height/Weight Height: 5 ft 2 in Weight: 53.6 kg Allergies Allergy/AdvReac Type Severity Reaction Status Date / Time shellfish derived Allergy Severe COULDN'T Verified 10/29/23 19:48 BREATH; SWELLING lisinopril Allergy Intermediate full body Verified 10/29/23 19:48 itching raloxifene [From Evista] Allergy Verified 10/29/23 19:49 amoxicillin [From Augmentin] AdvReac Intermediate BLOODY Verified 10/29/23 19:48 DIAHRREA clavulanic acid AdvReac Intermediate BLOODY Verified 10/29/23 19:48 [From Augmentin] DIAHRREA methimazole AdvReac Intermediate SWELLING Verified 10/29/23 19:48 OF JOINTS iodine AdvReac Mild Nausea Verified 10/29/23 19:48 cefdinir AdvReac Verified 10/29/23 19:49 Medications Home Medications Medication Instructions Recorded Confirmed Last Taken cholecalciferol (vitamin D3) 25 1,000 unit PO QAM 02/04/19 10/29/23 10/28/23 mcg (1,000 unit) tablet (Vitamin D3) psyllium husk 0.4 gram capsule 0.4 g PO QAM 10/29/23 10/29/23 10/28/23 (Metamucil) vibegron 75 mg tablet 75 mg PO 10/29/23 10/29/23 10/28/23 Active Medications Generic Name Dose Route Start Last Admin Trade Name Freq PRN Reason Stop Dose Admin Heparin Sodium/Dextrose 25,000 units in 500 mls @ 0 mls/hr 10/30/23 20:45 10/31/23 11:40 Heparin Sodium/Dextrose IV 11/29/23 20:44 800 units/hr .Q0M JOSE 16 mls/hr Titration Protocol 0 UNITS/HR Metoprolol Tartrate 25 mg 10/30/23 18:00 10/31/23 05:41 Metoprolol Tartrate 25 Mg Tab PO 11/29/23 17:59 25 mg Q6H JOSE Administration Psyllium Hydrophilic Mucilloid 4 gm 10/30/23 21:00 10/30/23 21:04 Psyllium Or Guar Gum Fiber 4gm Packet PO 11/29/23 20:59 4 gm QPM JOSE Administration Vibegron 75 mg 10/29/23 23:26 10/30/23 21:05 Vibegron 75 Mg Tab PO 11/28/23 23:25 75 mg HS JOSE Administration Zinc Acetate/Diphenhydramine 1 appln 10/31/23 05:49 10/31/23 06:45 Diphenhydramine 2%/Zinc 0.1% Cream 28.4gm Tube EXT 11/30/23 05:48 1 appln BID PRN Administration Allergic Reaction Past Medical History Medical History Bladder dysfunction DVT prophylaxis HTN (hypertension) Nausea & vomiting Abdominal pain, acute, periumbilical Non-functioning kidney Hypomagnesemia PMR (polymyalgia rheumatica) Amnesia, global, transient SBO (small bowel obstruction) Right otitis media Kidney stones severe LV dysfunction,EF -25%;A Flutter Exercise / Class Metabolic Activity III < 4 Walking/Shop/Light housework Past Family History Family History Father Myocardial infarction Mother Alzheimer disease Grandmother (Paternal) Breast cancer Son Schizophrenia Other Heart disease Denies family history of Ovarian cancer Colorectal cancer Past Surgical History Surgical History H/O atrial septal defect repair History of sacrocolpopexy S/P BSO (bilateral salpingo-oophorectomy) History of hysterectomy, supracervical Hx of cholecystectomy Past Anesthesia History No Hx of Anesthesia Complications and No Family Hx of Anesthesia Complications History of PONV No Hx of PONV and No Hx of Motion Sickness Social History Smoking Status: Never smoker Hx Alcohol Use: Yes Alcohol type: wine alcohol intake frequency: holidays/special occasions only Hx Substance Use: No substance use type: does not use Physical Exam Vital Signs Last Vital Signs Temp 36.2 C L 10/31/23 10:50 Pulse 114 H 10/31/23 10:50 Resp 18 10/31/23 10:50 BP 113/80 10/31/23 10:50 Pulse Ox 94 10/31/23 10:50 O2 Del Method Room Air 10/31/23 10:50 Testing Laboratory Results 10/31/23 03:28 10/31/23 03:28 PT 10.9 Seconds (9.0-12.0) 10/29/23 15:36 INR 1.0 (0.9-1.1) 10/29/23 15:36 APTT 22 Seconds (21-31) 10/29/23 15:36 Electrocardiogram Date: 10/31/23 Findings: + AFIB @ (A Flutter@ 112;prolonged Qt) Chest X-Ray Date: 10/29/23 Findings: + NAD Echocardiogram Date: 10/30/23 EF: 25% LV Function: dysfunctional RWMA: + hypokinetic (severe global HK) Other Findings: + LVH (mild) Valvular Disease: + AI (mild AR) moderately decreased RV dysfunction severe biatrial enlargement Mod. TR Other Testing Carotid U/S-< 50% B/L ICA's
[2023-10-31] MEDS ORDERED: ATROPINE SULFATE 0.1 MG/ML 10ML SYR IV PRN (12:19)
[2023-10-31] MEDS ORDERED: ePHEDrine sulfate 50 MG/ML AMP IV PRN (12:19)
[2023-10-31] MEDS: BENZOCAINE/TETRACAIN/BUTAM 50 APPLN/5 GM CAN EXT ONE (12:30)
--- NOTE | 2023-10-31 12:59 | Cardioversion ---
Date of Service October 31, 2023 PG Electrical Cardioversion Rp Electrical Cardioversion Report Procedure: DC Cardioversion (elective) Indication: Atrial flutter with cardiomyopathy Consent: Informed written consent obtained prior to the procedures. Sedation: Provided by anesthesiology. Time Out: Performed. SHIRIN: Completed prior to DC CV. No left atrial thrombus. Anticoagulation: Heparin gtt Antiarrhythmic: None Procedure details: Once sedated sufficiently, 50 Joules were delivered in a synchronized fashion, which successfully converted atrial flutter to sinus rhythm. She remained hemodynamically stable throughout. No known complication known at the time of this note. Plan: 1. Continue betablocker. 2. Continue anticoagulation without interruption. 3. Heart failure management. Coding Level of Care Code 96335 CARDIOVERSION, ELECTIVE Additional Codes Electrical Cardioversion Report ([id number])
--- NOTE | 2023-10-31 13:00 | Anesthesiology Progress Note ---
Date of Service October 31, 2023 Anesthesia Post Procedure Vital Signs Vital Signs: Temp Pulse Pulse Pulse Resp BP Pulse Ox 10/31/23 12:00 114 H 18 148/99 H 98 10/31/23 10:50 36.2 C L 114 H 18 113/80 94 10/31/23 07:52 36.4 C L 112 H 18 117/82 95 10/31/23 05:41 116 H 122/84 10/31/23 03:19 36.6 C 111 H 18 107/71 96 10/30/23 23:16 36.6 C 111 H 18 111/78 94 10/30/23 23:00 111 H 10/30/23 19:41 10/30/23 19:22 36.6 C 120 H 18 124/86 97 10/30/23 15:53 116 H 10/30/23 15:06 36.5 C 116 H 18 121/83 97 O2 Del Method 10/31/23 12:00 Room Air 10/31/23 10:50 Room Air 10/31/23 07:52 Room Air 10/31/23 05:41 10/31/23 03:19 Room Air 10/30/23 23:16 Room Air 10/30/23 23:00 10/30/23 19:41 Room Air 10/30/23 19:22 Room Air 10/30/23 15:53 10/30/23 15:06 Room Air Transfer of Care Handoff Completed per policy Notes Mental Status: alert / awake / arousable Patient Amnestic to Procedure: Yes Nausea / Vomiting: adequately controlled Pain: adequately controlled Airway Patency, RR, SpO2: stable & adequate BP & HR: stable & adequate Hydration State: stable & adequate Anesthetic Complications: no major complications apparent
[2023-10-31] MEDS ORDERED: PROPOFOL IV EMULSION 10 MG/ML 20 ML VIAL IV ONE (13:05)
[2023-10-31] MEDS ORDERED: LIDOCAINE 2% 2 ML VIAL/AMP(20MG/ML) INFIL ONE (13:05)
[2023-10-31] MEDS ORDERED: PHENYLEPHRINE 100MCG/ML 10ML SYR IV ONE (13:05)
--- NOTE | 2023-10-31 16:37 | Hospitalist Progress Note ---
Date of Service October 31, 2023 Assessment & Plan (1) Enterovirus infection: Plan: Worsening SOB, productive cough, and cold-like symptoms x 2 weeks. Seen at PCP office 10/28, and instructed to come to ER for abnormal EKG EKG on arrival revealed sinus tachycardia with frequent and consecutive PVCs at 119 bpm; QTc 542 (caution use of QT prolonging agents); BioFire (+) for Entero/Rhinovirus; standard precautions BNP elevated at 1242 (no prior for comparison) D-dimer (+) at 920 - Doppler of the lower extremities - negative - CTA unable to be preformed due to iodine/shellfish allergy - echo pending, consider VQ scan pending results --> likely related to acute HF, aflutter will defer any further PE workup - No PMH of DVT/PE Received prednisone 10mg x1 for concerns for pericarditis Echocardiogram: severely reduced systolic function, EF25%, global hypokinesis, mild LVH A.m. CBC, BMP (2) Atrial flutter: Plan: Patient was tachycardic on admission. Received 1L of LR Atrial flutter seen on telemetry - cardiology following - Underwent cardioversion 10/[address] Butler, currently in sinus - currently on metoprolol tartate - on heparin drip (3) Acute HFrEF (heart failure with reduced ejection fraction): Plan: Patient denies hx of CHF. but does endorse fatigue, waking up in middle of the night SOB and HERNANDEZ recently - low sodium diet, strict I&O - Echocardiogram: severely reduced systolic function, EF25%, global hypokinesis, mild LVH Cardiology following - received 20mg IV lasix today from cardiology, will monitor fluid balance - Anticipate initiation of ARNI, spironolactone, SGLT2 inhibitor. - CHF clinic consulted - if LV function does not improve with optimal medical therapy consider ICD - plan for outpatient follow up with Dr. Tadeo (4) Elevated troponin: Plan: Troponin 42.7 --> 42.7 on arrival Continuous telemetry monitoring (5) S/P mitral valve repair: Plan: Patient reports in 2001 Plan Disposition: continued inpatient stay VTE PPx: heparin ggt Case discussion with Dr. Butler, cardiology Admission and Anticipated Discharge Date Admission Date: October 31, 2023 Subjective Patient seen this afternoon after cardioversion. Patient reports feeling better today, especially mentally knowing what is wrong now. Today she is feeling okay, but has been moving much to know if she is getting short of breath like she used to. Dicussed with patient CHF - and she relays how thinking back her health has been worsening since the fall. With worsening fatigue and exercise tolerance. She attributed this to her simvistatin, which when she discontinued this, symptoms d id not improve. Review of Systems Review of Systems: All systems reviewed & are unremarkable except as noted in Subjective Physical Exam Physical Exam: General: NAD, VS as above Resp: normal respiratory effort, lungs clear to auscultation CV: tachycardic, + JVD, Abd: normal bowel sounds, non tender, no hepatosplenomegaly Extremities: Moves all extremities, trace edema Neuro: A&O x3, Results & Data Results & Data Vital Signs (Past 12 Hours) Vital Signs Temp Pulse Pulse Pulse Resp BP Pulse Ox 10/31/23 16:15 72 10/31/23 14:00 66 16 120/70 97 10/31/23 13:45 69 16 124/78 94 10/31/23 13:30 36.8 C 62 16 132/82 93 10/31/23 13:12 36.5 C 65 16 111/60 94 10/31/23 12:58 61 16 114/60 95 10/31/23 12:00 114 H 18 148/99 H 98 10/31/23 10:50 36.2 C L 114 H 18 113/80 94 10/31/23 07:52 36.4 C L 112 H 18 117/82 95 10/31/23 05:41 116 H 122/84 O2 Del Method 10/31/23 16:15 10/31/23 14:00 Room Air 10/31/23 13:45 Room Air 10/31/23 13:30 Room Air 10/31/23 13:12 Room Air 10/31/23 12:58 Room Air 10/31/23 12:00 Room Air 10/31/23 10:50 Room Air 10/31/23 07:52 Room Air 10/31/23 05:41 Laboratory Results CBC and chemistry reviewed PG Care Time/CCT Total # of Minutes Spent Total Time Spent with Patient: Total time spent is greater than 50% in coordination of care (as documented) at patient's floor/unit and/or counseling patient: Coding Level of Care Code 41956 SUB INP/OBS CARE 50MIN Diagnoses Enterovirus infection B34.1 Atrial flutter I48.92 Acute HFrEF (heart failure with reduced ejection fraction) I50.21 Elevated troponin R79.89 S/P mitral valve repair Z98.890
[2023-10-31 18:32] LABS: ANTI-Xa, UFH(UnfractionatedHep 0.49 IU/ml (0.3-0.7)
--- NOTE | 2023-10-31 23:19 | XCELERA ---
[id number]
[2023-11-01] MEDS: diphenhydrAMINE Capsule 25 MG CAP PO ONE (03:28)
--- NOTE | 2023-11-01 06:08 | Electrocardiogram Report ---
Test Reason : Blood Pressure : / mmHG Vent. Rate : 119 BPM Atrial Rate : 119 BPM P-R Int : 172 ms QRS Dur : 108 ms QT Int : 360 ms P-R-T Axes : 000 -35 038 degrees QTc Int : 507 ms Atrial flutter with 2 to 1 block with premature ventricular or aberrantly conducted complexes Left axis deviation Minimal voltage criteria for LVH, may be normal variant Prolonged QT Abnormal ECG When compared with ECG of 14-JUN-2021 21:09, Atrial flutter has replaced Sinus rhythm Vent. rate has increased BY 48 BPM Incomplete right bundle branch block is no longer Present Confirmed by Jimmy Butler ([id number]) on 11/01/2023 6:08:15 AM Referred By: REFERRED SELF Confirmed By:Jimmy Butler
[2023-11-01 06:10] LABS: Basophils # (auto) 0.07 K/uL (0.00-0.20); Eosinophils # (auto) 0.08 K/uL (0.00-0.50); Eosinophils % (auto) 1.2 %; Hematocrit (blood only) 34.5 % (37.0-47.0); Hemoglobin 11.8 g/dl (12.0-16.0); Immature Granulocytes # (auto) 0.02 K/uL (0.01-0.20); Immature Granulocytes % (auto) 0.3 %; Lymphocytes # (auto) 2.35 K/uL (1.20-3.40); Lymphocytes % (auto) 34.2 %; Mean Corpuscular Hemoglobin 30.1 pg (25.0-34.0); Mean Corpuscular Hgb Conc 34.2 g/dL (32.0-36.0); Mean Platelet Volume 10.1 fL (9.4-12.4); Monocytes # (auto) 0.59 K/uL (0.11-0.59); Monocytes % (auto) 8.6 %; Neutrophils # (auto) 3.76 K/uL (1.40-6.50); Neutrophils % (auto) 54.7 %; Platelet Count 179 K/uL (130-400); RDW Coefficient of Variation 14.3 % (11.5-14.5); RDW Standard Deviation 45.2 fL (36.4-46.3); Red Blood Count 3.92 M/uL (4.20-5.40); White Blood Count 6.87 K/ul (4.8-10.8)
[2023-11-01 06:29] LABS: Est GFR (African American) 56.9 ml/min; Est GFR (Non-African American) 49.1 ml/min; Potassium 3.5 mmol/L (3.5-5.1)
[2023-11-01 06:34] LABS: ANTI-Xa, UFH(UnfractionatedHep 0.49 IU/ml (0.3-0.7)
--- NOTE | 2023-11-01 09:57 | Cardiology Progress Note ---
Date of Service November 01, 2023 Assessment & Plan (1) Atrial flutter: (2) Elevated troponin I level: (3) Acute HFrEF (heart failure with reduced ejection fraction): (4) Cardiomyopathy: (5) S/P mitral valve repair: (6) H/O atrial septal defect repair: (7) Dilated aortic root: (8) Aortic regurgitation: (9) Ventricular tachycardia: Plan ASSESSMENT/PLAN: 1. Atrial flutter: Successful cardioversion on 10/31/2023. Feels much better with church of sinus rhythm. Continue anticoagulation for stroke risk reduction without interruption for at least 4 weeks. Recommend Eliquis on discharge 5 mg twice daily. Electrophysiology consultation placed with Dr. Maldonado to discuss atrial flutter ablation as there is a reasonable chance that the atrial flutter could recur and with her significantly reduced LV systolic function, she would likely do better in sinus rhythm. Patient aware that Dr. Maldonado will speak with her when available. 2. Acute heart failure with reduced EF: She appears euvolemic. Symptoms have improved with church of sinus rhythm. Metoprolol succinate 50 mg once daily to replace tartrate starting tomorrow. Start low-dose Entresto. Her heart failure symptoms were likely related to her arrhythmia rather than significant hypervolemia. No spironolactone or SGLT2 inhibitor today given multiple medication changes. If she remains hospital, and tolerates current medications, can introduce these medications otherwise, recommend such in the outpatient setting. Low-sodium diet, strict I's and O's, daily weights. 3. Cardiomyopathy: Could be due to tachycardia given her arrhythmia. Could be myocarditis given recent URI. Cannot exclude ischemic origin but she has not had any angina and given presentation, seems less likely. Recommend optimizing medical therapy but if LV systolic function does not improve, would consider ischemic evaluation. If LV systolic function does not significantly improve with optimal medical therapy and improvement of heart rate, would consider ICD for primary prevention. 4. Elevated troponin: Likely demand ischemia due to elevated heart rate. Plan as above. 5. Mitral valve repair: Mildly elevated transvalvular gradient but in the setting of tachycardia. Nonsevere mitral regurgitation. Follow over time. SBE prophylaxis for dental procedures. 6. Tricuspid regurgitation: Moderate on transesophageal echo. Can be followed in the outpatient setting. 7. ASD repair: Details not well-known. Repair was in 2001. 8. Dilated aortic root: Annual surveillance. Avoid strenuous lifting for which the Valsalva maneuver is required. Continue beta-naomi. 9. Aortic regurgitation: Nonsevere. Will be monitored over time. 10. Ventricular tachycardia: Nonsustained on telemetry up to 9 beats in duration on 10/30/2023. Beta-naomi as above. 11. Disposition: Patient can be discharged home from a cardiology perspective if she is able to ambulate in the hallway and tolerate it well. Discussed with Mavis Graves PA-C of the heart failure program to help adjust and titrate medical therapy in the outpatient setting. Electrophysiology consultation pending today. Follow-up with Dr. Tadeo who she has seen in the past. Patient care discussed with Dr. Finn of the primary hospitalist service. Admission and Anticipated Discharge Date Admission Date: October 31, 2023 Subjective She feels much better today. She denies shortness of breath, orthopnea, syncope, near syncope, chest pain, palpitations, edema, or bleeding. Her participated via speaker phone. Physical Exam Physical Exam: Gen.: No acute distress. Alert and oriented. HEENT: Anicteric sclera. Neck: No significant JVD. Cardiac: PMI was prominent and nondisplaced. Regular with ectopy. Normal heart rate. Normal S1-S2. 1/6 systolic murmur. Pulmonary: Clear to auscultation bilaterally without wheezes, rales, or rhonchi. Abdomen: Soft, nontender, nondistended, with normoactive bowel sounds. No bruits noted. Extremities: 2+ radial pulses bilaterally. 2+ posterior tibialis pulses bi laterally. No edema or cyanosis. Psychiatric: Affect appears appropriate. Results & Data Vital Signs (Past 12 Hours) Vital Signs Temp Pulse Pulse Resp BP Pulse Ox O2 Del Method 11/01/23 07:42 36.4 C L 55 L 18 133/84 96 Room Air 11/01/23 03:42 36.4 C L 62 18 144/79 H 95 Room Air 10/31/23 22:31 36.3 C L 63 22 138/83 95 Room Air Diagnostic Findings Telemetry personally reviewed: Sinus rhythm with frequent PVCs. Ventricular triplets. Occasional ectopic atrial complexes. Labs from 11/01/2023 demonstrated stable renal function, mild anemia. Medications Administered Current Inpatient Medications Acetaminophen (Acetaminophen 325 Mg Tab) 650 mg PO Q4H PRN PRN Reason: Pain or Fever Stop: 11/28/23 23:25 Heparin Sodium/Dextrose (Heparin Sodium/Dextrose) 25,000 units in 500 mls @ 16 mls/hr IV .Q24H JOSE; Protocol Stop: 11/29/23 20:44 Last Titration: 11/01/23 07:03 Dose: 800 units/hr, 16 mls/hr Metoprolol Tartrate (Metoprolol Tartrate 25 Mg Tab) 25 mg PO Q6H JOSE Stop: 11/29/23 17:59 Last Admin: 11/01/23 05:30 Dose: 25 mg Psyllium Hydrophilic Mucilloid (Psyllium Or Guar Gum Fiber 4gm Packet) 4 gm PO QPM JOSE Stop: 11/29/23 20:59 Last Admin: 10/31/23 19:59 Dose: 4 gm Vibegron (Vibegron 75 Mg Tab) 75 mg PO HS JOSE Stop: 11/28/23 23:25 Last Admin: 10/31/23 19:59 Dose: 75 mg Zinc Acetate/Diphenhydramine (Diphenhydramine 2%/Zinc 0.1% Cream 28.4gm Tube) 1 appln EXT BID PRN PRN Reason: Allergic Reaction Stop: 11/30/23 05:48 Last Admin: 10/31/23 06:45 Dose: 1 appln PG Care Time/CCT Total # of Minutes Spent Total Time Spent with Patient: Total time spent is greater than 50% in coordination of care (as documented) at patient's floor/unit and/or counseling patient: Coding Level of Care Code 25975 SUB INP/OBS CARE 3/50MIN Diagnoses Atrial flutter I48.92 Elevated troponin I level R79.89 Acute HFrEF (heart failure with reduced ejection fraction) I50.21 Cardiomyopathy I42.9 S/P mitral valve repair Z98.890 H/O atrial septal defect repair Z87.74 Dilated aortic root I77.810 Aortic regurgitation I35.1 Ventricular tachycardia I47.20
[2023-11-01] MEDS: VALSARTAN/SACUBITRIL 26/24MG TAB PO SCH (11:11)
--- NOTE | 2023-11-01 11:26 | Heart Failure Consultation ---
Date of Consultation November 01, 2023 Assessment & Plan (1) Acute HFrEF (heart failure with reduced ejection fraction): (2) Cardiomyopathy: (3) Atrial flutter: History of Present Illness Attending Physician: Davis Finn MD History of Present Illness Meet with patient in their hospital room. We discussed the nature of heart failure and the goals of the heart failure program. Patient is agreeable to ongoing participation and will be formally enrolled in the [facility] heart failure program. Patient advised to weigh themselves daily on their home scale. Notify the office if 2+ lb weight gain overnight or 5+ lb in 1 week. Low sodium diet recommended on discharge. Contact information provided. Patient will have scheduled outpatient follow up within 7 days of discharge. Please see full cardiology consult for additional recommendations and formal plan of care. Allergies Allergy/AdvReac Type Severity Reaction Status Date / Time shellfish derived Allergy Severe COULDN'T Verified 10/29/23 19:48 BREATH; SWELLING lisinopril Allergy Intermediate full body Verified 10/29/23 19:48 itching raloxifene [From Evista] Allergy Verified 10/29/23 19:49 amoxicillin [From Augmentin] AdvReac Intermediate BLOODY Verified 10/29/23 19:48 DIAHRREA clavulanic acid AdvReac Intermediate BLOODY Verified 10/29/23 19:48 [From Augmentin] DIAHRREA methimazole AdvReac Intermediate SWELLING Verified 10/29/23 19:48 OF JOINTS iodine AdvReac Mild Nausea Verified 10/29/23 19:48 cefdinir AdvReac Verified 10/29/23 19:49 Home Medications Medication Instructions Recorded Confirmed Type cholecalciferol (vitamin D3) 25 1,000 unit PO QAM 02/04/19 10/29/23 History mcg (1,000 unit) tablet (Vitamin D3) psyllium husk 0.4 gram capsule 0.4 g PO QAM 10/29/23 10/29/23 History (Metamucil) vibegron 75 mg tablet 75 mg PO HS 10/29/23 10/29/23 History Patient History Medical History Bladder dysfunction DVT prophylaxis HTN (hypertension) Nausea & vomiting Abdominal pain, acute, periumbilical Non-functioning kidney Hypomagnesemia PMR (polymyalgia rheumatica) Amnesia, global, transient SBO (small bowel obstruction) Right otitis media Kidney stones Surgical History H/O atrial septal defect repair History of sacrocolpopexy S/P BSO (bilateral salpingo-oophorectomy) History of hysterectomy, supracervical Hx of cholecystectomy Family History Father Myocardial infarction Mother Alzheimer disease Grandmother (Paternal) Breast cancer Son Schizophrenia Other Heart disease Denies family history of Ovarian cancer Colorectal cancer Social History Smoking Status: Never smoker Hx Alcohol Use: Yes Alcohol type: wine Hx Substance Use: No Preferred Language: Greek Communication Ability: Effective Visual Impairment: No Limitations Hearing Ability: Normal Loan Officer Required: No Beliefs That Will Affect Care: None marital status: Current Living Situation: Spouse Feels Safe at Home: Yes Assistive Devices: None Results & Data Vital Signs (Past 12 Hours) Vital Signs Temp Pulse Pulse Pulse Resp BP Pulse Ox 11/01/23 10:00 51 L 11/01/23 07:42 97.5 F L 55 L 18 133/84 96 11/01/23 03:42 97.5 F L 62 18 144/79 H 95 O2 Del Method 11/01/23 10:00 11/01/23 07:42 Room Air 11/01/23 03:42 Room Air Heart Failure Data/Metrics Heart Failure Type: HFrEf (EF < 40%) Ejection Fraction: 25% Evidenced Based Beta Arlen Therapy Beta Arlen Therapy: Yes Beta Arlen Name: Metoprolol Succinate Beta Arlen Target Therapy: Not at Target Therapy DEEDEE/ARB/ARNI Therapy DEEDEE/ARB/ARNI Therapy: Yes DEEDEE/ARB/ARNI Name: Entresto Coding Level of Care Code None Diagnoses Acute HFrEF (heart failure with reduced ejection fraction) I50.21 Cardiomyopathy I42.9 Atrial flutter I48.92
[2023-11-01] MEDS: CHOLECALCIFEROL 25 MCG (1000 UNITS) TAB PO SCH (13:04)
--- NOTE | 2023-11-01 16:16 | Discharge Summary ---
Discharge Summary Date of Service November 01, 2023 Notes For Next Care Provider Patient presenting with shortness of breath and cold like symptoms and abnormal EKG. found to be in aflutter - underwent cardioversion and has maintained sinus rhythm since. echo showed EF of 25%, will follow with the heart failure clinic outpatient. Also with rhino/enterovirus but maintained on room air while here, no cough Medication Changes From Visit Added: Eliquis 5 mg BID Metoprolol 50mg qam Entresto BID Admission HPI Per Admitting Provider Estefany is a 78yo female with PMH of HTN, SBO, mitral valve repair, PMR, overactive bladder, COPD, and cerebral amyloid angiopathy. She presented for worsening SOB and cold-like symptoms x 2 weeks. Patient was encouraged to come to the ED by her PCP, who noted an abnormal EKG on 10/28. Patient reports that she had URI symptoms such as productive cough, pain across her lower back, and exertional dyspnea which started around 2 weeks ago. Since then, she has developed heavy breathing in the middle of the night, and believes that the breathing is worse when she lies flat. Patient is unsure if her symptoms improve when sitting forward. She also notes recent development of SOB at rest, such as when she drives in her car or sits in scientology. She has had productive cough (clear sputum production, or occasionally white); no hemoptysis. Patient notes decreased appetite, and is eating around half what she normally does. Patient took all her regular morning medications today; only recent change in medication was that she was taken off rosuvastatin. She has not been on antibiotics outpatient for recent infection, and has not been taking any additional medications for lower back pain. No PMH of ND, DVT/PE, DM, CVA, or cancer. Patient only notes that she does have a history of mitral valve repair, and only has 1 functioning kidney. 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 No history of smoking or tobacco use. Occasional social alcohol use. No supplemental oxygen at home. Patient is tachycardic at 118 bpm at time of admission, as well as hypertensive at 144/98; SpO2 99% on RA. ROS: Patient endorses night-sweats, lightheadedness with walking, SOB at rest and with exertion, productive cough (clear), lower back pain under the waistline, abdominal pain, and nausea (feels better with eating). Patient denies fever, chills, dizziness, WILCOX, chest pain, chest palpitations, pleuritic CP, hemoptysis, vomiting, diarrhea, constipation, urinary s/s, or numbness/tingling/pain/swelling in LEs. Please see Dr. Jaeger's attestations for any changes to treatment plan. Principal Dx & Hospital Course #1 = Principal Diagnosis (1) Enterovirus infection: Worsening SOB, productive cough, and cold-like symptoms x 2 weeks. Seen at PCP office 10/28, and instructed to come to ER for abnormal EKG EKG on arrival revealed sinus tachycardia with frequent and consecutive PVCs at 119 bpm; QTc 542 (caution use of QT prolonging agents); BioFire (+) for Entero/Rhinovirus; standard precautions BNP elevated at 1242 (no prior for comparison) D-dimer (+) at 920 - Doppler of the lower extremities - negative - CTA unable to be preformed due to iodine/shellfish allergy - echo pending, consider VQ scan pending results --> likely related to acute HF/aflutter will defer any further PE workup - No PMH of DVT/PE Received prednisone 10mg x1 for concerns for pericarditis Echocardiogram: severely reduced systolic function, EF25%, global hypokinesis, mild LVH (2) Atrial flutter: Patient was tachycardic on admission. Received 1L of LR Atrial flutter seen on telemetry - cardiology following - Underwent cardioversion 10/[address] Butler, currently in sinus - currently on metoprolol tartate --> converted to metoprolol succinate 50mg qAM - on heparin drip --> will convert to Eliquis 5mg BID on discharge - seen by Dr. Maldonado for potential future ablation - Follow up with Dr. Tadeo scheduled (3) Acute HFrEF (heart failure with reduced ejection fraction): Patient denies hx of CHF. but does endorse fatigue, waking up in middle of the night SOB and HERNANDEZ recently - low sodium diet, strict I&O - Echocardiogram: severely reduced systolic function, EF25%, global hypokinesis, mild LVH Cardiology following - received 20mg IV lasix 10/30 - Entresto started 10/31, continued aat discharge - CHF clinic consulted, will see patient outpatient next week - additional guideline directed therapy deferred to the outpatient as initiation of multiple medications while inpatient - if LV function does not improve with optimal medical therapy consider ICD - plan for outpatient follow up with Dr. Tadeo (4) Elevated troponin: Troponin 42.7 --> 42.7 on arrival supsect reated to atrial flutter (5) S/P mitral valve repair: Patient reports in 2001 Plan Dispo: discharge to home today Case discussion with Dr. Butler, cardiology Discharge Exam General: NAD, VS as above Resp: normal respiratory effort, lungs clear to auscultation CV: RRR, + murmur Abd: normal bowel sounds, non tender, no hepatosplenomegaly Extremities: Moves all extremities, no edema Neuro: A&O x3, Updated Medication List Medication Instructions Recorded Confirmed Type cholecalciferol (vitamin D3) 25 1,000 unit PO QAM 02/04/19 10/29/23 History mcg (1,000 unit) tablet (Vitamin D3) psyllium husk 0.4 gram capsule 0.4 g PO QAM 10/29/23 10/29/23 History (Metamucil) vibegron 75 mg tablet 75 mg PO HS 10/29/23 10/29/23 History apixaban 5 mg tablet (Eliquis) 5 mg PO BID #60 tabs 11/01/23 Rx metoprolol succinate 50 mg 50 mg PO QAM 30 days #30 tabs 11/01/23 Rx tablet,extended release 24 hr sacubitril 24 mg-valsartan 26 mg 1 tab PO BID #30 tabs 11/01/23 Rx tablet (Entresto) Hospital Stay Data Consultations 10/29/23 19:15 ED Decision to Admit Stat 10/30/23 14:28 Consult Cardiology Routine 10/31/23 09:40 Consult Anesthesiology Routine 10/31/23 15:43 [facility] CHF Program Referral Routine 11/01/23 08:25 Consult Cardiac Electrophysiology Routine Procedures Performed Operation Date: 10/31/23 13:00 Actual Procedures p Echo Transesophageal - Jimmy Butler MD s Echo Doppler Complete - Jmimy Butler MD s Echo Color Flow - Jimmy Butler MD s Cardioversion - Jimmy Butler MD Diagnostic Imagining Performed Chest X-Ray 10/29/23 17:58 XR chest 1V not portable HISTORY: 78 years-old Female Chest pain, nonspecific COMPARISON: 12/14/2021 TECHNIQUE: PA view of the chest FINDINGS: Cardiac silhouette is enlarged. Cardiac valvular prosthesis. No pneumothorax, pleural effusion, airspace consolidation or pulmonary edema. Degenerative germain ges of the shoulders and spine. Right upper quadrant surgical clips. IMPRESSION: Cardiomegaly without acute process. ACT 112: Negative or not required by law. The above report was generated using voice recognition software. It may contain grammatical, syntax or spelling errors. Electronically signed by: Melchor Rosales M.D. 10/29/2023 6:33 PM Venous Doppler Study 10/29/23 20:10 Exam(s): US VENOUS BILATERAL LOWER EXTREMITIES EXAM: US Duplex Bilateral Lower Extremities Veins CLINICAL HISTORY: Reason for exam: DVT r/o. TECHNIQUE: Real-time duplex ultrasound scan of the bilateral lower extremity veins integrating B-mode two-dimensional vascular structure, Doppler spectral analysis, color flow Doppler imaging and compression. COMPARISON: None. FINDINGS: Right deep veins: Unremarkable. No DVT in the right common femoral, femoral, proximal deep femoral or popliteal veins. The veins demonstrate normal color flow, are normally compressible, with normal phasic flow and/or augmentation response. Right superficial veins: Indeterminate calcification within the right superficial saphenous vein at the level of the popliteal region, clinical significance indeterminate. No thrombus in the visualized right great saphenous vein. Left deep veins: Unremarkable. No DVT in the left common femoral, femoral, proximal deep femoral or popliteal veins. The veins demonstrate normal color flow, are normally compressible, with normal phasic flow and/or augmentation response. Left superficial veins: Unremarkable. No thrombus in the visualized left great saphenous vein. Soft tissues: No acute findings. No popliteal cyst. IMPRESSION: No ultrasonographic evidence of deep venous thrombosis involving the bilateral lower extremities. Electronically signed by: Marixa Weaver MD 10/29/23 23:55 PM Pending Results Patient Have Any Pending Studies at Discharge: No Discharge Instructions Given to Patient (Per Discharging Provider) Ms. De Guzman, Trevon were hospitalized after being short of breath at home. It was found that you had rhino/enterovirus and also in an abnormal heart rhythm. This was found to be atrial flutter and you underwent cardioversion with Dr. Butler on 10/30 and have remained in normal rhythm since. You are at risk for returning to that rhythm and that is why you met with Dr. Maldonado. We also did an echocardiogram (ultrasound of your heart) that showed acute heart failure with a reduce ejection fraction. You met Miladys Meza, of the heart failure clinic, who will follow up with you and help medically optimize your heart. We are hopeful with medical optimization that your heart function will improve. With heart failure it is important to monitor your salt intake and to weight yourself everyday. 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 I have attached some information regarding this for you. Changes from your visit: - Eliquis 5mg twice a day, this is a blood thinner for stroke prevention (atrial flutter puts you at higher risk for strokes) - Metoprolol 50mg every morning, this is to help control you heart rate - Entresto - 1 tab, twice a day, this is to hlep treat heart failure Activity: You can do normal everyday activities as your body allows. Take rest breaks if you feel tired. Do not overexert. Stop activity if you have pain, shortness of breath or feel dizzy. Follow-up appointments: Make an appointment with your primary care physician within one week of discharge. A copy of this summary will be sent to them. Every time you see your primary care physician, or any other doctor, bring your medication list, and a list of questions. CONTACT YOUR PRIMARY CARE PROVIDER if you experience any of the following: Shortness of breath or difficulty breathing Fevers or chills Feeling tired with normal activity or experiencing dizziness or fainting Difficulty following your treatment plan, or difficulty taking medications CALL 911 OR GO TO THE EMERGENCY DEPARTMENT if you experience any of the following: Severe abdominal pain or nausea/vomiting Severe chest pain, or chest pain that radiates (moves) to your jaw or arm Sudden, severe shortness of breath or difficulty breathing Thank you for allowing us to participate in your care. Total Time Total Time Spent Total Time Spent (In Minutes): Time spend day of discharge 40 minutes including direct patient care, medication reconciliation, documentation, review of labs and images, and coordination of care. Coding Level of Care Code 04287 INP/OBS DISCH >30 MIN Diagnoses Enterovirus infection B34.1 Atrial flutter I48.92 Acute HFrEF (heart failure with reduced ejection fraction) I50.21 Elevated troponin R79.89 S/P mitral valve repair Z98.890
--- NOTE | 2023-11-01 19:36 | Cardiology Consultation ---
Date of Consultation November 01, 2023 Assessment & Plan (1) Acute HFrEF (heart failure with reduced ejection fraction): (2) Cardiomyopathy: (3) Atrial flutter: Plan ASSESSMENT/PLAN: 1. Atrial flutter: Successful cardioversion on 10/31/2023. We discussed options for treatment going forward. While ablation for typical isthmus dependent right atrial flutter is generally quite successful and may obviate the need for ongoing anticoagulation, her presenting arrhythmia was not suggestive of atypical flutter. Additionally, she has had a mitral valve repair, and ASD repair and a dilated cardiomyopathy. All of these would suggest the possibility of an alternate, atypical atrial flutter. As such, ablation may be more difficult and less successful. I did not recommend immediate referral for a flutter ablation. If this procedure is indicated it would be best performed at a tertiary center given the atypical appearance of the arrhythmia. At this point I think we can simply monitor her for recurrence. I do not think there has an urgent indication for amiodarone or other antiarrhythmics. If she had returned to atrial flutter in short order repeat cardioversion after starting amiodarone would be my recommendation followed by referral for possible catheter based therapy. She should continue systemic anticoagulation indefinitely. 2. Acute heart failure with reduced EF: She appears euvolemic. Symptoms have improved with christian of sinus rhythm. 3. Cardiomyopathy: Could be due to tachycardia given her arrhythmia. Started on medical therapy and scheduled for re-evaluation. History of Present Illness Reason for Consultation: Atrial flutter Requesting Physician: Maria Luisa Attending Physician: Davis Finn MD History of Present Illness The patient is a 78-year-old woman with a remote history of cardiac disease to include mitral valve repair and ASD repair. This appears to have been performed with minimally invasive approach. Recently she has been developing some symptoms of exercise intolerance. She also noticed some mild dizziness lightheadedness and exertional dyspnea. She was noted to have a high heart rate and presented to the emergency room where she was noted to have what appeared to be in atrial flutter. Based on the nature of her symptoms she underwent a transesophageal echocardiogram and cardioversion. The patient is currently feeling well. She states that normally she is quite active and does not report symptoms of dyspnea on exertion. She has not noticed any high heart rates previously and generally is not aware of palpitations. Allergies Allergy/AdvReac Type Severity Reaction Status Date / Time shellfish derived Allergy Severe COULDN'T Verified 10/29/23 19:48 BREATH; SWELLING lisinopril Allergy Intermediate full body Verified 10/29/23 19:48 itching raloxifene [From Evista] Allergy Verified 10/29/23 19:49 amoxicillin [From Augmentin] AdvReac Intermediate BLOODY Verified 10/29/23 19:48 DIAHRREA clavulanic acid AdvReac Intermediate BLOODY Verified 10/29/23 19:48 [From Augmentin] DIAHRREA methimazole AdvReac Intermediate SWELLING Verified 10/29/23 19:48 OF JOINTS iodine AdvReac Mild Nausea Verified 10/29/23 19:48 cefdinir AdvReac Verified 10/29/23 19:49 Home Medications Medication Instructions Recorded Confirmed Type cholecalciferol (vitamin D3) 25 1,000 unit PO QAM 02/04/19 10/29/23 History mcg (1,000 unit) tablet (Vitamin D3) psyllium husk 0.4 gram capsule 0.4 g PO QAM 10/29/23 10/29/23 History (Metamucil) vibegron 75 mg tablet 75 mg PO HS 10/29/23 10/29/23 History apixaban 5 mg tablet (Eliquis) 5 mg PO BID #60 tabs 11/01/23 Rx metoprolol succinate 50 mg 50 mg PO QAM 30 days #30 tabs 11/01/23 Rx tablet,extended release 24 hr sacubitril 24 mg-valsartan 26 mg 1 tab PO BID #30 tabs 11/01/23 Rx tablet (Entresto) Patient History Medical History Bladder dysfunction DVT prophylaxis HTN (hypertension) Nausea & vomiting Abdominal pain, acute, periumbilical Non-functioning kidney Hypomagnesemia PMR (polymyalgia rheumatica) Amnesia, global, transient SBO (small bowel obstruction) Right otitis media Kidney stones Surgical History H/O atrial septal defect repair History of sacrocolpopexy S/P BSO (bilateral salpingo-oophorectomy) History of hysterectomy, supracervical Hx of cholecystectomy Family History Father Myocardial infarction Mother Alzheimer disease Grandmother (Paternal) Breast cancer Son Schizophrenia Other Heart disease Denies family history of Ovarian cancer Colorectal cancer Social History Smoking Status: Never smoker Hx Alcohol Use: Yes Alcohol type: wine Hx Substance Use: No Preferred Language: Tajik Communication Ability: Effective Visual Impairment: No Limitations Hearing Ability: Normal 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 Mood affect appear normal. She answered all questions appropriately. HEENT: Sclerae are anicteric. Pupils are equal and reactive to light and accommodation. Extraocular movements were intact. Neuro: Cranial nerves intact Lungs: Lungs are clear to auscultation bilaterally. There are no rales wheezes or rhonchi. She has normal respiratory effort without use of accessory muscles. There is normal pulmonary excursion. Cardiac: The rhythm was regular. S1 and S2 were normal. There are no murmurs on examination. The PMI was not markedly displaced on palpation. Extremities: Patient has bilateral radial pulses that are equal in intensity. There is no evidence cyanosis or clubbing. There was no evidence of significant peripheral edema bilaterally. Skin: There are no rashes noted on examination today. Results & Data Vital Signs (Past 12 Hours) Vital Signs Temp Pulse Pulse Pulse Resp BP Pulse Ox 11/01/23 16:20 36.4 C L 62 61 18 123/62 95 11/01/23 11:32 36.4 C L 61 18 123/62 95 11/01/23 10:00 51 L 11/01/23 07:42 36.4 C L 55 L 18 133/84 96 O2 Del Method 11/01/23 16:20 11/01/23 11:32 Room Air 11/01/23 10:00 11/01/23 07:42 Room Air Diagnostic Findings Echocardiogram dated 10/30/2023: Severely reduced LV systolic function with ejection fraction 25%. Mild LVH. Severe biatrial dilation. Mild aortic regurgitation. Mild aortic stenosis. Mildly dilated aortic root. PG Care Time/CCT Total # of Minutes Spent Total Time Spent with Patient: Total time spent is greater than 50% in coordination of care (as documented) at patient's floor/unit and/or counseling patient: Coding Level of Care Code 50972 INT INP/OBS CARE MIN Diagnoses Acute HFrEF (heart failure with reduced ejection fraction) I50.21 Cardiomyopathy I42.9 Atrial flutter I48.92
--- NOTE | 2023-11-01 23:04 | Electrocardiogram Report ---
Test Reason : Blood Pressure : / mmHG Vent. Rate : 116 BPM Atrial Rate : 116 BPM P-R Int : 146 ms QRS Dur : 124 ms QT Int : 384 ms P-R-T Axes : 000 -27 056 degrees QTc Int : 534 ms Poor data quality, interpretation may be adversely affected Atrial flutter with 2 to 1 block with premature ventricular or aberrantly conducted complexes Septal infarct , age undetermined Prolonged QT Abnormal ECG When compared with ECG of 29-OCT-2023 15:28, No significant change Confirmed by Jimmy Butler ([id number]) on 11/01/2023 11:04:16 PM Referred By: REFERRED SELF Confirmed By:Jimmy Butler
--- NOTE | 2023-11-01 23:05 | Electrocardiogram Report ---
Test Reason : Blood Pressure : / mmHG Vent. Rate : 051 BPM Atrial Rate : 051 BPM P-R Int : 198 ms QRS Dur : 114 ms QT Int : 468 ms P-R-T Axes : 039 040 039 degrees QTc Int : 431 ms Sinus bradycardia Possible Left atrial enlargement Borderline ECG When compared with ECG of 31-OCT-2023 05:37, Sinus rhythm has replaced Atrial flutter Vent. rate has decreased BY 61 BPM Premature ventricular complexes are no longer Present Confirmed by Jimmy Butler ([id number]) on 11/01/2023 11:05:32 PM Referred By: REFERRED SELF Confirmed By:Jimmy Butler
--- NOTE | 2023-11-01 23:05 | Electrocardiogram Report ---
Test Reason : Blood Pressure : / mmHG Vent. Rate : 112 BPM Atrial Rate : 220 BPM P-R Int : 000 ms QRS Dur : 110 ms QT Int : 390 ms P-R-T Axes : 242 -28 -49 degrees QTc Int : 532 ms Atrial flutter with variable A-V block with premature ventricular or aberrantly conducted complexes Possible Septal infarct (cited on or before 30-OCT-2023) Prolonged QT Abnormal ECG When compared with ECG of 30-OCT-2023 10:19, No significant change Confirmed by Jimmy Butler ([id number]) on 11/01/2023 11:04:52 PM Referred By: REFERRED SELF Confirmed By:Jimmy Butler
--- NOTE | 2023-11-01 23:07 | Electrocardiogram Report ---
Test Reason : Blood Pressure : / mmHG Vent. Rate : 068 BPM Atrial Rate : 054 BPM P-R Int : 206 ms QRS Dur : 110 ms QT Int : 444 ms P-R-T Axes : 057 -48 059 degrees QTc Int : 472 ms Sinus rhythm with junctional escape complexes and PVCs Left axis deviation Abnormal ECG When compared with ECG of 31-OCT-2023 12:50, QRS axis Shifted left Premature ventricular complexes are now Present Nonspecific T wave abnormality no longer evident in Anterior leads Confirmed by Jimmy Butler ([id number] on 11/01/2023 11:06:47 PM Referred By: REFERRED SELF Confirmed By:Jimmy Butler
[2023-11-02] MEDS ORDERED: METOPROLOL SUCC 50MG EXT REL TAB PO SCH (09:00)
== END 2023-11-01 17:33 | disposition home or self-care (01) | DRG 308 ==
LOC: 2S 15:14 → ED 15:14 → SUATTDRO 20:26 → 2S 10-30 01:09 → SUATTDRO 10-31 10:54
DX: I50.21 Acute systolic (congestive) heart failure; E85.89 Other amyloidosis; J44.9 Chronic obstructive pulmonary disease, unspecified; I08.2 Rheumatic disorders of both aortic and tricuspid valves; I11.0 Hypertensive heart disease with heart failure; Z88.1 Allergy status to other antibiotic agents; B34.8 Other viral infections of unspecified site; I49.3 Ventricular premature depolarization; I31.9 Disease of pericardium, unspecified; I48.92 Unspecified atrial flutter; I24.89 Other forms of acute ischemic heart disease; Z88.8 Allergy status to other drugs, medicaments and biological substances; I47.20 Ventricular tachycardia, unspecified; I42.8 Other cardiomyopathies